=== PATIENT | female | born 1950 | race Caucasian/White ===

== ENCOUNTER → 2016-10-20 | Outpatient (CLI) | payer MEDICARE ==
[~2016-10-20] MED LIST: ALBU8.5H2 INH; BUDE6HFA IH; DIPH1TAB45 PO; HCT25T PO; HCTZ12.5T; HYDR25TA4 PO; KCL20TCR PO; LVT.1T PO; MULT1TAB63 PO; ONDAN4ODT PO; POTA10CA43 PO; PROP20TA23; PROP60CA17 PO; PROP60TA16 PO; SULF1TAB23 PO
[2016-10-20 11:40] LABS: ALANINE AMINOTRANSFERASE 25 U/L (0-55); ALBUMIN 4.3 G/DL (3.2-4.5); ANION GAP 11 MMOL/L (5-14); ASPARTATE AMINO TRANSFERASE 21 U/L (5-34); BILIRUBIN,TOTAL 0.9 MG/DL (0.1-1.0); BLOOD UREA NITROGEN 14 MG/DL (7-18); BUN/CREATININE RATIO 19; CALCIUM 10.6 MG/DL (8.5-10.1); CARBON DIOXIDE 24 MMOL/L (21-32); CHLORIDE 106 MMOL/L (98-107); CREATININE SERUM 0.73 MG/DL (0.60-1.30); GFR ESTIMATED > 60; GLUCOSE 110 MG/DL (70-105); MAGNESIUM 2.2 MG/DL (1.8-2.4); SODIUM 141 MMOL/L (135-145); TOTAL PROTEIN 7.7 G/DL (6.4-8.2)
[2016-10-20 11:59] LABS: THYROID STIMULATING HORMONE 1.17 UIU/ML (0.35-4.94)
[2016-10-20 12:12] LABS: PHOSPHORUS 2.9 MG/DL (2.3-4.7)
[2016-10-23 07:22] LABS: CALCIUM PARA THYROID HORMONE 10.4 mg/dL (8.5-10.5)
== END | disposition home or self-care (01) ==
LOC: LAB 10:44
PROVIDERS: ATTEND Internal Medicine Endocrinology, Diabetes & Metabolism
DX: E83.52 Hypercalcemia (principal)
CPT/HCPCS: 36415; 80053; 82306; 83735; 83970; 84100; 84443

== ENCOUNTER → 2017-06-19 | Outpatient (CLI) | payer MEDICARE ==
--- NOTE | 2017-06-19 11:14 | Diagnostic Imaging Report ---
PROCEDURE: MRI right joint lower extremity without contrast. TECHNIQUE: Multiplanar, multisequence non contrast-enhanced MRI of the right lower extremity was accomplished. INDICATION: Knee pain. FINDINGS: The previous MRI right knee exam of 11/20/2007 did suggest a small tear along the free edge of the midportion of the medial meniscus. The major ligaments and tendons appear to be intact. There is no sign of an acute bony abnormality. The subsequent CT right knee exam of 04/20/2016 failed to show any sign of acute bony abnormality. There was degenerative disease involving the knee joint and there did appear to be a small joint effusion containing a few calcific densities. On the proton dense sagittal series of this exam, the midportion of the medial meniscus has been torn and has partially degenerated. There is also blunting of the anterior and posterior horns of the medial meniscus and there does appear to be a tear involving the posterior horn of the medial meniscus as well. The posterior horn of the lateral meniscus also has some irregular appearance and I suspect it is torn as well. The anterior and posterior cruciate ligaments, the quadriceps and infrapatellar tendons, the collateral ligaments, the biceps femoris tendon and iliotibial band are intact. There is no sign of a tear of either medial or lateral retinaculum. There is no abnormal signal arising from the osseous structures to suggest bone edema or fracture. The degenerative changes involving the knee joint seen on the previous CT exam do not appear to have progressed. There is fairly severe degenerative disease of the articular surfaces of the medial femoral condyle and to a lesser extent the lateral femoral condyle. There is also narrowing of the patellofemoral space. The small joint effusion loose body seen on the previous study is again evident and no different. IMPRESSION: 1. The midportion of the medial meniscus has been torn and has degenerated. There is also tear of the posterior horn of the medial meniscus. The posterior horn of lateral meniscus is torn as well. 2. The major ligaments and tendons are intact. 3. There is no acute bony abnormality noted. 4. The degenerative disease involving the knee joint seen on the prior exam does not appear to have progressed. Dictated by: Dictated on workstation # [id number]
== END ==
LOC: RAD 09:07
PROVIDERS: ATTEND Orthopaedic Surgery
DX: S83.241A Other tear of medial meniscus, current injury, right knee, initial encounter (principal); S83.281A Other tear of lateral meniscus, current injury, right knee, initial encounter; M17.11 Unilateral primary osteoarthritis, right knee
CPT/HCPCS: 73721

== ENCOUNTER 2018-11-07 10:15 | Outpatient (RCR) | payer MEDICARE | END 2018-11-07 13:00 | disposition home or self-care (01) | PROVIDERS: ATTEND Neurological Surgery | DX: M47.897 Other spondylosis, lumbosacral region (principal); M46.1 Sacroiliitis, not elsewhere classified ==

== ENCOUNTER → 2018-11-26 | Outpatient (CLI) | payer MEDICARE ==
--- NOTE | 2018-11-26 15:01 | Diagnostic Imaging Report ---
INDICATION: Heel pain. FINDINGS: Lateral and Arreola views of the calcaneus reveal mild posterior and plantar calcaneal spurring. There is no evidence of an acute fracture. There is no abnormal lytic or sclerotic focus. There is no evidence of bone destruction. IMPRESSION: Marginal spurring about the posterior and plantar aspects of the calcaneus without acute abnormality detected. Dictated by: Dictated on workstation # [id number]
== END ==
LOC: RAD 14:23
PROVIDERS: ATTEND Nurse Practitioner Family
DX: M77.31 Calcaneal spur, right foot (principal)
CPT/HCPCS: 73650

== ENCOUNTER 2019-01-22 15:52 | Outpatient (RCR) | payer MEDICARE | END 2019-03-13 | disposition home or self-care (01) | PROVIDERS: ATTEND Podiatrist | DX: M77.31 Calcaneal spur, right foot (principal) ==

== ENCOUNTER → 2019-04-17 | Outpatient (CLI) | payer MEDICARE ==
--- NOTE | 2019-04-21 08:47 | Diagnostic Imaging Report ---
INDICATION: Screening The current study was also evaluated with a Computer Aided Detection (CAD) system. 3-D Tomographic imaging was also performed. Comparison made with prior examination of 11/29/2015. FINDINGS: The fibroglandular tissues are heterogeneously dense bilaterally. There are a few benign type calcifications. There is no dominant mass, spiculated lesion or suspicious calcification identified. Skin and nipples and axilla are unremarkable. IMPRESSION: Category 2 benign. ACR BI-RADS Category 2: Benign findings. Result letter will be mailed to the patient. Note: At least 10% of breast cancer is not imaged by mammography. Dictated by: Dictated on workstation # [id number]
== END ==
LOC: RAD 15:03
PROVIDERS: ATTEND Nurse Practitioner Family
DX: Z12.31 Encounter for screening mammogram for malignant neoplasm of breast (principal)
CPT/HCPCS: 77067

== ENCOUNTER 2020-02-05 05:36 | Outpatient (RCR) | payer MEDICARE ==
[~2020-02-05] VITALS: Ht 172.7 cm; Wt 104.5 kg
[~2020-02-05 05:36] MED LIST changes: +BACL10TA PO; +CHOL10002 PO; +GABA300C PO; +LEVO100T7 PO; +MULT-567 PO; +POTA10TA36 PO; +PROP60TA17 PO
== END 2020-02-05 09:42 | disposition home or self-care (01) ==
LOC: PREOP 05:36
PROVIDERS: ATTEND Podiatrist Foot & Ankle Surgery
DX: Z01.812 Encounter for preprocedural laboratory examination (principal); Z20.828 Contact with and (suspected) exposure to other viral communicable diseases
CPT/HCPCS: 87635

== ENCOUNTER 2020-02-09 06:00 | Day surgery (SDC) | payer MEDICARE ==
[2020-02-09] VITALS (11 sets, daily range): BP systolic 129–146; BP diastolic 75–101
[~2020-02-09] VITALS: Ht 172.7 cm; Wt 104.5 kg
[2020-02-09] MEDS ORDERED: ceFAZolin INJECTION 1,000 MG in WATER (STERILE) FOR INJECTION 10 ML IV ONE (06:15)
[2020-02-09] MEDS: LACTATED RINGERS 1,000 ML IV PRN ×2 (06:44→08:56)
[2020-02-09] MEDS ORDERED: LIDOCAINE 1% INJ 20 ML 20 ML VIAL ONE (07:15)
[2020-02-09] MEDS ORDERED: BUPIVACAINE 0.5% 30 ML (SENSORCAINE) VIAL ONE (07:15)
[2020-02-09] MEDS ORDERED: MIDAZOLAM 2 MG/2 ML (VERSED) VIAL ONE (07:30)
[2020-02-09] MEDS ORDERED: fentaNYL INJECTION 100 MCG/2 ML AMP ONE (07:30)
--- NOTE | 2020-02-09 07:43 | Progress Note-Pre Operative ---
Pre-Operative Progress Note H&P Reviewed The H&P was reviewed, patient examined and no changes noted. Date Seen by Provider: Feb 09, 2020 Time Seen by Provider: 07:42 Date H&P Reviewed: Feb 09, 2020 Time H&P Reviewed: 07:42 Pre-Operative Diagnosis: Achilles tendinosis, Exostosis calcaneus, right NOAH CARTER DPM Feb 09, 2020 07:43
[2020-02-09] MEDS ORDERED: LACTATED RINGERS 1,000 ML IV SCH (09:46)
--- NOTE | 2020-02-09 09:46 | Progress Note-Post Operative ---
Post-Operative Progess Note Surgeon (s)/[facility] Office Supervisor (s) Surgeon NOAH CARTER DPM [facility] Office Supervisor: None Pre-Operative Diagnosis Achilles tendinosis, Exostosis calcaneus, right Post-Operative Diagnosis Same Procedure & Operative Findings Date of Procedure 02/09/20 Procedure Performed/Findings Achilles Tendon Repair, Exostectomy, right foot Anesthesia Type General Estimated Blood Loss Estimated blood loss (mL): Minimal Specimens/Packing Specimens Removed Exostosis, Achilles Tendon NOAH CARTER DPM Feb 09, 2020 09:46
[2020-02-09] MEDS ORDERED: CEPH500C PO (09:50)
[2020-02-09] MEDS ORDERED: ACHD5005 PO (09:50)
[2020-02-09] MEDS ORDERED: morphine INJ 10 MG/ML 1ML (SYR OR VIAL) IVP ONE (10:00)
[2020-02-09] MEDS ORDERED: HYDROcodone/APAP 5 MG/325 MG (LORTAB) TAB PO PRN (10:00)
[2020-02-09] MEDS ORDERED: ONDANSETRON 4 MG/2 ML (SDV) Z0FRAN IVP PRN (10:00)
[2020-02-09] MEDS ORDERED: HYDROmorphone 2 MG/ML VIAL (DILAUDID) IV ONE (10:00)
[2020-02-09] MEDS ORDERED: morphine INJ 10 MG/ML 1ML (SYR OR VIAL) ONE (10:00)
[2020-02-09] MEDS ORDERED: proPOfol 200 MG/20 ML (DIPRIVAN) VIAL IV ONE (10:24)
[2020-02-09] MEDS ORDERED: LIDOCAINE PF 2% 5 ML (XYLOCAINE) VIAL ONE (10:24)
[2020-02-09] MEDS ORDERED: ROCURONIUM 10 MG/ML 5 ML SYRINGE IV ONE (10:24)
[2020-02-09] MEDS ORDERED: ONDANSETRON 4 MG/2 ML (SDV) Z0FRAN ONE (10:24)
[2020-02-09] MEDS ORDERED: SEVOFLURANE (ULTANE) 15 ML INHAL SOLN ONE ×2 (10:24→10:25)
--- NOTE | 2020-02-09 10:37 | Anesthesia-General Post-Op ---
General Patient Condition Mental Status/LOC: Same as Preop Cardiovascular: Satisfactory Nausea/Vomiting: Absent Respiratory: Satisfactory Pain: Controlled Complications: Absent Post Op Complications Complications None Follow Up Care/Instructions Patient Instructions None needed. Anesthesia/Patient Condition Patient Condition Patient is doing well, no complaints, stable vital signs, no apparent adverse anesthesia problems. No complications reported per nursing. WILMAR MADSEN CRNA Feb 09, 2020 10:37
[2020-02-09] MEDS ORDERED: ONDANSETRON 4 MG/2 ML (SDV) Z0FRAN IVP ONE (11:00)
--- NOTE | 2020-02-09 11:05 | Diagnostic Imaging Report ---
EXAMINATION: Right foot at 9:54 AM. INDICATION: Postop. TECHNIQUE: Two views of the right foot were obtained. FINDINGS: The right heel exam performed on 11/26/2018 noted marginal spurring about the posterior and plantar aspects of the calcaneus but failed to show any sign of an acute bony abnormality. In the interval since the prior exam, the calcified enthesophyte along the posterior aspect of the calcaneus has been removed. There are now two surgical clips evident in this area. The calcaneal spur seen previously is again evident and no different. There is no fracture or acute bony abnormality identified. The soft tissues are unremarkable. There is an external support device in place along the plantar aspect of the foot and the posterior aspect of the ankle joint. IMPRESSION: There are post operative changes involving the posterior aspect of the calcaneus. There is no acute abnormality identified. Dictated by: Dictated on workstation # [id number]
--- NOTE | 2020-02-09 11:42 | Physical Therapy Progress Note ---
Therapy Progress Note PT visited with patient and spouse on POC returning to home. Both voice they will utilize w/c to enter home with assist of spouse and son. In home, patient will utilize knee scooter and voices she will not use a FWW due to inability to safely "hop". Patient report she has been practicing on the knee scooter and feels comfortable and safe. No PT indicated. (son is also a PT and patient states he will assist as needed). 1 visit ([id number]) SALLY MCDOWELL PT Feb 09, 2020 11:42
--- NOTE | 2020-02-09 14:39 | OPERATIVE REPORT ---
DATE OF SERVICE: 02/09/2020 SURGEON: mEily Carter DPM. PREOPERATIVE DIAGNOSES: 1. Achilles tendinosis. 2. Exostosis, right calcaneus. POSTOPERATIVE DIAGNOSES: 1. Achilles tendinosis. 2. Exostosis, right calcaneus. PROCEDURES: 1. Achilles tendon repair, right. 2. Exostectomy, right calcaneus. WOUND CLASS: Clean. ANESTHESIA: General. HEMOSTASIS: Pneumatic thigh tourniquet at 300 mmHg. INDICATIONS: This 69-year-old female presents complaining of chronic pain to the back of her right heel and to the distal Achilles tendon. Conservative treatment has met with unsatisfactory results and the patient is agreeable to surgical intervention after risks and complications were discussed at length. No guarantees were extended to the patient and she is willing to proceed. DESCRIPTION OF PROCEDURE: The patient was brought back to the operating table, placed in secure supine position. A general anesthetic was induced on the transfer table after which she was securely placed in a prone position on the operating table. Appropriate timeout was performed. Local anesthetic was then introduced into the perioperative site of the right posterior calcaneus and Achilles tendon utilizing 1:1 mixture of 1% Xylocaine, 0.5% Marcaine of 12 mL total, utilizing aseptic technique. The right lower extremity had a thigh tourniquet placed. The right foot and ankle were then prepped and draped in normal sterile manner. The right foot was then elevated, allowed to exsanguinate after which the tourniquet was inflated to 300 mmHg. Attention was then directed to the posterior aspect of the right distal Achilles tendon and posterior calcaneus where a 5 cm curvilinear incision was made medial to midline and extended inferiorly and then more centrally. The incision was deepened in the same plane with great care to identify and retract all vital neurovascular structures. The incision was deepened down to the paratenon, where a longitudinal incision was made. The peritenon was reflected medially and laterally, exposing a large posterior eminence to the Achilles tendon just superior to its insertion. A longitudinal incision was made to the Achilles tendon where there is some good quality white fibrous band that was noted, but deeper it was some more yellow, dystrophic changes to the Achilles tendon. The sharp dissection was carried out to debulk the Achilles tendon and reduce the more fibrotic dystrophic fibers. These fibers were sent for gross and microscopic evaluation. The longitudinal central incision to the Achilles tendon was carried down to bone where the posterior exostosis to the calcaneus was palpated with the blade. The exostosis or bone spur was then sharply dissected away from the attachments at the Achilles tendon. Utilizing an osteotome and mallet, the exostosis was removed from the posterior calcaneus and further contoured and smoothed with a power rasp. The wound was flushed with copious amounts of normal saline. No other abnormalities to the central portion of the calcaneus posterior aspect was identified. Prior to closure; however, the tissue was reapproximated in its anatomical position and palpating along the posterior aspect of the calcaneus and Achilles tendon. There is a bony prominence to the dorsal posterior lateral aspect of the superior calcaneus consistent with a Ramandeep's deformity. Through the midline incision of the Achilles tendon, this bony prominence was visualized. Utilizing the osteotome and mallet, a portion of this bony prominence was reduced. Percutaneous palpation noted good reduction of the bony prominence. The wound was flushed with copious amounts of normal saline and closure. Next, two Mitek anchors were utilized, one was a G2. The other one was the Super Mitek anchor. These were placed to the posterior central aspect of the calcaneus, both medial and lateral to the midline. The Super was placed lateral to midline of the calcaneus. Excellent placement fixation and pullout strength was noted prior to utilizing the supplied suture to reapproximate the Achilles tendon back to the central posterior aspect of the calcaneus. The foot was then placed through dorsiflexion and plantarflexion and good anatomical position and strength was appreciated at this time. A 3-0 Vicryl was utilized to repair the midline incision to the Achilles tendon in a continuous type of stitch. Paratenon was then reapproximated with 3-0 Vicryl. Subcutaneous tissue was reapproximated with 4-0 Vicryl and skin closure with 4-0 Prolene in a horizontal mattress type stitch. Postoperative injection consisted of 10 mL of 1:1 mixture of 1% Xylocaine, 0.5% Marcaine injected in a local infusion to the surgical site. Postoperative dressing consisted of Betadine soaked Adaptic, sterile 4 x 4, sterile Kerlix, all secured with soft roll, ABDs, posterior splint and an Federico wrap. The patient tolerated the anesthesia and procedure well and was transported to the recovery area with vital signs stable and vascular status intact to all digits of the right foot. She is to remain nonweightbearing postoperatively and follow up in my office in 10 days' period of time. She was given a prescription for Keflex and hydrocodone. Job ID: [id number] DocumentID: [id number] Dictated Date: 02/09/2020 10:01:10 Machinist Mate Date: 02/09/2020 14:37:38 Dictated By: EMILY CARTER DPM
== END 2020-02-09 11:50 | disposition home or self-care (01) ==
LOC: SDC 06:00
PROVIDERS: ATTEND Podiatrist Foot & Ankle Surgery
DX: M76.61 Achilles tendinitis, right leg (principal); M89.8X7 Other specified disorders of bone, ankle and foot; G89.29 Other chronic pain; I10 Essential (primary) hypertension; E03.9 Hypothyroidism, unspecified; E66.9 Obesity, unspecified; Z68.35 Body mass index [BMI] 35.0-35.9, adult; Z79.899 Other long term (current) drug therapy
CPT/HCPCS: 27650; 28118; 73620; 87081; 88304; 88305; 88311; C1713

== ENCOUNTER → 2020-05-25 | Outpatient (CLI) | payer MEDICARE ==
[~2020-05-25] MED LIST changes: +ACHD5005 PO; +CEPH500C PO
--- NOTE | 2020-05-25 13:08 | Diagnostic Imaging Report ---
EXAMINATION: Digital mammogram bilateral screening with CAD. INDICATION: Screening. COMPARISON: This study was compared to the prior exams of 04/17/2019 and 11/29/2015. PERSONAL HISTORY: At this time, there are no current complaints. FINDINGS: The fibroglandular tissue in both breasts is heterogeneously dense. This does limit the sensitivity of this exam. Overall, there does not appear to have been any significant change when compared to the prior study. No primary or secondary sign of malignancy is noted. IMPRESSION: There is no radiographic evidence for malignancy. ACR BI-RADS Category 1: Negative. Result letter will be mailed to the patient. Note: At least 10% of breast cancer is not imaged by mammography. Dictated by: Dictated on workstation # [id number]
== END ==
LOC: RAD 09:27
PROVIDERS: ATTEND Family Medicine
DX: Z12.31 Encounter for screening mammogram for malignant neoplasm of breast (principal)
CPT/HCPCS: 77063; 77067

== ENCOUNTER → 2020-12-30 | Outpatient (RCR) | payer MEDICARE ==
[~2020-12-30] MED LIST changes: +CHOL-34 PO; -CHOL10002 PO
== END | disposition home or self-care (01) ==
PROVIDERS: ATTEND Podiatrist Foot & Ankle Surgery
DX: M76.61 Achilles tendinitis, right leg (principal); Z98.1 Arthrodesis status
CPT/HCPCS: 97162; G0283

== ENCOUNTER → 2021-02-15 | Outpatient (CLI) | payer MEDICARE ==
--- NOTE | 2021-02-15 13:48 | Diagnostic Imaging Report ---
INDICATION: Postmenopausal state, N95.9 COMPARISON: 12/02/2015 FINDINGS: AP Spine L1-L4: [BMD (g/cm2): na] [T-Score: na] [Z-Score: na] [BMD Previous: na] [BMD % Change: na] LT Hip Neck: [BMD (g/cm2): 0.873] [T-Score: -1.2] [Z-Score: -0.2] LT Hip Total: [BMD (g/cm2):0.916] [T-Score:-0.7] [Z-Score: -0.1] [BMD Previous: 0.958] [BMD % Change: -4.4] RT Hip Neck: [BMD (g/cm2):0.804] [T-Score:-1.7] [Z-Score:-0.7] RT Hip Total: [BMD (g/cm2):0.880] [T-score:-1.0] [Z-Score:-0.4] [BMD Previous:0.917] [BMD % Change:-4.0] *Indicates significant change from prior examination based on 95% confidence level. World Health Organization criteria for BMD interpretation classify patients as Normal (T-score at or above -1.0), Osteopenic (T-score between -1.0 and -2.5) or Osteoporotic (T-score at or below -2.5). LIMITATIONS AND MODIFICATION: The lumbar spine was not evaluated secondary to postsurgical changes. FRACTURE RISK (FRAX SCORE): The ten year probability of (%): Major Osteoporotic Fracture: [9.6] Hip Fracture: [1.5] IMPRESSION: 1. Osteopenia (Low bone mass). 2. No significant change in bone mineral density since prior examination. 3. See below National Osteoporosis Foundation guidelines on when to potentially initiate pharmacologic therapy. Based on the National Osteoporosis Foundation Guidelines, pharmacologic treatment should be initiated in any of the following, unless clinical conditions suggest otherwise: * Any patient with prior fragility fracture of the hip or vertebrae. A spine fracture indicates 5X risk for subsequent spine fracture and 2X risk for subsequent hip fracture. * Osteoporosis (T-score <-2.5). * Postmenopausal women and men age 50 and older with low bone mass/osteopenia (T-score between -1.0 and -2.5) by DXA and 10-year major osteoporotic fracture greater than 20% or a 10-year probability of hip fracture greater than 3%. These fracture risks are supplied above in the FRAX score, if applicable. * Clinician judgement and/or patient preferences may indicate treatment for people with 10-year fracture probabilities above or below these levels. Dictated by: Dictated on workstation # [id number]
== END ==
LOC: RAD 13:00
PROVIDERS: ATTEND Nurse Practitioner Family
DX: M85.80 Other specified disorders of bone density and structure, unspecified site (principal); N95.9 Unspecified menopausal and perimenopausal disorder
CPT/HCPCS: 77080

== ENCOUNTER → 2021-04-06 | Outpatient (CLI) | payer MEDICARE ==
[~2021-04-06] MED LIST changes: -POTA10TA36 PO; +POTA10TA37 PO
--- NOTE | 2021-04-06 13:37 | Diagnostic Imaging Report ---
PROCEDURE: MRI lumbar spine. TECHNIQUE: Multiplanar, multisequence MRI of the lumbar spine was performed without contrast. DATE: April 06, 2021. COMPARISON: MRI lumbar spine May 26, 2011. INDICATION: 70-year-old female, low back pain. History of prior spinal fusion. FINDINGS: There is posterior spinal fusion hardware spanning L1 through L5. There is associated hardware related artifact. There is partial ankylosis across the L2-L3, L3-L4, and L4-L5 disc spaces. The L5-S1 disc space is well preserved. There is moderate disc height loss at L1-L2. There is severe disc height loss at T10-T11, T11-T12, and T12-L1. There is no evidence of a diffuse marrow infiltrating process. There is no identified compression deformity or other fracture. There is chronic appearing bone remodeling on the right at the level of L4-L5. At this location, there is a lateral defect in the right thecal sac and pseudomeningocele measuring approximately 2.2 x 2.1 cm in size. This is notably increased in size since May 26, 2011. There is no adjacent marrow edema. There are degenerative related Modic changes of the lower thoracic spine. There are multilevel laminectomy changes of the lumbar spine. T10-T11: There is diffuse disc bulge. The foramen are not completely imaged. There is mild spinal stenosis. T11-T12: There is mild diffuse disc bulge with mild right foraminal narrowing. There is no high-grade spinal stenosis. T12-L1: There is diffuse disc bulge. There are mild bilateral facet degenerative changes with mild ligamentum flavum hypertrophy. There is no foraminal stenosis. There is moderate spinal stenosis. L1-L2: There is no disc bulge. There are bilateral laminectomy changes. There is no foraminal narrowing. There is no spinal canal stenosis. L2-L3: There is no disc bulge. There are bilateral laminectomy changes. There is no foraminal narrowing. There is no spinal canal stenosis. L3-L4: There is no disc bulge. There are bilateral laminectomy changes. There is no foraminal narrowing. There is no spinal canal stenosis. L4-L5: There is no disc bulge. There are bilateral laminectomy changes. As mentioned above, there is right lateral pseudomeningocele. There does appear to be a nerve root extending lateral to the expected margin of the thecal sac within the pseudomeningocele, perhaps best demonstrated on axial T2 sequence image 23. There is no foraminal narrowing. There is no spinal canal stenosis. L5-S1: There is mild diffuse disc bulge. There are advanced facet degenerative changes bilaterally. There is no foraminal narrowing. There is mild spinal canal stenosis. IMPRESSION: 1. Posterior spinal fusion hardware spanning L1 through L5 with multilevel laminectomy changes of the lumbar spine. 2. 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 There is a nerve root extending into the pseudomeningocele. This is a change since the prior MRI. 3. Advanced disc degenerative changes of the lower thoracic spine including moderate spinal stenosis at T12-L1. Dictated by: Dictated on workstation # [id number]
== END ==
LOC: RAD 12:01
PROVIDERS: ATTEND Family Medicine
DX: M48.05 Spinal stenosis, thoracolumbar region (principal); M51.35 Other intervertebral disc degeneration, thoracolumbar region; G96.198 Other disorders of meninges, not elsewhere classified; Z98.1 Arthrodesis status
CPT/HCPCS: 72148

== ENCOUNTER 2021-09-26 16:11 | Inpatient (IN) | payer MEDICARE ==
[~2021-09-26] VITALS: Ht 172.7 cm; Wt 111.1 kg
[2021-09-26 16:20] VITALS: BP 123/80
[2021-09-26] MEDS ORDERED: BACI28.4 TP (16:27)
[2021-09-26] MEDS ORDERED: HYDR-3817 PO ×2 (16:27→17:33)
[2021-09-26] MEDS ORDERED: ALPRAZolam 0.25 MG (XANAX) TAB PO PRN (16:45)
[2021-09-26] MEDS ORDERED: LACTULOSE SYRUP 10GM/15ML (ENULOSE) 30ML UDC PO PRN (16:45)
[2021-09-26] MEDS ORDERED: diphenhydrAMINE 25 MG TAB (BENADRYL) PO PRN (16:45)
[2021-09-26] MEDS ORDERED: DOCUSATE SODIUM 100 MG (COLACE) CAP PO PRN (16:45)
[2021-09-26] MEDS ORDERED: BISACODYL 10 MG SUPP (DULCOLAX) PR PRN (16:45)
[2021-09-26] MEDS ORDERED: LOPERAMIDE 2 MG (IMODIUM) TABLET PO PRN (16:45)
[2021-09-26] MEDS ORDERED: guaiFENesin/CODEINE (ROBITUSSIN AC) 10ML UDC PO PRN (16:45)
[2021-09-26] MEDS ORDERED: ACETAMINOPHEN 325 MG TABLET PO PRN (16:45)
[2021-09-26] MEDS ORDERED: MELATONIN 3 MG TABLET PO PRN (16:45)
[2021-09-26] MEDS ORDERED: FLEET ENEMA ADULT 1 EA BTL PR PRN (16:45)
[2021-09-26] MEDS ORDERED: CALCIUM CARBONATE 500 MG (TUMS) TAB.CHEW PO PRN (16:45)
[2021-09-26] MEDS ORDERED: HYDROcodone/APAP 7.5 MG/325 MG (LORTAB, LORCET PLUS) TABLET PO SCH (17:30)
[2021-09-26] MEDS ORDERED: BACITRACIN OINTMENT 28 GM TUBE TP SCH (17:30)
--- NOTE | 2021-09-26 17:56 | PM&R Post Admission Assessment ---
PM&R Date of Visit: September 26, 2021 Time of Visit: 18:30 History of Present Illness Chief complaint: Debility following lumbar spine surgery by Dr. Gaytan at [facility] History of present illness: This is a 70-year-old white female clinic patient of Dr. Bonilla and Dr. López endocrinology who presented to the inpatient rehab unit following discharge from [facility] 1 hour before after lumbar spine surgery by Dr. Gaytan. She reports that she did not feel like she was ready to go home but was discharged and on the way over to [place] she knew she could not function at home due to severe pain and lack of mobility. They stopped into the ER at [facility] and upon evaluation patient was found to be in need of inpatient rehab admission emergently so patient was assessed and admitted for severe debility. Patient reports that her bowels are moving a little bit but needs more laxatives. Hydrocodone helps with the pain. Patient does not use oxygen or CPAP machine. I have restarted all of her home medication and pain medication. She still works part-time at her 's car [employer]. Past Kbxgpie-Xoqfng-Fvkpjw Hx Past Med/Social Hx: Reviewed Nursing Past Med/Soc Hx, Reviewed and Corrections made Patient Social History Marrital Status: Employed/Student: employed Alcohol Use: Occasionally Uses Smoking Status: Never a Smoker Recent Hopitalizations: No Immunizations Up To Date Date of Influenza Vaccine: Apr 20, 2011 Seasonal Allergies Seasonal Allergies: Yes Past Medical History Surgeries: Orthopedic, Thyroidectomy Cardiac: Hypertension Reproductive: No Gastrointestinal: Gall Bladder Disease Musculoskeletal: Arthritis Endocrine: Hypothyroidsim History of Blood Disorders: No Family History Cancer of colon 19 FATHER, Onset:59 Congestive heart failure G8 SISTER Family history: Diabetes mellitus G8 SISTER Family history: Hypertension 19 FATHER 19 MOTHER Family history: Thyroid disorder 19 MOTHER Kidney disease G8 SISTER PM&R Allergy/Meds/Data Review Allergies Coded Allergies: NKANo Known Allergies (Unverified Allergy, Unknown, 08/08/06) Home Medications Scheduled Bacitracin (Bacitracin), 1 GM TP Q48H Cholecalciferol (Vitamin D3) (Vitamin D3), 1,000 UNITS PO DAILY, (Reported) Gabapentin (Neurontin), 300 MG PO HS, (Reported) Hydrochlorothiazide (Hydrochlorothiazide), 25 MG PO DAILY, (Reported) Levothyroxine Sodium (Levothyroxine Sodium), 100 MCG PO DAILY, (Reported) Potassium Chloride (Potassium Chloride), 10 MEQ PO DAILY, (Reported) Propranolol HCl (Propranolol HCl), 60 MG PO DAILY, (Reported) Scheduled PRN Baclofen (Baclofen), 10 MG PO q 8 hours PRN for MUSCLE SPASMS, (Reported) Hydrocodone/Acetaminophen (Hydrocodone-Acetamin 7.5-325), 1-2 TAB PO Q4H PRN for PAIN Discontinued Medications Cephalexin (Cephalexin), 1 CAP PO TID Discontinued Reason: No Longer Taking Hydrocodone/Acetaminophen (Hydrocodone-Acetamin 5-325 mg), 1 EACH PO Q4H PRN for PAIN-MODERATE (5-7) Discontinued Reason: No Longer Taking Multivitamin (Multivitamins), 1 EACH PO DAILY, (Reported) Discontinued Reason: No Longer Taking Current Medications Current Medications Reviewed Review of Systems Constitutional: see HPI, malaise, weakness EENTM: no symptoms reported Respiratory: no symptoms reported Cardiovascular: no symptoms reported Gastrointestinal: constipation Genitourinary: no symptoms reported Musculoskeletal: back pain Skin: no symptoms reported Psychiatric/Neurological: No Symptoms Reported All Other Systems Reviewed Negative Unless Noted: Yes Physical Exam Physical Exam Vital Signs Vital Signs - First Documented 09/26/21 16:20 Temp 37.0 Pulse 68 Resp 18 B/P (MAP) 123/80 (94) Pulse Ox 95 O2 Delivery Room Air Capillary Refill : Height, Weight, BMI Height: 5'8.00" Weight: 220lbs. 6.4oz. [id number]; 36.61 BMI Method:Stated General Appearance: No Apparent Distress, WD/WN, Obese Eyes: Bilateral Eye Normal Inspection, Bilateral Eye PERRL HEENT: PERRL/EOMI, Normal ENT Inspection, Pharynx Normal Neck: Full Range of Motion, Normal Inspection, Non Tender, Supple, Carotid Bruit Respiratory: Chest Non Tender, Lungs Clear, Normal Breath Sounds, No Accessory Muscle Use, No Respiratory Distress Cardiovascular: Regular Rate, Rhythm, No Edema, No Gallop, No JVD, No Murmur, Normal Peripheral Pulses Gastrointestinal: Normal Bowel Sounds, No Organomegaly, No Pulsatile Mass, Non Tender, Soft Back: CVA Tenderness (L), CVA Tenderness (R), Decreased Range of Motion, Muscle Spasm, Vertebral Tenderness Extremity: Normal Capillary Refill, Normal Inspection, Normal Range of Motion, Non Tender, No Calf Tenderness, No Pedal Edema Neurologic/Psychiatric: Alert, Oriented x3, Normal Mood/Affect, pipeman II-XII Norm as Tested, Abnormal Gait, Motor Weakness (Lower extremities 4/5) Skin: Normal Color, Warm/Dry Lymphatic: No Adenopathy PM&R Medical Assessment & Plan REHAB/MEDICAL ASSESSMENT AND PLAN: REHAB IMPAIRMENT GROUP: Lumbar spine stenosis ETIOLOGIC DIAGNOSIS: Lumbar spine stenosis The comorbidities that impact the patients function and/or functional outcome by: Obesity, hypothyroidism, severe lack of mobility REHAB PLAN: The patient is being admitted to our comprehensive inpatient rehabilitation facility and can tolerate the intensity of service consisting of at least: 180 minutes of therapy a day, 5 out of 7 days a week Rehab treatment will consist of: PT and OT will focus on regaining function with assistive devices while treating pain in order to return back to independent living The patient/family has a good understanding of our discharge process and will benefit from an interdisciplinary inpatient rehabilitation program. The patient has potential to make improvement and is in need of at least two of the following multidisciplinary therapies including but not limited to physical, occupational, speech, and prosthetics and orthotics. Additionally the patient will need services from respiratory, nutritional services, wound care, psychology, etc. (Customize this to each patient). Given the patients complex condition and risk of further medical complications, rehabilitation services cannot be safely or effectively provided at a lower level of care such as a chcf facility. BARRIERS TO DISCHARGE: Severe back pain ESTIMATED LOS: 7 days all DISPOSITION: Home RELEVANT CHANGES SINCE PREADMISSION SCREENING: I have compared the patients medical and functional status at the time of the preadmission screening and there are: no changes PROGNOSIS: Good REHABILITATION GOALS: 1. PT and OT will focus on regaining function with assistive devices while treating pain in order to return back to independent living All the above goals were reviewed with the patient and he/she is in agreement. By signing this document, I acknowledge that I have personally performed a full physical examination on this patient within 24 hours of admission to this inpatient rehabilitation facility and have determined the patient to be able to tolerate the above course of treatment at an intensive level for a reasonable period of time. I will be completing a detailed individualized Plan of Care for this patient by day #4 of the patients stay based upon the Preadmission Screen, the Post-Admission Evaluation, and the therapy evaluations. Admission Dx/Comorbidities: (1) Lumbar spinal stenosis ICD Codes: M48.061 - Spinal stenosis, lumbar region without neurogenic stephen ication (2) Immobility ICD Codes: Z74.09 - Other reduced mobility (3) Constipation ICD Codes: K59.00 - Constipation, unspecified (4) Hypothyroidism ICD Codes: E03.9 - Hypothyroidism, unspecified (5) Hypertension ICD Codes: I10 - Essential (primary) hypertension Assessment/Plan Assessment and Plan Assess & Plan/Chief Complaint Assessment: Status post lumbar spine surgery Severe immobility due to pain Hypothyroidism Hypertension Increased BMI Postop constipation Plan: Aggressive rehab Pain meds Laxatives MYRIAM GARCIA DO September 26, 2021 17:56
[2021-09-26] MEDS: polyethylene glycoL POWDER 17 GM (MIRALAX) PACK PO SCH (20:06)
[2021-09-26 20:29] VITALS: BP 123/76
[2021-09-26] MEDS: GABAPENTIN 300 MG (NEURONTIN) CAP PO SCH (21:15)
[2021-09-26] MEDS: SENNA W/DOCUSATE (SENOKOT S) TABLET PO SCH (21:15)
[2021-09-26] MEDS: DOCUSATE SODIUM 100 MG (COLACE) CAP PO SCH (21:15)
[2021-09-26] MEDS: HYDROcodone/APAP 7.5 MG/325 MG (LORTAB, LORCET PLUS) TABLET PO PRN (23:10)
[2021-09-27 05:41] LABS: BASOPHILS # (AUTO) 0.1 10^3/uL (0.0-0.1); BASOPHILS % (AUTO) 1 % (0-10); EOSINOPHILS # (AUTO) 0.3 10^3/uL (0.0-0.3); EOSINOPHILS % (AUTO) 3 % (0-10); HEMATOCRIT 35 % (35-52); HEMOGLOBIN 11.4 g/dL (11.5-16.0); LYMPHOCYTES # (AUTO) 3.4 10^3/uL (1.0-4.0); LYMPHOCYTES % (AUTO) 36 % (12-44); MEAN CORPUSCULAR HEMOGLOBIN 31 pg (25-34); MEAN CORPUSCULAR HGB CONC 33 g/dL (32-36); MEAN CORPUSCULAR VOLUME 95 fL (80-99); MONOCYTES # (AUTO) 0.8 10^3/uL (0.0-1.0); MONOCYTES % (AUTO) 9 % (0-12); NEUTROPHILS # (AUTO) 4.7 10^3/uL (1.8-7.8); NEUTROPHILS % (AUTO) 51 % (42-75); PLATELET COUNT 373 10^3/uL (130-400); WHITE BLOOD COUNT 9.3 10^3/uL (4.3-11.0)
--- NOTE | 2021-09-27 06:01 | PM&R Progress Note ---
Subjective HPI/CC On Admission Date Seen by Provider: September 27, 2021 Time Seen by Provider: 10:00 Subjective/Events-last exam 09/27/2021: Pt had a pretty rough night Pain is an issue Two people provided therapy today at the same time Dressing changes everything looks good on the surgical incision Bowels haven't moved and she is having some bloating, so will check KUB to confirm ileus and change to clear liquid diet Review of Systems General: Fatigue Musculoskeletal: back pain Objective Exam Vital Signs Vital Signs Date Time Temp Pulse Resp B/P (MAP) Pulse Ox O2 Delivery O2 Flow Rate FiO2 09/27/21 20:00 95 Room Air 09/27/21 19:21 36.7 61 16 124/81 (95) Capillary Refill : General Appearance: No Apparent Distress, WD/WN, Obese HEENT: PERRL/EOMI, Normal ENT Inspection, Pharynx Normal Neck: Full Range of Motion, Normal Inspection, Non Tender, Supple, Carotid Bru it Respiratory: Chest Non Tender, Lungs Clear, Normal Breath Sounds, No Accessory Muscle Use, No Respiratory Distress Cardiovascular: Regular Rate, Rhythm, No Edema, No Gallop, No JVD, No Murmur, Normal Peripheral Pulses Gastrointestinal: Normal Bowel Sounds, No Organomegaly, No Pulsatile Mass, Non Tender, Soft Back: CVA Tenderness (L), CVA Tenderness (R), Decreased Range of Motion, Muscle Spasm, Vertebral Tenderness Extremity: Normal Capillary Refill, Normal Inspection, Normal Range of Motion, Non Tender, No Calf Tenderness, No Pedal Edema Neurologic/Psychiatric: Alert, Oriented x3, Normal Mood/Affect, carpenter assistant II-XII Norm as Tested, Abnormal Gait, Motor Weakness (Lower extremities 4/5) Skin: Normal Color, Warm/Dry Lymphatic: No Adenopathy Results/Procedures Lab Patient resulted labs reviewed. FIM Transfers Therapy Code Descriptions/Definitions Functional [place] Measure: 0=Not Assessed/NA 4=Minimal Assistance 1=Total Assistance 5=Supervision or Setup 2=Maximal Assistance 6=Modified [place] 3=Moderate Assistance 7=Complete IndependenceSCALE: Activities may be completed with or without assistive devices. 4-Cadtbxowmv-jtmfxge completes the activity by him/herself with no assistance from a helper. 5-Set-up or Clean-up Assistance-helper sets up or cleans up; patient completes activity. [place] assists only prior to or following the activity. 4-Supervision or Touching Assistance-helper provides verbal cues and/or touching/steadying and/or contact guard assistance as patient completes activity. Assistance may be provided throughout the activity or intermittently. 3-Partial/Moderate Assistance-helper does LESS THAN HALF the effort. [place] lifts, holds or supports trunk or limbs, but provides less than half the effort. 2-Substantial/Maximal Assistance-helper does MORE THAN HALF the effort. [place] lifts or holds trunk or limbs and provides more than half the effort. 3-Kumamwmky-yqixgu does ALL the effort. Patient does none of the effort to complete the activity. Or, the assistance of 2 or more helpers is required for the patient to complete the activity. If activity was not attempted, code reason: 7-Patient Refused. 9-Not Applicable-not attempted and the patient did not perform the activity before the current illness, exacerbation or injury. 10-Not Attempted due to Environmental Limitations-(lack of equipment, weather restraints, etc.). 88-Not Attempted due to Medical Conditions or Safety Concerns. Assessment/Plan Assessment and Plan Assess & Plan/Chief Complaint Assessment: Status post lumbar spine surgery Severe immobility due to pain Hypothyroidism Hypertension Increased BMI Postop constipation Postop ileus diagnosed 09/27/2021 placed on clear liquid diet Plan: Aggressive rehab Pain meds Laxatives 09/27/2021: Supportive care Aggressive rehab KUB Clear liquids (1) Lumbar spinal stenosis (2) Immobility (3) Constipation (4) Hypothyroidism (5) Hypertension MYRIAM GARCIA DO September 27, 2021 06:01
[2021-09-27 06:12] LABS: ALBUMIN 3.2 GM/DL (3.2-4.5); BILIRUBIN,TOTAL 0.8 MG/DL (0.1-1.0); CREATININE SERUM 0.69 MG/DL (0.60-1.30); TOTAL PROTEIN 6.3 GM/DL (6.4-8.2)
[2021-09-27] MEDS: HYDROcodone/APAP 7.5 MG/325 MG (LORTAB, LORCET PLUS) TABLET PO PRN ×3 (06:44→19:19)
[2021-09-27 07:49] VITALS: BP 132/79
[2021-09-27] MEDS: KCL 10 MEQ TAB (MICRO K) PO SCH (08:51)
[2021-09-27] MEDS: VITAMIN D3 25 MCG (1,000 UNITS) TABLET PO SCH (08:51)
[2021-09-27] MEDS: LEVOTHYROXINE 100 MCG (LEVOTHROID) TAB PO SCH (08:51)
[2021-09-27] MEDS: PROPRANOLOL 20 MG (INDERAL) TABLET PO SCH (08:51)
[2021-09-27] MEDS: SENNA W/DOCUSATE (SENOKOT S) TABLET PO SCH ×2 (09:03→21:17)
[2021-09-27] MEDS: polyethylene glycoL POWDER 17 GM (MIRALAX) PACK PO SCH ×2 (09:03→21:17)
[2021-09-27] MEDS: BACITRACIN OINTMENT 28 GM TUBE TP SCH (09:03)
[2021-09-27] MEDS: DOCUSATE SODIUM 100 MG (COLACE) CAP PO SCH ×2 (09:03→21:17)
--- NOTE | 2021-09-27 09:07 | Occupational Therapy Eval ---
OT Evaluation-General/PLF Medical Diagnosis Admission Date September 26, 2021 at 16:19 Medical Diagnosis: debility s/p back sx Onset Date: September 19, 2021 Therapy Diagnosis Therapy Diagnosis: decreased ADL status, weakness Height/Weight Height (Feet): 5 Height (Inches): 8.00 Weight (Pounds): 220 Weight (Ounces): 6.4 Precautions Precautions/Isolations: Fall Prevention, Standard Precautions Comments Back precautions, no back brace. No lifting over 15 pounds for 6 weeks. No excessive bending, lifting or twisting. Pt may shower after surgery, until she is seen in office and nellie have been removed, cover dressings/wounds with plastic and tape. Referral Physician: Christina Referral Reason: Evaluation/Treatment Medical History Additional Medical History Surgeries: Orthopedic, Thyroidectomy Cardiac: Hypertension Reproductive: No Gastrointestinal: Gall Bladder Disease Musculoskeletal: Arthritis Endocrine: Hypothyroidsim Current History Pt had lumbar spinal surgery 09/19/21, discharged from [facility] 09/26/21 for 1 hour. She knew she was unable to function at home due to severe pain and lack of mobility, so pt went to [facility] ED, found to be in need of inpatient rehab, so admitted emergently to ARU for severe debility. Social History Home: Single Level Current Living Status: Spouse Entry Into Home: Stairs With Railing Steps Into Home: 5 Pt has 5 steps into her house, 2 sets of 2 and 1 set of 1. Hand rails only on 2 steps. ADL-Prior Level of Function SCALE: Activities may be completed with or without assistive devices. 2-Kjpyccmgnc-mkhqkap completes the activity by him/herself with no assistance from a helper. 5-Set-up or Clean-up Assistance-helper sets up or cleans up; patient completes activity. [place] assists only prior to or following the activity. 4-Supervision or Touching Assistance-helper provides verbal cues and/or touching/steadying and/or contact guard assistance as patient completes activity. Assistance may be provided throughout the activity or intermittently. 3-Partial/Moderate Assistance-helper does LESS THAN HALF the effort. [place] lifts, holds or supports trunk or limbs, but provides less than half the effort. 2-Substantial/Maximal Assistance-helper does MORE THAN HALF the effort. [place] lifts or holds trunk or limbs and provides more than half the effort. 6-Khytwamsa-hculqj does ALL the effort. Patient does none of the effort to complete the activity. Or, the assistance of 2 or more helpers is required for the patient to complete the activity. If activity was not attempted, code reason: 7-Patient Refused. 9-Not Applicable-not attempted and the patient did not perform the activity before the current illness, exacerbation or injury. 10-Not Attempted due to Environmental Limitations-(lack of equipment, weather restraints, etc.). 88-Not Attempted due to Medical Conditions or Safety Concerns. ADL PLOF Comments Pt reports IND with ADLs and functional mobility at PLOF, using cane PRN for pain. She has a walk in shower with SC. Self Care: Independent Functional Cognition: Independent DME/Equipment Comments cane OT Current Status Subjective Pt agreeable to OT tx, then OT/PT cotreat Mental Status/Objective Patient Orientation: Person, Place, Time, Situation Current Glasses/Contacts: No Hearing Aids: No Dentures/Partials: No Hand Dominance: Right Upper Extremity ROM WFL Upper Extremity Coordination WFL Upper Extremity Sensation WFL Upper Extremity Strength grossly 3+/5 ADL-Treatment Eating (QC): 6 Oral Hygiene (QC): 5 Shower/Bathe Self (QC): 2 (Per clinical judgment, pt would require assistance with LB due to back precautions and difficulty with figure 4 crossover method.) Upper Body Dressing (QC): 4 (Supervision) Lower Body Dressing (QC): 2 (Max A overall would be required due to back precautions and difficulty using figure 4 crossover method.) On/Off Footwear (QC): 2 (Max A doffing/donning gripper socks.) Toileting Hygiene (QC): 3 (Pt would require assistance with hygiene and some assistance in standing during pant hike.) Other Treatments OT evaluation complete, OT/PT cotreat due to skill of 2 clinicians required which a workplace rehabilitation officer could not perform in order to coordinate UE/LEs, decrease fall risk, and due to pt's limitations in pain, mobility, activity tolerance, and strength. OT focused on UE placement, cues for sequencing and safety, and ADLs, PT focused on LE placement, gross overall movement, transfers and mobility. Pt seated in recliner, donned loin puller dress, then used FWW to perform functional mobility/transfers including uneven surface, 1 step, and car transfer. Pt required increased time with all movements, and some encouragement to complete tasks due to her pain level. Pt attempted footwear, had difficulty completing figure 4 method due to back precautions. Max A overall required with task. OT educated pt on AE for LE dressing, requiring mod A with AE. Pt used FWW to return to her room, transferring to bed, then supine. Pt able to recall 2/3 back precautions, education also provided on log roll technique. Post tx, pt in bed, call light in reach and all needs met. Mod A supine to/from sit and rolling, min A sit to/from stand, CGA transfers, 120' with FWW CGA .Pt requires increased time due to pain and cues for hand placement and safety. Education OT Patient Education: Correct positioning, Energy conservation, Modified ADL techniques, Progress toward Goal/Update tx plan, Purpose of tx/functional activities, Rehab process Teaching Recipient: Patient Teaching Methods: Discussion Response to Teaching: Verbalize Understanding OT Short Term Goals Short Term Goals Time Frame: October 11, 2021 Toileting hygiene: 4 Shower/bathe self: 4 Lower body dressin Putting on/taking off footwear: 4 OT Layer Off Goals Usp Goals Time Frame: Oct 21, 2021 Eating (QC): 6 Oral Hygiene (QC): 6 Toileting Hygiene (QC): 6 Shower/Bathe Self (QC): 5 Upper Body Dressing (QC): 6 Lower Body Dressing (QC): 6 On/Off Footwear (QC): 6 Additional Goals: 1-Demonstrate ADL Tasks, 2-Verbalize Understanding, 3- ImproveStrength/Fede 1=Demonstrate adherence to instructed precautions during ADL tasks. 2=Patient will verbalize/demonstrate understanding of assistive devices/modifications for ADL. 3=Patient will improve strength/tolerance for activity to enable patient to perform ADL's. OT Education/Plan Problem List/Assessment Assessment: Decreased Activ Tolerance, Decreased UE Strength, Impaired Funct Ba dara, Impaired I ADL's, Impaired Self-Care Skills Discharge Recommendations Plan/Recommendations: Continue POC Equpiment Recommendations-D/C: Hip Kit Treatment Plan/Plan of Care Patient would benefit from OT for education, treatment and training to promote independence in ADL's, mobility, safety and/or upper extremity function for ADL's. Plan of Care: ADL Retraining, Functional Mobility, Group Exercise/Act as Ind, UE Funct Exercise/Act Treatment Duration: Oct 21, 2021 Frequency: At least 5 of 7 days/Wk (IRF) Estimated Hrs Per Day: 1.5 hours per day Agreement: Yes Rehab Potential: Fair Time/GCodes Start Time: 07:50 Stop Time: 09:15 Total Time Billed (hr/min): 75 Billed Treatment Time 0064-2637 OT eval, [id number] PT eval (not billed), [id number] OT/PT cotreat 1, EVM (10'), ADL (20'), FA 3 (45') ALLA PERAZA OT September 27, 2021 09:07
--- NOTE | 2021-09-27 09:12 | Physical Therapy Evaluation ---
PT Evaluation-General Medical Diagnosis Admission Date September 26, 2021 at 16:19 Medical Diagnosis: debility s/p lumbar spine surg Onset Date: September 19, 2021 Therapy Diagnosis Therapy Diagnosis: impaired mobility Height/Weight Height (Feet): 5 Height (Inches): 8.00 Weight (Pounds): 220 Weight (Ounces): 6.4 Precautions Precautions/Isolations: Fall Prevention, Standard Precautions Referral Physician: Ana Vasquez DO Reason for Referral: Evaluation/Treatment Medical History Additional Medical History Past Medical History Surgeries: Orthopedic, Thyroidectomy Cardiac: Hypertension Reproductive: No Gastrointestinal: Gall Bladder Disease Musculoskeletal: Arthritis Endocrine: Hypothyroidsim History of Blood Disorders: No Reviewed History: Yes Social History Home: Single Level Current Living Status: Spouse Entry Into Home: Stairs With Railing PT Steps Into Home: 5 Prior Prior Level of Function SCALE: Activities may be completed with or without assistive devices. 7-Egxtzxcjuq-ampiswc completes the activity by him/herself with no assistance from a helper. 5-Set-up or Clean-up Assistance-helper sets up or cleans up; patient completes activity. [place] assists only prior to or following the activity. 4-Supervision or Touching Assistance-helper provides verbal cues and/or touching/steadying and/or contact guard assistance as patient completes activity. Assistance may be provided throughout the activity or intermittently. 3-Partial/Moderate Assistance-helper does LESS THAN HALF the effort. [place] lifts, holds or supports trunk or limbs, but provides less than half the effort. 2-Substantial/Maximal Assistance-helper does MORE THAN HALF the effort. [place] lifts or holds trunk or limbs and provides more than half the effort. 0-Cmavvcjxz-bwmdev does ALL the effort. Patient does none of the effort to complete the activity. Or, the assistance of 2 or more helpers is required for the patient to complete the activity. If activity was not attempted, code reason: 7-Patient Refused. 9-Not Applicable-not attempted and the patient did not perform the activity before the current illness, exacerbation or injury. 10-Not Attempted due to Environmental Limitations-(lack of equipment, weather restraints, etc.). 88-Not Attempted due to Medical Conditions or Safety Concerns. Bed Mobility: 6 Transfers (B,C,W/C): 6 Gait: 6 Stairs: 6 Indoor Mobility (Ambulation): Independent Stairs: Independent PT Evaluation-Current Subjective Patient in recliner pre tx, agrees to PT, has 8/10 pain in low back. Will be co-treating with OT for part of tx due to poor patient mobility, strength, endurance, severe pain with activity, coordinate UE and LE with activity, safety and reduce risk of falls. Pt/Family Goals to be independent at home. Objective Patient Orientation: Person, Place, Situation no back brace ROM/Strength ROM Lower Extremities WNL Strength Lower Extremities LLE (hip flexion 3+/5, knee flexion 4/5, knee extension 4+/5, dorsiflexion 4+/5), RLE (hip flexion 3+/5, knee flexion 4/5, knee extension 4+/5, dorsiflexion 4+/5) Sensory Hearing: Functional Sensation Right Lower Extremit: Intact Sensation Left Lower Extremity: Intact Transfers Roll Left & Right (QC): 3 Sit to Lying (QC): 3 Lying to Sitting/Side of Bed(Q: 3 Sit to Stand (QC): 3 Chair/Kwf-xg-Pfccs Xfer(QC): 4 Toilet Transfer (QC): 4 Car Transfer (QC): 3 Patient performs rolling and supine <-> sit with mod assist, sit <-> stand min a ssist, transfers CGA, car transfer mod assist. Patient needs extra time due to pain and cues for hand placement and safety. Gait Does the Patient Walk?: Yes Mode of Locomotion: Walk Anticipated Mode of Locomotion: Walk Walk 10 feet (QC): 4 Walk 50 ft with 2 Turns(QC): 4 Walk 150 ft (QC): 88 Walking 10ft/uneven surface-QC: 4 Distance: 120', 60'x2 Gait Assistive Device: FWW Comments/Gait Description Patient can ambulate 120' with a rolling walker with CGA (including 50' with at least 2 turns of 90 degrees and 10' over an uneven surface), ambulation is very slow, antalgic Wheelchair Training Does the Pt Use a Wheelchair?: No Wheel 50 ft with 2 turns (QC): 9 Wheel 150 ft (QC): 9 Stairs #of Steps: 1 1 Step (curb) (QC): 4 4 Steps (QC): 88 12 Steps (QC): 88 Walking Assistive Device: Walker Patient can go up and down 1 step using a rolling walker with CGA, close guarding and cues for foot placement Balance Sitting Static: Normal Sitting Dynamic: Normal Standing Static: Good Standing Dynamic: Good Picking up an Object (QC): 4 (with extra long production operations engineer) Treatment PT performed bed mobility and transfers, ambulation, stair training, standing and positioning during dressing, OT performed dressing, UE positioning and safety during activity Assessment/Needs Patient in bed post tx with nurse call, phone, tray, all needs met. Patient has impaired mobility and severe pain with activity. 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 Skilled Nursing Goals PT Skilled Nursing Goals Time Frame: Oct 18, 2021 Roll Left & Right (QC): 4 (SBA) Sit to Lying (QC): 4 (SBA) Lying-Sitting on Side/Bed(QC): 4 (SBA) Sit to Stand (QC): 6 Chair/Qql-tl-Lzzcs Xfer(QC): 6 Toilet Transfer (QC): 6 Car Transfer (QC): 4 (SBA) Does the Patient Walk: Yes Walk 10 feet (QC): 6 Walk 50ft with 2 Turns (QC): 6 Walk 150 ft (QC): 6 Walking 10ft on Uneven Surface: 4 (SBA) 1 Step (curb) (QC): 4 (SBA) 4 Steps (QC): 4 (SBA) 12 Steps (QC): 88 Picking up an Object (QC): 6 Wheel 50 feet with 2 turns (QC: 9 Wheel 150 feet: 9 PT Plan Problem List Problem List: Activity Tolerance, Functional Strength, Safety, Balance, Gait, Transfer, Bed Mobility, ROM Treatment/Plan Treatment Plan: Continue Plan of Care Treatment Plan: Bed Mobility, Education, Functional Activity Fede, Functional Strength, Group Therapy, Gait, Safety, Therapeutic Exercise, Transfers Treatment Duration: Oct 18, 2021 Frequency: At least 5 of 7 days/Wk (IRF) Estimated Hrs Per Day: 1.5 hours per day Patient and/or Family Agrees t: Yes Safety Risks/Education Patient Education: Gait Training, Transfer Techniques, Steps, Correct Positioning, Safety Issues Teaching Recipient: Patient Teaching Methods: Demonstration, Discussion Response to Teaching: Reinforcement Needed Discharge Recommendations Plan Patient will perform bed mobility and transfer training, balance and endurance training, functional strengthening, stair training, gait training, and education, to improve functional mobility and independence at home. Therapy Discharge Recommendati: Home & Family, Post Acute PT Time/GCodes Time In: 799 Time Out: 914 Total Billed Treatment Time: 75 Total Billed Treatment 1 visit EVM 10' FA 65' PT eval from [id number], co-treat from [id number] LYNNETTE NEFF PT September 27, 2021 09:12
--- NOTE | 2021-09-27 10:50 | ST Cognitive Linguistic Eval ---
Speech Evaluation-General Medical Diagnosis Debility s/p Lumbar Spine Surgery Onset Date: September 19, 2021 Therapy Diagnosis Therapy Diagnosis: Intact Neurocognitive Skills Precautions Precautions: Fall Precautions/Isolations: Fall Prevention, Standard Precautions Referral Referring Physician: Dr. Ana Vasquez Reason for Referral: Evaluation/Treatment Medical History Current History The patient is a 70 year-old female with a past medical history of HTN and arthritis, who presented to the ARU unit following lumbar spine surgery by Dr. Gaytan. Reviewed History: Yes Social History Current Living Status: Spouse Speech PLF-Current Status Prior Level of Function The patient denied prior or current challenges with her speech, language, or cognition. Subjective The patient was lying in bed, awake and alert upon entrance to her room by the clinician. The patient greeted the clinician appropriately and was agreeable to participation in the cognitive linguistic evaluation. Language Eval: Auditory Comprehends Simple Yes/No Ques: Functional Indent/Objects Multiple [place]: Functional Ident/Pics in Multiple [place]: Functional Follows 1-Step Commands: Functional Follows Complex Directions: Functional Follows General Conversations: Functional Language Eval: Verbal Language Completes Spontaneous Greeting: Functional Produces Auto, Serial Info: Functional Imitates Simple Words/Phrases: Functional Word Finding: Functional Requests Basic Needs: Functional States Basic Personal Info: Functional Expresses Complex Ideas: Functional Language Evaluation: Reading Follows Simple Written Direct: Functional Language Evaluation: Writing Writes to Simple Dictation: Functional Cognitive Patient Orientation The patient was independently oriented to self, location, month, day of week, date, and year. Objective Cognitive Domain Attention: WNL Memory: WNL Problem Solving: Functional Executive Functions: WNL Visuospatial Skills: WNL Composite Severity Rating: WNL Clock Drawing Severity Rating: WNL Objective Formal/Standardized Tests [facility] Mental Status Exam (UMS) Results The patient demonstrated a result of +28/30 on the SLUMS correlating to neurocognitive skills within normal limits. Oral Motor/Speech Production The patient does not display dysarthria or apraxia of speech. The patient remains 100% intelligible in known and unknown contexts. Impression The patient demonstrated intact neurocognitive skills. The patient received one point deducted from her overall score as she named 10 animals within a one minute time frame (WNL=15) and repeat four digits in reverse erroneously. Speech Patient Assess Expression of Ideas/Wants: Expression (4) Understanding Verbal Content: Understands (4) Brief Interview-Mental Status: Yes Repetition of Three Words: Three (3) Temporal Orientation: Year: Correct (3) Temporal Orientation: Month: Accurate within 5 days(2) Temporal Orientation: Day: Correct (1) Recall : Wear to say "Sock": Yes, no cue required (2) Recall : Color: Yes, no cue required (2) Recall : Bed: Yes, no cue required (2) Memory/Recall Ability: Current season, Location of own room, Staff names and faces, That he or she is in a hsp/hsp unit Speech-Plan Treatment Plan Speech Therapy Treatment Plan: Discontinue ST Treatment Duration: September 27, 2021 Frequency: 1 time per week Estimated Hrs Per Day: .5 hour per day Rehab Potential: Good Safety Risks/Education Teaching Recipient: Patient, Family Teaching Methods: Discussion Response to Teaching: Verbalize Understanding Education Topics Provided: Results of MARIELLA, Speech Pathology POC Time Speech Therapy Time In: 10:00 Speech Therapy Time Out: 10:30 Total Billed Time: 30 Billed Treatment Time 1, PAULINO MCLAUGHLIN [facility] [address] September 27, 2021 10:50
--- NOTE | 2021-09-27 11:14 | Progress Note ---
EMILIA WHITMAN 09/27/21 1114: Progress Note Subjective: HPI: The patient is a 70 YO female with a PMH of hypertension, hypothyroidism, who is admitted to inpatient rehab for debility secondary to a L5-S1 ALIF surgery on 09/19/21, done by Dr. Gaytan at [facility]. The patient was discharged yesterday from [facility], and was returning to [place] yesterday, on her way back she felt as if her weakness and pain was too much and she presented to the ER where she was subsequently admitted to inpatient rehab This is the patient's 6th back surgery, with her last one before in 2003. She has not had a debility like this with any of her previous back surgeries. The patient was laying in her bed this morning and reports that her pain was a 7/10, but it can get worse with movement from rehab exercises. Her pain is located in her lower back and at her abdominal incision site from the surgery. The patient reports constipation complaints, with her last bowel movement on Sunday. ROS: Constitutional: no fevers, no chills. 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, ETOH occasionally, never a smoker Objective: Vitals: T: 36.7, HR: 77, RR: 16, BP: 132/79, 94% room air PE: General Appearance: No Apparent Distress, WD/WN Eyes: Bilateral Eye Normal Inspection, Bilateral Eye PERRL HEENT: PERRL/EOMI, mocuous membranes moist Neck: normal inspection, normal ROM Respiratory: Chest Non Tender, Lungs Clear, Normal Breath Sounds, No Accessory Muscle Use, No Respiratory Distress Cardiovascular: Regular Rate, Rhythm, No Edema, No Gallop, No JVD, Murmur auscultated, Normal Peripheral Pulses Gastrointestinal: Normal Bowel Sounds, No Organomegaly, No Pulsatile Mass, Non Tender, Soft Extremity: Normal Capillary Refill, Normal Inspection, Non Tender, No Calf Tenderness, No Pedal Edema Neurologic/Psychiatric: Alert, Oriented x3, Normal Mood/Affect Skin: Normal Color, Warm/Dry, anterior incision clean and dressed. Assessment: Debility and pain secondary to recent spinal surgery Constipation possible post-op illeus Hypothyroidism Hypertension Heart murmur Anemia Plan: Debility and pain secondary to recent spinal surgery Constipation possible post-op illeus The patient will continue with inpatient rehabilitation with the goal of improving her strength and stamina, and reducing her pain. Continue with pain management with Lortab 7.5 mg 1-2 tab Q 4HR PRN. She will change to a clear liquid diet due to a possible post-op illeus, and a KUB will be obtained. Continue bowel regiment. Hypothyroidism Hypertension Continue home meds. Monitor vitals. Heart murmur An echocardiogram will be obtained to further evaluate her heart murmur. Anemia Hemoglobin was 11.4 this morning. Continue to monitor. ANA GARCIA DO 09/28/21 0541: Supervisory-Addendum Brief Verification & Attestation Participated in pt care: history, MDM, physical Personally performed: exam, history, MDM, supervision of care Care discussed with: Medical Student Procedures: n/a Results interpretation: Verified all documentation Verification and Attestation of Medical Student E/M Service A medical student performed and documented this service in my presence. I review ed and verified all information documented by the medical student and made modifications to such information, when appropriate. I personally performed the physical exam and medical decision making. Ana Garcia September 28, 2021,05:41 EMILIA WHITMAN September 27, 2021 11:14 ANA GARCIA DO September 28, 2021 05:41
--- NOTE | 2021-09-27 15:12 | Diagnostic Imaging Report ---
INDICATION: Ileus. Time of Exam: 2:38 PM Correlation is made with prior radiographs from 08/31/2015. There is moderate stool throughout the colon. Bowel gas pattern does not appear to be obstructed. There are surgical clips in the right upper quadrant. Hardware throughout the lumbar spine and upper sacrum is noted. There has been revision of the hardware since the prior study from 2015. IMPRESSION: Moderate stool. No acute feature is detected. Dictated by: Dictated on workstation # [id number]
[2021-09-27] MEDS: BACLOFEN 10 MG (LIORESAL) TAB PO PRN (19:18)
[2021-09-27 19:21] VITALS: BP 124/81
[2021-09-27] MEDS: GABAPENTIN 300 MG (NEURONTIN) CAP PO SCH (21:17)
[2021-09-28] MEDS: BACLOFEN 10 MG (LIORESAL) TAB PO PRN ×3 (03:14→22:22)
[2021-09-28] MEDS: HYDROcodone/APAP 7.5 MG/325 MG (LORTAB, LORCET PLUS) TABLET PO PRN ×5 (03:14→22:23)
--- NOTE | 2021-09-28 06:41 | Individualized Plan of Care ---
Individualized Plan of Care Rehab Nursing IPOC Order Admission Date September 26, 2021 at 16:19 Current Orders Orders Admission Arrival Bed Request (09/26/21 16:05) Admission Order(Inpt,Obs,Sdc) (09/26/21 16:37) Vital Signs: Per Unit Policy ( 08,16,00 (09/26/21 16:37) Jose Parrish ,21 (09/26/21 16:37) Sequential Compression Device (09/26/21 16:37) [place] Department Operator-Inpt Rehab Con (09/26/21 16:37) Rehab Nursing Orders-Ipoc (09/26/21 16:37) Physical Therapy Rehab Orders (09/26/21 16:37) Occupational Therapy Rehab Ord (09/26/21 16:37) Speech Therapy Rehab Orders (09/26/21 16:37) Cbc With Automated Diff (09/27/21 06:00) Comprehensive Metabolic Panel (09/27/21 06:00) Precautions (Aru) (09/26/21 16:37) Weekly Weight WEEK (09/26/21 16:37) Rehab-Intensity Of Therapy (09/26/21 16:37) Initiate Admission Nursing Pro .admission (09/26/21 16:37) Alprazolam Tablet (Xanax Tablet) (09/26/21 16:45) Calcium Carbonate Chew Tablet (Antacid C (09/26/21 16:45) Diphenhydramine Tablet (Benadryl Tablet) (09/26/21 16:45) Docusate Sodium Capsule (Colace Capsule) (09/26/21 21:00) Docusate Sodium Capsule (Colace Capsule) (09/26/21 16:45) Bisacodyl Suppository (Dulcolax Supposit (09/26/21 16:45) Lactulose Oral Solution (Enulose Oral So (09/26/21 16:45) Na Phos/Na Biphos Enema (Fleet Enema Kraig (09/26/21 16:45) Guaifenesin/Codeine Syrup (Robitussin Ac (09/26/21 16:45) Loperamide Tablet (Imodium Tablet) (09/26/21 16:45) Melatonin Tablet (Melatonin Tablet) (09/26/21 16:45) Polyethylene Glycol Powder Pkt (Miralax (09/26/21 21:00) Ondansetron Oral Dissolve Tab (Zofran (09/26/21 16:45) Senna S Tablet (Senokot S Tablet) (09/26/21 21:00) Acetaminophen Tablet/Caplet (Tylenol T (09/26/21 16:45) Code/Resuscitation (09/26/21 16:37) General/Regular (09/26/21 Dinner) Bacitracin Ointment (Bacitracin Ointment (09/26/21 17:30) Baclofen Tablet (Lioresal Tablet) (09/26/21 17:30) Cholecalciferol Capsule/Tablet (Vitamin (09/27/21 09:00) Gabapentin Capsule/Tablet (Neurontin Cap (09/26/21 21:00) Hydrochlorothiazide Cap/Tablet (Hctz Cap (09/27/21 09:00) Hydrocodone/Apap 7.5/325 Tab (Lortab 7. (09/26/21 17:30) Levothyroxine Tablet (Synthroid Tablet) (09/27/21 09:00) Potassium Chloride (Tablet) (Klor Con Ta (09/27/21 09:00) Propranolol Tablet (Inderal Tablet) (09/27/21 09:00) Hydrocodone/Apap 7.5/325 Tab (Lortab 7. (09/26/21 17:45) Bacitracin Ointment (Bacitracin Ointment (09/27/21 10:00) Nursing Communication (Order) (09/26/21 17:58) Dressing Order (Intervention) Q48H (09/27/21 10:00) Follow-Up Appointment D/C (09/26/21 17:58) Request Ot Additional Orders (09/26/21 17:58) Request Pt Additional Orders (09/26/21 17:58) Echo W Doppler/Color Flow (09/27/21 10:20) Clear Liquid (09/27/21 Lunch) Abdomen/Kub 1view (09/27/21 10:26) Patient Visit (09/27/21 ) Speech Sound Lang Comp (09/27/21 ) Treat. Speech/Lang/Voice (09/27/21 ) Patient Visit (09/27/21 ) Pt Eval Moderate Complexity (09/27/21 ) Functional Activities, Ea 15 (09/27/21 ) Patient Visit (09/28/21 ) Exercise Therap, Ea 15 Min (09/28/21 ) Functional Activities, Ea 15 (09/28/21 ) Gait Training, Ea 15 Min (09/28/21 ) Patient Visit (09/28/21 ) Rehab Nursing Orders: Ongoing Assess. of Cognitive Status, Ongoing Assess. of Function Status, Bladder Management, Bladder Scan, Bladder Training, Bowel Management, Bowel Training, Disease Management & Educaiton, DVT Prophylaxis, Fall Prevention, Fluid/Electrolyte/Nutrition Mgmt, Infection Prevention, Medication Management & Education, Management of Risks & Complications, Management of Skin Intergrity, Nutrition Management, Pain Management, Patient/Family Support, Safety Management, Wound Management Intensity of Therapy to be met Patient to be seen: Min.3h per day/5 of 7d PT IPOC Problem List: Activity Tolerance, Functional Strength, Safety, Balance, Gait, Transfer, Bed Mobility, ROM Treatment Plan: Continue Plan of Care Bed Mobility, Education, Functional Activity Fede, Functional Strength, Group Therapy, Gait, Safety, Therapeutic Exercise, Transfers Treatment Duration: Oct 18, 2021 Frequency: At least 5 of 7 days/Wk (IRF) Estimated Hrs Per Day: 1.5 hours per day OT IPOC Problems: Decreased Activ Tolerance, Decreased UE Strength, Impaired Funct Balance, Impaired I ADL's, Impaired Self-Care Skills OT Treatment, Training and Edu: Yes Plan of Care: ADL Retraining, Functional Mobility, Group Exercise/Act as Ind, UE Funct Exercise/Act Treatment Duration: Oct 21, 2021 Frequency: At least 5 of 7 days/Wk (IRF) Estimated Hrs Per Day: 1.[address] IPOC Speech Therapy Treatment Plan: Discontinue ST Treatment Duration: September 27, 2021 Frequency: 1 time per week Estimated Hrs Per Day: .5 hour per day [place] Department Operator/Case Mgmt [place] Department Operator/Case Managemen: Discharge Planning Dietitian/Test Designer Dietitian/Test Designer to monitor nutritional status and make changes and/or recommendations as needed and work with speech pathology on dietary upgrades as the occur. Physician IPOC Medical Issues being managed closely and that require the 24 hour availability of a physician: Recent complicated lumbar spine surgery now with postop ileus will require close monitoring for any decompensation with neurological deficits or bowel obstruction Medical Issues: Bowel/Bladder Function, DVT Prophylaxis, Falls Precautions, Fluid/Electrolyte/Nutrition Balance, Infection Protection, Pain Management, Wound Care Brief Synthesis of Preadmission Screen, Post-Admission Evaluation, and Therapy Evaluations: PT and OT will focus on regaining function with use of assistive devices and increase stamina and strength in the meantime in order to return back to independent living Medical Prognosis: Good Anticipated Length of Stay: 7 days MYRIAM GARCIA DO September 28, 2021 06:41
--- NOTE | 2021-09-28 06:41 | PM&R Progress Note ---
Subjective HPI/CC On Admission Date Seen by Provider: September 28, 2021 Time Seen by Provider: 11:30 Subjective/Events-last exam 09/28/2021: Pt is doing well Still no bowel movement so will initiate a suppository and soap suds enema if needed Clear liquids only maintained Not as distended on abdomen 09/27/2021: Pt had a pretty rough night Pain is an issue Two people provided therapy today at the same time Dressing changes everything looks good on the surgical incision Bowels haven't moved and she is having some bloating, so will check KUB to confirm ileus and change to clear liquid diet Review of Systems General: Fatigue, Malaise Gastrointestinal: Abdominal Pain, Constipation Musculoskeletal: back pain Objective Exam Vital Signs Vital Signs Date Time Temp Pulse Resp B/P (MAP) Pulse Ox O2 Delivery O2 Flow Rate FiO2 09/28/21 20:15 96 Room Air 09/28/21 20:09 36.8 59 18 123/62 (82) Capillary Refill : General Appearance: No Apparent Distress, WD/WN, Obese HEENT: PERRL/EOMI, Normal ENT Inspection, Pharynx Normal Neck: Full Range of Motion, Normal Inspection, Non Tender, Supple, Carotid Bruit Respiratory: Chest Non Tender, Lungs Clear, Normal Breath Sounds, No Accessory Muscle Use, No Respiratory Distress Cardiovascular: Regular Rate, Rhythm, No Edema, No Gallop, No JVD, No Murmur, Normal Peripheral Pulses Gastrointestinal: Normal Bowel Sounds, No Organomegaly, No Pulsatile Mass, Non Tender, Soft Back: CVA Tenderness (L), CVA Tenderness (R), Decreased Range of Motion, Muscle Spasm, Vertebral Tenderness Extremity: Normal Capillary Refill, Normal Inspection, Normal Range of Motion, Non Tender, No Calf Tenderness, No Pedal Edema Neurologic/Psychiatric: Alert, Oriented x3, Normal Mood/Affect, lead section supervisor II-XII Norm as Tested, Abnormal Gait, Motor Weakness (Lower extremities 4/5) Skin: Normal Color, Warm/Dry Lymphatic: No Adenopathy Results/Procedures Lab Patient resulted labs reviewed. FIM Transfers Therapy Code Descriptions/Definitions Functional [place] Measure: 0=Not Assessed/NA 4=Minimal Assistance 1=Total Assistance 5=Supervision or Setup 2=Maximal Assistance 6=Modified [place] 3=Moderate Assistance 7=Complete IndependenceSCALE: Activities may be completed with or without assistive devices. 4-Gwzamuysvp-xamzwai completes the activity by him/herself with no assistance f rom a helper. 5-Set-up or Clean-up Assistance-helper sets up or cleans up; patient completes activity. [place] assists only prior to or following the activity. 4-Supervision or Touching Assistance-helper provides verbal cues and/or touching/steadying and/or contact guard assistance as patient completes activity. Assistance may be provided throughout the activity or intermittently. 3-Partial/Moderate Assistance-helper does LESS THAN HALF the effort. [place] lifts, holds or supports trunk or limbs, but provides less than half the effort. 2-Substantial/Maximal Assistance-helper does MORE THAN HALF the effort. [place] lifts or holds trunk or limbs and provides more than half the effort. 5-Aareyixli-khrlgy does ALL the effort. Patient does none of the effort to complete the activity. Or, the assistance of 2 or more helpers is required for the patient to complete the activity. If activity was not attempted, code reason: 7-Patient Refused. 9-Not Applicable-not attempted and the patient did not perform the activity before the current illness, exacerbation or injury. 10-Not Attempted due to Environmental Limitations-(lack of equipment, weather restraints, etc.). 88-Not Attempted due to Medical Conditions or Safety Concerns. Roll Left to Right (QC): 3 Sit to Lying (QC): 3 Sit to Stand (QC): 3 Chair/Tao-lj-Vleka Xfer(QC): 4 Car Transfer (QC): 3 Gait Training Does the Patient Walk?: Yes Walk 10 feet (QC): 4 Walk 50 ft with 2 Turns(QC): 4 Walk 150 ft (QC): 88 Walking 10ft/uneven surface-QC: 4 Gait Assistive Device: FWW Wheelchair Training Does the Pt Use a Wheelchair?: No Wheel 50 ft with 2 turns (QC): 9 Wheel 150 ft (QC): 9 Type of Wheelchair: N/A Stair Training #of Steps: 1 1 Step (curb) (QC): 4 4 Steps (QC): 88 12 Steps (QC): 88 Balance Picking up an Object (QC): 4 (with extra long peoplesoft business analyst) ADL-Treatment Eating (QC): 6 Oral Hygiene (QC): 5 Shower/Bathe Self (QC): 2 (Per clinical judgment, pt would require assistance with LB due to back precautions and difficulty with figure 4 crossover method.) Upper Body Dressing (QC): 4 (Supervision) Lower Body Dressing (QC): 2 (Max A overall would be required due to back precautions and difficulty using figure 4 crossover method.) On/Off Footwear (QC): 2 (Max A doffing/donning gripper socks.) Toileting Hygiene (QC): 3 (Pt would require assistance with hygiene and some assistance in standing during pant hike.) Assessment/Plan Assessment and Plan Assess & Plan/Chief Complaint Assessment: Status post lumbar spine surgery Severe immobility due to pain Hypothyroidism Hypertension Increased BMI Postop constipation Postop ileus diagnosed 09/27/2021 placed on clear liquid diet Plan: Aggressive rehab Pain meds Laxatives 09/27/2021: Supportive care Aggressive rehab KUB Clear liquids 09/28/2021: Supportive care Bowel regimen (1) Lumbar spinal stenosis (2) Immobility (3) Constipation (4) Hypothyroidism (5) Hypertension MYRIAM GARCAI DO September 28, 2021 06:41
[2021-09-28 07:46] VITALS: BP 131/73
[2021-09-28] MEDS: VITAMIN D3 25 MCG (1,000 UNITS) TABLET PO SCH (08:11)
[2021-09-28] MEDS: KCL 10 MEQ TAB (MICRO K) PO SCH (08:11)
[2021-09-28] MEDS: SENNA W/DOCUSATE (SENOKOT S) TABLET PO SCH ×2 (08:11→20:57)
[2021-09-28] MEDS: PROPRANOLOL 20 MG (INDERAL) TABLET PO SCH (08:11)
[2021-09-28] MEDS: DOCUSATE SODIUM 100 MG (COLACE) CAP PO SCH ×2 (08:11→20:58)
[2021-09-28] MEDS: polyethylene glycoL POWDER 17 GM (MIRALAX) PACK PO SCH ×2 (08:12→20:58)
[2021-09-28] MEDS: LEVOTHYROXINE 100 MCG (LEVOTHROID) TAB PO SCH (08:12)
--- NOTE | 2021-09-28 09:04 | Occupational Ther Daily Note ---
OT Current Status-Daily Note Subjective Pt up in recliner, agreeable to OT Tx. ADL-Treatment Therapy Code Descriptions/Definitions Functional [place] Measure: 0=Not Assessed/NA 4=Minimal Assistance 1=Total Assistance 5=Supervision or Setup 2=Maximal Assistance 6=Modified [place] 3=Moderate Assistance 7=Complete IndependenceSCALE: Activities may be completed with or without assistive devices. 4-Byiwmrxcnt-jaxmmvn completes the activity by him/herself with no assistance from a helper. 5-Set-up or Clean-up Assistance-helper sets up or cleans up; patient completes activity. [place] assists only prior to or following the activity. 4-Supervision or Touching Assistance-helper provides verbal cues and/or touching/steadying and/or contact guard assistance as patient completes activity. Assistance may be provided throughout the activity or intermittently. 3-Partial/Moderate Assistance-helper does LESS THAN HALF the effort. [place] lifts, holds or supports trunk or limbs, but provides less than half the effort. 2-Substantial/Maximal Assistance-helper does MORE THAN HALF the effort. [place] lifts or holds trunk or limbs and provides more than half the effort. 2-Umufzyiop-cggfxo does ALL the effort. Patient does none of the effort to co mplete the activity. Or, the assistance of 2 or more helpers is required for the patient to complete the activity. If activity was not attempted, code reason: 7-Patient Refused. 9-Not Applicable-not attempted and the patient did not perform the activity before the current illness, exacerbation or injury. 10-Not Attempted due to Environmental Limitations-(lack of equipment, weather restraints, etc.). 88-Not Attempted due to Medical Conditions or Safety Concerns. Eating (QC): 6 Shower/Bathe Self (QC): 4 (SBA, in sitting. Pt able to use LH sponge for LEs.) Upper Body Dressing (QC): 5 (set up ) Lower Body Dressing (QC): 2 (Assist to thread LEs, and some assist in pant h johnnie.) On/Off Footwear: 2 (pt doffed gripper socks using biological scientist, assist to don.) Other Treatment Pt up in recliner, agreeable to OT Tx. Sit to stand from recliner, CGA. Pt used FWW to transfer to HI in bathroom, CGA. Pt doffed clothes, completed shower, then donned clothes at HI. Pt attempted to stand multiple times with various hand placements, unsuccessfully. Pt required 2 person assist to stand from HI. Pt transferred to [facility] once standing. Post tx, pt in recliner, call light in reach and all needs met. Education OT Patient Education: Correct positioning, Energy conservation, Exercise program, Modified ADL techniques, Progress toward Goal/Update tx plan, Purpose of tx/functional activities, Rehab process Teaching Recipient: Patient Teaching Methods: Discussion Response to Teaching: Verbalize Understanding OT Short Term Goals Short Term Goals Time Frame: October 11, 2021 Toileting hygiene: 4 Shower/bathe self: 4 Lower body dressin Putting on/taking off footwear: 4 OT Glass Block Bender Goals Glass Block Bender Goals Time Frame: Oct 21, 2021 Eating (QC): 6 Oral Hygiene (QC): 6 Toileting Hygiene (QC): 6 Shower/Bathe Self (QC): 5 Upper Body Dressing (QC): 6 Lower Body Dressing (QC): 6 On/Off Footwear (QC): 6 Additional Goals: 1-Demonstrate ADL Tasks, 2-Verbalize Understanding, 3-Im proveStrength/Fede 1=Demonstrate adherence to instructed precautions during ADL tasks. 2=Patient will verbalize/demonstrate understanding of assistive devices/modifications for ADL. 3=Patient will improve strength/tolerance for activity to enable patient to perform ADL's. OT Education/Plan Problem List/Assessment Assessment: Decreased Activ Tolerance, Decreased UE Strength, Impaired Funct Balance, Impaired I ADL's, Impaired Self-Care Skills Discharge Recommendations Plan/Recommendations: Continue POC Treatment Plan/Plan of Care Patient would benefit from OT for education, treatment and training to promote independence in ADL's, mobility, safety and/or upper extremity function for ADL's. Plan of Care: ADL Retraining, Functional Mobility, Group Exercise/Act as Ind, UE Funct Exercise/Act Treatment Duration: Oct 21, 2021 Frequency: At least 5 of 7 days/Wk (IRF) Estimated Hrs Per Day: 1.5 hours per day Agreement: Yes Rehab Potential: Good Time/GCodes Start Time: 08:00 Stop Time: 09:00 Total Time Billed (hr/min): 60 Billed Treatment Time 1, ADL 4 ALLA PERAZA OT September 28, 2021 09:04
--- NOTE | 2021-09-28 11:53 | Physical Therapy Daily Note ---
PT Daily Note-Current Subjective Pt sitting in recliner upon arrival. Pt agrees to PT but advises increased pain and needs pain med. Pain Location: Lower Location Body Site: Back Pain Description: Tightness, Sharp, Numbness Comment: Reports but doesn't rate, numbness in R pinky toe Mental Status Patient Orientation: Person, Place, Time, Situation Transfers SCALE: Activities may be completed with or without assistive devices. 6-Hwlscdrpwm-spknhlf completes the activity by him/herself with no assistance from a helper. 5-Set-up or Clean-up Assistance-helper sets up or cleans up; patient completes activity. [place] assists only prior to or following the activity. 4-Supervision or Touching Assistance-helper provides verbal cues and/or touching/steadying and/or contact guard assistance as patient completes activity. Assistance may be provided throughout the activity or intermittently. 3-Partial/Moderate Assistance-helper does LESS THAN HALF the effort. [place] lifts, holds or supports trunk or limbs, but provides less than half the effort. 2-Substantial/Maximal Assistance-helper does MORE THAN HALF the effort. [place] lifts or holds trunk or limbs and provides more than half the effort. 0-Aejqcaals-jzphzg does ALL the effort. Patient does none of the effort to complete the activity. Or, the assistance of 2 or more helpers is required for the patient to complete the activity. If activity was not attempted, code reason: 7-Patient Refused. 9-Not Applicable-not attempted and the patient did not perform the activity before the current illness, exacerbation or injury. 10-Not Attempted due to Environmental Limitations-(lack of equipment, weather restraints, etc.). 88-Not Attempted due to Medical Conditions or Safety Concerns. Lying to Sitting/Side of Bed(Q: 2 Sit to Stand (QC): 2 Chair/Dxz-pp-Yldnk Xfer(QC): 2 Weight Bearing Full Weight Bearing Full Weight Bearing Gait Training Does the Patient Walk?: Yes Distance: 150' Walk 10 feet (QC): 4 Walk 50 ft with 2 Turns(QC): 4 Walk 150 ft (QC): 4 Gait Persons Needed: 1 Gait Assistive Device: FWW Treatments Pt completes Seated EX as well as reviews Supine Ex. Pt attempts multiple sit to stands but sits back stating "its too much pain". Pt given pain med and pt stands with Max A. Pt is able to tolerate walk before returning to room to rest in bed. PRECISION FARMING SPECIALIST assists lifting B LE into bed. All needs met, call light in hand. Assessment Current Status: Fair Progress Pain and fatigues limits tx. PT Short Term Goals Short Term Goals Time Frame: October 04, 2021 Roll Left & Right: 3 (Case) Sit to lyin (Case) Lying to sitting on side of be: 3 (Case) Sit to stand: 4 (CGA) Chair/ogm-jr-iwryh transfer: 4 (SBA) Walk 10 feet: 4 (SBA) Walk 50 feet with two turns: 4 (SBA) Walk 150 feet: 4 (SBA) PT Desktop Engineer Goals Intermediate Goals PT Intermediate Goals Time Frame: Oct 18, 2021 Roll Left & Right (QC): 4 (SBA) Sit to Lying (QC): 4 (SBA) Lying-Sitting on Side/Bed(QC): 4 (SBA) Sit to Stand (QC): 6 Chair/Shq-ye-Keegw Xfer(QC): 6 Toilet Transfer (QC): 6 Car Transfer (QC): 4 (SBA) Does the Patient Walk: Yes Walk 10 feet (QC): 6 Walk 50ft with 2 Turns (QC): 6 Walk 150 ft (QC): 6 Walking 10ft on Uneven Surface: 4 (SBA) 1 Step (curb) (QC): 4 (SBA) 4 Steps (QC): 4 (SBA) 12 Steps (QC): 88 Picking up an Object (QC): 6 Wheel 50 feet with 2 turns (QC: 9 Wheel 150 feet: 9 PT Plan Problem List Problem List: Activity Tolerance, Transfer Treatment/Plan Treatment Plan: Continue Plan of Care Treatment Plan: Bed Mobility, Education, Functional Activity Fede, Functional Strength, Group Therapy, Gait, Safety, Therapeutic Exercise, Transfers Treatment Duration: Oct 18, 2021 Frequency: At least 5 of 7 days/Wk (IRF) Estimated Hrs Per Day: 1.5 hours per day Patient and/or Family Agrees t: Yes Safety Risks/Education Patient Education: Transfer Techniques, Correct Positioning Teaching Recipient: Patient Teaching Methods: Discussion Response to Teaching: Verbalize Understanding Time/GCodes Time In: 900 Time Out: 1000 Total Billed Treatment Time: 60 Total Billed Treatment 1, EX x2 (30m), FA (15m) & GT (15m) GURMEET FELIX PRECISION FARMING SPECIALIST September 28, 2021 11:53
[2021-09-28 20:09] VITALS: BP 123/62
[2021-09-28] MEDS: GABAPENTIN 300 MG (NEURONTIN) CAP PO SCH (20:57)
[2021-09-29] MEDS: HYDROcodone/APAP 7.5 MG/325 MG (LORTAB, LORCET PLUS) TABLET PO PRN ×4 (02:32→16:41)
--- NOTE | 2021-09-29 06:51 | PM&R Progress Note ---
Subjective HPI/CC On Admission Date Seen by Provider: September 29, 2021 Time Seen by Provider: 10:00 Subjective/Events-last exam 09/29/21: Pt is doing really well Multiple bowel movements Will advance diet Pain is an issue for muscle spasms so will initiate a dose of Solumedrol 125 mg and initiate Valium Spoke to Dr Gaytan in-depth and reviewed management 09/28/2021: Pt is doing well Still no bowel movement so will initiate a suppository and soap suds enema if needed Clear liquids only maintained Not as distended on abdomen 09/27/2021: Pt had a pretty rough night Pain is an issue Two people provided therapy today at the same time Dressing changes everything looks good on the surgical incision Bowels haven't moved and she is having some bloating, so will check KUB to confirm ileus and change to clear liquid diet Review of Systems Musculoskeletal: back pain Objective Exam Vital Signs Vital Signs Date Time Temp Pulse Resp B/P (MAP) Pulse Ox O2 Delivery O2 Flow Rate FiO2 09/29/21 20:30 Room Air 09/29/21 20:00 36.4 71 16 130/65 (86) 93 Capillary Refill : General Appearance: No Apparent Distress, WD/WN, Obese HEENT: PERRL/EOMI, Normal ENT Inspection, Pharynx Normal Neck: Full Range of Motion, Normal Inspection, Non Tender, Supple, Carotid Bruit Respiratory: Chest Non Tender, Lungs Clear, Normal Breath Sounds, No Accessory Muscle Use, No Respiratory Distress Cardiovascular: Regular Rate, Rhythm, No Edema, No Gallop, No JVD, No Murmur, Normal Peripheral Pulses Gastrointestinal: Normal Bowel Sounds, No Organomegaly, No Pulsatile Mass, Non Tender, Soft Back: CVA Tenderness (L), CVA Tenderness (R), Decreased Range of Motion, Muscle Spasm, Vertebral Tenderness Extremity: Normal Capillary Refill, Normal Inspection, Normal Range of Motion, Non Tender, No Calf Tenderness, No Pedal Edema Neurologic/Psychiatric: Alert, Oriented x3, Normal Mood/Affect, guest room attendant II-XII Norm as Tested, Abnormal Gait, Motor Weakness (Lower extremities 4/5) Skin: Normal Color, Warm/Dry Lymphatic: No Adenopathy Results/Procedures Lab Patient resulted labs reviewed. FIM Transfers Therapy Code Descriptions/Definitions Functional [place] Measure: 0=Not Assessed/NA 4=Minimal Assistance 1=Total Assistance 5=Supervision or Setup 2=Maximal Assistance 6=Modified [place] 3=Moderate Assistance 7=Complete IndependenceSCALE: Activities may be completed with or without assistive devices. 4-Dtlsyvkbez-qznaouw completes the activity by him/herself with no assistance from a helper. 5-Set-up or Clean-up Assistance-helper sets up or cleans up; patient completes activity. [place] assists only prior to or following the activity. 4-Supervision or Touching Assistance-helper provides verbal cues and/or touching/steadying and/or contact guard assistance as patient completes activity. Assistance may be provided throughout the activity or intermittently. 3-Partial/Moderate Assistance-helper does LESS THAN HALF the effort. [place] lifts, holds or supports trunk or limbs, but provides less than half the effort. 2-Substantial/Maximal Assistance-helper does MORE THAN HALF the effort. [place] lifts or holds trunk or limbs and provides more than half the effort. 3-Zqlhnkjsg-apiepn does ALL the effort. Patient does none of the effort to complete the activity. Or, the assistance of 2 or more helpers is required for the patient to complete the activity. If activity was not attempted, code reason: 7-Patient Refused. 9-Not Applicable-not attempted and the patient did not perform the activity before the current illness, exacerbation or injury. 10-Not Attempted due to Environmental Limitations-(lack of equipment, weather restraints, etc.). 88-Not Attempted due to Medical Conditions or Safety Concerns. Roll Left to Right (QC): 3 Sit to Lying (QC): 3 Sit to Stand (QC): 2 Chair/Vyb-sw-Sgnnk Xfer(QC): 2 Car Transfer (QC): 3 Gait Training Does the Patient Walk?: Yes Distance: 150' Walk 10 feet (QC): 4 Walk 50 ft with 2 Turns(QC): 4 Walk 150 ft (QC): 4 Walking 10ft/uneven surface-QC: 4 Gait Persons Needed: 1 Gait Assistive Device: FWW Wheelchair Training Does the Pt Use a Wheelchair?: No Wheel 50 ft with 2 turns (QC): 9 Wheel 150 ft (QC): 9 Type of Wheelchair: N/A Stair Training #of Steps: 1 1 Step (curb) (QC): 4 4 Steps (QC): 88 12 Steps (QC): 88 Balance Picking up an Object (QC): 4 (with extra long power mule operator) ADL-Treatment Eating (QC): 6 Oral Hygiene (QC): 5 Shower/Bathe Self (QC): 4 (SBA, in sitting. Pt able to use LH sponge for LEs.) Upper Body Dressing (QC): 5 (set up ) Lower Body Dressing (QC): 2 (Assist to thread LEs, and some assist in pant hike.) On/Off Footwear (QC): 2 (pt doffed gripper socks using power mule operator, assist to don.) Toileting Hygiene (QC): 3 (Pt would require assistance with hygiene and some assistance in standing during pant hike.) Assessment/Plan Assessment and Plan Assess & Plan/Chief Complaint Assessment: Status post lumbar spine surgery Severe immobility due to pain Hypothyroidism Hypertension Increased BMI Postop constipation resolving Postop ileus diagnosed 09/27/2021 placed on clear liquid diet and advanced on 09/29/2021 Plan: Aggressive rehab Pain meds Laxatives 09/27/2021: Supportive care Aggressive rehab KUB Clear liquids 09/28/2021: Supportive care Bowel regimen 09/29/2021: Bowel regimen to continue Back pain management Spoke to Dr. Gaytan and he recommended continue pain control (1) Lumbar spinal stenosis (2) Immobility (3) Constipation (4) Hypothyroidism (5) Hypertension MYRIAM GARCIA DO September 29, 2021 06:51
[2021-09-29 07:28] VITALS: BP 142/61
[2021-09-29] MEDS: DOCUSATE SODIUM 100 MG (COLACE) CAP PO SCH ×2 (07:51→20:32)
[2021-09-29] MEDS: VITAMIN D3 25 MCG (1,000 UNITS) TABLET PO SCH (07:51)
[2021-09-29] MEDS: SENNA W/DOCUSATE (SENOKOT S) TABLET PO SCH ×2 (07:51→20:31)
[2021-09-29] MEDS: KCL 10 MEQ TAB (MICRO K) PO SCH (07:52)
[2021-09-29] MEDS: BACLOFEN 10 MG (LIORESAL) TAB PO PRN ×3 (07:52→21:51)
[2021-09-29] MEDS: LEVOTHYROXINE 100 MCG (LEVOTHROID) TAB PO SCH (07:52)
[2021-09-29] MEDS: PROPRANOLOL 20 MG (INDERAL) TABLET PO SCH (07:52)
--- NOTE | 2021-09-29 08:21 | Occupational Ther Daily Note ---
OT Current Status-Daily Note Subjective Pt in bed, agreeable to OT Tx. Pt's nurse present providing medication. Mental Status/Objective Patient Orientation: Normal For Age ADL-Treatment Therapy Code Descriptions/Definitions Functional [place] Measure: 0=Not Assessed/NA 4=Minimal Assistance 1=Total Assistance 5=Supervision or Setup 2=Maximal Assistance 6=Modified [place] 3=Moderate Assistance 7=Complete IndependenceSCALE: Activities may be completed with or without assistive devices. 0-Eeeliyjelx-wwfwbxk completes the activity by him/herself with no assistance from a helper. 5-Set-up or Clean-up Assistance-helper sets up or cleans up; patient completes activity. [place] assists only prior to or following the activity. 4-Supervision or Touching Assistance-helper provides verbal cues and/or touching/steadying and/or contact guard assistance as patient completes activity. Assistance may be provided throughout the activity or intermittently. 3-Partial/Moderate Assistance-helper does LESS THAN HALF the effort. [place] lifts, holds or supports trunk or limbs, but provides less than half the effort. 2-Substantial/Maximal Assistance-helper does MORE THAN HALF the effort. [place] lifts or holds trunk or limbs and provides more than half the effort. 4-Skgfxwivu-oizhxm does ALL the effort. Patient does none of the effort to com plete the activity. Or, the assistance of 2 or more helpers is required for the patient to complete the activity. If activity was not attempted, code reason: 7-Patient Refused. 9-Not Applicable-not attempted and the patient did not perform the activity before the current illness, exacerbation or injury. 10-Not Attempted due to Environmental Limitations-(lack of equipment, weather restraints, etc.). 88-Not Attempted due to Medical Conditions or Safety Concerns. Eating (QC): 6 (IND with clear liquids.) Oral Hygiene (QC): 6 (IND standing at sink.) Other Treatment Pt in bed, agreeable to OT Tx. Min A supine to sit EOB transfer. Pt took medications provided by nurse. Sit to stand from EOB, CGA. Pt used FWW into bathroom to stand at sink, SBA. Pt completed oral care independently, then used FWW to perform functional mobility to therapy gym, SBA. Pt reports difficulty wiping after BM, OT provided pt with toilet tongs and educated pt on how to use device, she verbalized understanding and indicates she will attempt to use tool next time she toilets. OT tx focused on increasing activity tolerance, BUE strength, and reaching. Pt placed/removed 100 pegs from foam pegboard, alternating hands. She then placed/removed graded clothespins (1-5lbs) x2 sets each hand. Pt completed functional kitchen task, locating 11 barrett bags in sofy ious upper/lower cabinets and drawers, utilizing treatment technician as needed, then tossing barrett bags into basket. Pt able to maintain back precautions throughout task, no rest breaks, but slow pace, SBA throughout task. Pt used FWW to return to room, SBA, then transferred to recliner. OT assisted pt with positioning to comfort. OT provided education on kitchen management and activity modification within the kitchen, including keeping frequently used items on counter, she verbalized understanding. Post tx, pt in recliner, call light in reach and all needs met. Education OT Patient Education: Correct positioning, Energy conservation, Modified ADL techniques, Progress toward Goal/Update tx plan, Purpose of tx/functional activities Teaching Recipient: Patient Teaching Methods: Discussion Response to Teaching: Verbalize Understanding OT Short Term Goals Short Term Goals Time Frame: October 11, 2021 Toileting hygiene: 4 Shower/bathe self: 4 Lower body dressin Putting on/taking off footwear: 4 OT C.O.D. Biller Goals C.O.D. Biller Goals Time Frame: Oct 21, 2021 Eating (QC): 6 Oral Hygiene (QC): 6 Toileting Hygiene (QC): 6 Shower/Bathe Self (QC): 5 Upper Body Dressing (QC): 6 Lower Body Dressing (QC): 6 On/Off Footwear (QC): 6 Additional Goals: 1-Demonstrate ADL Tasks, 2-Verbalize Understanding, 3- ImproveStrength/Fede 1=Demonstrate adherence to instructed precautions during ADL tasks. 2=Patient will verbalize/demonstrate understanding of assistive devices/modifications for ADL. 3=Patient will improve strength/tolerance for activity to enable patient to perform ADL's. OT Education/Plan Problem List/Assessment Assessment: Decreased Activ Tolerance, Decreased UE Strength, Impaired Funct Balance, Impaired I ADL's, Impaired Self-Care Skills Discharge Recommendations Plan/Recommendations: Continue POC Treatment Plan/Plan of Care Patient would benefit from OT for education, treatment and training to promote independence in ADL's, mobility, safety and/or upper extremity function for ADL's. Plan of Care: ADL Retraining, Functional Mobility, Group Exercise/Act as Ind, UE Funct Exercise/Act Treatment Duration: Oct 21, 2021 Frequency: At least 5 of 7 days/Wk (IRF) Estimated Hrs Per Day: 1.5 hours per day Agreement: Yes Rehab Potential: Good Time/GCodes Start Time: 07:45 Stop Time: 09:15 Total Time Billed (hr/min): 90 Billed Treatment Time 1, ADL (15'), FA 5 (75') ALLA PERAZA OT September 29, 2021 08:21
[2021-09-29] MEDS: polyethylene glycoL POWDER 17 GM (MIRALAX) PACK PO SCH ×2 (09:00→21:40)
--- NOTE | 2021-09-29 10:56 | Physical Therapy Daily Note ---
PT Daily Note-Current Subjective Patient in recliner pre tx, agrees to PT, has unrated low back pain. Appearance Patient on toilet post tx, will use nurse call when done. Mental Status Patient Orientation: Person, Place, Situation Transfers SCALE: Activities may be completed with or without assistive devices. 3-Tnpionwbyf-qvtakmi completes the activity by him/herself with no assistance from a helper. 5-Set-up or Clean-up Assistance-helper sets up or cleans up; patient completes activity. [place] assists only prior to or following the activity. 4-Supervision or Touching Assistance-helper provides verbal cues and/or touching/steadying and/or contact guard assistance as patient completes activity. Assistance may be provided throughout the activity or intermittently. 3-Partial/Moderate Assistance-helper does LESS THAN HALF the effort. [place] lifts, holds or supports trunk or limbs, but provides less than half the effort. 2-Substantial/Maximal Assistance-helper does MORE THAN HALF the effort. [place] lifts or holds trunk or limbs and provides more than half the effort. 7-Flvmpovkg-bujman does ALL the effort. Patient does none of the effort to complete the activity. Or, the assistance of 2 or more helpers is required for the patient to complete the activity. If activity was not attempted, code reason: 7-Patient Refused. 9-Not Applicable-not attempted and the patient did not perform the activity before the current illness, exacerbation or injury. 10-Not Attempted due to Environmental Limitations-(lack of equipment, weather restraints, etc.). 88-Not Attempted due to Medical Conditions or Safety Concerns. Sit to Stand (QC): 3 Chair/Ugc-bu-Ikemg Xfer(QC): 4 Toilet Transfer (QC): 4 Mod assist for sit to stand due to pain. Patient instructed to initiate abdominals when sit <-> stand to support back and reduce pain. Weight Bearing Full Weight Bearing Full Weight Bearing Gait Training Distance: 120'x2 Walk 10 feet (QC): 4 Walk 50 ft with 2 Turns(QC): 4 Gait Persons Needed: 1 Gait Assistive Device: FWW SBA, slow but steady ambulation, antalgic Exercises Seated Therapy Exercises: Ankle pumps, Long arc quads Seated Reps: 20 (nerve flossing) Standing: Heel/toe raises, Marching, Mini squats Standing Reps: 15 NuStep Minutes: 15 NuStep Workload: 5 Treatments transfers, ambulation, strengthening Assessment Current Status: Fair Progress slightly improve sit <-> stand PT Short Term Goals Short Term Goals Time Frame: October 04, 2021 Roll Left & Right: 3 (Case) Sit to lyin (Case) Lying to sitting on side of be: 3 (Case) Sit to stand: 4 (CGA) Chair/bnl-hz-hdqtd transfer: 4 (SBA) Walk 10 feet: 4 (SBA) Walk 50 feet with two turns: 4 (SBA) Walk 150 feet: 4 (SBA) PT Long-Term Goals Securities Underwriter Goals PT Securities Underwriter Goals Time Frame: Oct 18, 2021 Roll Left & Right (QC): 4 (SBA) Sit to Lying (QC): 4 (SBA) Lying-Sitting on Side/Bed(QC): 4 (SBA) Sit to Stand (QC): 6 Chair/Jsm-yu-Uwwta Xfer(QC): 6 Toilet Transfer (QC): 6 Car Transfer (QC): 4 (SBA) Does the Patient Walk: Yes Walk 10 feet (QC): 6 Walk 50ft with 2 Turns (QC): 6 Walk 150 ft (QC): 6 Walking 10ft on Uneven Surface: 4 (SBA) 1 Step (curb) (QC): 4 (SBA) 4 Steps (QC): 4 (SBA) 12 Steps (QC): 88 Picking up an Object (QC): 6 Wheel 50 feet with 2 turns (QC: 9 Wheel 150 feet: 9 PT Plan Problem List Problem List: Activity Tolerance, Functional Strength, Safety, Balance, Gait, Transfer, Bed Mobility, ROM Treatment/Plan Treatment Plan: Continue Plan of Care Treatment Plan: Bed Mobility, Education, Functional Activity Fede, Functional Strength, Group Therapy, Gait, Safety, Therapeutic Exercise, Transfers Treatment Duration: Oct 18, 2021 Frequency: At least 5 of 7 days/Wk (IRF) Estimated Hrs Per Day: 1.5 hours per day Patient and/or Family Agrees t: Yes Safety Risks/Education Patient Education: Gait Training, Transfer Techniques, Correct Positioning, Safety Issues Teaching Recipient: Patient Teaching Methods: Demonstration, Discussion Response to Teaching: Reinforcement Needed Time/GCodes Time In: 1000 Time Out: 1100 Total Billed Treatment Time: 60 Total Billed Treatment 1 visit FA 15' EX 45' LYNNETTE NEFF PT September 29, 2021 10:56
[2021-09-29] MEDS: ONDANSETRON 4 MG (ZOFRAN) ORAL DISSOLVE TAB PO PRN ×2 (10:57→20:31)
[2021-09-29] MEDS: BACITRACIN OINTMENT 28 GM TUBE TP SCH (11:00)
--- NOTE | 2021-09-29 11:00 | Therapy Group Daily Note ---
Therapy Daily Group Note Patient Education Topic Home Safety, Other List Below (walker use, ARU expectations) Exercises LE Seated Exercise, UE Exercise Session Ratio (pt:therapist): 4:1 Goal of Session: Education on ARU Expectations, Home Safety Strategies, UE/LE Strengthing Goal Met for this Session: Yes Pt Benefit of Group: Increased Functional Safety, Socialization Other/Notes Pt. participated in group session this date. Pt. ambulated to from group with FW W, wearing mask with CGA to SBA. Pts introduced themselves sharing if they so desired their home town and favorite summertime activity. Pts were educated in ARU expectations and practices. Education also included Assistive device education mostly regarding front wheeled walkers, use and safety. Home safety was a topic and most pts shared their input and challenges . Seated U&L ext exercises were done , Pt. to room with needs met and babin at hand Start Time: 13:00 Stop Time: 14:10 Total Billed Treatment Time: 70 Total Billed Treatment 1,GRP 70m this is a late chg for 09-28-2021 XIN Malcolm LEE A PTA September 29, 2021 11:00
[2021-09-29] MEDS ORDERED: DIAZEPAM 2 MG (VALIUM) TAB PO ONE (11:30)
[2021-09-29] MEDS ORDERED: methylPREDNISolone 125 MG (Solu-MEDROL) VIAL IVP ONE (11:30)
[2021-09-29] MEDS ORDERED: DIAZEPAM 2 MG (VALIUM) TAB PO PRN ×2 (11:30→18:45)
[2021-09-29] MEDS: ENOXAPARIN 40 MG/0.4 ML (LOVENOX) SYR SC SCH (11:56)
--- NOTE | 2021-09-29 13:50 | Progress Note ---
EMILIA WHITMAN 09/29/21 1350: Progress Note The patient is a 70 YO F who is admitted to inpatient rehab for debility following a lumbar spine surgery by Dr. Gaytan at [facility] on 09/19/21. She was admitted to inpatient rehab on 09/27/21. She has been fully participating in her physical therapy, and occupational therapy. The patient is focusing on bed mobility functional, activity tolerance, functional, strength, gait, safety, transfers, and ADLs. The patient has been making adequate progress throughout her rehab stay, and continues to work on improving her strength, stamina, and reducing her pain level. She was given a dose of IV Solu-medrol 125mg on 09/29/21 due to her back pain. Lovenox for DVT prophylaxis was started on 09/29/21. Her medical status was closely followed throughout her stay. Her hematology and blood chemistry remained stable. The patient will be discharged home on 10/04/21. She felt comfortable with this plan and is content with her progress she has made throughout her stay. ANA GARCIA DO 09/30/21 0534: Supervisory-Addendum Brief Verification & Attestation Participated in pt care: history, MDM, physical Personally performed: exam, history, MDM, supervision of care Care discussed with: Medical Student Procedures: n/a Results interpretation: Verified all documentation Verification and Attestation of Medical Student E/M Service A medical student performed and documented this service in my presence. I reviewed and verified all information documented by the medical student and made modifications to such information, when appropriate. I personally performed the physical exam and medical decision making. Ana Garcia September 30, 2021,05:34 EMILIA WHITMAN September 29, 2021 13:50 ANA GARCIA DO September 30, 2021 05:34
--- NOTE | 2021-09-29 13:53 | Physical Therapy Progress Note ---
Therapy Progress Note Patient in bed, refuses tx due to intense pain and muscle spasms. Nurse concurs this and states she has been trying to get it under control but unsuccessful yet. Will try back in the morning. LYNNETTE NEFF PT September 29, 2021 13:53
[2021-09-29] MEDS: HYDROmorphone 2 MG/ML VIAL (DILAUDID) IV PRN ×2 (18:13→21:53)
[2021-09-29 20:00] VITALS: BP 130/65
[2021-09-29] MEDS: GABAPENTIN 300 MG (NEURONTIN) CAP PO SCH (20:32)
[2021-09-30] MEDS: BACLOFEN 10 MG (LIORESAL) TAB PO PRN (06:03)
[2021-09-30] MEDS: HYDROcodone/APAP 7.5 MG/325 MG (LORTAB, LORCET PLUS) TABLET PO PRN ×2 (06:03→10:50)
--- NOTE | 2021-09-30 06:09 | PM&R Progress Note ---
Subjective HPI/CC On Admission Date Seen by Provider: September 30, 2021 Time Seen by Provider: 11:30 Subjective/Events-last exam 09/30/21: 09/29/21: Pt is doing really well Multiple bowel movements Will advance diet Pain is an issue for muscle spasms so will initiate a dose of Solumedrol 125 mg and initiate Valium Spoke to Dr Gaytan in-depth and reviewed management 09/28/2021: Pt is doing well Still no bowel movement so will initiate a suppository and soap suds enema if needed Clear liquids only maintained Not as distended on abdomen 09/27/2021: Pt had a pretty rough night Pain is an issue Two people provided therapy today at the same time Dressing changes everything looks good on the surgical incision Bowels haven't moved and she is having some bloating, so will check KUB to confirm ileus and change to clear liquid diet Objective Exam Vital Signs Vital Signs Date Time Temp Pulse Resp B/P (MAP) Pulse Ox O2 Delivery O2 Flow Rate FiO2 09/30/21 09:30 Room Air 09/30/21 07:24 36.6 70 18 115/56 (75) 90 Capillary Refill : General Appearance: No Apparent Distress, WD/WN, Obese HEENT: PERRL/EOMI, Normal ENT Inspection, Pharynx Normal Neck: Full Range of Motion, Normal Inspection, Non Tender, Supple, Carotid Bruit Respiratory: Chest Non Tender, Lungs Clear, Normal Breath Sounds, No Accessory Muscle Use, No Respiratory Distress Cardiovascular: Regular Rate, Rhythm, No Edema, No Gallop, No JVD, No Murmur, Normal Peripheral Pulses Gastrointestinal: Normal Bowel Sounds, No Organomegaly, No Pulsatile Mass, Non Tender, Soft Back: CVA Tenderness (L), CVA Tenderness (R), Decreased Range of Motion, Muscle Spasm, Vertebral Tenderness Extremity: Normal Capillary Refill, Normal Inspection, Normal Range of Motion, Non Tender, No Calf Tenderness, No Pedal Edema Neurologic/Psychiatric: Alert, Oriented x3, Normal Mood/Affect, second miller II-XII Norm as Tested, Abnormal Gait, Motor Weakness (Lower extremities 4/5) Skin: Normal Color, Warm/Dry Lymphatic: No Adenopathy Results/Procedures Lab Patient resulted labs reviewed. FIM Transfers Therapy Code Descriptions/Definitions Functional [place] Measure: 0=Not Assessed/NA 4=Minimal Assistance 1=Total Assistance 5=Supervision or Setup 2=Maximal Assistance 6=Modified [place] 3=Moderate Assistance 7=Complete IndependenceSCALE: Activities may be completed with or without assistive devices. 2-Kfigogsppi-yjphzyh completes the activity by him/herself with no assistance from a helper. 5-Set-up or Clean-up Assistance-helper sets up or cleans up; patient completes activity. [place] assists only prior to or following the activity. 4-Supervision or Touching Assistance-helper provides verbal cues and/or touching/steadying and/or contact guard assistance as patient completes activity. Assistance may be provided throughout the activity or intermittently. 3-Partial/Moderate Assistance-helper does LESS THAN HALF the effort. [place] lifts, holds or supports trunk or limbs, but provides less than half the effort. 2-Substantial/Maximal Assistance-helper does MORE THAN HALF the effort. [place] lifts or holds trunk or limbs and provides more than half the effort. 5-Ukfbbevif-dngloi does ALL the effort. Patient does none of the effort to complete the activity. Or, the assistance of 2 or more helpers is required for the patient to complete the activity. If activity was not attempted, code reason: 7-Patient Refused. 9-Not Applicable-not attempted and the patient did not perform the activity before the current illness, exacerbation or injury. 10-Not Attempted due to Environmental Limitations-(lack of equipment, weather restraints, etc.). 88-Not Attempted due to Medical Conditions or Safety Concerns. Roll Left to Right (QC): 3 Sit to Lying (QC): 3 Sit to Stand (QC): 3 Chair/Oxx-ew-Zmtyh Xfer(QC): 4 Car Transfer (QC): 3 Gait Training Does the Patient Walk?: Yes Distance: 120'x2 Walk 10 feet (QC): 4 Walk 50 ft with 2 Turns(QC): 4 Walk 150 ft (QC): 4 Walking 10ft/uneven surface-QC: 4 Gait Persons Needed: 1 Gait Assistive Device: FWW Wheelchair Training Does the Pt Use a Wheelchair?: No Wheel 50 ft with 2 turns (QC): 9 Wheel 150 ft (QC): 9 Type of Wheelchair: N/A Stair Training #of Steps: 1 1 Step (curb) (QC): 4 4 Steps (QC): 88 12 Steps (QC): 88 Balance Picking up an Object (QC): 4 (with extra long writer editor) ADL-Treatment Eating (QC): 6 Oral Hygiene (QC): 6 Shower/Bathe Self (QC): 4 (SBA, in sitting. Pt able to use LH sponge for LEs.) Upper Body Dressing (QC): 5 (set up ) Lower Body Dressing (QC): 2 (Assist to thread LEs, and some assist in pant hike.) On/Off Footwear (QC): 2 (pt doffed gripper socks using writer editor, assist to don.) Toileting Hygiene (QC): 3 (Pt would require assistance with hygiene and some assistance in standing during pant hike.) Assessment/Plan Assessment and Plan Assess & Plan/Chief Complaint Assessment: Status post lumbar spine surgery Severe immobility due to pain Hypothyroidism Hypertension Increased BMI Postop constipation resolving Postop ileus diagnosed 09/27/2021 placed on clear liquid diet and advanced on 09/29/2021 Plan: Aggressive rehab Pain meds Laxatives 09/27/2021: Supportive care Aggressive rehab KUB Clear liquids 09/28/2021: Supportive care Bowel regimen 09/29/2021: Bowel regimen to continue Back pain management Spoke to Dr. Gaytan and he recommended continue pain control (1) Lumbar spinal stenosis (2) Immobility (3) Constipation (4) Hypothyroidism (5) Hypertension MYRIAM GARCIA DO September 30, 2021 06:09
[2021-09-30 07:24] VITALS: BP 115/56
[2021-09-30] MEDS: PROPRANOLOL 20 MG (INDERAL) TABLET PO SCH (08:02)
[2021-09-30] MEDS: SENNA W/DOCUSATE (SENOKOT S) TABLET PO SCH (08:02)
[2021-09-30] MEDS: LEVOTHYROXINE 100 MCG (LEVOTHROID) TAB PO SCH (08:03)
[2021-09-30] MEDS: KCL 10 MEQ TAB (MICRO K) PO SCH (08:03)
[2021-09-30] MEDS: DOCUSATE SODIUM 100 MG (COLACE) CAP PO SCH (08:03)
[2021-09-30] MEDS: VITAMIN D3 25 MCG (1,000 UNITS) TABLET PO SCH (08:03)
[2021-09-30] MEDS: HYDROmorphone 2 MG/ML VIAL (DILAUDID) IV PRN (08:09)
[2021-09-30] MEDS: polyethylene glycoL POWDER 17 GM (MIRALAX) PACK PO SCH (08:19)
--- NOTE | 2021-09-30 08:32 | Physical Therapy Daily Note ---
PT Daily Note-Current Subjective Pt. in bed with head slightly raised nurse present. Pt. states she is in 9/10 back pain and cannot move at this time, not to roll or sit up further or eat. Pt. currently has Kpad on her back for heat for spasms . This CLIENT SERVICES ADMINISTRATOR suggested cold pack and explained the reasoning. Pt. is agreeable to it but states she cannot roll to get it under her at this time secondary to pain level. Pt. was educated regarding the advantages of movement after surgery and the risks of blood clot and prevention of etc. Pain Numeric Pain Scale: 9 Location: Medial Location Body Site: Back Pain Description: Stabbing Appearance grimacing and eyes closed tightly with c/o pain Mental Status Patient Orientation: Normal For Age Attachments: Other-See Comments (pure wick) Transfers SCALE: Activities may be completed with or without assistive devices. 8-Vaumhcielr-ucrutrl completes the activity by him/herself with no assistance from a helper. 5-Set-up or Clean-up Assistance-helper sets up or cleans up; patient completes activity. [place] assists only prior to or following the activity. 4-Supervision or Touching Assistance-helper provides verbal cues and/or touching/steadying and/or contact guard assistance as patient completes activity. Assistance may be provided throughout the activity or intermittently. 3-Partial/Moderate Assistance-helper does LESS THAN HALF the effort. [place] lifts, holds or supports trunk or limbs, but provides less than half the effort. 2-Substantial/Maximal Assistance-helper does MORE THAN HALF the effort. [place] lifts or holds trunk or limbs and provides more than half the effort. 3-Oqmkzydwv-fxsoml does ALL the effort. Patient does none of the effort to complete the activity. Or, the assistance of 2 or more helpers is required for the patient to complete the activity. If activity was not attempted, code reason: 7-Patient Refused. 9-Not Applicable-not attempted and the patient did not perform the activity before the current illness, exacerbation or injury. 10-Not Attempted due to Environmental Limitations-(lack of equipment, weather restraints, etc.). 88-Not Attempted due to Medical Conditions or Safety Concerns. pt. declines attempts to roll or sit up etc secondary to extreme pain Weight Bearing Full Weight Bearing Full Weight Bearing Exercises Supine Ex: Ankle pumps, Quad Set, Glut sets Treatments pt. with back pain c/o at 9/10 and increases with any attempt to move. Nurse present and has given all meds for pain and is consulting Dr for possible further meds to assist. Pt. was educated in importance of activity and movement for prevention of blood clots and pneumonia. Cold gel pack was obtained and will be used when pt. can tolerate rolling for application or perhaps sitting in recliner etc. Pt. did participate in isometric exercises as described above. Assessment Current Status: Poor Progress pain c/o greatly limit functional mobility this Rx. PT Short Term Goals Short Term Goals Time Frame: October 04, 2021 Roll Left & Right: 3 (Case) Sit to lyin (Case) Lying to sitting on side of be: 3 (Case) Sit to stand: 4 (CGA) Chair/bnn-cn-iubyt transfer: 4 (SBA) Walk 10 feet: 4 (SBA) Walk 50 feet with two turns: 4 (SBA) Walk 150 feet: 4 (SBA) PT Divorce Lawyer Goals Jail Goals PT Jail Goals Time Frame: Oct 18, 2021 Roll Left & Right (QC): 4 (SBA) Sit to Lying (QC): 4 (SBA) Lying-Sitting on Side/Bed(QC): 4 (SBA) Sit to Stand (QC): 6 Chair/Phe-wk-Pghjp Xfer(QC): 6 Toilet Transfer (QC): 6 Car Transfer (QC): 4 (SBA) Does the Patient Walk: Yes Walk 10 feet (QC): 6 Walk 50ft with 2 Turns (QC): 6 Walk 150 ft (QC): 6 Walking 10ft on Uneven Surface: 4 (SBA) 1 Step (curb) (QC): 4 (SBA) 4 Steps (QC): 4 (SBA) 12 Steps (QC): 88 Picking up an Object (QC): 6 Wheel 50 feet with 2 turns (QC: 9 Wheel 150 feet: 9 PT Plan Treatment/Plan Treatment Plan: Continue Plan of Care Treatment Plan: Bed Mobility, Education, Functional Activity Fede, Functional Strength, Group Therapy, Gait, Safety, Therapeutic Exercise, Transfers Treatment Duration: Oct 18, 2021 Frequency: At least 5 of 7 days/Wk (IRF) Estimated Hrs Per Day: 1.5 hours per day Patient and/or Family Agrees t: Yes Safety Risks/Education Patient Education: Correct Positioning, Disease Process, Safety Issues Teaching Recipient: Patient, Family Response to Teaching: Verbalize Understanding, Return Demonstration, Reinforcement Needed Time/GCodes Time In: 800 Time Out: 830 Total Billed Treatment Time: 30 Total Billed Treatment 1,EX15m,FA15m ADELINE RODRIGUEZ CLIENT SERVICES ADMINISTRATOR September 30, 2021 08:32
--- NOTE | 2021-09-30 10:18 | Occ Therapy Progress Note ---
Therapy Progress Note OT tx attempted at 0930, pt reports unable to move or get out of bed due to back spasms. Pt reports unable to participate and tolerate with skilled OT at this time, refuses to attempt OOB activities even with education provided on benefits/purpose. OT will attempt again later today. 1, refusal ALLA PERAZA OT September 30, 2021 10:18
--- NOTE | 2021-09-30 10:33 | Discharge Summary ---
Diagnosis/Chief Complaint Date of Admission September 26, 2021 at 16:19 Date of Discharge Discharge Diagnosis Assessment: Status post lumbar spine surgery Severe immobility due to pain Hypothyroidism Hypertension Increased BMI Postop constipation resolving Postop ileus diagnosed 09/27/2021 placed on clear liquid diet and advanced on 09/29/2021 Plan: Aggressive rehab Pain meds Laxatives 09/27/2021: Supportive care Aggressive rehab KUB Clear liquids 09/28/2021: Supportive care Bowel regimen 09/29/2021: Bowel regimen to continue Back pain management Spoke to Dr. Gaytan and he recommended continue pain control (1) Lumbar spinal stenosis (2) Immobility (3) Constipation (4) Hypothyroidism (5) Hypertension Discharge Summary Discharge Physical Examination Allergies: Coded Allergies: NKANo Known Allergies (Unverified Allergy, Unknown, 08/08/06) Vitals & I&Os Vital Signs Date Time Temp Pulse Resp B/P (MAP) Pulse Ox O2 Delivery O2 Flow Rate FiO2 09/30/21 09:30 Room Air 09/30/21 07:24 36.6 70 18 115/56 (75) 90 General Appearance: Alert, Oriented X3, Cooperative Respiratory: Clear to Auscultation Cardiovascular: Regular Rate Psych/Mental Status: Mental Status NL Hospital Course Was the Problem List Reviewed?: Yes Hospital Course: The patient is a 70 YO F who was admitted to inpatient rehab for debility following a lumbar spine surgery by Dr. Gaytan at [facility] on 09/19/21. She was admitted to inpatient rehab on 09/27/21. She has not been able to fully participate in her physical therapy and occupational therapy exercises and treatments due to her back pain. Dr. Gaytan was contacted and he reported that her lumbar spine is structurally stable. Her pain was managed with PRN opiate agonists throughout her inpatient rehab course. She was also given a dose of IV Solu-medrol 125mg on 09/29/21, which she reported did not help very much. Lovenox for DVT prophylaxis was started on 09/29/21. Her hematology and blood chemistry has remained stable. The patient had constipation complaints when first admitted and was able to have a bowel movement on 09/28/21, which was her most recent bowel movement. The patient will be moved today (09/30/21) to the fourth floor. She was comfortable with this plan. EMILIA WHITMAN Labs (last 24 hrs) Laboratory Tests 09/27/21 05:30: White Blood Count 9.3, Red Blood Count 3.68L, Hemoglobin 11.4L, Hematocrit 35, Mean Corpuscular Volume 95, Mean Corpuscular Hemoglobin 31, Mean Corpuscular Hemoglobin Concent 33, Red Cell Distribution Width 15.2H, Platelet Count 373, Mean Platelet Volume 10.0, Immature Granulocyte % (Auto) 1, Neutrophils (%) (Auto) 51, Lymphocytes (%) (Auto) 36, Monocytes (%) (Auto) 9, Eosinophils (%) (Auto) 3, Basophils (%) (Auto) 1, Neutrophils # (Auto) 4.7, Lymphocytes # (Auto) 3.4, Monocytes # (Auto) 0.8, Eosinophils # (Auto) 0.3, Basophils # (Auto) 0.1, Immature Granulocyte # (Auto) 0.1, Sodium Level 140, Potassium Level 4.0, Chloride Level 105, Carbon Dioxide Level 26, Anion Gap 9, Blood Urea Nitrogen 14, Creatinine 0.69, Estimat Glomerular Filtration Rate 93, BUN/Creatinine Ratio 20, Glucose Level 98, Calcium Level 10.0, Corrected Calcium 10.6H, Total Bilirubin 0.8, Aspartate Amino Transf (AST/SGOT) 16, Alanine Aminotransferase (ALT/SGPT) 11, Alkaline Phosphatase 74, Total Protein 6.3L, Albumin 3.2 Pending Labs Laboratory Tests 09/27/21 05:30: White Blood Count 9.3, Red Blood Count 3.68, Hemoglobin 11.4, Hematocrit 35, Mean Corpuscular Volume 95, Mean Corpuscular Hemoglobin 31, Mean Corpuscular Hemoglobin Concent 33, Red Cell Distribution Width 15.2, Platelet Count 373, Mean Platelet Volume 10.0, Immature Granulocyte % (Auto) 1, Neutrophils (%) (Auto) 51, Lymphocytes (%) (Auto) 36, Monocytes (%) (Auto) 9, Eosinophils (%) (Auto) 3, Basophils (%) (Auto) 1, Neutrophils # (Auto) 4.7, Lymphocytes # (Auto) 3.4, Monocytes # (Auto) 0.8, Eosinophils # (Auto) 0.3, Basophils # (Auto) 0.1, Immature Granulocyte # (Auto) 0.1, Sodium Level 140, Potassium Level 4.0, Chloride Level 105, Carbon Dioxide Level 26, Anion Gap 9, Blood Urea Nitrogen 14, Creatinine 0.69, Estimat Glomerular Filtration Rate 93, BUN/Creatinine Ratio 20, Glucose Level 98, Calcium Level 10.0, Corrected Calcium 10.6, Total Bilirubin 0.8, Aspartate Amino Transf (AST/SGOT) 16, Alanine Aminotransferase (ALT/SGPT) 11, Alkaline Phosphatase 74, Total Protein 6.3, Albumin 3.2 Discharge Home Medications: Active Scripts Active Hydrocodone-Acetamin 7.5-325 (Hydrocodone/Acetaminophen) 7.5 Mg-325 Mg Tablet 1- 2 Tab PO Q4H PRN Bacitracin 500 Unit/Gram Oint...g. 1 Gm TP Q48H APPLY TO ENTIRE LENGTH OF INCISION WITH DRESSING CHNGES EVERY OTHER DAY UNTIL TOY ARE REMOVED Reported Baclofen 10 Mg Tablet 10 Mg PO Q 8 HOURS PRN Neurontin (Gabapentin) 300 Mg Capsule 300 Mg PO HS Vitamin D3 (Cholecalciferol (Vitamin D3)) 25 Mcg Tablet 1,000 Units PO DAILY Propranolol HCl 60 Mg Tablet 60 Mg PO DAILY Hydrochlorothiazide 25 Mg Tablet 25 Mg PO DAILY Potassium Chloride 10 Meq Tab.er.prt 10 Meq PO DAILY Levothyroxine Sodium 100 Mcg Tablet 100 Mcg PO DAILY Instructions to patient/family Please see electronic discharge instructions given to patient. Diagnosis/Problems Diagnosis/Problems (1) Lumbar spinal stenosis (2) Immobility (3) Constipation (4) Hypothyroidism (5) Hypertension MYRIAM GARCIA DO September 30, 2021 10:33
[2021-09-30] MEDS: ENOXAPARIN 40 MG/0.4 ML (LOVENOX) SYR SC SCH (11:02)
--- NOTE | 2021-09-30 11:13 | Progress Note ---
EMILIA WHITMAN 09/30/21 1113: Progress Note Hospital Course: The patient is a 70 YO F who was admitted to inpatient rehab for debility following a lumbar spine surgery by Dr. Gaytan at [facility] on 09/19/21. She was admitted to inpatient rehab on 09/27/21. She has not been able to fully participate in her physical therapy and occupational therapy exercises and treatments due to her back pain. Dr. Gaytan was contacted and he reported that her lumbar spine is structurally stable. Her pain was managed with PRN opiate agonists throughout her inpatient rehab course. She was also given a dose of IV Solu-medrol 125mg on 09/29/21, which she reported did not help very much. Lovenox for DVT prophylaxis was started on 09/29/21. Her hematology and blood chemistry has remained stable. The patient had constipation complaints when first admitted and was able to have a bowel movement on 09/28/21, which was her most recent bowel movement. The patient will be moved today (09/30/21) to the fourth floor. She was comfortable with this plan. ANA GARCIA DO 09/30/215: Supervisory-Addendum Brief Verification & Attestation Participated in pt care: history, MDM, physical Personally performed: exam, history, MDM, supervision of care Care discussed with: Medical Student Procedures: n/a Results interpretation: Verified all documentation Verification and Attestation of Medical Student E/M Service A medical student performed and documented this service in my presence. I reviewed and verified all information documented by the medical student and made modifications to such information, when appropriate. I personally performed the physical exam and medical decision making. Ana Garcia September 30, 2021,21:05 EMILIA WHITMAN September 30, 2021 11:13 ANA GARCIA DO September 30, 2021 21:05
--- NOTE | 2021-09-30 13:00 | Therapy Team Discharge Summary ---
Therapy Discharge Summary Discharge Recommendations Date of Discharge September 30, 2021 at 11:10 Physical Therapy Roll Left to Right (QC): 3 Sit to Lying (QC): 3 Lying to Sitting/Side of Bed(Q: 2 Sit to Stand (QC): 3 Chair/Aef-if-Znggq Xfer(QC): 4 Toilet Transfer (QC): 1 Car Transfer (QC): 3 Does the Patient Walk: Yes Mode of Locomotion: Walk Anticipated Mode of Locomotion: Walk Walk 10 feet (QC): 4 Walk 50 ft with 2 Turns(QC): 4 Walk 150 ft (QC): 4 Walking 10ft on uneven surface: 4 Distance: 120', 60'x2 Gait Assistive Device: FWW Does the Pt Use a Wheelchair: No Wheel 50 ft with 2 turns (QC): 9 Wheel 150 ft (QC): 9 Type of Wheelchair: N/A #of Steps: 1 1 Step (curb) (QC): 4 4 Steps (QC): 88 12 Steps (QC): 88 Walking Assistive Device: Walker Balance Sitting Static: Normal Balance Sitting Dynamic: Normal Balance-Standing Static: Good Picking up an Object (QC): 4 (with extra long car groomer) Occupational Therapy Pt admitted to ARU with debility s/p back surgery. At [facility], pt was independent with ADLs and functional mobility. Pt's progress during ARU stay limited by back pain and short stay on ARU. Pt met LTGs for eating and oral care, but did not attain other goals. Pt discharged to 4th floor med/surg unit due to uncontrolled back pain. D/C from OT. Decreased Activ Tolerance, Decreased UE Strength, Impaired Funct Balance, Impaired I ADL's, Impaired Self-Care Skills Eating (QC): 6 Oral Hygiene (QC): 6 Shower/Bathe Self (QC): 4 (SBA, in sitting. Pt able to use LH sponge for LEs.) Upper Body Dressing (QC): 5 (set up ) Lower Body Dressing (QC): 2 (Assist to thread LEs, and some assist in pant hi ke.) On/Off Footwear (QC): 2 (pt doffed gripper socks using car groomer, assist to don.) Toileting Hygiene (QC): 3 (Pt would require assistance with hygiene and some assistance in standing during pant hike.) PT Chcf Goals Chcf Goals PT Chcf Goals Time Frame: Oct 18, 2021 Roll Left to Right (QC): 4 (SBA) Sit to Lying (QC): 4 (SBA) Lying-Sitting on Side/Bed(QC): 4 (SBA) Sit to Stand (QC): 6 Chair/Oia-hk-Bibjv Xfer(QC): 6 Car Transfer (QC): 4 (SBA) Does the Patient Walk: Yes Walk 10 feet (QC): 6 Walk 10ft-Uneven Surface(QC): 4 (SBA) Walk 50ft with 2 Turns (QC): 6 Walk 150 ft (QC): 6 Wheel 50 feet with 2 turns (QC: 9 1 Step (curb) (QC): 4 (SBA) 4 Steps (QC): 4 (SBA) 12 Steps (QC): 88 Picking up an Object (QC): 6 OT Chcf Goals Chcf Goals Time Frame: Oct 21, 2021 Eating (QC): 6 Oral Hygiene (QC): 6 Shower/Bathe Self (QC): 5 Upper Body Dressing (QC): 6 Lower Body Dressing (QC): 6 On/Off Footwear (QC): 6 Toileting Hygiene (QC): 6 Toilet/Commode Transfer (QC): 6 Additional Goals: 1-Demonstrate ADL Tasks, 2-Verbalize Understanding, 3- ImproveStrength/Fede 1=Demonstrate adherence to instructed precautions during ADL tasks. 2=Patient will verbalize/demonstrate understanding of assistive devices/modifications for ADL. 3=Patient will improve strength/tolerance for activity to enable patient to perform ADL's. ALLA PERAZA OT September 30, 2021 13:00
== END 2021-09-30 11:10 | disposition short-term general hospital (02) | DRG 560 ==
PROVIDERS: ADMIT Internal Medicine; ATTEND Internal Medicine
DX: Z47.89 Encounter for other orthopedic aftercare (principal); K56.7 Ileus, unspecified; Z98.1 Arthrodesis status; G89.18 Other acute postprocedural pain; K59.00 Constipation, unspecified; E03.9 Hypothyroidism, unspecified; I10 Essential (primary) hypertension; F41.9 Anxiety disorder, unspecified; D64.9 Anemia, unspecified; R01.1 Cardiac murmur, unspecified
CPT/HCPCS: 36415; 74018; 80053; 85025; 93306

== ENCOUNTER 2021-09-30 10:39 | Inpatient (IN) | payer MEDICARE ==
[~2021-09-30] VITALS: Ht 172.7 cm; Wt 110.0 kg
[~2021-09-30 10:39] MED LIST changes: +BACI28.4 TP; +HYDR-3817 PO
[2021-09-30] MEDS ORDERED: MILK OF MAGNESIA 400 MG/5 ML 30 ML UDC PO PRN (11:00)
[2021-09-30] MEDS ORDERED: BISACODYL 10 MG SUPP (DULCOLAX) PR PRN ×2 (11:00→12:45)
[2021-09-30] MEDS ORDERED: ONDANSETRON 4 MG (ZOFRAN) ORAL DISSOLVE TAB PO PRN ×2 (11:00→12:45)
[2021-09-30] MEDS ORDERED: LACTULOSE SYRUP 10GM/15ML (ENULOSE) 30ML UDC PO PRN ×2 (11:00→12:45)
[2021-09-30] MEDS ORDERED: MELATONIN 3 MG TABLET PO PRN ×2 (11:00→12:45)
[2021-09-30] MEDS ORDERED: diphenhydrAMINE 25 MG TAB (BENADRYL) PO PRN ×2 (11:00→12:45)
[2021-09-30] MEDS ORDERED: ANTACID SUSP 30 ML UDC (MYLANTA) PO PRN (11:00)
[2021-09-30] MEDS ORDERED: polyethylene glycoL POWDER 17 GM (MIRALAX) PACK PO PRN (11:00)
[2021-09-30] MEDS ORDERED: CALCIUM CARBONATE 500 MG (TUMS) TAB.CHEW PO PRN ×2 (11:00→12:45)
[2021-09-30] MEDS ORDERED: ONDANSETRON 4 MG/2 ML (SDV) Z0FRAN IV PRN (11:00)
[2021-09-30] MEDS ORDERED: diphenhydrAMINE 50 MG/ML INJ (BENADRYL) IVP PRN (11:00)
[2021-09-30] MEDS ORDERED: ACETAMINOPHEN 325 MG TABLET PO PRN ×2 (11:00→12:45)
--- NOTE | 2021-09-30 11:48 | Occ Therapy Progress Note ---
Therapy Progress Note OT orders received. Pt transferred to 4th floor Med/Surg from ARU today due to uncontrolled back pain. Pt unable to tolerate OT evaluation on this date because of back pain/spasms. OT will attempt evaluation next available date. ALLA PERAZA OT September 30, 2021 11:48
[2021-09-30 12:00] VITALS: BP 108/65
--- NOTE | 2021-09-30 12:41 | History & Physical ---
History of Present Illness History of Present Illness Reason for visit/HPI PT IS A 70 Y/O FEMALE WHO HAD BACK SURGERY AT [facility] ON SHE WAS SENT HOME, BUT SHE WAS EXPECTING AN ADMISSION TO THE INPATIENT REHAB UNI T FROM [place], SHE PRESENTED TO THE HOSPITAL AND SHE WAS SUBSEQUENTLY ADMITTED TO THE HOSPITAL BY DR. GARCIA TO THE INPATIENT REHAB UNIT. THE PATIENT HAD A POST-OPERATIVE ILEUS, WHICH HAS RESOLVED, BUT SHE WAS NOT PROGRESSING AND DR. GARCIA CONTACTED THIS PROVIDER TO INFORM OF THE TRANSFER TO THE FLOOR DUE TO UNCONTROLLED PAIN AND POOR PROGRESSION WITH REHAB. Date of Admission September 30, 2021 at 11:20 Date Seen by a Provider: September 30, 2021 Time Seen by a Provider: 12:40 Attending Physician MARIA ELENA LEMUS MD Admitting Physician MARIA ELENA LEMUS MD Consult Allergies and Home Medications Allergies Coded Allergies: KENNYANo Known Allergies (Unverified Allergy, Unknown, 08/08/06) Patient Home Medication List Home Medication List Reviewed: Yes Bacitracin (Bacitracin) 500 Unit/Gram Oint...g., 1 GM TP Q48H Prescribed by: PHIL ENCINAS on 09/26/21 1627 Last Action: Reviewed Baclofen (Baclofen) 10 Mg Tablet, 10 MG PO q 8 hours PRN for MUSCLE SPASMS, (Reported) Entered as Reported by: SANNA CORTEZ on 02/02/201325 Last Action: Reviewed Cholecalciferol (Vitamin D3) (Vitamin D3) 25 Mcg Tablet, 1,000 UNITS PO DAILY, (Reported) Entered as Reported by: SANNA CORTEZ on 02/02/201325 Last Action: Reviewed Gabapentin (Neurontin) 300 Mg Capsule, 300 MG PO HS, (Reported) Entered as Reported by: SANNA CORTEZ on 02/02/20 132 Last Action: Reviewed Hydrochlorothiazide (Hydrochlorothiazide) 25 Mg Tablet, 25 MG PO DAILY, (Reported) Entered as Reported by: SANNA CORTEZ on 02/02/201325 Last Action: Reviewed Hydrocodone/Acetaminophen (Hydrocodone-Acetamin 7.5-325) 7.5 Mg-325 Mg Tablet, 1-2 TAB PO Q4H PRN for PAIN Prescribed by: PHIL ENCINAS on 09/26/21 5203 Last Action: Reviewed Levothyroxine Sodium (Levothyroxine Sodium) 100 Mcg Tablet, 100 MCG PO DAILY, (Reported) Entered as Reported by: SANNA CORTEZ on 02/02/201325 Last Action: Reviewed Potassium Chloride (Potassium Chloride) 10 Meq Tab.er.prt, 10 MEQ PO DAILY, (Reported) Entered as Reported by: SANNA CORTEZ on 02/02/201325 Last Action: Reviewed Propranolol HCl (Propranolol HCl) 60 Mg Tablet, 60 MG PO DAILY, (Reported) Entered as Reported by: SANNA CORTEZ on 02/02/20 132 Last Action: Reviewed Discontinued Medications Cephalexin (Cephalexin) 500 Mg Capsule, 1 CAP PO TID Discontinued Reason: No Longer Taking Prescribed by: NOAH CARTER on 02/09/20 0950 Hydrocodone/Acetaminophen (Hydrocodone-Acetamin 5-325 mg) 1 Each Tablet, 1 EACH PO Q4H PRN for PAIN-MODERATE (5-7) Discontinued Reason: No Longer Taking Prescribed by: NOAH CARTER on 02/09/20 0950 Multivitamin (Multivitamins) 1 Each Tablet, 1 EACH PO DAILY, (Reported) Discontinued Reason: No Longer Taking Entered as Reported by: SANNA CORTEZ on 02/02/201325 Past Rcrwbbr-Oymmos-Ylxjor Hx Patient Social History Marrital Status: Number of Children: 2 Number of living children: 2 Living Status: LIVES AT HOME WITH HER SPOUSE Employed/Student: retired Tobacco Use?: No Immunizations Up To Date Date of Influenza Vaccine: Apr 20, 2011 Tetanus Booster (TDap): Unknown Seasonal Allergies Seasonal Allergies: Yes Current Status Primary Language: Wallisian Past Medical History Surgeries: Abdominal (diverting ileostomy with reversal), Neurological (BACK SURGERY), Orthopedic (ANKLE SURGERY), Thyroidectomy Hypertension Gall Bladder Disease Arthritis Hypothyroidsim Loss of Vision: Denies Blood Disorders: No Family Medical History Reviewed and Corrections made Cancer of colon 19 FATHER, Onset:59 Congestive heart failure G8 SISTER Family history: Diabetes mellitus G8 SISTER Family history: Hypertension 19 FATHER 19 MOTHER Family history: Thyroid disorder 19 MOTHER Kidney disease G8 SISTER Review of Systems Constitutional: No chills, No diaphoresis, No dizziness, No fever; weakness EENTM: no symptoms reported; No double vision, No throat pain, No throat swelling Respiratory: No cough, No dyspnea on exertion, No short of breath Cardiovascular: No chest pain, No edema Gastrointestinal: abdominal pain (at surgical site); No constipation, No diarrhea, No heartburn, No nausea, No vomiting Genitourinary: frequency, incontinence Musculoskeletal: back pain, muscle weakness Skin: other (surgical sites covered with dressings) Psychiatric/Neurological: Anxiety, Numbness (of feet - chronic), Weakness All Other Systems Reviewed Negative Unless Noted: Yes Physical Exam Vital Signs Vital Signs - First Documented 09/30/21 09/30/21 12:00 16:09 Temp 37.0 Pulse 60 Resp 16 B/P (MAP) 108/65 (79) Pulse Ox 94 O2 Delivery Room Air Capillary Refill : Height, Weight, BMI Height: 5'8.00" Weight: 220lbs. 6.4oz. [id number]; 36.61 BMI Method:Stated General Appearance: WD/WN, Mild Distress (due to pain/spasms of back, pt lying in bed flat) HEENT: PERRL/EOMI, Pharynx Normal Neck: Non Tender Respiratory: Chest Non Tender, Lungs Clear, Normal Breath Sounds, No Accessory Muscle Use, No Respiratory Distress Cardiovascular: Regular Rate, Rhythm Gastrointestinal: Normal Bowel Sounds, Non Tender (except over surgical site, slightly ttp), Soft, Other (abdominal surgical site low midline dressing c/d/i, without erythema) Rectal: Deferred Extremity: Normal Capillary Refill, Normal Inspection, Non Tender, No Calf Tenderness, Pedal Edema (trace) Neurologic/Psychiatric: Alert, Oriented x3, Normal Mood/Affect Skin: Warm/Dry Lymphatic: No Adenopathy Assessment/Plan Assessment and Plan Posterior spinal fusion L1 - 3 and L4 - S1 Uncontrolled back pain Muscle spasms Chronic neuropathy Hypothyroidism Leukocytosis Hypercalcemia Posterior spinal fusion L1 - 3 and L4 - S1 with Uncontrolled back pain Muscle spasms - pt was receiving only PRN muscle relaxers and pain medication on rehab, will schedule the following medication in an attempt to have improved symptoms: - schedule oxycodone 5mg tid - schedule tizanidine 4mg bid - schedule baclofen 10mg qid - she will continue to have prn pain medication and muscle relaxers available. - check ct of thoracic and lumbar spine to rule out osteomyelitis, or hard saxena failure. Chronic neuropathy - pt on gabapentin at , continue, consider increase of gabapentin if needed for control of symptoms of back pain. Hypothyroidism - home regimen restarted. Leukocytosis - uncertain etiology - - check ct of thoracic and lumbar spine - culture of urine, blood - started on zosyn Hypercalcemia - repeat labs in AM, further work-up as needed pending repeat labs. pt on dvt prophylaxis with lovenox and scd's gi prophylaxis with ppi Admission Diagnosis Posterior spinal fusion L1 - 3 and L4 - S1 Uncontrolled back pain Muscle spasms Chronic neuropathy Hypothyroidism Leukocytosis Hypercalcemia Admission Status: Inpatient Order (span 2 midnights) Reason for Inpatient Admission: inpt admission for failure of inpt rehab, uncontrolled pain, elevated white count, will require at least 3-4 days for pain control and investigation into cause of uncontrolled pain and leukocytosis MARIA ELENA LEMUS MD September 30, 2021 12:40
[2021-09-30] MEDS ORDERED: guaiFENesin/CODEINE (ROBITUSSIN AC) 10ML UDC PO PRN (12:45)
[2021-09-30] MEDS ORDERED: FLEET ENEMA ADULT 1 EA BTL PR PRN (12:45)
[2021-09-30] MEDS ORDERED: LOPERAMIDE 2 MG (IMODIUM) TABLET PO PRN (12:45)
[2021-09-30] MEDS ORDERED: BACLOFEN 10 MG (LIORESAL) TAB PO PRN (12:45)
[2021-09-30] MEDS ORDERED: ALPRAZolam 0.25 MG (XANAX) TAB PO PRN (12:45)
[2021-09-30] MEDS ORDERED: DOCUSATE SODIUM 100 MG (COLACE) CAP PO PRN (12:45)
[2021-09-30] MEDS ORDERED: DIAZEPAM 5 MG (VALIUM) TABLET PO PRN (13:00)
[2021-09-30] MEDS ORDERED: METHYLNALTREXONE 12 MG/0.6 ML (RELISTOR) VIAL SQ ONE (13:00)
[2021-09-30 13:04] LABS: HEMATOCRIT 37 % (35-52); HEMOGLOBIN 12.1 g/dL (11.5-16.0); MEAN CORPUSCULAR HEMOGLOBIN 32 pg (25-34); MEAN CORPUSCULAR HGB CONC 33 g/dL (32-36); MEAN CORPUSCULAR VOLUME 97 fL (80-99); MEAN PLATELET VOLUME 10.1 fL (9.0-12.2); PLATELET COUNT 527 10^3/uL (130-400); WHITE BLOOD COUNT 14.5 10^3/uL (4.3-11.0)
[2021-09-30 13:26] LABS: ALBUMIN 3.7 GM/DL (3.2-4.5); BILIRUBIN,TOTAL 0.8 MG/DL (0.1-1.0); CALCIUM 10.7 MG/DL (8.5-10.1); CREATININE SERUM 0.78 MG/DL (0.60-1.30); POTASSIUM 3.8 MMOL/L (3.6-5.0); TOTAL PROTEIN 7.2 GM/DL (6.4-8.2)
[2021-09-30] MEDS ORDERED: PIPERACILLIN SODIUM/TAZOBACTAM 4.5 GM in NS (IVPB) 100 ML IV ONE (15:30)
[2021-09-30] MEDS: HYDROmorphone 2 MG/ML VIAL (DILAUDID) IV PRN (15:32)
[2021-09-30] MEDS ORDERED: RT-ALBUTEROL SULF 2.5 MG/3 ML PRE-MIX VIAL INH PRN (15:45)
[2021-09-30 16:09] VITALS: BP 123/58
[2021-09-30 16:26] LABS: BILIRUBIN,URINE NEGATIVE (NEGATIVE); CLARITY,URINE CLEAR; COLOR,URINE YELLOW; GLUCOSE, URINE (UA) NEGATIVE (NEGATIVE); KETONES,URINE NEGATIVE (NEGATIVE); LEUKOCYTE ESTERASE ,URINE 2+ (NEGATIVE); NITRITE,URINE POSITIVE (NEGATIVE); PROTEIN,URINE TRACE (NEGATIVE)
[2021-09-30 16:36] LABS: BACTERIA,URINE MODERATE /HPF; SQUAMOUS EPITHELIAL CELL,UR RARE /HPF
[2021-09-30] MEDS: BACLOFEN 10 MG (LIORESAL) TAB PO SCH (17:59)
--- NOTE | 2021-09-30 18:01 | Diagnostic Imaging Report ---
PROCEDURE: CT thoracic and lumbar spine without contrast. TECHNIQUE: Multiple contiguous axial images were obtained through the thoracic and lumbar spine without the use of intravenous contrast. Sagittal and coronal reformations were then performed. All CT scans use one or more of the following dose optimizing techniques: automated exposure control, MA and/or KvP adjustment based on a patient size and exam type, or iterative reconstruction. INDICATION: Back spasms. Back pain. Recent lumbar spine surgery. COMPARISON: MRI dated 04/06/2021 FINDINGS: CT thoracic spine: AP static alignment is maintained. There is no significant anteroretrolisthesis. There is no evidence of jumped facets. Vertebral body heights are maintained. There is no acute fracture. No bony fragments are seen within the spinal canal. Moderate multilevel degenerative changes are noted and consistent of intervertebral disc height loss with prominent anterior bridging disc osteophyte formations. Multilevel mild posterior disc osteophyte complex formations are also noted. As a result, there is multilevel mild narrowing of the spinal canal and neural foramen. Pre and paravertebral soft tissue structures are unremarkable. Included portions of lungs show mild dependent atelectasis. CT lumbar spine: Patient is status post previous laminectomy and posterior fusion of L1-L3 and L4-S1. Bilateral interpedicular screws appear well-seated. There is no evidence of loosening. Bilateral posterior fusion rods are intact. Patient is also status post previous anterior fusion at L5-S1. [place] screws appear well-seated. Intervertebral disc spacers also present at L5-S1 appears appropriately positioned. Static alignment of the lumbar spine is maintained. There is no significant anteroretrolisthesis. There is no evidence of jumped facets. Bone mineral density is diminished suggestive of underlying osteopenia/osteoporosis. Vertebral body heights are maintained. There is no acute fracture. No bony fragments are seen within the spinal canal. Pre and paravertebral soft tissue structures are unremarkable. Note is made, however, of 0.8 x 1.5 cm calculus at the left UPJ. There does appear to be associated moderate proximal hydronephrosis. Nonobstructive right renal calculus is also present. IMPRESSION: 1. No acute fracture or dislocation of the thoracic or lumbar spine. 2. Postsurgical changes of previous lumbosacral fusion as described above. There is no evidence of hardware fracture or failure. 3. Large calculus at the left UPJ with proximal moderate hydronephrosis. This does raise suspicion as a potential source of patient's back pain. 4. Additional nonobstructive right renal calculus. 5. Generalized diminished bone mineral density suggestive of underlying osteopenia/osteoporosis. Correlation with DEXA scan is recommended. Dr. Baron (supervisor calibration for Dr. Joann Bonilla) was given the impression at 5:50 p.m., by ez. Report was also faxed to the office of Dr. Bonilla by ez (for NK). Dictated by: Dictated on workstation # [id number]
[2021-09-30 19:59] VITALS: BP 115/66
[2021-09-30] MEDS: GABAPENTIN 300 MG (NEURONTIN) CAP PO SCH (20:09)
[2021-09-30] MEDS: DOCUSATE SODIUM 100 MG (COLACE) CAP PO SCH (20:09)
[2021-09-30] MEDS: SENNA W/DOCUSATE (SENOKOT S) TABLET PO SCH (20:09)
[2021-09-30] MEDS: SENNOSIDES 8.6 MG (SENOKOT) TAB PO SCH (20:10)
[2021-09-30] MEDS: polyethylene glycoL POWDER 17 GM (MIRALAX) PACK PO SCH (20:12)
[2021-09-30] MEDS: PIPERACILLIN SODIUM/TAZOBACTAM 4.5 GM in NS (IVPB) 100 ML IV SCH (21:39)
[2021-09-30] MEDS: HYDROcodone/APAP 7.5 MG/325 MG (LORTAB, LORCET PLUS) TABLET PO PRN ×2 (21:44→21:46)
[2021-10-01] VITALS: BP 133/85
[2021-10-01] MEDS: BACLOFEN 10 MG (LIORESAL) TAB PO SCH ×5 (00:33→23:36)
[2021-10-01] MEDS: HYDROmorphone 2 MG/ML VIAL (DILAUDID) IV PRN ×3 (00:37→06:38)
[2021-10-01] MEDS: HYDROcodone/APAP 7.5 MG/325 MG (LORTAB, LORCET PLUS) TABLET PO PRN (03:28)
[2021-10-01 04:24] VITALS: BP 140/79
[2021-10-01] MEDS: PIPERACILLIN SODIUM/TAZOBACTAM 4.5 GM in NS (IVPB) 100 ML IV SCH ×3 (05:11→21:37)
[2021-10-01] MEDS: KCL 10 MEQ TAB (MICRO K) PO SCH (05:18)
[2021-10-01] MEDS: LEVOTHYROXINE 100 MCG (LEVOTHROID) TAB PO SCH (05:18)
[2021-10-01 05:47] LABS: BASOPHILS # (AUTO) 0.1 10^3/uL (0.0-0.1); BASOPHILS % (AUTO) 1 % (0-10); EOSINOPHILS # (AUTO) 0.2 10^3/uL (0.0-0.3); EOSINOPHILS % (AUTO) 2 % (0-10); HEMATOCRIT 38 % (35-52); HEMOGLOBIN 12.4 g/dL (11.5-16.0); LYMPHOCYTES # (AUTO) 3.7 10^3/uL (1.0-4.0); LYMPHOCYTES % (AUTO) 31 % (12-44); MEAN CORPUSCULAR HEMOGLOBIN 31 pg (25-34); MEAN CORPUSCULAR HGB CONC 33 g/dL (32-36); MEAN CORPUSCULAR VOLUME 96 fL (80-99); MEAN PLATELET VOLUME 10.1 fL (9.0-12.2); MONOCYTES # (AUTO) 0.8 10^3/uL (0.0-1.0); MONOCYTES % (AUTO) 7 % (0-12); NEUTROPHILS % (AUTO) 60 % (42-75); PLATELET COUNT 513 10^3/uL (130-400); WHITE BLOOD COUNT 11.8 10^3/uL (4.3-11.0)
[2021-10-01 06:10] LABS: ALBUMIN 3.5 GM/DL (3.2-4.5); POTASSIUM 4.4 MMOL/L (3.6-5.0)
[2021-10-01 06:11] LABS: CALCIUM 10.7 MG/DL (8.5-10.1)
[2021-10-01 06:12] LABS: TOTAL PROTEIN 7.1 GM/DL (6.4-8.2)
[2021-10-01 06:14] LABS: BILIRUBIN,TOTAL 0.7 MG/DL (0.1-1.0)
[2021-10-01 06:16] LABS: CREATININE SERUM 0.84 MG/DL (0.60-1.30)
[2021-10-01 08:13] VITALS: BP 115/72
[2021-10-01] MEDS: DOCUSATE SODIUM 100 MG (COLACE) CAP PO SCH ×2 (09:37→21:05)
[2021-10-01] MEDS: SENNA W/DOCUSATE (SENOKOT S) TABLET PO SCH ×3 (09:37→21:05)
[2021-10-01] MEDS: SENNOSIDES 8.6 MG (SENOKOT) TAB PO SCH ×2 (09:38→21:06)
[2021-10-01] MEDS: polyethylene glycoL POWDER 17 GM (MIRALAX) PACK PO SCH ×2 (09:38→21:09)
[2021-10-01] MEDS: BACITRACIN OINTMENT 28 GM TUBE TP SCH (09:38)
[2021-10-01] MEDS: VITAMIN D3 25 MCG (1,000 UNITS) TABLET PO SCH (09:38)
[2021-10-01] MEDS: PROPRANOLOL 20 MG (INDERAL) TABLET PO SCH (09:38)
--- NOTE | 2021-10-01 11:09 | Progress Note ---
Subjective Date Seen by a Provider: October 01, 2021 Time Seen by a Provider: 11:04 Subjective/Events-last exam Fwup lumbar spine fusion with muscle spasms/uncontrolled pain, UTI. Lying in bed with at bedside. Groggy. Still c/o spasms/twinges of pain. Objective Exam Vital Signs Date Time Temp Pulse Resp B/P (MAP) Pulse Ox O2 Delivery O2 Flow Rate FiO2 10/01/21 08:13 36.1 51 16 115/72 (86) 94 Room Air 10/01/21 08:00 Room Air 10/01/21 07:44 Room Air 10/01/21 04:24 36.1 67 18 140/79 (99) 93 Room Air 10/01/21 00:00 36.1 63 18 133/85 (101) 95 Room Air 09/30/21 20:24 Room Air 09/30/21 19:59 35.9 55 18 115/66 (82) 97 Room Air 09/30/21 16:09 35.9 57 18 123/58 (79) 94 Room Air 09/30/21 12:00 37.0 60 16 108/65 (79) Room Air I & O 10/01/21 07:00 Intake Total 770 ml Output Total 2300 ml Balance -1530 ml Capillary Refill : General Appearance: No Apparent Distress, Other (groggy) Neck: Supple Respiratory: Lungs Clear Cardiovascular: Regular Rate, Rhythm Gastrointestinal: normal bowel sounds, non tender, soft Extremity: Non Tender, No Calf Tenderness, No Pedal Edema Neurologic/Psychiatric: Alert Skin: Warm/Dry Results Lab Laboratory Tests 09/30/21 12:58: White Blood Count 14.5H, Red Blood Count 3.78L, Hemoglobin 12.1, Hematocrit 37, Mean Corpuscular Volume 97, Mean Corpuscular Hemoglobin 32, Mean Corpuscular Hemoglobin Concent 33, Red Cell Distribution Width 15.1H, Platelet Count 527H, Mean Platelet Volume 10.1, Sodium Level 139, Potassium Level 3.8, Chloride Level 101, Carbon Dioxide Level 27, Anion Gap 11, Blood Urea Nitrogen 16, Creatinine 0.78, Estimat Glomerular Filtration Rate 82, BUN/Creatinine Ratio 21, Glucose Level 111H, Calcium Level 10.7H, Corrected Calcium 10.9H, Total Bilirubin 0.8, Aspartate Amino Transf (AST/SGOT) 17, Alanine Aminotransferase (ALT/SGPT) 13, Alkaline Phosphatase 108, Total Protein 7.2, Albumin 3.7 09/30/21 16:15: Urine Color YELLOW, Urine Clarity CLEAR, Urine pH 6.0, Urine Specific [place] 1.015L, Urine Protein TRACEH, Urine Glucose (UA) NEGATIVE, Urine Ketones NEGATIVE, Urine Nitrite POSITIVEH, Urine Bilirubin NEGATIVE, Urine Urobilinogen 0.2, Urine Leukocyte Esterase 2+H, Urine RBC (Auto) TRACE-IH, Urine RBC NONE, Urine WBC 10-25H, Urine Squamous Epithelial Cells RARE, Urine Crystals NONE, Urine Bacteria MODERATEH, Urine Casts NONE, Urine Mucus NEGATIVE, Urine Culture Indicated YES 10/01/21 05:22: White Blood Count 11.8H, Red Blood Count 3.96, Hemoglobin 12.4, Hematocrit 38, Mean Corpuscular Volume 96, Mean Corpuscular Hemoglobin 31, Mean Corpuscular Hemoglobin Concent 33, Red Cell Distribution Width 14.8H, Platelet Count 513H, Mean Platelet Volume 10.1, Sodium Level 140, Potassium Level 4.4, Chloride Level 102, Carbon Dioxide Level 26, Anion Gap 12, Blood Urea Nitrogen 17, Creatinine 0.84, Estimat Glomerular Filtration Rate 75, BUN/Creatinine Ratio 20, Glucose Level 102, Calcium Level 10.7H, Corrected Calcium 11.1H, Total Bilirubin 0.7, Aspartate Amino Transf (AST/SGOT) 20, Alanine Aminotransferase (ALT/SGPT) 13, Alkaline Phosphatase 113, Total Protein 7.1, Albumin 3.5, Immature Granulocyte % (Auto) 0, Neutrophils (%) (Auto) 60, Lymphocytes (%) (Auto) 31, Monocytes (%) (Auto) 7, Eosinophils (%) (Auto) 2, Basophils (%) (Auto) 1, Neutrophils # (Auto) 7.0, Lymphocytes # (Auto) 3.7, Monocytes # (Auto) 0.8, Eosinophils # (Auto) 0.2, Basophils # (Auto) 0.1, Immature Granulocyte # (Auto) 0.1 Microbiology 09/30/21 Urine Culture - Preliminary, Resulted Escherichia coli Assessment/Plan Assessment/Plan Assess & Plan/Chief Complaint 1. Lumbar Fusion with muscle spasms/uncontrolled pain--doing better with routine pain med dosages and muscle relaxers but still has not been out of bed 2. UTI--on zosyn 3. Left Nephrolithiasis--will add levsin as well as flomax--consult urology Sunday 4. Constipation--add routine senokot-S to KURT Troy DO October 01, 2021 11:09
[2021-10-01] MEDS ORDERED: SENNA W/DOCUSATE (SENOKOT S) TABLET PO ONE (11:15)
[2021-10-01 11:52] VITALS: BP_SYST 114; BP_SYST 152; BP_DIAS 71; BP_DIAS 72
--- NOTE | 2021-10-01 11:57 | Physical Therapy Evaluation ---
PT Evaluation-General Medical Diagnosis Admission Date September 30, 2021 at 11:20 Medical Diagnosis: post operative lumbar fusion Onset Date: September 12, 2021 Therapy Diagnosis Therapy Diagnosis: impaired mobility Height/Weight Height (Feet): 5 Height (Inches): 8.00 Weight (Pounds): 220 Weight (Ounces): 6.4 Precautions Precautions/Isolations: Fall Prevention, Standard Precautions Referral Physician: Dr. Bonilla Reason for Referral: Evaluation/Treatment Medical History Pertinent Medical History: Back Injury, Hypothroidism Additional Medical History Lumbar fusion with anterior stabilization followed by posterior fusion L1-S1. Multilevel laminectomy of upper and lower. Reviewed History: Yes Social History Home: Single Level Current Living Status: Significant Other Entry Into Home: Stairs With Railing PT Steps Into Home: 5 PT Steps Inside Home: 0 Prior Prior Level of Function SCALE: Activities may be completed with or without assistive devices. 3-Miuxosmtkh-vedcfhf completes the activity by him/herself with no assistance from a helper. 5-Set-up or Clean-up Assistance-helper sets up or cleans up; patient completes activity. [place] assists only prior to or following the activity. 4-Supervision or Touching Assistance-helper provides verbal cues and/or touching/steadying and/or contact guard assistance as patient completes activity. Assistance may be provided throughout the activity or intermittently. 3-Partial/Moderate Assistance-helper does LESS THAN HALF the effort. [place] lifts, holds or supports trunk or limbs, but provides less than half the effort. 2-Substantial/Maximal Assistance-helper does MORE THAN HALF the effort. [place] lifts or holds trunk or limbs and provides more than half the effort. 6-Nlqwfyptp-whzwnl does ALL the effort. Patient does none of the effort to complete the activity. Or, the assistance of 2 or more helpers is required for the patient to complete the activity. If activity was not attempted, code reason: 7-Patient Refused. 9-Not Applicable-not attempted and the patient did not perform the activity before the current illness, exacerbation or injury. 10-Not Attempted due to Environmental Limitations-(lack of equipment, weather restraints, etc.). 88-Not Attempted due to Medical Conditions or Safety Concerns. Bed Mobility: 6 Transfers (B,C,W/C): 6 Gait: 6 Stairs: 6 Indoor Mobility (Ambulation): Independent Stairs: Independent Prior Devices Use: None Prior Device Use: none PT Evaluation-Current Subjective Intermittent severe lumbar pain with any trunk movement or (L) LE movement. Pain Numeric Pain Scale: 10-Worst Possible Pain Location: Lower Location Body Site: Back Pain Description: Stabbing, Sharp Pt/Family Goals Return home. Objective Patient Orientation: Person, Place, Time, Situation Attachments: Marie Catheter, IV ROM/Strength ROM Upper Extremities WFL, no pain with UE ROM. ROM Lower Extremities (R) LE ROM is well tolerated. (L) LE ROM is not tolerated due to lumbar pain Strength Upper Extremities WFL Strength Lower Extremities 3-/5 (R) LE gross MMT. (L) LE MMT not tested due to pain. Integumentary/Posture Bladder Incontinence: Marie Cath Neuromuscular (Tone, Coordination, Reflexes) Numbness in (R) great toe. All other lower extremity sensation, reflexes, and tone are intact. Sensory Vision: Functional Hearing: Functional Hand Dominance: Right Sensation Right Upper Extremit: Intact Sensation Left Upper Extremity: Intact Sensation Right Lower Extremit: Intact Sensation Left Lower Extremity: Intact Sensation Lower Extremities (R) great toe numbness. Transfers Roll Left to Right (QC): 1 Severe intractable pain when attempting to roll to either side. Gait Does the Patient Walk?: No and Walking Goal IS indicated Mode of Locomotion: Walk Anticipated Mode of Locomotion: Walk Gait Assistive Device: FWW Comments/Gait Description Pt has ambulated 2-3 days ago with therapy. She was able to ambulate ~150ft. Wheelchair Training Does the Pt Use a Wheelchair?: No Assessment/Needs Pt is severely limited with LE movement, bed mobility, and transfers due to lumbar stabbing pain. As pain subsides, we can resume ROM, bed mobility, transfers, and gait. Rehab Potential: Fair PT [place] Filler Goals [place] Filler Goals PT [place] Filler Goals Time Frame: Oct 15, 2021 Roll Left & Right (QC): 4 Sit to Lying (QC): 4 Lying-Sitting on Side/Bed(QC): 4 Sit to Stand (QC): 4 Chair/Cbx-kh-Zlqqw Xfer(QC): 4 Toilet Transfer (QC): 4 Car Transfer (QC): 4 Does the Patient Walk: Yes Walk 10 feet (QC): 4 Walk 50ft with 2 Turns (QC): 4 Walk 150 ft (QC): 4 1 Step (curb) (QC): 4 4 Steps (QC): 4 PT Plan Problem List Problem List: Activity Tolerance, Functional Strength, Gait, Transfer, Bed Mobility, ROM Treatment/Plan Treatment Plan: Continue Plan of Care Treatment Plan: Bed Mobility, Concurrent Therapy, Education, Functional Act ivity Fede, Functional Strength, Gait, Safety, Therapeutic Exercise, Transfers Treatment Duration: Oct 15, 2021 Frequency: 6 times per week Estimated Hrs Per Day: .5 hour per day Patient and/or Family Agrees t: Yes Time/GCodes Time In: 924 Time Out: 949 Total Billed Treatment Time: 25 Total Billed Treatment , [facility] 25 NICK TILLMAN PT October 01, 2021 11:57
[2021-10-01] MEDS: LACTOBACILLUS ACIDOPHILUS (PROBIOTIC) CAPSULE PO SCH ×2 (11:59→17:16)
[2021-10-01] MEDS: HYOSCYAMINE 0.125 MG (LEVSIN) TAB PO SCH ×3 (11:59→21:05)
[2021-10-01] MEDS: ENOXAPARIN 40 MG/0.4 ML (LOVENOX) SYR SC SCH (11:59)
[2021-10-01 15:36] VITALS: BP 146/93
[2021-10-01] MEDS: TAMSULOSIN 0.4 MG (FLOMAX) CAP PO SCH (17:16)
[2021-10-01 19:03] VITALS: BP 153/77
[2021-10-01] MEDS: GABAPENTIN 300 MG (NEURONTIN) CAP PO SCH (21:06)
[2021-10-02] VITALS (7 sets, daily range): BP systolic 97–148; BP diastolic 54–81
[2021-10-02] MEDS: LEVOTHYROXINE 100 MCG (LEVOTHROID) TAB PO SCH (05:34)
[2021-10-02] MEDS: BACLOFEN 10 MG (LIORESAL) TAB PO SCH ×4 (05:34→23:01)
[2021-10-02] MEDS: KCL 10 MEQ TAB (MICRO K) PO SCH (05:34)
[2021-10-02] MEDS: PIPERACILLIN SODIUM/TAZOBACTAM 4.5 GM in NS (IVPB) 100 ML IV SCH ×3 (05:34→21:01)
[2021-10-02 05:45] LABS: BASOPHILS # (AUTO) 0.1 10^3/uL (0.0-0.1); BASOPHILS % (AUTO) 0 % (0-10); EOSINOPHILS # (AUTO) 0.2 10^3/uL (0.0-0.3); EOSINOPHILS % (AUTO) 2 % (0-10); HEMATOCRIT 38 % (35-52); HEMOGLOBIN 12.5 g/dL (11.5-16.0); LYMPHOCYTES % (AUTO) 26 % (12-44); MEAN CORPUSCULAR HEMOGLOBIN 32 pg (25-34); MEAN CORPUSCULAR HGB CONC 33 g/dL (32-36); MEAN CORPUSCULAR VOLUME 96 fL (80-99); MEAN PLATELET VOLUME 10.1 fL (9.0-12.2); MONOCYTES # (AUTO) 0.7 10^3/uL (0.0-1.0); MONOCYTES % (AUTO) 6 % (0-12); NEUTROPHILS # (AUTO) 7.6 10^3/uL (1.8-7.8); NEUTROPHILS % (AUTO) 66 % (42-75); PLATELET COUNT 503 10^3/uL (130-400); WHITE BLOOD COUNT 11.6 10^3/uL (4.3-11.0)
[2021-10-02 06:00] LABS: ALBUMIN 3.5 GM/DL (3.2-4.5); POTASSIUM 4.2 MMOL/L (3.6-5.0)
[2021-10-02 06:01] LABS: CALCIUM 10.7 MG/DL (8.5-10.1)
[2021-10-02 06:03] LABS: TOTAL PROTEIN 7.1 GM/DL (6.4-8.2)
[2021-10-02 06:04] LABS: BILIRUBIN,TOTAL 0.8 MG/DL (0.1-1.0)
[2021-10-02 06:06] LABS: CREATININE SERUM 1.2 MG/DL (0.60-1.30)
[2021-10-02] MEDS: LACTOBACILLUS ACIDOPHILUS (PROBIOTIC) CAPSULE PO SCH ×3 (08:13→17:31)
[2021-10-02] MEDS: PROPRANOLOL 20 MG (INDERAL) TABLET PO SCH (08:13)
[2021-10-02] MEDS: LACTATED RINGERS 1,000 ML IV SCH ×3 (08:13→21:19)
[2021-10-02] MEDS: DOCUSATE SODIUM 100 MG (COLACE) CAP PO SCH ×2 (08:13→21:18)
[2021-10-02] MEDS: SENNOSIDES 8.6 MG (SENOKOT) TAB PO SCH ×2 (08:14→21:18)
[2021-10-02] MEDS: VITAMIN D3 25 MCG (1,000 UNITS) TABLET PO SCH (08:14)
[2021-10-02] MEDS: PANTOPRAZOLE 40 MG (PROTONIX) TAB PO SCH (08:14)
[2021-10-02] MEDS: SENNA W/DOCUSATE (SENOKOT S) TABLET PO SCH ×4 (08:14→21:20)
[2021-10-02] MEDS: HYOSCYAMINE 0.125 MG (LEVSIN) TAB PO SCH ×4 (08:14→21:18)
[2021-10-02] MEDS: METHYLNALTREXONE 12 MG/0.6 ML (RELISTOR) VIAL SQ SCH (08:15)
[2021-10-02] MEDS: polyethylene glycoL POWDER 17 GM (MIRALAX) PACK PO SCH ×2 (08:15→21:16)
--- NOTE | 2021-10-02 08:43 | Progress Note ---
Subjective Date Seen by a Provider: October 02, 2021 Time Seen by a Provider: 08:37 Subjective/Events-last exam Fwup lumbar spine fusion with muscle spasms/uncontrolled pain, UTI. at bedside--he reports best night of sleep patient has had and when she did wake up in the night she didn't startle in pain like she has been doing. Patient rates pain at a 5 if she is still but is afraid to move--will not even allow nursing to elevate head of bed to take or drink or take meds--discussed that we need to elevate her HOB for anything oral due to risk of choking and aspiration. Last night was saying she was not going to make it so apparently her daughter contacted Dr. Bonilla. She denies feeling that way today. We discussed this is likely medication related and the fact that it was getting dark. Still no BM but not getting up so may need to use suppository. Objective Exam Vital Signs Date Time Temp Pulse Resp B/P (MAP) Pulse Ox O2 Delivery O2 Flow Rate FiO2 10/02/21 07:40 36.3 52 18 123/78 (93) 97 Room Air 10/02/21 07:36 Room Air 10/02/21 04:00 36.3 73 17 116/74 (88) 98 Room Air 10/02/21 00:00 36.1 61 17 97/54 (68) 94 Room Air 10/01/21 20:59 Room Air 10/01/21 19:03 36.3 51 18 153/77 (102) 95 Room Air 10/01/21 15:36 36.5 65 20 146/93 (110) 97 Room Air 10/01/21 11:52 36.3 65 18 114/72 (86) 97 Room Air I & O 10/02/21 07:00 Intake Total 1220 ml Output Total 2250 ml Balance -1030 ml Capillary Refill : General Appearance: No Apparent Distress Neck: Supple Respiratory: Lungs Clear, Decreased Breath Sounds (bases) Cardiovascular: Regular Rate, Rhythm Gastrointestinal: normal bowel sounds, non tender, soft, other (dressing in place and dry) Extremity: Non Tender, No Calf Tenderness, No Pedal Edema Neurologic/Psychiatric: Alert Results Lab Laboratory Tests 10/02/21 05:32: White Blood Count 11.6H, Red Blood Count 3.96, Hemoglobin 12.5, Hematocrit 38, Mean Corpuscular Volume 96, Mean Corpuscular Hemoglobin 32, Mean Corpuscular Hemoglobin Concent 33, Red Cell Distribution Width 15.0H, Platelet Count 503H, Mean Platelet Volume 10.1, Immature Granulocyte % (Auto) 0, Neutrophils (%) ( Auto) 66, Lymphocytes (%) (Auto) 26, Monocytes (%) (Auto) 6, Eosinophils (%) (Auto) 2, Basophils (%) (Auto) 0, Neutrophils # (Auto) 7.6, Lymphocytes # (Auto) 3.0, Monocytes # (Auto) 0.7, Eosinophils # (Auto) 0.2, Basophils # (Auto) 0.1, Immature Granulocyte # (Auto) 0.1, Sodium Level 141, Potassium Level 4.2, Chloride Level 102, Carbon Dioxide Level 25, Anion Gap 14, Blood Urea Nitrogen 20H, Creatinine 1.20, Estimat Glomerular Filtration Rate 49, BUN/Creatinine Ratio 17, Glucose Level 111H, Calcium Level 10.7H, Corrected Calcium 11.1H, Total Bilirubin 0.8, Aspartate Amino Transf (AST/SGOT) 16, Alanine Aminotransferase (ALT/SGPT) 11, Alkaline Phosphatase 122, Total Protein 7.1, Albumin 3.5 Microbiology 09/30/21 Blood Culture - Preliminary, Resulted No growth 09/30/21 Urine Culture - Preliminary, Resulted Escherichia coli Assessment/Plan Assessment/Plan Assess & Plan/Chief Complaint 1. Lumbar Fusion with muscle spasms/uncontrolled pain--will continue routine baclofen and oxycodone with prns for breakthrough, DC tizanidine as it appears some of the spasm is from the renal stone and that the flomax and levsin are helping 2. UTI--on zosyn 3. Left Nephrolithiasis--continue levsin as well as flomax--add LR at 150--consult urology Sunday 4. Constipation--on senokot, miralax, may need suppository since is not getting up even to sit KURT GARDNER DO October 02, 2021 08:43
[2021-10-02] MEDS ORDERED: SALIVA STIMULANT MOUTH SPRAY (BIOTENE) 1.5 OZ MM PRN (08:45)
--- NOTE | 2021-10-02 11:29 | Diagnostic Imaging Report ---
PROCEDURE: CT urinary tract, rule out kidney stone. TECHNIQUE: Multiple contiguous axial images were obtained through the abdomen and pelvis without the use of intravenous contrast. Auto Exposure Controls were utilized during the CT exam to meet ALARA standards for radiation dose reduction. INDICATION: Left nephrolithiasis COMPARISON: 05/01/2011 FINDINGS: There is dependent atelectasis in the lung bases. The heart is normal in size. The liver demonstrates no focal lesions. Cholecystectomy clips are noted. The spleen appears normal. The pancreas is normal. The adrenal glands appear normal. There is a nonobstructing 4 mm calculus in the superior right kidney. A small cyst is seen in the right kidney. There is no right hydronephrosis. The left kidney demonstrates mild hydronephrosis with an obstructing calculus in the ureteropelvic junction which measures 1.3 cm in diameter. No calculi are seen in the bladder. A Marie catheter is present. There are multiple phleboliths present. The appendix appears to have been removed. No distended loops of bowel are seen to suggest obstruction. No free fluid or free air is seen. There are postsurgical changes from prior posterior fusion of L1-S1 with anterior fusion at L5-S1. There is diffuse osteopenia throughout the lumbar spine with laminectomy changes. Advanced degenerative changes are noted in the thoracic spine. IMPRESSION: 1. Large 1.3 cm calculus at the left ureter pelvic junction causing mild hydronephrosis. 2. Nonobstructing calculus in the right kidney. 3. Degenerative changes, osteopenia, and postsurgical changes in the spine. Dictated by: Dictated on workstation # [id number]
[2021-10-02] MEDS: ENOXAPARIN 40 MG/0.4 ML (LOVENOX) SYR SC SCH (11:56)
--- NOTE | 2021-10-02 12:12 | Diagnostic Imaging Report ---
HISTORY: Nephrolithiasis on the left. COMPARISON: CT from 10/02/2021. TECHNIQUE: Frontal view of the abdomen. FINDINGS: The calculus at the left UPJ is visible, measuring 1.7 cm on this radiograph. Cholecystectomy clips and spine fusion hardware are noted. Skin nellie are seen in the midline. There are numerous phleboliths in the pelvis. No distended loops of bowel are seen. There is no large collection of free air. IMPRESSION: 1. The left UPJ calculus is again seen. There are numerous phleboliths in the pelvis. Dictated by: Dictated on workstation # [id number]
[2021-10-02] MEDS: TAMSULOSIN 0.4 MG (FLOMAX) CAP PO SCH (17:31)
[2021-10-02] MEDS: GABAPENTIN 300 MG (NEURONTIN) CAP PO SCH (21:18)
[2021-10-03] VITALS (10 sets, daily range): BP systolic 99–153; BP diastolic 55–88
[2021-10-03] MEDS: KCL 10 MEQ TAB (MICRO K) PO SCH (05:24)
[2021-10-03] MEDS: LACTATED RINGERS 1,000 ML IV SCH ×3 (05:30→17:21)
[2021-10-03] MEDS: PIPERACILLIN SODIUM/TAZOBACTAM 4.5 GM in NS (IVPB) 100 ML IV SCH (05:32)
[2021-10-03] MEDS: LEVOTHYROXINE 100 MCG (LEVOTHROID) TAB PO SCH (05:33)
[2021-10-03] MEDS: BACLOFEN 10 MG (LIORESAL) TAB PO SCH ×3 (05:33→17:20)
[2021-10-03 05:46] LABS: BASOPHILS # (AUTO) 0.1 10^3/uL (0.0-0.1); BASOPHILS % (AUTO) 1 % (0-10); EOSINOPHILS # (AUTO) 0.2 10^3/uL (0.0-0.3); EOSINOPHILS % (AUTO) 2 % (0-10); HEMATOCRIT 36 % (35-52); HEMOGLOBIN 12.2 g/dL (11.5-16.0); LYMPHOCYTES # (AUTO) 3.7 10^3/uL (1.0-4.0); LYMPHOCYTES % (AUTO) 31 % (12-44); MEAN CORPUSCULAR HEMOGLOBIN 32 pg (25-34); MEAN CORPUSCULAR HGB CONC 34 g/dL (32-36); MEAN CORPUSCULAR VOLUME 96 fL (80-99); MEAN PLATELET VOLUME 10.2 fL (9.0-12.2); MONOCYTES # (AUTO) 0.7 10^3/uL (0.0-1.0); MONOCYTES % (AUTO) 6 % (0-12); NEUTROPHILS # (AUTO) 7.1 10^3/uL (1.8-7.8); NEUTROPHILS % (AUTO) 60 % (42-75); PLATELET COUNT 484 10^3/uL (130-400); WHITE BLOOD COUNT 11.9 10^3/uL (4.3-11.0)
[2021-10-03 06:06] LABS: ALBUMIN 3.4 GM/DL (3.2-4.5); BILIRUBIN,TOTAL 0.8 MG/DL (0.1-1.0); CALCIUM 10.4 MG/DL (8.5-10.1); CREATININE SERUM 0.93 MG/DL (0.60-1.30); POTASSIUM 3.9 MMOL/L (3.6-5.0); TOTAL PROTEIN 6.8 GM/DL (6.4-8.2)
--- NOTE | 2021-10-03 08:33 | Occ Therapy Progress Note ---
Therapy Progress Note Pt in bed, present. Pt refused attempting to get OOB, or roll at bed level due to pain with movement. Pt reports plans to consult with Urologist regarding kidney stones, and would like to hold off on OT until after consult. OT will attempt evaluation again next available time. 1, refusal [id number] ALLA PERAZA OT October 03, 2021 08:33
--- NOTE | 2021-10-03 08:52 | Progress Note ---
Subjective Subjective Date Seen by Provider: October 03, 2021 Time Seen by Provider: 08:30 PT REPORTS THAT SHE IS STILL HAVING A TREMENDOUS AMOUNT OF PAIN IN HER BACK. SHE REPORTS THAT ANY MOVEMENT OF HER UPPER OR LOWER BODY - EVEN SOMETHING AT BENIGN TAKING HER BLOOD PRESSURE OR CHECKING HER IV SITE WILL CAUSE HER BODY TO GO INTO FULL BODY SPASMS. SHE REPORTS THAT SHE HAS HAD A SMALL AMOUNT OF RELIEF FROM THE MUSCLE RELAXERS AND PAIN MEDICATION BUT NOT ENOUGH TO BE ABLE TO SIT UP OR TURN OVER WITHOUT EXTREME SPASMS GRABBING HER BODY. Review of Systems General: No Chills, No Fatigue, No Malaise HEENT: No Dysphasia Pulmonary: No Dyspnea, No Cough Cardiovascular: No: Chest Pain, Palpitations Gastrointestinal: Other (BOWEL MOVEMENT YESTERDAY); No: Nausea, Abdominal Pain Musculoskeletal: back pain Neurological: Weakness; No: Confusion All Other Systems Reviewed All Other Systems Reviewed: Yes Objective Exam Vital Signs Vital Signs Date Time Temp Pulse Resp B/P (MAP) Pulse Ox O2 Delivery O2 Flow Rate FiO2 10/03/21 07:49 36.2 55 18 120/56 (77) 95 Room Air 10/03/21 03:13 36.7 63 18 128/67 (87) 93 Room Air 10/02/21 23:00 36.5 64 18 112/73 (86) 94 Room Air 10/02/21 20:59 Room Air 10/02/21 19:06 36.6 72 20 103/70 (81) 93 Room Air 10/02/21 15:38 36.9 62 18 148/73 (98) 95 Room Air 10/02/21 11:55 36.0 52 18 137/81 (99) 97 Room Air I & O 10/03/21 07:00 Intake Total 2140 ml Output Total 1675 ml Balance 465 ml General Appearance: WD/WN, Mild Distress HEENT: PERRL/EOMI, Pharynx Normal Neck: Supple Respiratory: Chest Non Tender, Lungs Clear, Normal Breath Sounds, No Accessory Muscle Use Cardiovascular: Regular Rate, Rhythm Gastrointestinal: Normal Bowel Sounds, Non Tender, Soft, Other (abdominal surgical site low midline dressing c/d/i, without erythema) Rectal: Deferred Extremity: Non Tender, No Calf Tenderness, No Pedal Edema Neurologic/Psychiatric: Alert, Oriented x3, Normal Mood/Affect Skin: Normal Color, Warm/Dry Lymphatic: No Adenopathy Results Lab Laboratory Tests 10/03/21 05:29: White Blood Count 11.9H, Red Blood Count 3.80, Hemoglobin 12.2, Hematocrit 36, Mean Corpuscular Volume 96, Mean Corpuscular Hemoglobin 32, Mean Corpuscular Hemoglobin Concent 34, Red Cell Distribution Width 14.9H, Platelet Count 484H, Mean Platelet Volume 10.2, Immature Granulocyte % (Auto) 0, Neutrophils (%) (Auto) 60, Lymphocytes (%) (Auto) 31, Monocytes (%) (Auto) 6, Eosinophils (%) (Auto) 2, Basophils (%) (Auto) 1, Neutrophils # (Auto) 7.1, Lymphocytes # (Auto) 3.7, Monocytes # (Auto) 0.7, Eosinophils # (Auto) 0.2, Basophils # (Auto) 0.1, Immature Granulocyte # (Auto) 0.0, Sodium Level 142, Potassium Level 3.9, Chloride Level 103, Carbon Dioxide Level 25, Anion Gap 14, Blood Urea Nitrogen 20H, Creatinine 0.93, Estimat Glomerular Filtration Rate 66, BUN/Creatinine Ratio 22, Glucose Level 100, Calcium Level 10.4H, Corrected Calcium 10.9H, Total Bilirubin 0.8, Aspartate Amino Transf (AST/SGOT) 19, Alanine Aminotransferase (ALT/SGPT) 10, Alkaline Phosphatase 121, Total Protein 6.8, Albumin 3.4 Microbiology 09/30/21 Blood Culture - Preliminary, Resulted No growth 09/30/21 Urine Culture - Final, Complete Escherichia coli Assessment/Plan Assessment/Plan Admission Dx Posterior spinal fusion L1 - 3 and L4 - S1 Uncontrolled back pain Muscle spasms Chronic neuropathy Hypothyroidism Leukocytosis Hypercalcemia Assessment and Plan Posterior spinal fusion L1 - 3 and L4 - S1 Uncontrolled back pain Muscle spasms Chronic neuropathy E[place] UTI Left sided kidney stone Left sided Hydronephrosis Hypothyroidism Leukocytosis Hypercalcemia Posterior spinal fusion L1 - 3 and L4 - S1 with Uncontrolled back pain Muscle spasms - pt was receiving only PRN muscle relaxers and pain medication on rehab, will schedule the following medication in an attempt to have improved symptoms: - schedule oxycodone 5mg tid - schedule baclofen 10mg qid - will add lidoderm patches to her back on either side of surgical site - she will continue to have prn pain medication and muscle relaxers available. CT SCAN 10/02/21 FOLLOWS: FINDINGS: There is dependent atelectasis in the lung bases. The heart is normal in size. The liver demonstrates no focal lesions. Cholecystectomy clips are noted. The spleen appears normal. The pancreas is normal. The adrenal glands appear normal. There is a nonobstructing 4 mm calculus in the superior right kidney. A small cyst is seen in the right kidney. There is no right hydronephrosis. The left kidney demonstrates mild hydronephrosis with an obstructing calculus in the ureteropelvic junction which measures 1.3 cm in diameter. No calculi are seen in the bladder. A Marie catheter is present. There are multiple phleboliths present. The appendix appears to have been removed. No distended loops of bowel are seen to suggest obstruction. No free fluid or free air is seen. There are postsurgical changes from prior posterior fusion of L1-S1 with anterior fusion at L5-S1. There is diffuse osteopenia throughout the lumbar spine with laminectomy changes. Advanced degenerative changes are noted in the thoracic spine. IMPRESSION: 1. Large 1.3 cm calculus at the left ureter pelvic junction causing mild hydronephrosis. 2. Nonobstructing calculus in the right kidney. 3. Degenerative changes, osteopenia, and postsurgical changes in the spine. Left sided kidney stone with hydronephrosis. - consult to Dr. Guadarrama - he is taking pt down for stent placement of her left kidney, will plan on lithotripsy at later date. Ecoli Urinary tract infection - pt was placed on IV zosyn, with the culture report back, will change to rocephin. Chronic neuropathy - pt on gabapentin at hs, continue, will increase gabapentin to 100mg 0600, 100mg 1100, 100mg 1600 and 300mg at HS - if these doses are tolerated and show improved symptoms, will either increase or keep dosing the same. Hypothyroidism - home regimen restarted. Hypercalcemia - repeat labs in AM, further work-up as needed pending repeat labs. pt on dvt prophylaxis with lovenox and scd's gi prophylaxis with ppi Admission Dx Posterior spinal fusion L1 - 3 and L4 - S1 Uncontrolled back pain Muscle spasms Chronic neuropathy Hypothyroidism Leukocytosis Hypercalcemia Clinical Quality Measures Admission Status Admission Dx Posterior spinal fusion L1 - 3 and L4 - S1 Uncontrolled back pain Muscle spasms Chronic neuropathy Hypothyroidism Leukocytosis Hypercalcemia MARIA ELENA LEMUS MD October 03, 2021 08:52
[2021-10-03] MEDS: HYDROmorphone 2 MG/ML VIAL (DILAUDID) IV PRN (09:49)
[2021-10-03] MEDS: cefTRIAXone 1 GM PRE-MIX 50 ML IV SCH (09:50)
--- NOTE | 2021-10-03 10:11 | Physical Therapy Progress Note ---
Therapy Progress Note Patient declined PT until urology procedure. Physician is aware. PT attempted to encourage patient to participate with "work through the pain", however, patient continued to decline. Will attempt after procedure. 1 ref SALLY MCDOWELL PT October 03, 2021 10:11
[2021-10-03] MEDS: SENNA W/DOCUSATE (SENOKOT S) TABLET PO SCH ×4 (10:18→20:13)
[2021-10-03] MEDS: polyethylene glycoL POWDER 17 GM (MIRALAX) PACK PO SCH ×2 (10:18→20:14)
[2021-10-03] MEDS: PROPRANOLOL 20 MG (INDERAL) TABLET PO SCH (10:18)
[2021-10-03] MEDS: PANTOPRAZOLE 40 MG (PROTONIX) TAB PO SCH (10:18)
[2021-10-03] MEDS: LACTOBACILLUS ACIDOPHILUS (PROBIOTIC) CAPSULE PO SCH ×3 (10:18→17:20)
[2021-10-03] MEDS: HYOSCYAMINE 0.125 MG (LEVSIN) TAB PO SCH ×4 (10:18→20:13)
[2021-10-03] MEDS: DOCUSATE SODIUM 100 MG (COLACE) CAP PO SCH ×2 (10:18→20:13)
[2021-10-03] MEDS: BACITRACIN OINTMENT 28 GM TUBE TP SCH (10:19)
[2021-10-03] MEDS: VITAMIN D3 25 MCG (1,000 UNITS) TABLET PO SCH (10:19)
[2021-10-03] MEDS: SENNOSIDES 8.6 MG (SENOKOT) TAB PO SCH ×2 (10:19→20:13)
[2021-10-03] MEDS ORDERED: LACTATED RINGERS 1,000 ML IV PRN (10:45)
[2021-10-03] MEDS ORDERED: ONDANSETRON 4 MG/2 ML (SDV) Z0FRAN ONE (10:50)
[2021-10-03] MEDS ORDERED: proPOfol 200 MG/20 ML (DIPRIVAN) VIAL IV ONE (10:50)
[2021-10-03] MEDS ORDERED: LIDOCAINE PF 2% 5 ML (XYLOCAINE) VIAL ONE (10:50)
[2021-10-03] MEDS ORDERED: fentaNYL INJ 100 MCG/2 ML AMP ONE ×2 (10:50→12:56)
--- NOTE | 2021-10-03 11:43 | Progress Note-Pre Operative ---
Pre-Operative Progress Note H&P Reviewed The H&P was reviewed, patient examined and no changes noted. Date Seen by Provider: October 03, 2021 Time Seen by Provider: 11:43 Date H&P Reviewed: October 03, 2021 Time H&P Reviewed: 11:43 Pre-Operative Diagnosis: LT UPJ STONE MICHAEL GUILLEN MD October 03, 2021 11:43
--- NOTE | 2021-10-03 11:44 | Progress Note-Post Operative ---
Post-Operative Progess Note Surgeon (s)/Electric Motor Controls Assembler (s) Surgeon MICHAEL GUILLEN MD Electric Motor Controls Assembler: NONE Pre-Operative Diagnosis LT UPJ STONE Post-Operative Diagnosis SAME Procedure & Operative Findings Date of Procedure 10/03/21 Procedure Performed/Findings CYSTOSCOPY WITH LT STONE MANIPULATION AND INSERTION OF STENT Anesthesia Type GENERAL Estimated Blood Loss Estimated blood loss (mL): NONE Specimens/Packing Specimens Removed NONE Packing: NONE MICHAEL GUILLEN MD October 03, 2021 11:44
[2021-10-03] MEDS ORDERED: SEVOFLURANE (ULTANE) 15 ML INHAL SOLN ONE (12:18)
--- NOTE | 2021-10-03 12:18 | CONSULTATION REPORT ---
DATE OF SERVICE: 10/03/2021 ATTENDING PRIMARY CARE PHYSICIAN: Dr. Bonilla/Dr. Baron. SUMMARY: A 70-year-old white lady who had a lumbar spine fusion in [facility], was admitted to inpatient rehab and she started having uncontrolled severe pain in the form of spasms in the lower back that she has suddenly when she does any movement. No pain when she is lying down without moving. We will order a CT and KUB on her yesterday that revealed a stone in the left UPJ causing mild obstruction. She was not aware of any stones before. She also has a 4 mm stone, nonobstructing in the right kidney. I reviewed her x-rays and her H and P. She has no known drug allergies. Medication list was reviewed in the hospital. She says she is on Lovenox, which we held her dose today. The patient is with two children. SOCIAL HISTORY: No smoking, no alcohol, no drugs. PAST MEDICAL HISTORY: Hypertension, osteoarthritis, gallbladder disease, hypothyroidism. PAST SURGICAL HISTORY: He had a diverting ileostomy with reversal, the above-mentioned back surgery, ankle surgery and thyroidectomy. FAMILY HISTORY: Heart disease, congestive heart failure, hypertension, diabetes and thyroid disorders. REVIEW OF SYSTEMS: No flank pain, just low back and spasms. No other symptoms. No nausea or vomiting. PHYSICAL EXAMINATION: VITAL SIGNS: Per chart. GENERAL: Well-nourished, well-developed in no acute distress at the time of my examination. ENT: Unremarkable. NECK: Supple, no bruits. CHEST: Clear, nontender. HEART: Regular rate and rhythm. ABDOMEN: Soft, no CVA tenderness. EXTREMITIES: Lower extremity, no edema or cyanosis. NEUROLOGIC: Grossly intact. Oriented x3. SKIN: Warm and dry. IMPRESSION: 1. Bilateral renal stone. 2. Medical illness per history. PLAN: I had a lengthy discussion with the patient and her of options. One option will be to observe since the pain does not sound to be related to the stone. The quality of it and type of it; however, it could be contributing to some pain. I told her that she probably had that stone for years. Her options would be to either do an ESWL on her next Sunday when the machine is here or first put a stent in her either today or tomorrow to see if that helps the pain; however, I warned her about possible adverse effect of stents in the bladder or the kidney and possibility that it does not change the pain or its intensity if it is not related in any way to the stone. They fully understand and wants to proceed with a stent today given a choice between today and tomorrow, we will hold her Lovenox and get the consent and proceed with the surgery around or before hopefully noon. Job ID: [id number] DocumentID: [id number] Dictated Date: 10/03/2021 09:16:49 Band Lining Bander Date: 10/03/2021 12:17:27 Dictated By: MICHAEL GUILLEN MD
--- NOTE | 2021-10-03 12:26 | Anesthesia-General Post-Op ---
General Patient Condition Mental Status/LOC: Same as Preop Cardiovascular: Satisfactory Nausea/Vomiting: Absent Respiratory: Satisfactory Pain: Controlled Complications: Absent Post Op Complications Complications None Follow Up Care/Instructions Patient Instructions None needed. Anesthesia/Patient Condition Patient Condition Patient is doing well, no complaints, stable vital signs, no apparent adverse anesthesia problems. No complications reported per nursing. WILMAR MADSEN CRNA October 03, 2021 12:26
[2021-10-03] MEDS ORDERED: fentaNYL INJ 100 MCG/2 ML AMP IVP ONE (12:30)
[2021-10-03] MEDS ORDERED: ONDANSETRON 4 MG/2 ML (SDV) Z0FRAN IVP PRN (12:30)
[2021-10-03] MEDS ORDERED: morphine INJ 10 MG/ML 1ML (SYR OR VIAL) IVP ONE (12:30)
[2021-10-03] MEDS ORDERED: LIDOCAINE 4% (SALONPAS) PATCH ONE (14:18)
[2021-10-03] MEDS: LIDOCAINE 4% (SALONPAS) PATCH TOP SCH (14:32)
[2021-10-03] MEDS ORDERED: GABAPENTIN 100 MG (NEURONTIN) CAP PO ONE (15:15)
[2021-10-03] MEDS ORDERED: DIAZEPAM 5 MG (VALIUM) TABLET PO ONE (15:15)
[2021-10-03] MEDS: TAMSULOSIN 0.4 MG (FLOMAX) CAP PO SCH (17:20)
[2021-10-03] MEDS: GABAPENTIN 300 MG (NEURONTIN) CAP PO SCH (20:13)
[2021-10-03] MEDS: DIAZEPAM 5 MG (VALIUM) TABLET PO SCH (20:13)
[2021-10-03] MEDS: PATCH REMOVAL TP SCH (22:34)
[2021-10-04] VITALS (8 sets, daily range): BP systolic 112–134; BP diastolic 57–80
[2021-10-04] MEDS: LACTATED RINGERS 1,000 ML IV SCH ×3 (00:01→09:01)
[2021-10-04] MEDS: BACLOFEN 10 MG (LIORESAL) TAB PO SCH ×5 (00:01→23:56)
--- NOTE | 2021-10-04 00:41 | OPERATIVE REPORT ---
DATE OF SERVICE: 10/03/2021 PREOPERATIVE DIAGNOSIS: Left ureteropelvic junction stone. POSTOPERATIVE DIAGNOSIS: Left ureteropelvic junction stone. OPERATION PERFORMED: Cystoscopy, left stone manipulation and insertion of left stent. SURGEON: Raimundo Guillen MD ANESTHESIA: General. COMPLICATIONS: None. DESCRIPTION OF PROCEDURE: Under satisfactory general anesthesia, the patient in lithotomy position, genitalia were prepped and draped in the usual sterile fashion. Cystoscope was introduced under vision and noted a vaginal prolapse. Cystoscopy was examined and the bladder looked healthy and clean except for a sluggish efflux on the left side. Using the foroblique lens, I passed a 6-Angolan 26 cm double-J stent all the way up to the renal pelvis, push the stone into the pelvis and then removed the guidewire and the stent was seen draining nicely proximally fluoroscopically and distally endoscopically. It was noted that the distal end of the stent, there was pretty cloudy urine coming out from the holes. The patient is covered with Rocephin. The bladder was evacuated and cystoscope was removed. The patient tolerated the procedure and anesthesia well and was sent to the recovery room in stable condition. PLAN: Left ESWL on Sunday with possible cystoscopy and removal of stent while she is asleep. Job ID: [id number] DocumentID: [id number] Dictated Date: 10/03/2021 12:21:54 Client Development Consultant Date: 10/03/2021 23:39:48 Dictated By: RAIMUNDO GUILLEN MD
[2021-10-04 05:08] LABS: BASOPHILS # (AUTO) 0.1 10^3/uL (0.0-0.1); BASOPHILS % (AUTO) 1 % (0-10); EOSINOPHILS # (AUTO) 0.2 10^3/uL (0.0-0.3); EOSINOPHILS % (AUTO) 2 % (0-10); HEMATOCRIT 36 % (35-52); HEMOGLOBIN 11.9 g/dL (11.5-16.0); LYMPHOCYTES # (AUTO) 2.6 10^3/uL (1.0-4.0); LYMPHOCYTES % (AUTO) 23 % (12-44); MEAN CORPUSCULAR HEMOGLOBIN 32 pg (25-34); MEAN CORPUSCULAR HGB CONC 33 g/dL (32-36); MEAN CORPUSCULAR VOLUME 96 fL (80-99); MEAN PLATELET VOLUME 10.1 fL (9.0-12.2); MONOCYTES # (AUTO) 0.7 10^3/uL (0.0-1.0); MONOCYTES % (AUTO) 7 % (0-12); NEUTROPHILS # (AUTO) 7.4 10^3/uL (1.8-7.8); NEUTROPHILS % (AUTO) 67 % (42-75); PLATELET COUNT 477 10^3/uL (130-400)
[2021-10-04 05:21] LABS: ALBUMIN 3.4 GM/DL (3.2-4.5)
[2021-10-04 05:22] LABS: POTASSIUM 3.9 MMOL/L (3.6-5.0)
[2021-10-04 05:23] LABS: CALCIUM 10.1 MG/DL (8.5-10.1)
[2021-10-04 05:24] LABS: TOTAL PROTEIN 6.5 GM/DL (6.4-8.2)
[2021-10-04 05:26] LABS: BILIRUBIN,TOTAL 0.8 MG/DL (0.1-1.0)
[2021-10-04 05:28] LABS: CREATININE SERUM 0.77 MG/DL (0.60-1.30)
[2021-10-04] MEDS: KCL 10 MEQ TAB (MICRO K) PO SCH (06:24)
[2021-10-04] MEDS: LEVOTHYROXINE 100 MCG (LEVOTHROID) TAB PO SCH (06:24)
--- NOTE | 2021-10-04 07:56 | Progress Note ---
Subjective Subjective Date Seen by Provider: October 04, 2021 Time Seen by Provider: 07:30 Pt reports that her pain is a 6/10 with no movement and 10/10 with movement of her back, it has remained this was since she was admitted. She has no N/V, no BM since Sunday, passing gas, reports that she has less of an appetite and is not ambulating due to the pain. Review of Systems General: No Chills, No Fatigue, No Malaise HEENT: No Dysphasia Pulmonary: No Dyspnea, No Cough Cardiovascular: No: Chest Pain, Palpitations Gastrointestinal: Constipation; No: Nausea, Vomiting, Abdominal Pain Musculoskeletal: back pain Neurological: Weakness; No: Confusion All Other Systems Reviewed All Other Systems Reviewed: Yes Objective Exam Vital Signs Vital Signs Date Time Temp Pulse Resp B/P (MAP) Pulse Ox O2 Delivery O2 Flow Rate FiO2 10/04/21 04:03 36.8 72 18 126/80 (95) 92 Room Air 10/04/21 00:12 36.8 83 18 133/76 (95) 94 Room Air 10/03/21 20:00 Room Air 10/03/21 19:47 35.8 87 18 123/60 (81) 93 Room Air 10/03/21 15:53 35.9 66 18 129/59 (82) 95 Room Air 10/03/21 13:11 36.6 11 143/88 (106) 95 Room Air 10/03/21 13:09 Room Air 10/03/21 13:02 OxyMask 0.5 10/03/21 13:00 12 143/79 (100) 97 OxyMask 1.5 10/03/21 12:50 12 153/78 (103) 97 OxyMask 1.5 10/03/21 12:49 OxyMask 1.5 10/03/21 12:40 10 127/67 (87) 97 OxyMask 3 10/03/21 12:35 OxyMask 3 10/03/21 12:30 10 117/63 (81) 98 OxyMask 7 10/03/21 12:20 OxyMask 7 10/03/21 12:20 36.7 12 99/55 (70) 97 OxyMask 7 10/03/21 08:00 Room Air 10/03/21 07:49 36.2 55 18 120/56 (77) 95 Room Air I & O 10/04/21 07:00 Intake Total 850 ml Output Total 2025 ml Balance -1175 ml General Appearance: WD/WN, Mild Distress HEENT: PERRL/EOMI, Pharynx Normal Neck: Non Tender, Supple Respiratory: Chest Non Tender, Lungs Clear, Normal Breath Sounds, No Accessory Muscle Use Cardiovascular: Regular Rate, Rhythm, No JVD Gastrointestinal: Normal Bowel Sounds, Non Tender, Soft Rectal: Deferred Extremity: Non Tender, No Calf Tenderness, No Pedal Edema Neurologic/Psychiatric: Alert, Oriented x3, Normal Mood/Affect Skin: Normal Color, Warm/Dry Lymphatic: No Adenopathy Results Lab Laboratory Tests 10/04/21 05:05: White Blood Count 11.0, Red Blood Count 3.77L, Hemoglobin 11.9, Hematocrit 36, Mean Corpuscular Volume 96, Mean Corpuscular Hemoglobin 32, Mean Corpuscular Hemoglobin Concent 33, Red Cell Distribution Width 15.0H, Platelet Count 477H, Mean Platelet Volume 10.1, Immature Granulocyte % (Auto) 0, Neutrophils (%) (Auto) 67, Lymphocytes (%) (Auto) 23, Monocytes (%) (Auto) 7, Eosinophils (%) (Auto) 2, Basophils (%) (Auto) 1, Neutrophils # (Auto) 7.4, Lymphocytes # (Auto) 2.6, Monocytes # (Auto) 0.7, Eosinophils # (Auto) 0.2, Basophils # (Auto) 0.1, Immature Granulocyte # (Auto) 0.0, Sodium Level 141, Potassium Level 3.9, Chloride Level 104, Carbon Dioxide Level 24, Anion Gap 13, Blood Urea Nitrogen 16, Creatinine 0.77, Estimat Glomerular Filtration Rate 83, BUN/Creatinine Ratio 21, Glucose Level 107H, Calcium Level 10.1, Corrected Calcium 10.6H, Total Bilirubin 0.8, Aspartate Amino Transf (AST/SGOT) 18, Alanine Aminotransferase (ALT/SGPT) 12, Alkaline Phosphatase 115, Total Protein 6.5, Albumin 3.4 Microbiology 09/30/21 Blood Culture - Preliminary, Resulted No growth 09/30/21 Urine Culture - Final, Complete Escherichia coli Assessment/Plan Assessment/Plan Admission Dx Posterior spinal fusion L1 - 3 and L4 - S1 Uncontrolled back pain Muscle spasms Chronic neuropathy Hypothyroidism Leukocytosis Hypercalcemia Assessment and Plan Posterior spinal fusion L1 - 3 and L4 - S1 Uncontrolled back pain Muscle spasms Chronic neuropathy Hypothyroidism Leukocytosis Hypercalcemia Constipation Kidney stone Posterior spinal fusion L1 - 3 and L4 - S1 with Uncontrolled back pain Muscle spasms - pt was receiving only PRN muscle relaxers and pain medication on rehab, will schedule the following medication in an attempt to have improved symptoms: - schedule oxycodone 5mg tid - schedule tizanidine 4mg bid - schedule baclofen 10mg qid - she will continue to have prn pain medication and muscle relaxers available. - check ct of thoracic and lumbar spine to rule out osteomyelitis, or hardware failure. Chronic neuropathy - pt on gabapentin at hs, continue, consider increase of gabapentin if needed for control of symptoms of back pain. Hypothyroidism - home regimen restarted. Leukocytosis - UTI : Given IV antibiotics, awaiting complete urine culture reports Hypercalcemia - Resolved 10.1 today, trending downward Constipation -Ambulate, increase fiber, anti diarrheal meds Kidney stone -Resolved after stent placement on 10/03 pt on dvt prophylaxis with lovenox and scd's gi prophylaxis with ppi Supervisory-Addendum Brief Verification & Attestation Participated in pt care: history, MDM, physical Personally performed: exam, history, MDM, supervision of care Care discussed with: Medical Student Procedures: n/a Results interpretation: Verified all documentation Posterior spinal fusion L1 - 3 and L4 - S1 Uncontrolled back pain Muscle spasms Chronic neuropathy EColi UTI Left sided kidney stone Left sided Hydronephrosis Hypothyroidism Leukocytosis Hypercalcemia Posterior spinal fusion L1 - 3 and L4 - S1 with Uncontrolled back pain Muscle spasms - pt was receiving only PRN muscle relaxers and pain medication on rehab, will schedule the following medication in an attempt to have improved symptoms: - schedule oxycodone 5mg tid - started on valium 2.5mg tid on 10/03/21, changed to 5mg tid valium today (10/04/21) - schedule baclofen 10mg qid - added lidoderm patches to her back on either side of surgical site - she will continue to have prn pain medication and muscle relaxers available. CT SCAN 10/02/21 FOLLOWS: FINDINGS: There is dependent atelectasis in the lung bases. The heart is normal in size. The liver demonstrates no focal lesions. Cholecystectomy clips are noted. The spleen appears normal. The pancreas is normal. The adrenal glands appear normal. There is a nonobstructing 4 mm calculus in the superior right kidney. A small cyst is seen in the right kidney. There is no right hydronephrosis. The left kidney demonstrates mild hydronephrosis with an obstructing calculus in the ureteropelvic junction which measures 1.3 cm in diameter. No calculi are seen in the bladder. A Marie catheter is present. There are multiple phleboliths pre sent. The appendix appears to have been removed. No distended loops of bowel are seen to suggest obstruction. No free fluid or free air is seen. There are postsurgical changes from prior posterior fusion of L1-S1 with anterior fusion at L5-S1. There is diffuse osteopenia throughout the lumbar spine with laminectomy changes. Advanced degenerative changes are noted in the thoracic sp ine. IMPRESSION: 1. Large 1.3 cm calculus at the left ureter pelvic junction causing mild hydronephrosis. 2. Nonobstructing calculus in the right kidney. 3. Degenerative changes, osteopenia, and postsurgical changes in the spine. Left sided kidney stone with hydronephrosis. - consult to Dr. Guadarrama - he placed stent for left sided renal stone with plan for lithotripsy 10/11/21 Ecoli Urinary tract infection - pt was placed on IV zosyn, with the culture report back, will changed to rocephin. Chronic neuropathy - pt on gabapentin at hs, continue, will increase gabapentin to 100mg 0600, 100mg 1100, 100mg 1600 and 300mg at HS - if these doses are tolerated and show improved symptoms, will either increase or keep dosing the same. Hypothyroidism - home regimen restarted. Hypercalcemia - resolved pt on dvt prophylaxis with lovenox and scd's gi prophylaxis with ppi MARIYA RESTREPO October 04, 2021 07:56 MARIA ELENA LEMUS MD October 04, 2021 09:24
[2021-10-04] MEDS: LIDOCAINE 4% (SALONPAS) PATCH TOP SCH (08:37)
[2021-10-04] MEDS: METHYLNALTREXONE 12 MG/0.6 ML (RELISTOR) VIAL SQ SCH (08:38)
[2021-10-04] MEDS: cefTRIAXone 1 GM PRE-MIX 50 ML IV SCH (08:38)
[2021-10-04] MEDS: HYOSCYAMINE 0.125 MG (LEVSIN) TAB PO SCH ×4 (08:44→20:41)
[2021-10-04] MEDS: DIAZEPAM 5 MG (VALIUM) TABLET PO SCH ×3 (08:44→20:42)
[2021-10-04] MEDS: GABAPENTIN 100 MG (NEURONTIN) CAP PO SCH ×2 (08:45→20:41)
[2021-10-04] MEDS: PANTOPRAZOLE 40 MG (PROTONIX) TAB PO SCH (08:45)
[2021-10-04] MEDS: PROPRANOLOL 20 MG (INDERAL) TABLET PO SCH (08:45)
[2021-10-04] MEDS: LACTOBACILLUS ACIDOPHILUS (PROBIOTIC) CAPSULE PO SCH ×3 (08:46→17:45)
[2021-10-04] MEDS: VITAMIN D3 25 MCG (1,000 UNITS) TABLET PO SCH (08:46)
[2021-10-04] MEDS: DOCUSATE SODIUM 100 MG (COLACE) CAP PO SCH ×2 (08:47→21:04)
[2021-10-04] MEDS: SENNOSIDES 8.6 MG (SENOKOT) TAB PO SCH ×2 (08:47→21:05)
[2021-10-04] MEDS: SENNA W/DOCUSATE (SENOKOT S) TABLET PO SCH ×4 (08:47→21:04)
[2021-10-04] MEDS: polyethylene glycoL POWDER 17 GM (MIRALAX) PACK PO SCH ×2 (08:47→21:04)
--- NOTE | 2021-10-04 09:37 | Physical Therapy Daily Note ---
PT Daily Note-Current Subjective Patient agrees to PT. Incontinent BM in bed requiring dependent assist to cleanse. Pain Numeric Pain Scale: 10-Worst Possible Pain Location: Medial, Lower Location Body Site: Back Pain Description: Pressure, Sharp Mental Status Patient Orientation: Normal For Age Attachments: Marie Catheter, IV Transfers SCALE: Activities may be completed with or without assistive devices. 2-Ahudkxjkfi-sffqcna completes the activity by him/herself with no assistance from a helper. 5-Set-up or Clean-up Assistance-helper sets up or cleans up; patient completes activity. Casanova assists only prior to or following the activity. 4-Supervision or Touching Assistance-helper provides verbal cues and/or touching/steadying and/or contact guard assistance as patient completes activity. Assistance may be provided throughout the activity or intermittently. 3-Partial/Moderate Assistance-helper does LESS THAN HALF the effort. Casanova lifts, holds or supports trunk or limbs, but provides less than half the effort. 2-Substantial/Maximal Assistance-helper does MORE THAN HALF the effort. Casanova lifts or holds trunk or limbs and provides more than half the effort. 2-Wvyewprmx-dtrhkl does ALL the effort. Patient does none of the effort to complete the activity. Or, the assistance of 2 or more helpers is required for the patient to complete the activity. If activity was not attempted, code reason: 7-Patient Refused. 9-Not Applicable-not attempted and the patient did not perform the activity before the current illness, exacerbation or injury. 10-Not Attempted due to Environmental Limitations-(lack of equipment, weather restraints, etc.). 88-Not Attempted due to Medical Conditions or Safety Concerns. Lying to Sitting/Side of Bed(Q: 3 Sit to Stand (QC): 4 Chair/Zsd-rz-Kxxil Xfer(QC): 4 Toilet Transfer (QC): 4 Gait Training Distance: 30' Walk 10 feet (QC): 4 Gait Assistive Device: FWW very slow, steady gait sequence Exercises Seated Therapy Exercises: Long arc quads Seated Reps: 15 Assessment Patient requires time to complete all functional tasks and also require much encouragement to increase activity due to back pain. Patient denies radiating LE pain on this date and all pain is localized to her back. Physician in room during session. PT Mcfp Goals Mcfp Goals PT Call Center Dispatcher Goals Time Frame: Oct 15, 2021 Roll Left & Right (QC): 4 Sit to Lying (QC): 4 Lying-Sitting on Side/Bed(QC): 4 Sit to Stand (QC): 4 Chair/Wqb-cu-Zztqd Xfer(QC): 4 Toilet Transfer (QC): 4 Car Transfer (QC): 4 Does the Patient Walk: Yes Walk 10 feet (QC): 4 Walk 50ft with 2 Turns (QC): 4 Walk 150 ft (QC): 4 1 Step (curb) (QC): 4 4 Steps (QC): 4 PT Plan Treatment/Plan Treatment Plan: Continue Plan of Care Treatment Plan: Bed Mobility, Concurrent Therapy, Education, Functional Activity Fede, Functional Strength, Gait, Safety, Therapeutic Exercise, Transfers Treatment Duration: Oct 15, 2021 Frequency: 6 times per week Estimated Hrs Per Day: .5 hour per day Patient and/or Family Agrees t: Yes Time/GCodes Time In: 901 Time Out: 924 Total Billed Treatment Time: 23 Total Billed Treatment 1 visit FA x 2 23 min SALLY MCDOWELL PT October 04, 2021 09:37
--- NOTE | 2021-10-04 09:47 | Progress Note - Urology ---
Progress Note-Urology Progress Notes/Assess & Plan Progress/Assessment & Plan RECOVERED WELL. AFEBRILE. STILL SPASMS AND LOW BACK PAIN, UNRELATED TO STONE. PLAN ESWL NEXT SUNDAY FULLY EXPLAINED TO PATIENT AND WITH PREOPS AND INSTRUCTIONS Final Diagnosis LT RENAL STONE MICHAEL GUILLEN MD October 04, 2021 09:47
[2021-10-04] MEDS: HYDROcodone/APAP 7.5 MG/325 MG (LORTAB, LORCET PLUS) TABLET PO PRN (11:00)
--- NOTE | 2021-10-04 11:07 | Occupational Therapy Eval ---
OT Evaluation-General/PLF Medical Diagnosis Admission Date September 30, 2021 at 11:20 Medical Diagnosis: post operative lumbar fusion Onset Date: September 12, 2021 Therapy Diagnosis Therapy Diagnosis: decreased ADL status Height/Weight Height (Feet): 5 Height (Inches): 8.00 Weight (Pounds): 220 Weight (Ounces): 6.4 Precautions Precautions/Isolations: Fall Prevention, Standard Precautions Comments back precautions. No lifting over 15lbs for 6 weeks. No excessive bending, lifting or twisting. You may shower after surgery. Until you are seen in office and had nellie removed, cover the wound with plastic and tape. Referral Physician: Dr. Bonilla Referral Reason: Evaluation/Treatment Medical History Pertinent Medical History: Back Injury, Hypothroidism Current History Pt had lumbar spinal surgery 09/19/21, discharged from [facility] 09/26/21 for 1 hour. She knew she was unable to function at home due to severe pain and lack of mobility, so pt went to [facility] ED, found to be in need of inpatient rehab, so admitted emergently to ARU for severe debility. 09/30 pt transferred to med/surg floor due to muscle spasms and uncontrolled back pain. Social History Home: Single Level Current Living Status: Significant Other Entry Into Home: Stairs With Railing Steps Into Home: 5 Steps Inside Home: 0 ADL-Prior Level of Function SCALE: Activities may be completed with or without assistive devices. 4-Ojfeatchpa-tsfocnu completes the activity by him/herself with no assistance from a helper. 5-Set-up or Clean-up Assistance-helper sets up or cleans up; patient completes activity. [place] assists only prior to or following the activity. 4-Supervision or Touching Assistance-helper provides verbal cues and/or touching/steadying and/or contact guard assistance as patient completes activity. Assistance may be provided throughout the activity or intermittently. 3-Partial/Moderate Assistance-helper does LESS THAN HALF the effort. Lynco lifts, holds or supports trunk or limbs, but provides less than half the effort. 2-Substantial/Maximal Assistance-helper does MORE THAN HALF the effort. Lynco lifts or holds trunk or limbs and provides more than half the effort. 9-Wnwbkwxhs-yphzki does ALL the effort. Patient does none of the effort to complete the activity. Or, the assistance of 2 or more helpers is required for the patient to complete the activity. If activity was not attempted, code reason: 7-Patient Refused. 9-Not Applicable-not attempted and the patient did not perform the activity before the current illness, exacerbation or injury. 10-Not Attempted due to Environmental Limitations-(lack of equipment, weather restraints, etc.). 88-Not Attempted due to Medical Conditions or Safety Concerns. ADL PLOF Comments Pt IND with ADLs and mobility at OF, no AD. She has a walk in shower with SC. Self Care: Independent Functional Cognition: Independent OT Current Status Subjective Pt up in recliner, agreeable to OT evaluation, present. Mental Status/Objective Patient Orientation: Person, Unable to Assess, Situation Current Hand Dominance: Right Upper Extremity ROM WFL, BUE shoulder flexion to approx 150 degrees. C/O increased pain in back with LUE movements. Upper Extremity Strength not formally tested due to back pain and recent back surgery. Grossly 3+/5 BUEs. ADL-Treatment Eating (QC): 6 (per pt report) Upper Body Dressing (QC): 5 (Per clincial judgment) Lower Body Dressing (QC): 2 (Per clincial judgment, assist required to thread BLEs due to back precautions.) Toileting Hygiene (QC): 1 (Per nursing report, pt inconinent of BM at bed level requiring total assist to clean.) Other Treatments Pt up in recliner, agreeable to OT Tx. Pt declined ADL session at this time. OT tx focused on increasing BUE Strength and activity tolerance in order to increase independence with ADLs and functional mobility. Pt completed x10 reps each of the following BUE exercises: shoulder flexion, elbow flexion/extension, front punch, with rest breaks between exercises. OT instructed pt to complete exercises throughout the day, increasing reps as tolerated, she verbalized understanding. Post tx, pt in recliner, call light in reach and all needs met. Education OT Patient Education: Correct positioning, Energy conservation, Modified ADL techniques, Progress toward Goal/Update tx plan, Purpose of tx/functional activities, Rehab process Teaching Recipient: Patient Teaching Methods: Discussion Response to Teaching: Verbalize Understanding OT Detention Goals Detention Goals Time Frame: Oct 21, 2021 Eating (QC): 6 Oral Hygiene (QC): 6 Toileting Hygiene (QC): 4 Shower/Bathe Self (QC): 4 Upper Body Dressing (QC): 5 Lower Body Dressing (QC): 4 On/Off Footwear (QC): 4 Additional Goals: 1-Demonstrate ADL Tasks, 2-Verbalize Understanding, 3- ImproveStrength/Fede 1=Demonstrate adherence to instructed precautions during ADL tasks. 2=Patient will verbalize/demonstrate understanding of assistive devices/modifications for ADL. 3=Patient will improve strength/tolerance for activity to enable patient to perform ADL's. OT Education/Plan Problem List/Assessment Assessment: Decreased Activ Tolerance, Decreased UE Strength, Impaired Funct Balance, Impaired I ADL's, Impaired Self-Care Skills Discharge Recommendations Plan/Recommendations: Continue POC Treatment Plan/Plan of Care Patient would benefit from OT for education, treatment and training to promote independence in ADL's, mobility, safety and/or upper extremity function for ADL's. Plan of Care: ADL Retraining, Functional Mobility, UE Funct Exercise/Act Treatment Duration: Oct 21, 2021 Frequency: 3 times per week (3-5 times per week) Estimated Hrs Per Day: .25 hour per day Rehab Potential: Fair Time/GCodes Start Time: 10:10 Stop Time: 10:23 Total Time Billed (hr/min): 13 Billed Treatment Time 1, ALLA GUILLEN OT October 04, 2021 11:07
[2021-10-04] MEDS: HYDROmorphone 2 MG/ML VIAL (DILAUDID) IV PRN (15:46)
[2021-10-04] MEDS: TAMSULOSIN 0.4 MG (FLOMAX) CAP PO SCH (17:45)
[2021-10-04] MEDS: GABAPENTIN 300 MG (NEURONTIN) CAP PO SCH (20:41)
[2021-10-04] MEDS: PATCH REMOVAL TP SCH (21:05)
[2021-10-05 00:30] VITALS: BP 126/80
[2021-10-05 03:49] VITALS: BP 133/70
[2021-10-05] MEDS: LACTATED RINGERS 1,000 ML IV SCH ×4 (03:57→20:50)
[2021-10-05 04:05] LABS: BASOPHILS # (AUTO) 0.1 10^3/uL (0.0-0.1); BASOPHILS % (AUTO) 0 % (0-10); EOSINOPHILS # (AUTO) 0.3 10^3/uL (0.0-0.3); EOSINOPHILS % (AUTO) 3 % (0-10); HEMATOCRIT 36 % (35-52); HEMOGLOBIN 11.8 g/dL (11.5-16.0); LYMPHOCYTES # (AUTO) 3.2 10^3/uL (1.0-4.0); LYMPHOCYTES % (AUTO) 29 % (12-44); MEAN CORPUSCULAR HEMOGLOBIN 32 pg (25-34); MEAN CORPUSCULAR HGB CONC 33 g/dL (32-36); MEAN CORPUSCULAR VOLUME 95 fL (80-99); MEAN PLATELET VOLUME 10.2 fL (9.0-12.2); MONOCYTES # (AUTO) 0.8 10^3/uL (0.0-1.0); MONOCYTES % (AUTO) 7 % (0-12); NEUTROPHILS # (AUTO) 6.8 10^3/uL (1.8-7.8); NEUTROPHILS % (AUTO) 61 % (42-75); PLATELET COUNT 468 10^3/uL (130-400); WHITE BLOOD COUNT 11.2 10^3/uL (4.3-11.0)
[2021-10-05 04:13] LABS: ALBUMIN 3.4 GM/DL (3.2-4.5); POTASSIUM 3.7 MMOL/L (3.6-5.0)
[2021-10-05 04:15] LABS: CALCIUM 10.2 MG/DL (8.5-10.1)
[2021-10-05 04:16] LABS: TOTAL PROTEIN 6.6 GM/DL (6.4-8.2)
[2021-10-05 04:18] LABS: BILIRUBIN,TOTAL 0.7 MG/DL (0.1-1.0)
[2021-10-05 04:19] LABS: CREATININE SERUM 0.71 MG/DL (0.60-1.30)
[2021-10-05] MEDS: KCL 10 MEQ TAB (MICRO K) PO SCH (06:26)
[2021-10-05] MEDS: BACLOFEN 10 MG (LIORESAL) TAB PO SCH ×3 (06:27→17:39)
[2021-10-05] MEDS: LEVOTHYROXINE 100 MCG (LEVOTHROID) TAB PO SCH (06:27)
[2021-10-05 07:34] VITALS: BP 122/77
--- NOTE | 2021-10-05 07:41 | Progress Note ---
Subjective Subjective Date Seen by Provider: October 05, 2021 Time Seen by Provider: 07:00 Pt reports that her pain is a 6/10, she had some Nausea last night but since then resolved, No vomiting, 2 BM yesterday and is passing gas. Review of Systems General: No Chills, No Fatigue, No Malaise HEENT: No Dysphasia Pulmonary: No Dyspnea, No Cough Cardiovascular: No: Chest Pain, Palpitations Gastrointestinal: No: Nausea, Vomiting, Abdominal Pain Musculoskeletal: back pain Neurological: Weakness; No: Confusion All Other Systems Reviewed All Other Systems Reviewed: Yes Objective Exam Vital Signs Vital Signs Date Time Temp Pulse Resp B/P (MAP) Pulse Ox O2 Delivery O2 Flow Rate FiO2 10/05/21 03:49 36.9 75 18 133/70 (91) 99 Room Air 10/05/21 00:30 36.2 72 92 21 10/04/21 23:57 36.7 76 16 133/64 (87) 94 Room Air 10/04/21 20:35 Room Air 10/04/21 20:00 37.0 65 18 125/58 (80) 95 Room Air 10/04/21 15:27 35.9 66 18 117/71 (86) 98 Room Air 10/04/21 11:37 36.7 67 18 130/69 (89) 96 Room Air 10/04/21 08:00 Room Air 10/04/21 08:00 36.5 69 18 134/76 (95) 95 Room Air I & O 10/05/21 07:00 Intake Total 2290 ml Output Total 3325 ml Balance -1035 ml General Appearance: WD/WN, Mild Distress HEENT: PERRL/EOMI, Pharynx Normal Neck: Non Tender, Supple Respiratory: Chest Non Tender, Lungs Clear, Normal Breath Sounds, No Accessory Muscle Use Cardiovascular: Regular Rate, Rhythm, No JVD Gastrointestinal: Normal Bowel Sounds, Non Tender, Soft Rectal: Deferred Extremity: Non Tender, No Calf Tenderness, No Pedal Edema Neurologic/Psychiatric: Alert, Oriented x3, Normal Mood/Affect Skin: Normal Color, Warm/Dry Lymphatic: No Adenopathy Results Lab Laboratory Tests 10/05/21 03:55: White Blood Count 11.2H, Red Blood Count 3.73L, Hemoglobin 11.8, Hematocrit 36, Mean Corpuscular Volume 95, Mean Corpuscular Hemoglobin 32, Mean Corpuscular Hemoglobin Concent 33, Red Cell Distribution Width 14.9H, Platelet Count 468H, Mean Platelet Volume 10.2, Immature Granulocyte % (Auto) 0, Neutrophils (%) (Auto) 61, Lymphocytes (%) (Auto) 29, Monocytes (%) (Auto) 7, Eosinophils (%) (Auto) 3, Basophils (%) (Auto) 0, Neutrophils # (Auto) 6.8, Lymphocytes # (Auto) 3.2, Monocytes # (Auto) 0.8, Eosinophils # (Auto) 0.3, Basophils # (Auto) 0.1, Immature Granulocyte # (Auto) 0.0, Sodium Level 140, Potassium Level 3.7, Chloride Level 103, Carbon Dioxide Level 24, Anion Gap 13, Blood Urea Nitrogen 12, Creatinine 0.71, Estimat Glomerular Filtration Rate 91, BUN/Creatinine Ratio 17, Glucose Level 102, Calcium Level 10.2H, Corrected Calcium 10.7H, Total Bilirubin 0.7, Aspartate Amino Transf (AST/SGOT) 19, Alanine Aminotransferase (ALT/SGPT) 11, Alkaline Phosphatase 113, Total Protein 6.6, Albumin 3.4 Microbiology 09/30/21 Blood Culture - Preliminary, Resulted No growth 09/30/21 Urine Culture - Final, Complete Escherichia coli Assessment/Plan Assessment/Plan Admission Dx Posterior spinal fusion L1 - 3 and L4 - S1 Uncontrolled back pain Muscle spasms Chronic neuropathy Hypothyroidism Leukocytosis Hypercalcemia Assessment and Plan Posterior spinal fusion L1 - 3 and L4 - S1 Uncontrolled back pain Muscle spasms Chronic neuropathy Hypothyroidism Leukocytosis Hypercalcemia Constipation Kidney stone Posterior spinal fusion L1 - 3 and L4 - S1 with Uncontrolled back pain Muscle spasms - pt was receiving only PRN muscle relaxers and pain medication on rehab, will schedule the following medication in an attempt to have improved symptoms: - schedule oxycodone 5mg tid - schedule tizanidine 4mg bid - schedule baclofen 10mg qid - she will continue to have prn pain medication and muscle relaxers available. - check ct of thoracic and lumbar spine to rule out osteomyelitis, or hardware failure. -Removed nellie and ordered MRI Chronic neuropathy - pt on gabapentin at hs, continue, consider increase of gabapentin if needed for control of symptoms of back pain. Hypothyroidism - home regimen restarted. Leukocytosis - UTI : Given IV antibiotics, awaiting complete urine culture reports Hypercalcemia - 10.7 today Constipation -Ambulate, increase fiber, anti diarrheal meds. 2 BM yesterday Kidney stone -stent placement on 10/03, and urology will do ESWL next sunday. pt on dvt prophylaxis with lovenox and scd's gi prophylaxis with ppi Admission Dx Posterior spinal fusion L1 - 3 and L4 - S1 Uncontrolled back pain Muscle spasms Chronic neuropathy Hypothyroidism Leukocytosis Hypercalcemia Clinical Quality Measures Admission Status Admission Dx Posterior spinal fusion L1 - 3 and L4 - S1 Uncontrolled back pain Muscle spasms Chronic neuropathy Hypothyroidism Leukocytosis Hypercalcemia MARIYA RESTREPO October 05, 2021 07:41
[2021-10-05] MEDS: PROPRANOLOL 20 MG (INDERAL) TABLET PO SCH (09:25)
[2021-10-05] MEDS: DIAZEPAM 5 MG (VALIUM) TABLET PO SCH ×3 (09:25→20:49)
[2021-10-05] MEDS: LACTOBACILLUS ACIDOPHILUS (PROBIOTIC) CAPSULE PO SCH ×3 (09:25→17:39)
[2021-10-05] MEDS: VITAMIN D3 25 MCG (1,000 UNITS) TABLET PO SCH (09:25)
[2021-10-05] MEDS: HYOSCYAMINE 0.125 MG (LEVSIN) TAB PO SCH ×4 (09:25→20:48)
[2021-10-05] MEDS: GABAPENTIN 100 MG (NEURONTIN) CAP PO SCH ×2 (09:30→20:49)
[2021-10-05] MEDS: SENNA W/DOCUSATE (SENOKOT S) TABLET PO SCH ×4 (09:30→21:02)
[2021-10-05] MEDS: PANTOPRAZOLE 40 MG (PROTONIX) TAB PO SCH (09:30)
[2021-10-05] MEDS: cefTRIAXone 1 GM PRE-MIX 50 ML IV SCH (09:31)
[2021-10-05] MEDS: polyethylene glycoL POWDER 17 GM (MIRALAX) PACK PO SCH ×2 (09:31→21:01)
[2021-10-05] MEDS: DOCUSATE SODIUM 100 MG (COLACE) CAP PO SCH ×2 (09:31→21:01)
[2021-10-05] MEDS: SENNOSIDES 8.6 MG (SENOKOT) TAB PO SCH ×2 (09:31→21:02)
[2021-10-05] MEDS: LIDOCAINE 4% (SALONPAS) PATCH TOP SCH (09:31)
--- NOTE | 2021-10-05 10:39 | Physical Therapy Daily Note ---
PT Daily Note-Current Subjective Pt. sleeping hard upon arrival and needed verbal and tactile stimulation to awaken. Pt. throughout rx states she feels better today in that the pain which she still rates at 8/10 is not spasms but more manageable pain. Pt. agrees to Rx, wants on BSC during Rx. Pain Numeric Pain Scale: 8 Location: Medial Location Body Site: Back Pain Description: Pressure Mental Status Patient Orientation: Normal For Age Attachments: Marie Catheter Transfers SCALE: Activities may be completed with or without assistive devices. 2-Ahyrfnpocd-gplswyd completes the activity by him/herself with no assistance from a helper. 5-Set-up or Clean-up Assistance-helper sets up or cleans up; patient completes activity. [place] assists only prior to or following the activity. 4-Supervision or Touching Assistance-helper provides verbal cues and/or touching/steadying and/or contact guard assistance as patient completes activity. Assistance may be provided throughout the activity or intermittently. 3-Partial/Moderate Assistance-helper does LESS THAN HALF the effort. [place] lifts, holds or supports trunk or limbs, but provides less than half the effort. 2-Substantial/Maximal Assistance-helper does MORE THAN HALF the effort. [place] lifts or holds trunk or limbs and provides more than half the effort. 2-Kuqwhmikb-vdolgh does ALL the effort. Patient does none of the effort to complete the activity. Or, the assistance of 2 or more helpers is required for the patient to complete the activity. If activity was not attempted, code reason: 7-Patient Refused. 9-Not Applicable-not attempted and the patient did not perform the activity before the current illness, exacerbation or injury. 10-Not Attempted due to Environmental Limitations-(lack of equipment, weather restraints, etc.). 88-Not Attempted due to Medical Conditions or Safety Concerns. Roll Left & Right (QC): 4 Lying to Sitting/Side of Bed(Q: 3 Sit to Stand (QC): 4 Chair/Yjw-oi-Tvbhr Xfer(QC): 4 Toilet Transfer (QC): 4 pt. moves slowly for TRFs , was instructed in log roll and wt shift but moved well with mostly CGA Gait Training Does the Patient Walk?: Yes Gait Assistive Device: FWW pt. moved approx 5 ft bed t BSC and 8 ft BSC to chair. Pt. requested upright chair with arms stating she was not comfortable at all yesterday in the recliner. Exercises Seated Therapy Exercises: Ankle pumps, Long arc quads Seated Reps: 10 Treatments after pt. reached sitting at EOB she sat without c/o for approx [address] Bonilla removed all nellie in back incision and abdominal incision without c/o pain. she then stood CGA , TRFd to BSC, then stood again and amb short dist to chair, then up for brkfst with call babin at hand Assessment Current Status: Good Progress much less c/o pain this date. pt. 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 Retirement Goals PT Retirement Goals Time Frame: Oct 15, 2021 Roll Left & Right (QC): 4 Sit to Lying (QC): 4 Lying-Sitting on Side/Bed(QC): 4 Sit to Stand (QC): 4 Chair/Tbl-ui-Vbzqb Xfer(QC): 4 Toilet Transfer (QC): 4 Car Transfer (QC): 4 Does the Patient Walk: Yes Walk 10 feet (QC): 4 Walk 50ft with 2 Turns (QC): 4 Walk 150 ft (QC): 4 1 Step (curb) (QC): 4 4 Steps (QC): 4 PT Plan Treatment/Plan Treatment Plan: Continue Plan of Care Treatment Plan: Bed Mobility, Concurrent Therapy, Education, Functional Activity Fede, Functional Strength, Gait, Safety, Therapeutic Exercise, Transfers Treatment Duration: Oct 15, 2021 Frequency: 6 times per week Estimated Hrs Per Day: .5 hour per day Patient and/or Family Agrees t: Yes Safety Risks/Education Patient Education: Gait Training, Transfer Techniques, Correct Positioning, Safety Issues Teaching Recipient: Patient Teaching Methods: Discussion Response to Teaching: Return Demonstration, Reinforcement Needed Time/GCodes Time In: 830 Time Out: 915 Total Billed Treatment Time: 45 Total Billed Treatment 1,FA45m ADELINE RODRIGUEZ BAR WAITER/WAITRESS October 05, 2021 10:39
[2021-10-05] MEDS: HYDROmorphone 2 MG/ML VIAL (DILAUDID) IV PRN (10:44)
--- NOTE | 2021-10-05 11:24 | Occ Therapy Progress Note ---
Therapy Progress Note OT tx attempted, pt out of room at MRI. OT will attempt tx again next available time. ALLA PERAZA OT October 05, 2021 11:24
[2021-10-05] MEDS ORDERED: GADOTERATE 0.5 MMOL/ML (CLARISCAN) 20 ML VIAL IV ONE (12:00)
[2021-10-05 12:33] VITALS: BP 101/58
--- NOTE | 2021-10-05 13:13 | Diagnostic Imaging Report ---
CLINICAL INDICATIONS: Patient is having increased low back pain. Patient had recent lumbar spine surgery. EXAMS: 1: MRI of the thoracic spine performed without and with 20 mL of Clariscan IV contrast. Sequences include sagittal T1, sagittal T2, sagittal T2 fat-sat, axial T1, axial T2, axial T1 post contrast, and sagittal T1 fat-sat post IV contrast. 2: MRI of the lumbar spine performed without and with IV contrast the injection with MRI of the thoracic spine. Sequences include sagittal T1, sagittal T2, sagittal STIR, axial T1, axial T2, sagittal T1 fat-sat post IV contrast, and axial T1 post IV contrast. COMPARISON: MRI of the lumbar spine with and without contrast dated 07/26/2010. CT scan of the thoracic spine without contrast dated 09/30/2021. FINDINGS: Again seen postop changes of the lumbar spine with L1-S1 posterior spinal fusion hardware with bilateral spinal rods pedicle screws. CT scan shows it is discontinuity with spanning rods at the L3-L4 disk space level. There is L5-S1 anterior lumbar to body fusion hardware. There is L3 laminectomies and partial laminectomies involving the L2 and L4 levels. There is a moderate-sized fluid collection just superficial to the laminectomy site at the L2-L4 level with small amount extending posterior to the L5 posterior element region. This fluid collection measures 3.6 cm x 7.9 cm x 8.8 cm (AP x Trans x CC). This fluid collection is slightly high on T1 and high on T2 and there is enhancement in the adjacent soft tissue. This fluid collection is difficult to evaluate and compared to the prior CT scan, but was not seen on prior MRI of the lumbar spine. Given the signal intensity, hematoma may be considered. THORACIC SPINE: Thoracic spinal cord is unremarkable. There is no acute thoracic spine fracture or dislocation. There is Modic type II degenerative signal changes involving the lower thoracic spine. There are small areas anteriorly involving the upper to mid thoracic spine. There are hypertrophic spurs throughout the thoracic spine and facet arthropathy. There is no significant paraspinal soft tissue abnormality. There is no abnormal IV contrast enhancement. T2-T3: There is diffuse disk bulge and bilateral facet arthropathy. There is moderate central canal stenosis and severe bilateral neural foramen narrowing. T10-T11: There is T10-T11 diffuse disk bulge with mild to moderate loss of disk space height and endplate irregularity. Moderate bilateral facet arthropathy. There is moderate central canal stenosis. There is mild to moderate left neural foramen narrowing. T11-T12: There is diffuse disk bulge with severe loss of disk space height endplate irregularity. There is moderate bilateral facet arthropathy. There is mild central canal stenosis. There is severe right neural foramen narrowing. No significant left neural foramen narrowing. T12-L1: There is diffuse disk bulge with severe loss of disk space height and endplate irregularity. There is severe bilateral facet arthropathy and ligamentum flavum buckling. There is moderate central canal stenosis. There is mild bilateral neural foramen narrowing. The remainder of the thoracic spine shows no significant central canal or neural foramen narrowing. LUMBAR SPINE: Visualized portion of distal thoracic spinal cord, conus medullaris, cauda equina nerve roots are unremarkable. Conus medullaris tip is seen at the lower L1 vertebral body level. There is no acute lumbar spine fracture. There is Modic type II degenerative signal changes involving the mid and upper aspect of the L4 vertebra. L1-L2: There is diffuse disk bulges with severe loss of disk space height. There is no significant central canal or neural foramen narrowing. L2-L3: There is decompression of thecal sac with no significant central canal stenosis. There is no significant neural foramen narrowing. L3-L4: There is decompression of thecal sac. There is no significant central canal or neural foramen narrowing. L4-L5: There is a lobulated cystic structure in the right neural foramen region with scalloping of the right posterior aspect of the L4 vertebra and right facet region. This may represent a pseudomeningocele versus perineural cysts. There is associated severe stenosis and encroachment upon the exiting right L4 nerve root. This finding is new compared to the prior MRI. The bony scalloping has a chronic appearance and is also seen on a prior CT scan. There is no significant central canal stenosis. There is no significant neural foramen narrowing. L5-S1: There is no significant central canal stenosis. There is no significant left neural foramen narrowing. There is mild to moderate right neural foramen narrowing. THORACIC AND LUMBAR SPINE IMPRESSION: 1: There are postop changes to the lower lumbar spine with L3 laminectomies superimposed upon other extensive postoperative changes. There is a moderate-sized fluid collection just superficial to the laminectomy region which extends from the L2-L5 level. This fluid collection causes no significant encroachment upon the central canal. This fluid collection demonstrates high T1 and high T2 signal and may represent hematoma/blood. 2: Again seen L1-S1 posterior spinal fusion hardware and L5-S1 anterior lumbar interbody fusion. 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 Dictated by: Dictated on workstation # [id number]
--- NOTE | 2021-10-05 13:46 | Progress Note - Urology ---
Progress Note-Urology Progress Notes/Assess & Plan Progress/Assessment & Plan FEELING AND LOOKING BETTER. LESS PAIN. ESWL SUNDAY Final Diagnosis LT RENAL STONE MICHAEL GUILLEN MD October 05, 2021 13:46
--- NOTE | 2021-10-05 14:19 | Occ Therapy Progress Note ---
Therapy Progress Note Pt in bed after MRI, states she is worn out from procedure. Pt declines OT services at this time, requesting to rest even with education on benefits of OT. OT will attempt tx again tomorrow. 1, refusal 1330 ALLA PERAZA OT October 05, 2021 14:19
[2021-10-05 15:30] VITALS: BP 102/58
[2021-10-05] MEDS: HYDROcodone/APAP 7.5 MG/325 MG (LORTAB, LORCET PLUS) TABLET PO PRN (16:06)
[2021-10-05] MEDS: TAMSULOSIN 0.4 MG (FLOMAX) CAP PO SCH (17:39)
[2021-10-05 19:25] VITALS: BP 108/60
[2021-10-05] MEDS: GABAPENTIN 300 MG (NEURONTIN) CAP PO SCH (20:49)
[2021-10-05] MEDS: PATCH REMOVAL TP SCH (21:01)
[2021-10-06 00:30] VITALS: BP 130/62
[2021-10-06] MEDS: BACLOFEN 10 MG (LIORESAL) TAB PO SCH ×2 (00:34→06:05)
[2021-10-06] MEDS: LEVOTHYROXINE 100 MCG (LEVOTHROID) TAB PO SCH (06:04)
[2021-10-06] MEDS: KCL 10 MEQ TAB (MICRO K) PO SCH (06:04)
[2021-10-06] MEDS: LACTATED RINGERS 1,000 ML IV SCH (06:23)
[2021-10-06 07:09] LABS: BASOPHILS # (AUTO) 0.1 10^3/uL (0.0-0.1); BASOPHILS % (AUTO) 1 % (0-10); EOSINOPHILS # (AUTO) 0.3 10^3/uL (0.0-0.3); EOSINOPHILS % (AUTO) 3 % (0-10); HEMATOCRIT 37 % (35-52); HEMOGLOBIN 12.1 g/dL (11.5-16.0); LYMPHOCYTES # (AUTO) 2.6 10^3/uL (1.0-4.0); LYMPHOCYTES % (AUTO) 28 % (12-44); MEAN CORPUSCULAR HEMOGLOBIN 32 pg (25-34); MEAN CORPUSCULAR HGB CONC 33 g/dL (32-36); MEAN CORPUSCULAR VOLUME 97 fL (80-99); MEAN PLATELET VOLUME 10.7 fL (9.0-12.2); MONOCYTES # (AUTO) 0.7 10^3/uL (0.0-1.0); MONOCYTES % (AUTO) 7 % (0-12); NEUTROPHILS # (AUTO) 5.5 10^3/uL (1.8-7.8); NEUTROPHILS % (AUTO) 60 % (42-75); PLATELET COUNT 425 10^3/uL (130-400); WHITE BLOOD COUNT 9.1 10^3/uL (4.3-11.0)
[2021-10-06 07:12] LABS: ALBUMIN 3.5 GM/DL (3.2-4.5); POTASSIUM 3.7 MMOL/L (3.6-5.0)
[2021-10-06 07:14] LABS: CALCIUM 10.2 MG/DL (8.5-10.1)
[2021-10-06 07:15] LABS: TOTAL PROTEIN 6.8 GM/DL (6.4-8.2)
[2021-10-06 07:17] LABS: BILIRUBIN,TOTAL 0.7 MG/DL (0.1-1.0)
[2021-10-06 07:18] LABS: CREATININE SERUM 0.72 MG/DL (0.60-1.30)
--- NOTE | 2021-10-06 07:36 | Progress Note ---
Subjective Subjective Date Seen by Provider: October 06, 2021 Time Seen by Provider: 07:15 Pt reports that her pain is still a 6/10 and comfortable at rest. She reports some pain at the anterior incision sites since they were removed. She had some Nausea while doing PT yesterday, but has not experienced it again, denies Vomiting. Review of Systems General: No Chills, No Fatigue, No Malaise HEENT: No Dysphasia Pulmonary: No Dyspnea, No Cough Cardiovascular: No: Chest Pain, Palpitations Gastrointestinal: No: Nausea, Vomiting, Abdominal Pain Musculoskeletal: back pain Neurological: Weakness; No: Confusion All Other Systems Reviewed All Other Systems Reviewed: Yes Objective Exam Vital Signs Vital Signs Date Time Temp Pulse Resp B/P (MAP) Pulse Ox O2 Delivery O2 Flow Rate FiO2 10/06/21 07:22 95 Room Air 0.00 10/06/21 00:30 36.4 71 16 130/62 (84) 97 Room Air 10/06/21 00:04 95 21 10/05/21 20:50 Room Air 10/05/21 19:25 36.4 59 18 108/60 (76) 96 Room Air 10/05/21 15:30 36.4 73 18 102/58 (73) 96 Room Air 10/05/21 12:33 37.1 75 20 101/58 (72) 96 Room Air 10/05/21 08:00 Room Air I & O 10/06/21 07:00 Intake Total 2820 ml Output Total 3075 ml Balance -255 ml General Appearance: WD/WN, Mild Distress HEENT: PERRL/EOMI, Pharynx Normal Neck: Non Tender, Supple Respiratory: Chest Non Tender, Lungs Clear, Normal Breath Sounds, No Accessory Muscle Use Cardiovascular: Regular Rate, Rhythm, No JVD Gastrointestinal: Normal Bowel Sounds, Non Tender, Soft Rectal: Deferred Extremity: Non Tender, No Calf Tenderness, No Pedal Edema Neurologic/Psychiatric: Alert, Oriented x3, Normal Mood/Affect Skin: Normal Color, Warm/Dry Lymphatic: No Adenopathy Results Lab Laboratory Tests 10/06/21 06:50: White Blood Count 9.1, Red Blood Count 3.80, Hemoglobin 12.1, Hematocrit 37, Mean Corpuscular Volume 97, Mean Corpuscular Hemoglobin 32, Mean Corpuscular Hemoglobin Concent 33, Red Cell Distribution Width 15.0H, Platelet Count 425H, Mean Platelet Volume 10.7, Immature Granulocyte % (Auto) 0, Neutrophils (%) (Auto) 60, Lymphocytes (%) (Auto) 28, Monocytes (%) (Auto) 7, Eosinophils (%) (Auto) 3, Basophils (%) (Auto) 1, Neutrophils # (Auto) 5.5, Lymphocytes # (Auto) 2.6, Monocytes # (Auto) 0.7, Eosinophils # (Auto) 0.3, Basophils # (Auto) 0.1, Immature Granulocyte # (Auto) 0.0, Sodium Level 141, Potassium Level 3.7, Chloride Level 103, Carbon Dioxide Level 25, Anion Gap 13, Blood Urea Nitrogen 12, Creatinine 0.72, Estimat Glomerular Filtration Rate 90, BUN/Creatinine Ratio 17, Glucose Level 103, Calcium Level 10.2H, Corrected Calcium 10.6H, Total Bili high 0.7, Aspartate Amino Transf (AST/SGOT) 21, Alanine Aminotransferase (ALT/SGPT) 13, Alkaline Phosphatase 117, Total Protein 6.8, Albumin 3.5 Microbiology 09/30/21 Blood Culture - Preliminary, Resulted No growth 09/30/21 Urine Culture - Final, Complete Escherichia coli Assessment/Plan Assessment/Plan Admission Dx Posterior spinal fusion L1 - 3 and L4 - S1 Uncontrolled back pain Muscle spasms Chronic neuropathy Hypothyroidism Leukocytosis Hypercalcemia Assessment and Plan Posterior spinal fusion L1 - 3 and L4 - S1 Uncontrolled back pain Muscle spasms Chronic neuropathy Hypothyroidism Leukocytosis Hypercalcemia Constipation Kidney stone Posterior spinal fusion L1 - 3 and L4 - S1 with Uncontrolled back pain Muscle spasms - pt was receiving only PRN muscle relaxers and pain medication on rehab, will schedule the following medication in an attempt to have improved symptoms: - schedule oxycodone 5mg tid - schedule tizanidine 4mg bid - schedule baclofen 10mg qid - she will continue to have prn pain medication and muscle relaxers available. - check ct of thoracic and lumbar spine to rule out osteomyelitis, or hardware failure. -Removed nellie and ordered MRI Chronic neuropathy - pt on gabapentin at hs, continue, consider increase of gabapentin if needed for control of symptoms of back pain. Hypothyroidism - home regimen restarted. Leukocytosis - UTI : Given IV antibiotics, awaiting complete urine culture reports Hypercalcemia - 10.7 today Constipation -Ambulate, increase fiber, anti diarrheal meds. 1 BM yesterday, 2 the day before. Resolved. Kidney stone -stent placement on 10/03, and urology will do ESWL next sunday. pt on dvt prophylaxis with lovenox and scd's gi prophylaxis with ppi Admission Dx Posterior spinal fusion L1 - 3 and L4 - S1 Uncontrolled back pain Muscle spasms Chronic neuropathy Hypothyroidism Leukocytosis Hypercalcemia Clinical Quality Measures Admission Status Admission Dx Posterior spinal fusion L1 - 3 and L4 - S1 Uncontrolled back pain Muscle spasms Chronic neuropathy Hypothyroidism Leukocytosis Hypercalcemia MARIYA RESTREPO October 06, 2021 07:36
[2021-10-06 07:48] VITALS: BP 129/81
--- NOTE | 2021-10-06 09:00 | Discharge Summary ---
Diagnosis/Chief Complaint Date of Admission September 30, 2021 at 11:20 Date of Discharge Discharge Date: October 06, 2021 Discharge Time: 0915 Reason Hospital Visit PT IS A 70 Y/O FEMALE WHO HAD BACK SURGERY AT [facility] ON SHE WAS SENT HOME, BUT SHE WAS EXPECTING AN ADMISSION TO THE INPATIENT REHAB UNIT FROM [facility], SHE PRESENTED TO THE HOSPITAL AND SHE WAS SUBSEQUENTLY ADMITTED TO THE HOSPITAL BY DR. GARCIA TO THE INPATIENT REHAB UNIT. THE PATIENT HAD A POST-OPERATIVE ILEUS, WHICH HAS RESOLVED, BUT SHE WAS NOT PROGRESSING AND DR. GARCIA CONTACTED THIS PROVIDER TO INFORM OF THE TRANSFER TO THE FLOOR DUE TO UNCONTROLLED PAIN AND POOR PROGRESSION WITH REHAB. Discharge Summary Discharge Physical Examination Allergies: Coded Allergies: NKANo Known Allergies (Unverified Allergy, Unknown, 08/08/06) Vitals & I&Os Vital Signs Date Time Temp Pulse Resp B/P (MAP) Pulse Ox O2 Delivery O2 Flow Rate FiO2 10/06/21 07:48 36.6 67 18 129/81 (97) 97 Room Air 10/06/21 07:22 0.00 10/06/21 00:04 21 Hospital Course Pending Labs Laboratory Tests 10/06/21 06:50: White Blood Count 9.1, Red Blood Count 3.80, Hemoglobin 12.1, Hematocrit 37, Mean Corpuscular Volume 97, Mean Corpuscular Hemoglobin 32, Mean Corpuscular Hemoglobin Concent 33, Red Cell Distribution Width 15.0, Platelet Count 425, Mean Platelet Volume 10.7, Immature Granulocyte % (Auto) 0, Neutrophils (%) (Auto) 60, Lymphocytes (%) (Auto) 28, Monocytes (%) (Auto) 7, Eosinophils (%) (Auto) 3, Basophils (%) (Auto) 1, Neutrophils # (Auto) 5.5, Lymphocytes # (Auto) 2.6, Monocytes # (Auto) 0.7, Eosinophils # (Auto) 0.3, Basophils # (Auto) 0.1, Immature Granulocyte # (Auto) 0.0, Sodium Level 141, Potassium Level 3.7, Chloride Level 103, Carbon Dioxide Level 25, Anion Gap 13, Blood Urea Nitrogen 12, Creatinine 0.72, Estimat Glomerular Filtration Rate 90, BUN/Creatinine Ratio 17, Glucose Level 103, Calcium Level 10.2, Corrected Calcium 10.6, Total Bi lirubin 0.7, Aspartate Amino Transf (AST/SGOT) 21, Alanine Aminotransferase (ALT/SGPT) 13, Alkaline Phosphatase 117, Total Protein 6.8, Albumin 3.5 Discharge Instructions to patient/family Please see electronic discharge instructions given to patient. Discharge Medications Reviewed and agree with Discharge Medication list on patient's Discharge Instruction sheet MARIA ELENA LEMUS MD October 06, 2021 09:00
[2021-10-06] MEDS: METHYLNALTREXONE 12 MG/0.6 ML (RELISTOR) VIAL SQ SCH (09:03)
[2021-10-06] MEDS: HYOSCYAMINE 0.125 MG (LEVSIN) TAB PO SCH (09:03)
[2021-10-06] MEDS: VITAMIN D3 25 MCG (1,000 UNITS) TABLET PO SCH (09:04)
[2021-10-06] MEDS: PROPRANOLOL 20 MG (INDERAL) TABLET PO SCH (09:04)
[2021-10-06] MEDS: SENNOSIDES 8.6 MG (SENOKOT) TAB PO SCH (09:04)
[2021-10-06] MEDS: LACTOBACILLUS ACIDOPHILUS (PROBIOTIC) CAPSULE PO SCH (09:04)
[2021-10-06] MEDS: GABAPENTIN 100 MG (NEURONTIN) CAP PO SCH (09:04)
[2021-10-06] MEDS: PANTOPRAZOLE 40 MG (PROTONIX) TAB PO SCH (09:04)
[2021-10-06] MEDS: DOCUSATE SODIUM 100 MG (COLACE) CAP PO SCH (09:04)
[2021-10-06] MEDS: DIAZEPAM 5 MG (VALIUM) TABLET PO SCH (09:04)
[2021-10-06] MEDS: cefTRIAXone 1 GM PRE-MIX 50 ML IV SCH (09:05)
[2021-10-06] MEDS: LIDOCAINE 4% (SALONPAS) PATCH TOP SCH (09:05)
[2021-10-06] MEDS: SENNA W/DOCUSATE (SENOKOT S) TABLET PO SCH ×2 (09:05)
[2021-10-06] MEDS: polyethylene glycoL POWDER 17 GM (MIRALAX) PACK PO SCH (09:05)
== END 2021-10-06 09:12 | disposition swing bed (61) | DRG 660 ==
LOC: 4TH 11:20
PROVIDERS: ADMIT Family Medicine; ATTEND Family Medicine
PROC: 0T778DZ Dilation of Left Ureter with Intraluminal Device, Via Natural or Artificial Opening Endoscopic (ICD-10-PCS; principal; 2021-10-03 11:44)
DX: N13.6 Pyonephrosis (principal); N20.1 Calculus of ureter; M54.9 Dorsalgia, unspecified; G62.9 Polyneuropathy, unspecified; E03.9 Hypothyroidism, unspecified; D72.829 Elevated white blood cell count, unspecified; E83.52 Hypercalcemia; Z98.1 Arthrodesis status; M19.90 Unspecified osteoarthritis, unspecified site; Z79.899 Other long term (current) drug therapy; K59.00 Constipation, unspecified; M62.838 Other muscle spasm; B96.20 Unspecified Escherichia coli [E. coli] as the cause of diseases classified elsewhere
CPT/HCPCS: 36410; 36415; 72128; 72131; 72157; 72158; 74018; 74176; 76000; 76937; 80053; 81000; 85025; 85027; 87040; 87077; 87088; 87186; 94760

== ENCOUNTER → 2021-10-05 | Outpatient (CLI) | payer MEDICARE ==
[~2021-10-05] MED LIST changes: +GADOTERATE 0.5 MMOL/ML (CLARISCAN) 20 ML VIAL IV ONE
== END | disposition home or self-care (01) ==
LOC: PREOP 06:16
PROVIDERS: ATTEND Urology
DX: Z01.818 Encounter for other preprocedural examination (principal)

== ENCOUNTER 2021-10-06 09:15 | Inpatient (IN) | payer MEDICARE ==
[~2021-10-06] VITALS: Ht 172.7 cm; Wt 110.0 kg
[~2021-10-06 09:15] MED LIST changes: +ACETAMINOPHEN 325 MG TABLET PO PRN; +BISACODYL 10 MG SUPP (DULCOLAX) PR PRN; +CALCIUM CARBONATE 500 MG (TUMS) TAB.CHEW PO PRN; +FLEET ENEMA ADULT 1 EA BTL PR PRN; -GADOTERATE 0.5 MMOL/ML (CLARISCAN) 20 ML VIAL IV ONE; +HYDROmorphone 2 MG/ML VIAL (DILAUDID) IV PRN; +LACTATED RINGERS 1,000 ML IV PRN; +LOPERAMIDE 2 MG (IMODIUM) TABLET PO PRN; +MELATONIN 3 MG TABLET PO PRN; +MILK OF MAGNESIA 400 MG/5 ML 30 ML UDC PO PRN; +ONDANSETRON 4 MG (ZOFRAN) ORAL DISSOLVE TAB PO PRN; +ONDANSETRON 4 MG/2 ML (SDV) Z0FRAN IVP PRN; +RT-ALBUTEROL SULF 2.5 MG/3 ML PRE-MIX VIAL INH PRN; +SALIVA STIMULANT MOUTH SPRAY (BIOTENE) 1.5 OZ MM PRN; +diphenhydrAMINE 50 MG/ML INJ (BENADRYL) IVP PRN; +guaiFENesin/CODEINE (ROBITUSSIN AC) 10ML UDC PO PRN
--- NOTE | 2021-10-06 10:12 | Physical Therapy Evaluation ---
PT Evaluation-General Medical Diagnosis Admission Date October 06, 2021 at 09:15 Medical Diagnosis: post op lumbar fusion Onset Date: September 12, 2021 Therapy Diagnosis Therapy Diagnosis: impaired mobility/weakness Height/Weight Height (Feet): 5 Height (Inches): 8.00 Weight (Pounds): 220 Weight (Ounces): 6.4 Precautions Precautions/Isolations: Standard Precautions Referral Physician: Chad Reason for Referral: Evaluation/Treatment Medical History Pertinent Medical History: Back Injury, Hypothroidism Current History Lumbar fusion with anterior stabilization followed by posterior fusion L1-S1. Multilevel laminectomy of upper and lower. Reviewed History: Yes Social History Home: Single Level Current Living Status: Spouse Prior Prior Level of Function SCALE: Activities may be completed with or without assistive devices. 6-Ofeqcnlsfn-qqzvuwh completes the activity by him/herself with no assistance from a helper. 5-Set-up or Clean-up Assistance-helper sets up or cleans up; patient completes activity. [place] assists only prior to or following the activity. 4-Supervision or Touching Assistance-helper provides verbal cues and/or touching/steadying and/or contact guard assistance as patient completes activity. Assistance may be provided throughout the activity or intermittently. 3-Partial/Moderate Assistance-helper does LESS THAN HALF the effort. [place] lifts, holds or supports trunk or limbs, but provides less than half the effort. 2-Substantial/Maximal Assistance-helper does MORE THAN HALF the effort. [place] lifts or holds trunk or limbs and provides more than half the effort. 1-Dwvewoasi-lbkjms does ALL the effort. Patient does none of the effort to complete the activity. Or, the assistance of 2 or more helpers is required for the patient to complete the activity. If activity was not attempted, code reason: 7-Patient Refused. 9-Not Applicable-not attempted and the patient did not perform the activity before the current illness, exacerbation or injury. 10-Not Attempted due to Environmental Limitations-(lack of equipment, weather restraints, etc.). 88-Not Attempted due to Medical Conditions or Safety Concerns. Bed Mobility: 6 Transfers (B,C,W/C): 6 Gait: 6 Stairs: 6 Indoor Mobility (Ambulation): Independent Stairs: Independent Prior Devices Use: None PT Evaluation-Current Subjective Patient c/o 8/10 back pain with medication issued. Objective Patient Orientation: Normal For Age Attachments: Marie Catheter, IV ROM/Strength ROM Lower Extremities bilateral LE WFL Strength Lower Extremities 3+/5 grossly bilateral LE Integumentary/Posture Integumentary refer to nursing notes Bowel Incontinence: Yes Bladder Incontinence: Marie Cath Posture slight trunk flexed posture in stand Neuromuscular (Tone, Coordination, Reflexes) grossly intact with all Sensory Vision: Functional Hearing: Functional Sensation Right Lower Extremit: Impaired Sensation Left Lower Extremity: Intact Transfers Roll Left & Right (QC): 3 Sit to Lying (QC): 3 Lying to Sitting/Side of Bed(Q: 3 Sit to Stand (QC): 4 Chair/Moy-dx-Qdxit Xfer(QC): 4 Toilet Transfer (QC): 4 Car Transfer (QC): 10 Gait Does the Patient Walk?: Yes Mode of Locomotion: Walk Anticipated Mode of Locomotion: Walk Walk 10 feet (QC): 4 Walk 50 ft with 2 Turns(QC): 88 Walk 150 ft (QC): 88 Walking 10ft/uneven surface-QC: 88 Distance: 30' Gait Assistive Device: FWW Comments/Gait Description very slow, functional gait sequence Wheelchair Training Does the Pt Use a Wheelchair?: No Wheel 50 ft with 2 turns (QC): 9 Wheel 150 ft (QC): 9 Type of Wheelchair: N/A Stairs 1 Step (curb) (QC): 88 4 Steps (QC): 88 12 Steps (QC): 9 Balance Sitting Static: Normal Sitting Dynamic: Normal Standing Static: Fair Standing Dynamic: Fair Picking up an Object (QC): 88 Treatment bed mobility activity requiring time to complete/ambulation with FWW very slow, steady gait sequence. Patient requires time to complete all functional tasks. Assessment/Needs 70 y.o. female, will benefit from skilled PT to address functional strength and mobility to improve current LOF to safely return to home at maximum LOF. Rehab Potential: Fair PT Pilot Control Operator Helper Goals Shelter Goals PT Pilot Control Operator Helper Goals Time Frame: Nov 05, 2021 Roll Left & Right (QC): 6 Sit to Lying (QC): 6 Lying-Sitting on Side/Bed(QC): 6 Sit to Stand (QC): 6 Chair/Tvk-tj-Csuzw Xfer(QC): 6 Toilet Transfer (QC): 6 Car Transfer (QC): 6 Does the Patient Walk: Yes Walk 10 feet (QC): 6 Walk 50ft with 2 Turns (QC): 6 Walk 150 ft (QC): 6 Walking 10ft on Uneven Surface: 6 1 Step (curb) (QC): 4 4 Steps (QC): 4 12 Steps (QC): 4 Picking up an Object (QC): 6 Wheel 50 feet with 2 turns (QC: 9 Wheel 150 feet: 9 PT Plan Problem List Problem List: Activity Tolerance, Functional Strength, Safety, Balance, Gait, Transfer, Bed Mobility Treatment/Plan Treatment Plan: Continue Plan of Care Treatment Plan: Bed Mobility, Education, Functional Activity Fede, Functional Strength, Gait, Safety, Therapeutic Exercise, Transfers Treatment Duration: Nov 05, 2021 Frequency: 11 times per week Estimated Hrs Per Day: .5 hour per day Patient and/or Family Agrees t: Yes Time/GCodes Time In: 930 Time Out: 953 Total Billed Treatment Time: 23 Total Billed Treatment 1 visit EVModC 8 min FA 15 min SALLY MCDOWELL PT October 06, 2021 10:12
--- NOTE | 2021-10-06 11:36 | Occupational Therapy Eval ---
OT Evaluation-General/PLF Medical Diagnosis Admission Date October 06, 2021 at 09:15 Medical Diagnosis: post op lumbar fusion Onset Date: September 12, 2021 Therapy Diagnosis Therapy Diagnosis: reduced adl status Height/Weight Height (Feet): 5 Height (Inches): 8.00 Weight (Pounds): 220 Weight (Ounces): 6.4 Precautions Precautions/Isolations: Fall Prevention, Standard Precautions Comments spinal precautions No lifting over 15lbs for 6 weeks. No excessive bending, lifting or twisting. You may shower after surgery. Until you are seen in office and had nellie removed, cover the wound with plastic and tape. Referral Physician: Chad Referral Reason: Evaluation/Treatment Medical History Pertinent Medical History: Back Injury, Hypothroidism Current History Pt had lumbar spinal surgery 09/19/21, discharged from [facility] 09/26/21 for 1 hour. She knew she was unable to function at home due to severe pain and lack of mobility, so pt went to [facility] ED, found to be in need of inpatient rehab, so admitted emergently to ARU for severe debility. 09/30 pt transferred to med/surg floor due to muscle spasms and uncontrolled back pain. Pt IND with ADLs and mobility at [facility], no AD. She has a walk in shower with [place]. Social History Home: Single Level Current Living Status: Spouse Entry Into Home: Stairs With Railing Steps Into Home: 3 ADL-Prior Level of Function SCALE: Activities may be completed with or without assistive devices. 1-Afykhkkktp-fhxlgyv completes the activity by him/herself with no assistance from a helper. 5-Set-up or Clean-up Assistance-helper sets up or cleans up; patient completes activity. [place] assists only prior to or following the activity. 4-Supervision or Touching Assistance-helper provides verbal cues and/or touching/steadying and/or contact guard assistance as patient completes activity. Assistance may be provided throughout the activity or intermittently. 3-Partial/Moderate Assistance-helper does LESS THAN HALF the effort. [place] lifts, holds or supports trunk or limbs, but provides less than half the effort. 2-Substantial/Maximal Assistance-helper does MORE THAN HALF the effort. [place] lifts or holds trunk or limbs and provides more than half the effort. 3-Jqiumrbow-mggvyq does ALL the effort. Patient does none of the effort to complete the activity. Or, the assistance of 2 or more helpers is required for the patient to complete the activity. If activity was not attempted, code reason: 7-Patient Refused. 9-Not Applicable-not attempted and the patient did not perform the activity befo re the current illness, exacerbation or injury. 10-Not Attempted due to Environmental Limitations-(lack of equipment, weather re straints, etc.). 88-Not Attempted due to Medical Conditions or Safety Concerns. Self Care: Independent Functional Cognition: Independent DME/Equipment: Bath Bench, Shower OT Current Status Subjective "I just got out of the shower and did everything by myself." Appearance Pt left supine in bed, all needs within reach, spouse in the room. Mental Status/Objective Patient Orientation: Person, Place, Situation Attachments: Peterson Catheter, IV Current Upper Extremity ROM BUE shoulder: ~150 degrees. Elbow-distally WNL Upper Extremity Strength Not formally tested secondary to recent surgery. Pt at least 3/5 throughout ADL-Treatment Eating (QC): 5 Oral Hygiene (QC): 4 Shower/Bathe Self (QC): 4 (Per patient and report, 100% in sitting) Upper Body Dressing (QC): 7 Lower Body Dressing (QC): 7 On/Off Footwear (QC): 7 Toileting Hygiene (QC): 1 (peterson catheter) Pt supine at OT arrival. She refuses all OOB/EOB activities. She reports that she just got back into bed after taking a shower and is in too much pain. Spouse verbalizes that pt did not need any assistance with the shower except for washing her back which he helps with at baseline. Education provided on back precautions and compensatory techniques/AE during ADLs. OT stressed the importance of getting out of bed and practicing proper bed mobility. Pt still refusing stating that the Physical therapist needed 2 people to get her out of bed and that was when her pain was better than it currently was. Grooming tasks performed at bed level with SBA/set up. After several minutes of encouragement, pt agreeable to rolling R/L in bed. She requires step by step cues to maintain proper body mechanics and significant amount of time to complete each step. She refuses to sit upright. Pt has little motivation to participate in therapy. Education OT Patient Education: Correct positioning, Modified ADL techniques, Purpose of tx/functional activities, Reviewed precautions, Rehab process, Safety issues, Transfer techniques Teaching Recipient: Patient, Family Teaching Methods: Discussion Response to Teaching: Verbalize Understanding, Reinforcement Needed OT Short Term Goals Short Term Goals Time Frame: Oct 14, 2021 Eatin Oral hygiene: 5 Toileting hygiene: 3 Shower/bathe self: 5 Upper body dressin Lower body dressin Putting on/taking off footwear: 3 OT Long-Term Goals Long-Term Goals Time Frame: Oct 20, 2021 Eating (QC): 6 Oral Hygiene (QC): 6 Toileting Hygiene (QC): 6 Shower/Bathe Self (QC): 5 Upper Body Dressing (QC): 5 Lower Body Dressing (QC): 5 On/Off Footwear (QC): 5 1=Demonstrate adherence to instructed precautions during ADL tasks. 2=Patient will verbalize/demonstrate understanding of assistive devices/modifications for ADL. 3=Patient will improve strength/tolerance for activity to enable patient to perform ADL's. OT Education/Plan Problem List/Assessment Assessment: Decreased Activ Tolerance, Decreased UE Strength, Impaired Bed Mobility, Impaired Funct Balance, Impaired I ADL's, Impaired Self-Care Skills, Restricted Funct UE ROM Discharge Recommendations Plan/Recommendations: Continue POC Therapy Discharge Recommendati: Post Acute OT Treatment Plan/Plan of Care Treatment,Training & Education: Yes Patient would benefit from OT for education, treatment and training to promote independence in ADL's, mobility, safety and/or upper extremity function for ADL's. Plan of Care: ADL Retraining, Functional Mobility, Group Exercise/Act as Ind, UE Funct Exercise/Act Treatment Duration: Oct 20, 2021 Frequency: 5 times per week Estimated Hrs Per Day: .25 hour per day Agreement: Yes Rehab Potential: Poor Time/GCodes Start Time: 11:04 Stop Time: 11:29 Total Time Billed (hr/min): 25 Billed Treatment Time 1 visit FRENCHM (15 min ADL (10 min) Jenni Padilla OT October 06, 2021 11:36
[2021-10-06] MEDS: HYDROmorphone (DILAUDID) 2 MG TAB PO SCH ×4 (12:36→20:52)
[2021-10-06] MEDS: ENOXAPARIN 40 MG/0.4 ML (LOVENOX) SYR SC SCH (12:36)
[2021-10-06] MEDS: BACLOFEN 10 MG (LIORESAL) TAB PO SCH ×2 (12:37→18:42)
[2021-10-06] MEDS: GABAPENTIN 100 MG (NEURONTIN) CAP PO SCH (12:37)
[2021-10-06] MEDS: HYOSCYAMINE 0.125 MG (LEVSIN) TAB PO SCH ×3 (12:37→20:53)
[2021-10-06] MEDS: LACTOBACILLUS ACIDOPHILUS (PROBIOTIC) CAPSULE PO SCH ×2 (12:37→18:42)
[2021-10-06] MEDS: DIAZEPAM 5 MG (VALIUM) TABLET PO SCH ×2 (12:37→20:53)
--- NOTE | 2021-10-06 13:42 | Physical Therapy Daily Note ---
PT Daily Note-Current Subjective Patient in bed pre tx, agrees to LE exercises in bed but states that her back spasms are too bad to get out of bed. Appearance Patient in bed post tx with nurse call, phone, tray, all needs met. Mental Status Patient Orientation: Person, Place, Situation Transfers SCALE: Activities may be completed with or without assistive devices. 3-Sltsclhtml-hngfyxp completes the activity by him/herself with no assistance from a helper. 5-Set-up or Clean-up Assistance-helper sets up or cleans up; patient completes activity. [place] assists only prior to or following the activity. 4-Supervision or Touching Assistance-helper provides verbal cues and/or touching/steadying and/or contact guard assistance as patient completes activity. Assistance may be provided throughout the activity or intermittently. 3-Partial/Moderate Assistance-helper does LESS THAN HALF the effort. [place] lifts, holds or supports trunk or limbs, but provides less than half the effort. 2-Substantial/Maximal Assistance-helper does MORE THAN HALF the effort. [place] lifts or holds trunk or limbs and provides more than half the effort. 0-Smvylbqbh-qshhtr does ALL the effort. Patient does none of the effort to complete the activity. Or, the assistance of 2 or more helpers is required for the patient to complete the activity. If activity was not attempted, code reason: 7-Patient Refused. 9-Not Applicable-not attempted and the patient did not perform the activity before the current illness, exacerbation or injury. 10-Not Attempted due to Environmental Limitations-(lack of equipment, weather restraints, etc.). 88-Not Attempted due to Medical Conditions or Safety Concerns. Exercises Supine Ex: Ankle pumps, Quad Set, Glut sets, Heel Slides, Hip abd/add Supine Reps: 20 Treatments LE exercise Assessment Current Status: Poor Progress exercises performed very slowly, needed rest breaks due to pain and spasms PT Supervisor [place] Goals Supervisor [place] Goals PT Supervisor [place] Goals Time Frame: Nov 05, 2021 Roll Left & Right (QC): 6 Sit to Lying (QC): 6 Lying-Sitting on Side/Bed(QC): 6 Sit to Stand (QC): 6 Chair/Vcn-dn-Xkmca Xfer(QC): 6 Toilet Transfer (QC): 6 Car Transfer (QC): 6 Does the Patient Walk: Yes Walk 10 feet (QC): 6 Walk 50ft with 2 Turns (QC): 6 Walk 150 ft (QC): 6 Walking 10ft on Uneven Surface: 6 1 Step (curb) (QC): 4 4 Steps (QC): 4 12 Steps (QC): 4 Picking up an Object (QC): 6 Wheel 50 feet with 2 turns (QC: 9 Wheel 150 feet: 9 PT Plan Problem List Problem List: Activity Tolerance, Functional Strength, Safety, Balance, Gait, Transfer, Bed Mobility, ROM Treatment/Plan Treatment Plan: Continue Plan of Care Treatment Plan: Bed Mobility, Education, Functional Activity Fede, Functional Strength, Gait, Safety, Therapeutic Exercise, Transfers Treatment Duration: Nov 05, 2021 Frequency: 11 times per week Estimated Hrs Per Day: .5 hour per day Patient and/or Family Agrees t: Yes Safety Risks/Education Patient Education: Correct Positioning, Safety Issues Teaching Recipient: Patient Teaching Methods: Demonstration, Discussion Response to Teaching: Reinforcement Needed Time/GCodes Time In: 1317 Time Out: 1332 Total Billed Treatment Time: 15 Total Billed Treatment 1 visit EX 15' LYNNETTE NEFF PT October 06, 2021 13:42
[2021-10-06 18:00] VITALS: BP 135/61
[2021-10-06] MEDS: TAMSULOSIN 0.4 MG (FLOMAX) CAP PO SCH (18:43)
[2021-10-06] MEDS: polyethylene glycoL POWDER 17 GM (MIRALAX) PACK PO SCH (20:53)
[2021-10-06] MEDS: GABAPENTIN 300 MG (NEURONTIN) CAP PO SCH (20:53)
[2021-10-06] MEDS: DOCUSATE SODIUM 100 MG (COLACE) CAP PO SCH (20:53)
--- NOTE | 2021-10-06 20:55 | History & Physical ---
History of Present Illness History of Present Illness Reason for visit/HPI PT WAS ADMITTED TO THE HOSPITAL AFTER A STAY ON INPATIENT REHAB FOR POST-OP LUMBAR SPINE FUSION SURGERY WITH UNCONTROLLED PAIN AND WEAKNESS. PT FAILED INPATIENT REHAB AND WAS SENT TO [address] GARCIA FROM INPATIENT REHAB DUE TO HER UNCONTROLLED PAIN. PT WAS FOUND TO HAVE A LEFT RENAL STONE, LEUKOCYTOSIS, URINARY TRACT INFECTION AND UNCONTROLLED PAIN AND MUSCLE SPASMS OF HER BACK. S HE WAS THEREFORE ADMITTED TO THE INPATIENT UNIT AND THIS ADMISSION WAS A TRANSITION TO SWING BED FOR CONTINUED PAIN CONTROL, IV ANTIBIOTICS AND THERAPY Date of Admission October 06, 2021 at 09:15 Date Seen by a Provider: October 06, 2021 Time Seen by a Provider: 09:00 I consulted on this patient on 10/06/21 20:49 Attending Physician Maria Elena Lemus MD Admitting Physician Admitting Physician: Maria Elena Lemus MD Attending Physician: Maria Elena Lemus MD Consult dr castillo Allergies and Home Medications Allergies Coded Allergies: KENNYANo Known Allergies (Unverified Allergy, Unknown, 08/08/06) Patient Home Medication List Home Medication List Reviewed: Yes Bacitracin (Bacitracin) 500 Unit/Gram Oint...g., 1 GM TP Q48H Prescribed by: PHIL ENCINAS on 09/26/21 1627 Last Action: Reviewed Baclofen (Baclofen) 10 Mg Tablet, 10 MG PO q 8 hours PRN for MUSCLE SPASMS, (Reported) Entered as Reported by: SANNA CORTEZ on 02/02/201325 Last Action: Reviewed Cholecalciferol (Vitamin D3) (Vitamin D3) 25 Mcg Tablet, 1,000 UNITS PO DAILY, (Reported) Entered as Reported by: SANNA CORTEZ on 02/02/201325 Last Action: Reviewed Gabapentin (Neurontin) 300 Mg Capsule, 300 MG PO HS, (Reported) Entered as Reported by: SANNA CORTEZ on 02/02/201325 Last Action: Reviewed Hydrochlorothiazide (Hydrochlorothiazide) 25 Mg Tablet, 25 MG PO DAILY, (Reported) Entered as Reported by: SANNA CORTEZ on 02/02/201325 Last Action: Reviewed Hydrocodone/Acetaminophen (Hydrocodone-Acetamin 7.5-325) 7.5 Mg-325 Mg Tablet, 1-2 TAB PO Q4H PRN for PAIN Prescribed by: PHIL ENCINAS on 09/26/21 1733 Last Action: Reviewed Levothyroxine Sodium (Levothyroxine Sodium) 100 Mcg Tablet, 100 MCG PO DAILY, (Reported) Entered as Reported by: SANNA CORTEZ on 02/02/20 132 Last Action: Reviewed Potassium Chloride (Potassium Chloride) 10 Meq Tab.er.prt, 10 MEQ PO DAILY, (Reported) Entered as Reported by: SANNA CORTEZ on 02/02/20 132 Last Action: Reviewed Propranolol HCl (Propranolol HCl) 60 Mg Tablet, 60 MG PO DAILY, (Reported) Entered as Reported by: SANNA CORTEZ on 02/02/201325 Last Action: Reviewed Past Cigdfbu-Ufzbri-Xmdvxq Hx Patient Social History [place] Status: Living Status: pt Employed/Student: retired Tobacco Use?: No Smoking Status: Never a Smoker Substance use?: No Immunizations Up To Date Date of Influenza Vaccine: Apr 20, 2011 Tetanus Booster (TDap): Unknown Seasonal Allergies Seasonal Allergies: Yes Current Status Communicates: Verbally Primary Language: Iraqi Preferred Spoken Language: Iraqi Is interpretation needed?: No Past Medical History Surgeries: Abdominal, Neurological, Orthopedic, Thyroidectomy Currently Using CPAP: No Currently Using BIPAP: No Hypertension Gall Bladder Disease Arthritis Hypothyroidsim Loss of Vision: Denies Anxiety Blood Disorders: No Family Medical History Reviewed and Corrections made Cancer of colon 19 FATHER, Onset:59 Congestive heart failure G8 SISTER Family history: Diabetes mellitus G8 SISTER Family history: Hypertension 19 FATHER 19 MOTHER Family history: Thyroid disorder 19 MOTHER Kidney disease G8 SISTER Heart Disease, Cancer, Diabetes, Hypertension Review of Systems Constitutional: No chills, No fever, No malaise, No weakness EENTM: No hoarseness, No throat pain Respiratory: No cough, No dyspnea on exertion, No short of breath Cardiovascular: No chest pain, No palpitations Gastrointestinal: No abdominal pain, No constipation; diarrhea; No nausea, No vomiting Genitourinary: no symptoms reported Musculoskeletal: back pain, muscle stiffness, muscle weakness Skin: no symptoms reported Psychiatric/Neurological: Denies Anxiety, Denies Depressed; Weakness All Other Systems Reviewed Negative Unless Noted: Yes Physical Exam Vital Signs Vital Signs - First Documented 10/06/21 10/06/21 14:37 18:00 Temp 37.2 Pulse 73 Resp 20 B/P (MAP) 135/61 (85) Pulse Ox 95 O2 Delivery Room Air FiO2 21 Capillary Refill : Height, Weight, BMI Height: 5'8.00" Weight: 220lbs. 6.4oz. [id number]; 36.88 BMI Method:Stated General Appearance: WD/WN, Mild Distress (with movement) Eyes: Bilateral Eye Normal Inspection HEENT: PERRL/EOMI, Pharynx Normal Neck: Non Tender, Supple Respiratory: Chest Non Tender, Lungs Clear, Normal Breath Sounds, No Accessory Muscle Use, No Respiratory Distress Cardiovascular: Regular Rate, Rhythm Gastrointestinal: Normal Bowel Sounds, Non Tender, Soft Rectal: Deferred Back: Other (surgical site on back well approximated - steri strips in place) Extremity: Normal Capillary Refill, Normal Range of Motion, Non Tender, No Calf Tenderness, Pedal Edema (trace) Neurologic/Psychiatric: Alert, Oriented x3, No Motor/Sensory Deficits, Normal Mood/Affect Skin: Normal Color, Warm/Dry Lymphatic: No Adenopathy Assessment/Plan Assessment and Plan Posterior spinal fusion L1 - 3 and L4 - S1 Uncontrolled back pain Muscle spasms Chronic neuropathy EColi UTI Left sided kidney stone Left sided Hydronephrosis Hypothyroidism Leukocytosis Hypercalcemia Posterior spinal fusion L1 - 3 and L4 - S1 with Uncontrolled back pain Muscle spasms - pt was receiving only PRN muscle relaxers and pain medication on rehab, will schedule the following medication in an attempt to have improved symptoms: - stopped chedule oxycodone 5mg tid, started on dilaudid 2mg tid since pt feels as if the pain is better controlled on the dilaudid. - started on valium 2.5mg tid on 10/03/21, changed to 5mg tid valium (10/04/21) - scheduled baclofen 10mg qid - added lidoderm patches to her back on either side of surgical site - she will continue to have prn pain medication and muscle relaxers available. MRI report as follows: THORACIC AND LUMBAR SPINE IMPRESSION: 1: There are postop changes to the lower lumbar spine with L3 laminectomies superimposed upon other extensive postoperative changes. There is a moderate- sized fluid collection just superficial to the laminectomy region which extends from the L2-L5 level. This fluid collection causes no significant encroachment upon the central canal. This fluid collection demonstrates high T1 and high T2 signal and may represent hematoma/blood. 2: Again seen L1-S1 posterior spinal fusion hardware and L5-S1 anterior lumbar interbody fusion. 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 Left sided kidney stone with hydronephrosis. - consult to Dr. Castillo - he placed stent for left sided renal stone with plan for lithotripsy 10/11/21 Ecoli Urinary tract infection - pt on rocephin - last dose on 10/09/21 Chronic neuropathy - pt on gabapentin at hs, continue, will increase gabapentin to 200mg 0600, 200mg 1100, 200mg 1600 and 300mg at HS - if these doses are tolerated and show improved symptoms, will either increase or keep dosing the same. Hypothyroidism - home regimen restarted. pt on dvt prophylaxis with lovenox and scd's (hold lovenox after dose on 10/08/21 for planned lithotripsy on 10/11/21) gi prophylaxis with ppi Admission Diagnosis Posterior spinal fusion L1 - 3 and L4 - S1 Uncontrolled back pain Muscle spasms Chronic neuropathy EColi UTI Left sided kidney stone Left sided Hydronephrosis Hypothyroidism Leukocytosis Hypercalcemia Admission Status: Other (Swing Bed) MARIA ELENA LEMUS MD October 06, 2021 20:55
[2021-10-06] MEDS ORDERED: GABAPENTIN 100 MG (NEURONTIN) CAP PO SCH (21:00)
[2021-10-06] MEDS: PATCH REMOVAL TP SCH (21:26)
[2021-10-07] MEDS: BACLOFEN 10 MG (LIORESAL) TAB PO SCH ×4 (00:44→17:20)
[2021-10-07] MEDS: LEVOTHYROXINE 100 MCG (LEVOTHROID) TAB PO SCH (05:39)
[2021-10-07] MEDS: KCL 10 MEQ TAB (MICRO K) PO SCH (05:39)
[2021-10-07 05:42] LABS: HEMATOCRIT 38 % (35-52); HEMOGLOBIN 12.3 g/dL (11.5-16.0); MEAN CORPUSCULAR HEMOGLOBIN 31 pg (25-34); MEAN CORPUSCULAR HGB CONC 32 g/dL (32-36); MEAN CORPUSCULAR VOLUME 96 fL (80-99); PLATELET COUNT 439 10^3/uL (130-400); WHITE BLOOD COUNT 9.1 10^3/uL (4.3-11.0)
[2021-10-07 05:54] LABS: ALBUMIN 3.5 GM/DL (3.2-4.5); POTASSIUM 3.5 MMOL/L (3.6-5.0)
[2021-10-07 05:56] LABS: CALCIUM 10.4 MG/DL (8.5-10.1)
[2021-10-07 05:57] LABS: TOTAL PROTEIN 6.8 GM/DL (6.4-8.2)
[2021-10-07 05:59] LABS: BILIRUBIN,TOTAL 0.6 MG/DL (0.1-1.0)
[2021-10-07 06:01] LABS: CREATININE SERUM 0.71 MG/DL (0.60-1.30)
--- NOTE | 2021-10-07 06:36 | Progress Note ---
Subjective Subjective Date Seen by Provider: October 07, 2021 Time Seen by Provider: 06:00 Pt is doing well and rates pain 6/10 which is less than yesterday. She reports that she was able to take a shower with help. No N/V, CP, or abdominal pain. Review of Systems General: No Chills, No Night Sweats HEENT: No Head Aches, No Dysphasia Pulmonary: No Dyspnea, No Cough Cardiovascular: No: Chest Pain, Palpitations Gastrointestinal: No: Nausea, Vomiting, Abdominal Pain, Melena Genitourinary: No Dysuria, No Hematuria Musculoskeletal: back pain Neurological: Weakness; No: Numbness, Confusion All Other Systems Reviewed All Other Systems Reviewed: Yes Objective Exam Vital Signs Vital Signs Date Time Temp Pulse Resp B/P (MAP) Pulse Ox O2 Delivery O2 Flow Rate FiO2 10/06/21 21:02 Room Air 10/06/21 18:00 37.2 71 20 135/61 (85) 97 Room Air 10/06/21 14:37 73 95 21 I & O 10/07/21 07:00 Intake Total 1760 ml Output Total 2900 ml Balance -1140 ml General Appearance: WD/WN, Mild Distress (with movement) Eyes: Bilateral Eye Normal Inspection HEENT: PERRL/EOMI, Pharynx Normal Neck: Non Tender, Supple Respiratory: Chest Non Tender, Lungs Clear, Normal Breath Sounds, No Accessory Muscle Use, No Respiratory Distress Cardiovascular: Regular Rate, Rhythm Gastrointestinal: Normal Bowel Sounds, Non Tender, Soft Rectal: Deferred Back: Other (surgical site on back well approximated - steri strips in place) Extremity: Normal Capillary Refill, Normal Range of Motion, Non Tender, No Calf Tenderness, Pedal Edema (trace) Neurologic/Psychiatric: Alert, Oriented x3, No Motor/Sensory Deficits, Normal Mood/Affect Skin: Normal Color, Warm/Dry Lymphatic: No Adenopathy Results Lab Laboratory Tests 10/07/21 05:33: White Blood Count 9.1, Red Blood Count 3.96, Hemoglobin 12.3, Hematocrit 38, Mean Corpuscular Volume 96, Mean Corpuscular Hemoglobin 31, Mean Corpuscular Hemoglobin Concent 32, Red Cell Distribution Width 14.8H, Platelet Count 439H, Mean Platelet Volume 11.0, Sodium Level 141, Potassium Level 3.5L, Chloride Level 103, Carbon Dioxide Level 24, Anion Gap 14, Blood Urea Nitrogen 12, Creatinine 0.71, Estimat Glomerular Filtration Rate 91, BUN/Creatinine Ratio 17, Glucose Level 101, Calcium Level 10.4H, Corrected Calcium 10.8H, Magnesium Level 2.0, Total Bilirubin 0.6, Aspartate Amino Transf (AST/SGOT) 17, Alanine Aminotransferase (ALT/SGPT) 14, Alkaline Phosphatase 127, Total Protein 6.8, Albumin 3.5 Assessment/Plan Assessment/Plan Admission Dx Posterior spinal fusion L1 - 3 and L4 - S1 Uncontrolled back pain Muscle spasms Chronic neuropathy EColi UTI Left sided kidney stone Left sided Hydronephrosis Hypothyroidism Leukocytosis Hypercalcemia Assessment and Plan Posterior spinal fusion L1 - 3 and L4 - S1 Uncontrolled back pain Muscle spasms Chronic neuropathy [place] UTI Left sided kidney stone Left sided Hydronephrosis Hypothyroidism Leukocytosis Hypercalcemia Posterior spinal fusion L1 - 3 and L4 - S1 with Uncontrolled back pain Muscle spasms - pt was receiving only PRN muscle relaxers and pain medication on rehab, will schedule the following medication in an attempt to have improved symptoms: - stopped chedule oxycodone 5mg tid, started on dilaudid 2mg tid since pt feels as if the pain is better controlled on the dilaudid. - started on valium 2.5mg tid on 10/03/21, changed to 5mg tid valium (10/04/21) - scheduled baclofen 10mg qid - added lidoderm patches to her back on either side of surgical site - she will continue to have prn pain medication and muscle relaxers available. Patient is impoving with PT and OT, and have noticed an improvement in strenght. MRI report as follows: THORACIC AND LUMBAR SPINE IMPRESSION: 1: There are postop changes to the lower lumbar spine with L3 laminectomies superimposed upon other extensive postoperative changes. There is a moderate- sized fluid collection just superficial to the laminectomy region which extends from the L2-L5 level. This fluid collection causes no significant encroachment upon the central canal. This fluid collection demonstrates high T1 and high T2 signal and may represent hematoma/blood. 2: Again seen L1-S1 posterior spinal fusion hardware and L5-S1 anterior lumbar interbody fusion. 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 Left sided kidney stone with hydronephrosis. - consult to Dr. Chiara - he placed stent for left sided renal stone with plan for lithotripsy 10/11/21 Ecoli Urinary tract infection - pt on rocephin - last dose on 10/09/21 Chronic neuropathy - pt on gabapentin at hs, continue, will increase gabapentin to 200mg 0600, 200mg 1100, 200mg 1600 and 300mg at HS - if these doses are tolerated and show improved symptoms, will either increase or keep dosing the same. Hypothyroidism - home regimen restarted. pt on dvt prophylaxis with lovenox and scd's (hold lovenox after dose on 10/08/21 for planned lithotripsy on 10/11/21) gi prophylaxis with ppi Supervisory-Addendum Brief Verification & Attestation Participated in pt care: history, MDM, physical Personally performed: exam, history, MDM, supervision of care Care discussed with: Medical Student Procedures: n/a Results interpretation: Verified all documentation Posterior spinal fusion L1 - 3 and L4 - S1 Uncontrolled back pain Muscle spasms Chronic neuropathy EColi UTI Left sided kidney stone Left sided Hydronephrosis Hypothyroidism Leukocytosis Hypercalcemia Posterior spinal fusion L1 - 3 and L4 - S1 with Uncontrolled back pain Muscle spasms - pt was receiving only PRN muscle relaxers and pain medication on rehab, will schedule the following medication in an attempt to have improved symptoms: - stopped chedule oxycodone 5mg tid, started on dilaudid 2mg qid, her notes that she seems groggy after her dilaudid, therefore we will change to dilaudid 1mg q 4 hours and monitor for improved pain control with decreased grogginess. - started on valium 2.5mg tid on 10/03/21, changed to 5mg tid valium (10/04/21) - scheduled baclofen 10mg qid - added lidoderm patches to her back on either side of surgical site - she will continue to have prn pain medication and muscle relaxers available. MRI report as follows: THORACIC AND LUMBAR SPINE IMPRESSION: 1: There are postop changes to the lower lumbar spine with L3 laminectomies superimposed upon other extensive postoperative changes. There is a moderate- sized fluid collection just superficial to the laminectomy region which extends from the L2-L5 level. This fluid collection causes no significant encroachment upon the central canal. This fluid collection demonstrates high T1 and high T2 signal and may represent hematoma/blood. 2: Again seen L1-S1 posterior spinal fusion hardware and L5-S1 anterior lumbar interbody fusion. 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 Left sided kidney stone with hydronephrosis. - consult to Dr. Guadarrama - he placed stent for left sided renal stone with plan for lithotripsy 10/11/21 Ecoli Urinary tract infection - pt on rocephin - last dose on 10/09/21 Chronic neuropathy - pt on gabapentin at hs, continue, will increase gabapentin to 200mg 0600, 200mg 1100, 200mg 1600 and 300mg at HS - if these doses are tolerated and show improved symptoms, will either increase or keep dosing the same. Hypothyroidism - home regimen restarted. pt on dvt prophylaxis with lovenox and scd's (hold lovenox after dose on 10/08/21 for planned lithotripsy on 10/11/21) gi prophylaxis with ppi MARIYA RESTREPO October 07, 2021 06:36 MARIA ELENA LEMUS MD October 07, 2021 13:48
[2021-10-07] MEDS ORDERED: KCL 20 MEQ TAB (K-DUR) PO ONE (07:30)
[2021-10-07 07:44] VITALS: BP 103/67
--- NOTE | 2021-10-07 08:34 | Occupational Ther Daily Note ---
OT Current Status-Daily Note Subjective Pt in bed, agreeable to OT Tx. Mental Status/Objective Patient Orientation: Normal For Age ADL-Treatment Therapy Code Descriptions/Definitions Functional [place] Measure: 0=Not Assessed/NA 4=Minimal Assistance 1=Total Assistance 5=Supervision or Setup 2=Maximal Assistance 6=Modified [place] 3=Moderate Assistance 7=Complete IndependenceSCALE: Activities may be completed with or without assistive devices. 0-Bdvbylhbku-ukhakhl completes the activity by him/herself with no assistance from a helper. 5-Set-up or Clean-up Assistance-helper sets up or cleans up; patient completes activity. [place] assists only prior to or following the activity. 4-Supervision or Touching Assistance-helper provides verbal cues and/or touching/steadying and/or contact guard assistance as patient completes activity. Assistance may be provided throughout the activity or intermittently. 3-Partial/Moderate Assistance-helper does LESS THAN HALF the effort. [place] lifts, holds or supports trunk or limbs, but provides less than half the effort. 2-Substantial/Maximal Assistance-helper does MORE THAN HALF the effort. [place] lifts or holds trunk or limbs and provides more than half the effort. 3-Cogcbrpzw-nxvakl does ALL the effort. Patient does none of the effort to complete the activity. Or, the assistance of 2 or more helpers is required for the patient to complete the activity. If activity was not attempted, code reason: 7-Patient Refused. 9-Not Applicable-not attempted and the patient did not perform the activity before the current illness, exacerbation or injury. 10-Not Attempted due to Environmental Limitations-(lack of equipment, weather restraints, etc.). 88-Not Attempted due to Medical Conditions or Safety Concerns. Upper Body Dressing (QC): 5 (Set up per clincial judgment.) Lower Body Dressing (QC): 2 (Per clinical judgment pt would require assist due to back precautions.) On/Off Footwear: 1 (total assist donning gripper socks.) Toileting Hygiene (QC): 3 (Assist for hygiene) Toilet Transfer (QC): 4 (CGA on/off BSC over toilet.) Other Treatment Pt in bed, transferred supine to sit EOB, mod A with increased time, approx 15- 20 mins required to achieve sitting position from supine. Pt stood from EOB, CGA with increased time, then used FWW to transfer into bathroom, onto BSC over toilet. Pt completed toileting, then used FWW to transfer to chair with arms. Post tx, pt in chair, call light in reach and all needs met. Education OT Patient Education: Correct positioning, Energy conservation, Modified ADL techniques, Progress toward Goal/Update tx plan, Purpose of tx/functional activities, Rehab process Teaching Recipient: Patient Teaching Methods: Discussion Response to Teaching: Verbalize Understanding OT Short Term Goals Short Term Goals Time Frame: Oct 14, 2021 Eatin Oral hygiene: 5 Toileting hygiene: 3 Shower/bathe self: 5 Upper body dressin Lower body dressin Putting on/taking off footwear: 3 OT Mcfp Goals Tosser Goals Time Frame: Oct 20, 2021 Eating (QC): 6 Oral Hygiene (QC): 6 Toileting Hygiene (QC): 6 Shower/Bathe Self (QC): 5 Upper Body Dressing (QC): 5 Lower Body Dressing (QC): 5 On/Off Footwear (QC): 5 1=Demonstrate adherence to instructed precautions during ADL tasks. 2=Patient will verbalize/demonstrate understanding of assistive devices/modifications for ADL. 3=Patient will improve strength/tolerance for activity to enable patient to perform ADL's. OT Education/Plan Problem List/Assessment Assessment: Decreased Activ Tolerance, Decreased UE Strength, Impaired Funct Balance, Impaired I ADL's, Impaired Self-Care Skills Discharge Recommendations Plan/Recommendations: Continue POC Treatment Plan/Plan of Care Patient would benefit from OT for education, treatment and training to promote independence in ADL's, mobility, safety and/or upper extremity function for ADL's. Plan of Care: ADL Retraining, Functional Mobility, Group Exercise/Act as Ind, UE Funct Exercise/Act Treatment Duration: Oct 20, 2021 Frequency: 5 times per week Estimated Hrs Per Day: .25 hour per day Agreement: Yes Rehab Potential: Poor Time/GCodes Start Time: 07:58 Stop Time: 08:25 Total Time Billed (hr/min): 27 Billed Treatment Time 1, ADL 2 ALLA PERAZA OT October 07, 2021 08:34
[2021-10-07] MEDS: HYDROmorphone (DILAUDID) 2 MG TAB PO SCH ×4 (08:58→20:16)
[2021-10-07] MEDS: HYOSCYAMINE 0.125 MG (LEVSIN) TAB PO SCH ×4 (08:59→20:16)
[2021-10-07] MEDS: DIAZEPAM 5 MG (VALIUM) TABLET PO SCH ×3 (08:59→20:16)
[2021-10-07] MEDS: GABAPENTIN 100 MG (NEURONTIN) CAP PO SCH ×2 (08:59→13:12)
[2021-10-07] MEDS: VITAMIN D3 25 MCG (1,000 UNITS) TABLET PO SCH (08:59)
[2021-10-07] MEDS: cefTRIAXone 1 GM PRE-MIX 50 ML IV SCH (09:00)
[2021-10-07] MEDS: polyethylene glycoL POWDER 17 GM (MIRALAX) PACK PO SCH ×2 (09:00→20:17)
[2021-10-07] MEDS: LACTOBACILLUS ACIDOPHILUS (PROBIOTIC) CAPSULE PO SCH ×3 (09:00→17:19)
[2021-10-07] MEDS: DOCUSATE SODIUM 100 MG (COLACE) CAP PO SCH ×2 (09:00→20:17)
[2021-10-07] MEDS: LIDOCAINE 4% (SALONPAS) PATCH TOP SCH (09:01)
[2021-10-07] MEDS: PROPRANOLOL 20 MG (INDERAL) TABLET PO SCH ×2 (09:01→13:30)
[2021-10-07] MEDS: PANTOPRAZOLE 40 MG (PROTONIX) TAB PO SCH (09:01)
--- NOTE | 2021-10-07 09:41 | Physical Therapy Daily Note ---
PT Daily Note-Current Subjective Patient sitting up in chair. Agrees to PT. Incontinent BM. Mental Status Patient Orientation: Normal For Age Attachments: Marie Catheter Transfers SCALE: Activities may be completed with or without assistive devices. 4-Mxikgakihb-tbeunxw completes the activity by him/herself with no assistance from a helper. 5-Set-up or Clean-up Assistance-helper sets up or cleans up; patient completes activity. [place] assists only prior to or following the activity. 4-Supervision or Touching Assistance-helper provides verbal cues and/or touching/steadying and/or contact guard assistance as patient completes activ ity. Assistance may be provided throughout the activity or intermittently. 3-Partial/Moderate Assistance-helper does LESS THAN HALF the effort. [place] lifts, holds or supports trunk or limbs, but provides less than half the effort. 2-Substantial/Maximal Assistance-helper does MORE THAN HALF the effort. [place] lifts or holds trunk or limbs and provides more than half the effort. 0-Slscygiyo-urpwki does ALL the effort. Patient does none of the effort to complete the activity. Or, the assistance of 2 or more helpers is required for the patient to complete the activity. If activity was not attempted, code reason: 7-Patient Refused. 9-Not Applicable-not attempted and the patient did not perform the activity before the current illness, exacerbation or injury. 10-Not Attempted due to Environmental Limitations-(lack of equipment, weather restraints, etc.). 88-Not Attempted due to Medical Conditions or Safety Concerns. Sit to Lying (QC): 1 Sit to Stand (QC): 4 Chair/Bga-vz-Gormm Xfer(QC): 4 Toilet Transfer (QC): 4 Gait Training Distance: 15' x 2 Walk 10 feet (QC): 4 Gait Assistive Device: FWW slow, steady gait sequence Exercises Seated Therapy Exercises: Ankle pumps, Long arc quads Seated Reps: 15 Assessment During session, patient had a vagal response. RN present with PT having patient return to bed for curriculum and assessment director. Patient did no lose consciousness, however, did become very pale and lethargic. Refer to nursing notes for vitals. PT Photoengraving Photographer Goals Photoengraving Photographer Goals PT Nursing Home Goals Time Frame: Nov 05, 2021 Roll Left & Right (QC): 6 Sit to Lying (QC): 6 Lying-Sitting on Side/Bed(QC): 6 Sit to Stand (QC): 6 Chair/Alb-qj-Qbjoq Xfer(QC): 6 Toilet Transfer (QC): 6 Car Transfer (QC): 6 Does the Patient Walk: Yes Walk 10 feet (QC): 6 Walk 50ft with 2 Turns (QC): 6 Walk 150 ft (QC): 6 Walking 10ft on Uneven Surface: 6 1 Step (curb) (QC): 4 4 Steps (QC): 4 12 Steps (QC): 4 Picking up an Object (QC): 6 Wheel 50 feet with 2 turns (QC: 9 Wheel 150 feet: 9 PT Plan Treatment/Plan Treatment Plan: Continue Plan of Care Treatment Plan: Bed Mobility, Education, Functional Activity Fede, Functional Strength, Gait, Safety, Therapeutic Exercise, Transfers Treatment Duration: Nov 05, 2021 Frequency: 11 times per week Estimated Hrs Per Day: .5 hour per day Patient and/or Family Agrees t: Yes Time/GCodes Time In: 851 Time Out: 914 Total Billed Treatment Time: 23 Total Billed Treatment 1 visit FA x 2 23min SALLY MCDOWELL PT October 07, 2021 09:41
[2021-10-07] MEDS: ENOXAPARIN 40 MG/0.4 ML (LOVENOX) SYR SC SCH (11:40)
--- NOTE | 2021-10-07 13:46 | Physical Therapy Daily Note ---
PT Daily Note-Current Subjective Patient agrees to PT. Pain Numeric Pain Scale: 5-Moderate Pain Location: Medial, Lower Location Body Site: Back Pain Description: Pressure Mental Status Patient Orientation: Normal For Age Attachments: Marie Catheter Transfers SCALE: Activities may be completed with or without assistive devices. 3-Chklberoeq-ieexxnl completes the activity by him/herself with no assistance from a helper. 5-Set-up or Clean-up Assistance-helper sets up or cleans up; patient completes activity. [place] assists only prior to or following the activity. 4-Supervision or Touching Assistance-helper provides verbal cues and/or touc gracie/steadying and/or contact guard assistance as patient completes activity. Assistance may be provided throughout the activity or intermittently. 3-Partial/Moderate Assistance-helper does LESS THAN HALF the effort. [place] lifts, holds or supports trunk or limbs, but provides less than half the effort. 2-Substantial/Maximal Assistance-helper does MORE THAN HALF the effort. [place] lifts or holds trunk or limbs and provides more than half the effort. 5-Hingfhghh-kxpmmn does ALL the effort. Patient does none of the effort to complete the activity. Or, the assistance of 2 or more helpers is required for the patient to complete the activity. If activity was not attempted, code reason: 7-Patient Refused. 9-Not Applicable-not attempted and the patient did not perform the activity before the current illness, exacerbation or injury. 10-Not Attempted due to Environmental Limitations-(lack of equipment, weather restraints, etc.). 88-Not Attempted due to Medical Conditions or Safety Concerns. Sit to Lying (QC): 4 Lying to Sitting/Side of Bed(Q: 3 Sit to Stand (QC): 4 Gait Training Distance: 100' Walk 10 feet (QC): 4 Walk 50 ft with 2 Turns(QC): 4 Gait Assistive Device: FWW very slow, steady gait sequence Assessment Patient is very slow and methodical with all mobility. Requires time to complete all functional tasks. Improving slow with gross motor skills. PT [facility] Goals [facility] Goals PT Blade Boner Goals Time Frame: Nov 05, 2021 Roll Left & Right (QC): 6 Sit to Lying (QC): 6 Lying-Sitting on Side/Bed(QC): 6 Sit to Stand (QC): 6 Chair/Xbw-kf-Mgqvj Xfer(QC): 6 Toilet Transfer (QC): 6 Car Transfer (QC): 6 Does the Patient Walk: Yes Walk 10 feet (QC): 6 Walk 50ft with 2 Turns (QC): 6 Walk 150 ft (QC): 6 Walking 10ft on Uneven Surface: 6 1 Step (curb) (QC): 4 4 Steps (QC): 4 12 Steps (QC): 4 Picking up an Object (QC): 6 Wheel 50 feet with 2 turns (QC: 9 Wheel 150 feet: 9 PT Plan Treatment/Plan Treatment Plan: Continue Plan of Care Treatment Plan: Bed Mobility, Education, Functional Activity Fede, Functional Strength, Gait, Safety, Therapeutic Exercise, Transfers Treatment Duration: Nov 05, 2021 Frequency: 11 times per week Estimated Hrs Per Day: .5 hour per day Patient and/or Family Agrees t: Yes Time/GCodes Time In: 1315 Time Out: 1339 Total Billed Treatment Time: 24 Total Billed Treatment 1 visit FA x 2 24 min SALLY MCDOWELL PT October 07, 2021 13:46
[2021-10-07] MEDS: TAMSULOSIN 0.4 MG (FLOMAX) CAP PO SCH (17:19)
[2021-10-07 19:32] VITALS: BP 127/58
[2021-10-07] MEDS: GABAPENTIN 300 MG (NEURONTIN) CAP PO SCH (20:16)
[2021-10-07] MEDS: PATCH REMOVAL TP SCH (20:18)
[2021-10-08] MEDS: HYDROmorphone (DILAUDID) 2 MG TAB PO SCH ×6 (00:05→19:52)
[2021-10-08] MEDS: BACLOFEN 10 MG (LIORESAL) TAB PO SCH ×4 (00:05→17:33)
[2021-10-08] MEDS: KCL 10 MEQ TAB (MICRO K) PO SCH (05:34)
[2021-10-08] MEDS: LEVOTHYROXINE 100 MCG (LEVOTHROID) TAB PO SCH (05:35)
[2021-10-08 07:48] VITALS: BP 118/73
[2021-10-08] MEDS: LACTOBACILLUS ACIDOPHILUS (PROBIOTIC) CAPSULE PO SCH ×3 (08:52→17:33)
[2021-10-08] MEDS: DIAZEPAM 5 MG (VALIUM) TABLET PO SCH ×3 (08:52→19:52)
[2021-10-08] MEDS: HYOSCYAMINE 0.125 MG (LEVSIN) TAB PO SCH ×4 (08:53→19:51)
[2021-10-08] MEDS: PROPRANOLOL 20 MG (INDERAL) TABLET PO SCH (08:53)
[2021-10-08] MEDS: GABAPENTIN 100 MG (NEURONTIN) CAP PO SCH ×2 (08:53→15:20)
[2021-10-08] MEDS: LIDOCAINE 4% (SALONPAS) PATCH TOP SCH (08:53)
[2021-10-08] MEDS: PANTOPRAZOLE 40 MG (PROTONIX) TAB PO SCH (08:53)
[2021-10-08] MEDS: VITAMIN D3 25 MCG (1,000 UNITS) TABLET PO SCH (08:53)
[2021-10-08] MEDS: polyethylene glycoL POWDER 17 GM (MIRALAX) PACK PO SCH ×2 (08:54→19:52)
[2021-10-08] MEDS: DOCUSATE SODIUM 100 MG (COLACE) CAP PO SCH ×2 (08:54→19:52)
[2021-10-08] MEDS: cefTRIAXone 1 GM PRE-MIX 50 ML IV SCH (08:54)
[2021-10-08] MEDS ORDERED: METHYLNALTREXONE 12 MG/0.6 ML (RELISTOR) VIAL SQ SCH (09:00)
--- NOTE | 2021-10-08 09:37 | Physical Therapy Daily Note ---
PT Daily Note-Current Subjective Pt in bed, agreeable. Requests up to BR. Pain not rated. Mental Status Patient Orientation: Person, Place, Time, Situation Attachments: Marie Catheter, IV Transfers SCALE: Activities may be completed with or without assistive devices. 8-Jbvfttnblx-jtdnlmj completes the activity by him/herself with no assistance from a helper. 5-Set-up or Clean-up Assistance-helper sets up or cleans up; patient completes activity. [place] assists only prior to or following the activity. 4-Supervision or Touching Assistance-helper provides verbal cues and/or touching/steadying and/or contact guard assistance as patient completes activity. Assistance may be provided throughout the activity or intermittently. 3-Partial/Moderate Assistance-helper does LESS THAN HALF the effort. [place] lifts, holds or supports trunk or limbs, but provides less than half the effort. 2-Substantial/Maximal Assistance-helper does MORE THAN HALF the effort. [place] lifts or holds trunk or limbs and provides more than half the effort. 6-Djybnehbm-rcrfih does ALL the effort. Patient does none of the effort to complete the activity. Or, the assistance of 2 or more helpers is required for the patient to complete the activity. If activity was not attempted, code reason: 7-Patient Refused. 9-Not Applicable-not attempted and the patient did not perform the activity before the current illness, exacerbation or injury. 10-Not Attempted due to Environmental Limitations-(lack of equipment, weather restraints, etc.). 88-Not Attempted due to Medical Conditions or Safety Concerns. Roll Left & Right (QC): 4 Lying to Sitting/Side of Bed(Q: 3 Sit to Stand (QC): 4 Toilet Transfer (QC): 4 Weight Bearing Right Lower Extremity: Right Full Weight Bearing Left Lower Extremity: Left Full Weight Bearing Gait Training Does the Patient Walk?: Yes Distance: 15' Walk 10 feet (QC): 4 Gait Assistive Device: FWW Slow, steady gait with FWW to/from BR. Pt requests to remain up in chair to prepare for shower with NA. Treatments Gait and transfer training. Dependent jose juan-care this date. Sit<->stand with VCS for sequencing and min A x 1 from bed height. Up in chair with needs met, NA in room. Assessment Current Status: Fair Progress Pt tolerated well. Very slow but safe functional mobility. PT Broadcast Designer Goals [facility] Goals PT Broadcast Designer Goals Time Frame: Nov 05, 2021 Roll Left & Right (QC): 6 Sit to Lying (QC): 6 Lying-Sitting on Side/Bed(QC): 6 Sit to Stand (QC): 6 Chair/Wrs-io-Revjr Xfer(QC): 6 Toilet Transfer (QC): 6 Car Transfer (QC): 6 Does the Patient Walk: Yes Walk 10 feet (QC): 6 Walk 50ft with 2 Turns (QC): 6 Walk 150 ft (QC): 6 Walking 10ft on Uneven Surface: 6 1 Step (curb) (QC): 4 4 Steps (QC): 4 12 Steps (QC): 4 Picking up an Object (QC): 6 Wheel 50 feet with 2 turns (QC: 9 Wheel 150 feet: 9 PT Plan Problem List Problem List: Activity Tolerance, Functional Strength, Safety, Balance, Gait, Transfer, Bed Mobility Treatment/Plan Treatment Plan: Continue Plan of Care Treatment Plan: Bed Mobility, Education, Functional Activity Fede, Functional Strength, Gait, Safety, Therapeutic Exercise, Transfers Treatment Duration: Nov 05, 2021 Frequency: 11 times per week Estimated Hrs Per Day: .5 hour per day Patient and/or Family Agrees t: Yes Safety Risks/Education Patient Education: Transfer Techniques Teaching Recipient: Patient Teaching Methods: Discussion Response to Teaching: Verbalize Understanding Time/GCodes Time In: 0900 Time Out: 931 Total Billed Treatment Time: 32 Total Billed Treatment 1, FA x 32' NARCISA MOLINA DPT October 08, 2021 09:36
[2021-10-08] MEDS: ENOXAPARIN 40 MG/0.4 ML (LOVENOX) SYR SC SCH (11:14)
[2021-10-08] MEDS: TAMSULOSIN 0.4 MG (FLOMAX) CAP PO SCH (17:33)
[2021-10-08 19:48] VITALS: BP 119/56
[2021-10-08] MEDS: GABAPENTIN 300 MG (NEURONTIN) CAP PO SCH (19:52)
[2021-10-08] MEDS: PATCH REMOVAL TP SCH (20:23)
[2021-10-09] MEDS: BACLOFEN 10 MG (LIORESAL) TAB PO SCH ×4 (00:07→17:24)
[2021-10-09] MEDS: HYDROmorphone (DILAUDID) 2 MG TAB PO SCH ×6 (00:07→21:13)
[2021-10-09 03:00] VITALS: BP 119/56
[2021-10-09] MEDS: KCL 10 MEQ TAB (MICRO K) PO SCH (05:17)
[2021-10-09] MEDS: LEVOTHYROXINE 100 MCG (LEVOTHROID) TAB PO SCH (05:25)
[2021-10-09 05:57] LABS: HEMATOCRIT 37 % (35-52); HEMOGLOBIN 12.1 g/dL (11.5-16.0); MEAN CORPUSCULAR HEMOGLOBIN 32 pg (25-34); MEAN CORPUSCULAR HGB CONC 33 g/dL (32-36); MEAN CORPUSCULAR VOLUME 97 fL (80-99); MEAN PLATELET VOLUME 10.9 fL (9.0-12.2); PLATELET COUNT 382 10^3/uL (130-400); WHITE BLOOD COUNT 9.2 10^3/uL (4.3-11.0)
[2021-10-09 06:14] LABS: ALBUMIN 3.5 GM/DL (3.2-4.5); POTASSIUM 3.8 MMOL/L (3.6-5.0)
[2021-10-09 06:15] LABS: CALCIUM 10.6 MG/DL (8.5-10.1)
[2021-10-09 06:17] LABS: TOTAL PROTEIN 6.9 GM/DL (6.4-8.2)
[2021-10-09 06:18] LABS: BILIRUBIN,TOTAL 0.7 MG/DL (0.1-1.0)
[2021-10-09 06:20] LABS: CREATININE SERUM 0.73 MG/DL (0.60-1.30)
[2021-10-09 07:27] VITALS: BP 104/64
[2021-10-09] MEDS: cefTRIAXone 1 GM PRE-MIX 50 ML IV SCH (08:32)
[2021-10-09] MEDS: LIDOCAINE 4% (SALONPAS) PATCH TOP SCH (08:32)
[2021-10-09] MEDS: GABAPENTIN 100 MG (NEURONTIN) CAP PO SCH ×2 (08:33→14:15)
[2021-10-09] MEDS: VITAMIN D3 25 MCG (1,000 UNITS) TABLET PO SCH (08:33)
[2021-10-09] MEDS: PANTOPRAZOLE 40 MG (PROTONIX) TAB PO SCH (08:33)
[2021-10-09] MEDS: PROPRANOLOL 20 MG (INDERAL) TABLET PO SCH (08:33)
[2021-10-09] MEDS: HYOSCYAMINE 0.125 MG (LEVSIN) TAB PO SCH ×4 (08:33→21:13)
[2021-10-09] MEDS: LACTOBACILLUS ACIDOPHILUS (PROBIOTIC) CAPSULE PO SCH ×3 (08:33→17:24)
[2021-10-09] MEDS: DIAZEPAM 5 MG (VALIUM) TABLET PO SCH ×3 (08:34→21:13)
[2021-10-09] MEDS: polyethylene glycoL POWDER 17 GM (MIRALAX) PACK PO SCH (08:34)
[2021-10-09] MEDS: DOCUSATE SODIUM 100 MG (COLACE) CAP PO SCH (08:34)
[2021-10-09] MEDS ORDERED: DOCUSATE SODIUM 100 MG (COLACE) CAP PO PRN (11:15)
[2021-10-09] MEDS ORDERED: polyethylene glycoL POWDER 17 GM (MIRALAX) PACK PO PRN (11:15)
--- NOTE | 2021-10-09 11:35 | Progress Note - Hospitalist ---
Subjective HPI/CC On Admission Date Seen by Provider: October 09, 2021 Subjective/Events-last exam Pt reports doing ok. Just took a shower and having some pain but feeling better every day. Thinks BP may be low though so requests BP check and nurse in room to do so after applying lidocaine patch. Objective Exam Vital Signs Vital Signs Date Time Temp Pulse Resp B/P (MAP) Pulse Ox O2 Delivery O2 Flow Rate FiO2 10/09/21 08:04 95 Room Air 0.00 10/09/21 07:27 36.4 74 18 104/64 (77) 10/09/21 03:00 21 Capillary Refill : General Appearance: No Apparent Distress, Obese Respiratory: Lungs Clear, No Respiratory Distress Cardiovascular: Regular Rate, Rhythm, No Murmur Neurologic/Psychiatric: Alert, Oriented x3 Results/Procedures Lab Laboratory Tests 10/09/21 05:49 Patient resulted labs reviewed. Assessment/Plan Assessment and Plan Assess & Plan/Chief Complaint Posterior spinal fusion L1 - 3 and L4 - S1 with Uncontrolled back pain Muscle spasms - pt controlled with current regimen, will continue Requiest bowel regimen to be DC-ed or prn only as she is having loose stools and some incontinence due to decreased mobility - PT/OT ordered -Lidocaine patch Left sided kidney stone with hydronephrosis. - consult to Dr. Guadarrama - he placed stent for left sided renal stone with plan for lithotripsy 10/11/21 Ecoli Urinary tract infection - Complete Rocephin today Chronic neuropathy - Again doing well on current gabapentin regimen so will continue Hypothyroidism - home regimen restarted. pt on dvt prophylaxis with lovenox and scd's (hold lovenox after dose on 10/08/21 for planned lithotripsy on 10/11/21) gi prophylaxis with ppi CATHY ALICIA MD October 09, 2021 11:34
[2021-10-09] MEDS: HYDROcodone/APAP 7.5 MG/325 MG (LORTAB, LORCET PLUS) TABLET PO PRN ×2 (12:34→17:52)
[2021-10-09] MEDS: TAMSULOSIN 0.4 MG (FLOMAX) CAP PO SCH (17:24)
[2021-10-09 20:21] VITALS: BP 106/65
[2021-10-09] MEDS: GABAPENTIN 300 MG (NEURONTIN) CAP PO SCH (21:13)
[2021-10-09] MEDS: PATCH REMOVAL TP SCH (21:13)
[2021-10-10] MEDS: HYDROmorphone (DILAUDID) 2 MG TAB PO SCH ×7 (00:23→23:35)
[2021-10-10] MEDS: BACLOFEN 10 MG (LIORESAL) TAB PO SCH ×5 (00:23→23:35)
[2021-10-10] MEDS: LEVOTHYROXINE 100 MCG (LEVOTHROID) TAB PO SCH (05:46)
[2021-10-10] MEDS: KCL 10 MEQ TAB (MICRO K) PO SCH (05:46)
[2021-10-10 07:37] VITALS: BP 120/68
[2021-10-10] MEDS: PROPRANOLOL 20 MG (INDERAL) TABLET PO SCH (09:13)
[2021-10-10] MEDS: VITAMIN D3 25 MCG (1,000 UNITS) TABLET PO SCH (09:13)
[2021-10-10] MEDS: DIAZEPAM 5 MG (VALIUM) TABLET PO SCH ×3 (09:14→20:19)
[2021-10-10] MEDS: LIDOCAINE 4% (SALONPAS) PATCH TOP SCH (09:14)
[2021-10-10] MEDS: PANTOPRAZOLE 40 MG (PROTONIX) TAB PO SCH (09:14)
[2021-10-10] MEDS: HYOSCYAMINE 0.125 MG (LEVSIN) TAB PO SCH ×4 (09:14→20:19)
[2021-10-10] MEDS: GABAPENTIN 100 MG (NEURONTIN) CAP PO SCH ×2 (09:14→14:43)
[2021-10-10] MEDS: LACTOBACILLUS ACIDOPHILUS (PROBIOTIC) CAPSULE PO SCH ×3 (09:14→17:17)
--- NOTE | 2021-10-10 09:24 | Physical Therapy Daily Note ---
PT Daily Note-Current Subjective Patient states that she is feeling better. Transfers SCALE: Activities may be completed with or without assistive devices. 6-Seocirstda-aidommd completes the activity by him/herself with no assistance from a helper. 5-Set-up or Clean-up Assistance-helper sets up or cleans up; patient completes activity. [place] assists only prior to or following the activity. 4-Supervision or Touching Assistance-helper provides verbal cues and/or touching/steadying and/or contact guard assistance as patient completes activity. Assistance may be provided throughout the activity or intermittently. 3-Partial/Moderate Assistance-helper does LESS THAN HALF the effort. [place] lifts, holds or supports trunk or limbs, but provides less than half the effort. 2-Substantial/Maximal Assistance-helper does MORE THAN HALF the effort. [place] lifts or holds trunk or limbs and provides more than half the effort. 6-Vlfuqolpg-vkxkrd does ALL the effort. Patient does none of the effort to complete the activity. Or, the assistance of 2 or more helpers is required for the patient to complete the activity. If activity was not attempted, code reason: 7-Patient Refused. 9-Not Applicable-not attempted and the patient did not perform the activity before the current illness, exacerbation or injury. 10-Not Attempted due to Environmental Limitations-(lack of equipment, weather restraints, etc.). 88-Not Attempted due to Medical Conditions or Safety Concerns. Sit to Lying (QC): 4 Sit to Stand (QC): 5 Weight Bearing Right Lower Extremity: Right Full Weight Bearing Left Lower Extremity: Left Full Weight Bearing Gait Training Does the Patient Walk?: Yes Distance: 50' Walk 10 feet (QC): 5 Walk 50 ft with 2 Turns(QC): 5 Gait Persons Needed: 1 Gait Assistive Device: FWW Assessment Current Status: Good Progress Patient did better with transfers today. PT Fdc Goals Poultry Slaughterer Goals PT Fdc Goals Time Frame: Nov 05, 2021 Roll Left & Right (QC): 6 Sit to Lying (QC): 6 Lying-Sitting on Side/Bed(QC): 6 Sit to Stand (QC): 6 Chair/Nzm-hl-Uriwr Xfer(QC): 6 Toilet Transfer (QC): 6 Car Transfer (QC): 6 Does the Patient Walk: Yes Walk 10 feet (QC): 6 Walk 50ft with 2 Turns (QC): 6 Walk 150 ft (QC): 6 Walking 10ft on Uneven Surface: 6 1 Step (curb) (QC): 4 4 Steps (QC): 4 12 Steps (QC): 4 Picking up an Object (QC): 6 Wheel 50 feet with 2 turns (QC: 9 Wheel 150 feet: 9 PT Plan Treatment/Plan Treatment Plan: Continue Plan of Care Treatment Plan: Bed Mobility, Education, Functional Activity Fede, Functional Strength, Gait, Safety, Therapeutic Exercise, Transfers Treatment Duration: Nov 05, 2021 Frequency: 11 times per week Estimated Hrs Per Day: .5 hour per day Patient and/or Family Agrees t: Yes Time/GCodes Time In: 854 Time Out: 919 Total Billed Treatment Time: 25 Total Billed Treatment 1, FA, GT NICK LOCKHART PT October 10, 2021 09:24
--- NOTE | 2021-10-10 10:52 | Physical Therapy Daily Note ---
PT Daily Note-Current Subjective States that she is tired. Transfers SCALE: Activities may be completed with or without assistive devices. 7-Birkyiduly-emrbouk completes the activity by him/herself with no assistance from a helper. 5-Set-up or Clean-up Assistance-helper sets up or cleans up; patient completes activity. [place] assists only prior to or following the activity. 4-Supervision or Touching Assistance-helper provides verbal cues and/or touching/steadying and/or contact guard assistance as patient completes activity. Assistance may be provided throughout the activity or intermittently. 3-Partial/Moderate Assistance-helper does LESS THAN HALF the effort. [place] lifts, holds or supports trunk or limbs, but provides less than half the effort. 2-Substantial/Maximal Assistance-helper does MORE THAN HALF the effort. [place] lifts or holds trunk or limbs and provides more than half the effort. 2-Ozbbyufey-fxfuhc does ALL the effort. Patient does none of the effort to complete the activity. Or, the assistance of 2 or more helpers is required for the patient to complete the activity. If activity was not attempted, code reason: 7-Patient Refused. 9-Not Applicable-not attempted and the patient did not perform the activity before the current illness, exacerbation or injury. 10-Not Attempted due to Environmental Limitations-(lack of equipment, weather restraints, etc.). 88-Not Attempted due to Medical Conditions or Safety Concerns. Weight Bearing Right Lower Extremity: Right Full Weight Bearing Left Lower Extremity: Left Full Weight Bearing Exercises Supine Ex: Ankle pumps, Quad Set, Glut sets Supine Reps: 30 Assessment Current Status: Good Progress Patient had one spasm when attempting to put a pillow under her legs but otherwise doing well. PT Care Home Goals Gunner'S Mate G Goals PT Care Home Goals Time Frame: Nov 05, 2021 Roll Left & Right (QC): 6 Sit to Lying (QC): 6 Lying-Sitting on Side/Bed(QC): 6 Sit to Stand (QC): 6 Chair/Hck-pu-Udwyw Xfer(QC): 6 Toilet Transfer (QC): 6 Car Transfer (QC): 6 Does the Patient Walk: Yes Walk 10 feet (QC): 6 Walk 50ft with 2 Turns (QC): 6 Walk 150 ft (QC): 6 Walking 10ft on Uneven Surface: 6 1 Step (curb) (QC): 4 4 Steps (QC): 4 12 Steps (QC): 4 Picking up an Object (QC): 6 Wheel 50 feet with 2 turns (QC: 9 Wheel 150 feet: 9 PT Plan Treatment/Plan Treatment Plan: Continue Plan of Care Treatment Plan: Bed Mobility, Education, Functional Activity Fede, Functional Strength, Gait, Safety, Therapeutic Exercise, Transfers Treatment Duration: Nov 05, 2021 Frequency: 11 times per week Estimated Hrs Per Day: .5 hour per day Patient and/or Family Agrees t: Yes Time/GCodes Time In: 1037 Time Out: 1047 Total Billed Treatment Time: 10 Total Billed Treatment 1, EX x 10' NICK LOCKHART PT October 10, 2021 10:52
--- NOTE | 2021-10-10 11:13 | Occupational Ther Daily Note ---
OT Current Status-Daily Note Subjective Pt seen in room, u p in bed, agreeable to OT. No pain noted except she reported some discomfort in L shoulder over past several months. Appearance Alert, cooperative ADL-Treatment Therapy Code Descriptions/Definitions Functional [place] Measure: 0=Not Assessed/NA 4=Minimal Assistance 1=Total Assistance 5=Supervision or Setup 2=Maximal Assistance 6=Modified [place] 3=Moderate Assistance 7=Complete IndependenceSCALE: Activities may be completed with or without assistive devices. 0-Vlvrdnxxfy-xwhzjqb completes the activity by him/herself with no assistance from a helper. 5-Set-up or Clean-up Assistance-helper sets up or cleans up; patient completes activity. [place] assists only prior to or following the activity. 4-Supervision or Touching Assistance-helper provides verbal cues and/or touching/steadying and/or contact guard assistance as patient completes activity. Assistance may be provided throughout the activity or intermittently. 3-Partial/Moderate Assistance-helper does LESS THAN HALF the effort. [place] lifts, holds or supports trunk or limbs, but provides less than half the effort. 2-Substantial/Maximal Assistance-helper does MORE THAN HALF the effort. [place] lifts or holds trunk or limbs and provides more than half the effort. 2-Jycckqgii-vmnucb does ALL the effort. Patient does none of the effort to complete the activity. Or, the assistance of 2 or more helpers is required for the patient to complete the activity. If activity was not attempted, code reason: 7-Patient Refused. 9-Not Applicable-not attempted and the patient did not perform the activity before the current illness, exacerbation or injury. 10-Not Attempted due to Environmental Limitations-(lack of equipment, weather restraints, etc.). 88-Not Attempted due to Medical Conditions or Safety Concerns. Other Treatment Pt education on two bilat UE exercises that she can do in her room in bed. Exercises are done with hands clasped together so that she has some assist to L shoulder which is uncomfortable at times. First exercise is assisted shoulder flexion/extension and second one focused on elbow extension against gravity. Exercises to assist pt with transfers. She did 5 reps shoulder ex and 10 reps elbow ex, done slowly and with a little guarding of L shoulder. Pt also encouraged to pinch shoulder blades together when sitting to compensate for potential rounded shoulder positioning when in bed. Pt verbalized understanding of exercises and return demonstration. Pt left up in bed, 4 rails up per her request, all needs met, in room. Education OT Patient Education: Exercise program, Purpose of tx/functional activities Teaching Recipient: Patient Teaching Methods: Demonstration, Discussion Response to Teaching: Return Demonstration OT Short Term Goals Short Term Goals Time Frame: Oct 14, 2021 Eatin Oral hygiene: 5 Toileting hygiene: 3 Shower/bathe self: 5 Upper body dressin Lower body dressin Putting on/taking off footwear: 3 OT Skilled Nursing Goals Refining Equipment Operator Goals Time Frame: Oct 20, 2021 Eating (QC): 6 Oral Hygiene (QC): 6 Toileting Hygiene (QC): 6 Shower/Bathe Self (QC): 5 Upper Body Dressing (QC): 5 Lower Body Dressing (QC): 5 On/Off Footwear (QC): 5 1=Demonstrate adherence to instructed precautions during ADL tasks. 2=Patient will verbalize/demonstrate understanding of assistive devices/modifications for ADL. 3=Patient will improve strength/tolerance for activity to enable patient to perform ADL's. OT Education/Plan Discharge Recommendations Plan/Recommendations: Continue POC Treatment Plan/Plan of Care Patient would benefit from OT for education, treatment and training to promote independence in ADL's, mobility, safety and/or upper extremity function for ADL's. Plan of Care: ADL Retraining, Functional Mobility, Group Exercise/Act as Ind, UE Funct Exercise/Act Treatment Duration: Oct 20, 2021 Frequency: 5 times per week Estimated Hrs Per Day: .25 hour per day Agreement: Yes Rehab Potential: Poor Time/GCodes Start Time: 10:47 Stop Time: 11:05 Total Time Billed (hr/min): 18 Billed Treatment Time visit, 18 minutes exercise ANJELICA CHAMPION OT October 10, 2021 11:13
[2021-10-10] MEDS: TAMSULOSIN 0.4 MG (FLOMAX) CAP PO SCH (17:17)
[2021-10-10] MEDS ORDERED: ANTACID SUSP 30 ML UDC (MYLANTA) PO ONE (18:00)
[2021-10-10 19:14] VITALS: BP 107/58
[2021-10-10] MEDS: GABAPENTIN 300 MG (NEURONTIN) CAP PO SCH (20:20)
[2021-10-10] MEDS: PATCH REMOVAL TP SCH (21:00)
[2021-10-10] MEDS ORDERED: LORazepam INJ 2 MG/ML (ATIVAN) VIAL ONE (22:16)
[2021-10-11] VITALS (10 sets, daily range): BP systolic 113–149; BP diastolic 58–96
[2021-10-11] MEDS: HYDROmorphone (DILAUDID) 2 MG TAB PO SCH ×5 (03:31→20:53)
[2021-10-11] MEDS: LEVOTHYROXINE 100 MCG (LEVOTHROID) TAB PO SCH (03:31)
[2021-10-11] MEDS: KCL 10 MEQ TAB (MICRO K) PO SCH (03:34)
[2021-10-11 05:21] LABS: HEMATOCRIT 35 % (35-52); HEMOGLOBIN 11.6 g/dL (11.5-16.0); MEAN CORPUSCULAR HEMOGLOBIN 32 pg (25-34); MEAN CORPUSCULAR HGB CONC 33 g/dL (32-36); MEAN CORPUSCULAR VOLUME 96 fL (80-99); MEAN PLATELET VOLUME 11.6 fL (9.0-12.2); PLATELET COUNT 368 10^3/uL (130-400); WHITE BLOOD COUNT 9.7 10^3/uL (4.3-11.0)
[2021-10-11] MEDS: BACLOFEN 10 MG (LIORESAL) TAB PO SCH ×3 (05:41→17:43)
[2021-10-11 05:43] LABS: ALBUMIN 3.4 GM/DL (3.2-4.5); POTASSIUM 4.3 MMOL/L (3.6-5.0)
[2021-10-11 05:44] LABS: CALCIUM 10.4 MG/DL (8.5-10.1)
[2021-10-11 05:45] LABS: TOTAL PROTEIN 6.6 GM/DL (6.4-8.2)
[2021-10-11 05:47] LABS: BILIRUBIN,TOTAL 0.5 MG/DL (0.1-1.0)
[2021-10-11 05:49] LABS: CREATININE SERUM 0.73 MG/DL (0.60-1.30)
[2021-10-11] MEDS ORDERED: ONDANSETRON 4 MG/2 ML (SDV) Z0FRAN ONE (07:03)
[2021-10-11] MEDS ORDERED: KETOROLAC 30 MG/ML VIAL ONE (07:03)
[2021-10-11] MEDS ORDERED: FUROSEMIDE 40 MG/4 ML INJ (LASIX) ONE (07:03)
[2021-10-11] MEDS ORDERED: LIDOCAINE PF 2% 5 ML (XYLOCAINE) VIAL ONE (07:03)
[2021-10-11] MEDS ORDERED: proPOfol 200 MG/20 ML (DIPRIVAN) VIAL IV ONE (07:03)
[2021-10-11] MEDS ORDERED: fentaNYL INJ 100 MCG/2 ML AMP ONE (07:03)
--- NOTE | 2021-10-11 07:07 | Progress Note-Pre Operative ---
Pre-Operative Progress Note H&P Reviewed The H&P was reviewed, patient examined and no changes noted. Date Seen by Provider: October 11, 2021 Time Seen by Provider: 07:07 Date H&P Reviewed: October 11, 2021 Time H&P Reviewed: 07:07 Pre-Operative Diagnosis: LT RENAL STONE MICHAEL GUILLEN MD October 11, 2021 07:07
--- NOTE | 2021-10-11 07:50 | Diagnostic Imaging Report ---
Indication: Left renal calculus COMPARISON: 10/02/2021 There has been placement of left nephroureteral stent. There is a roughly triangular appearing calcification in the region of the left renal collecting system measuring 1.6 x 1.0 cm immediately adjacent to the stent. This has a similar overall appearance. No other definite ureteric stone is seen. There are numerous bilateral calcified phleboliths in the pelvis. Surgical clips are seen in the gallbladder fossa and in the right lower quadrant. IMPRESSION: Stable overall appearance of left nephrolithiasis post ureteric stent placement. Dictated by: Dictated on workstation # [id number]
[2021-10-11] MEDS: LACTOBACILLUS ACIDOPHILUS (PROBIOTIC) CAPSULE PO SCH ×3 (08:01→17:43)
[2021-10-11] MEDS: GABAPENTIN 100 MG (NEURONTIN) CAP PO SCH ×2 (08:02→13:36)
[2021-10-11] MEDS: DIAZEPAM 5 MG (VALIUM) TABLET PO SCH ×3 (08:02→20:16)
[2021-10-11] MEDS: PANTOPRAZOLE 40 MG (PROTONIX) TAB PO SCH (08:02)
[2021-10-11] MEDS: LIDOCAINE 4% (SALONPAS) PATCH TOP SCH (08:02)
[2021-10-11] MEDS: HYOSCYAMINE 0.125 MG (LEVSIN) TAB PO SCH ×4 (08:02→20:16)
[2021-10-11] MEDS: VITAMIN D3 25 MCG (1,000 UNITS) TABLET PO SCH (08:02)
[2021-10-11] MEDS: PROPRANOLOL 20 MG (INDERAL) TABLET PO SCH (08:02)
--- NOTE | 2021-10-11 08:03 | Progress Note-Post Operative ---
Post-Operative Progess Note Surgeon (s)/Winder Hand (s) Surgeon MICHAEL GUILLEN MD Winder Hand: NONE Pre-Operative Diagnosis LT RENAL STONE Post-Operative Diagnosis SAME Procedure & Operative Findings Date of Procedure 10/11/21 Procedure Performed/Findings LT ESWL Anesthesia Type GENERAL Estimated Blood Loss Estimated blood loss (mL): NONE Specimens/Packing Specimens Removed NONE Packing: NONE MICHAEL GUILLEN MD October 11, 2021 08:03
[2021-10-11] MEDS ORDERED: LACTATED RINGERS 1,000 ML IV PRN (08:30)
--- NOTE | 2021-10-11 08:31 | Progress Note ---
Subjective Subjective Date Seen by Provider: October 11, 2021 Time Seen by Provider: 09:00 Pt reports that she is feeling better today compared to yesterday and sunday. She reports a strange pain in her left side sunday into sunday and it has since resolved. She reports ambulating with therapy today after her lithotripsy. Review of Systems General: No Chills, No Night Sweats; Fatigue HEENT: No Head Aches, No Dysphasia Pulmonary: No Dyspnea, No Cough Cardiovascular: No: Chest Pain, Palpitations Gastrointestinal: Diarrhea; No: Nausea, Vomiting, Abdominal Pain, Melena Genitourinary: No Dysuria, No Hematuria Musculoskeletal: back pain Neurological: Weakness; No: Numbness, Confusion All Other Systems Reviewed All Other Systems Reviewed: Yes Objective Exam Vital Signs Vital Signs Date Time Temp Pulse Resp B/P (MAP) Pulse Ox O2 Delivery O2 Flow Rate FiO2 10/11/21 07:47 36.6 83 18 124/76 (92) 95 Room Air 10/10/21 20:38 Room Air 10/10/21 19:14 37.2 76 20 107/58 (74) 96 Room Air 10/10/21 09:00 Room Air I & O 10/11/21 07:00 Intake Total 1760 ml Output Total 2300 ml Balance -540 ml General Appearance: No Apparent Distress, WD/WN, Obese Eyes: Bilateral Eye Normal Inspection HEENT: PERRL/EOMI, Pharynx Normal Neck: Non Tender, Supple Respiratory: Lungs Clear, No Respiratory Distress Cardiovascular: Regular Rate, Rhythm, No Murmur Gastrointestinal: Normal Bowel Sounds, Non Tender, Soft Back: Other (surgical site on back well approximated - steri strips in place) Extremity: No Calf Tenderness, No Pedal Edema Neurologic/Psychiatric: Alert, Oriented x3, Normal Mood/Affect Skin: Normal Color, Warm/Dry Results Lab Laboratory Tests 10/10/21 22:40: SARS-CoV-2 RNA (RT-PCR) Not Detected 10/11/21 05:10: White Blood Count 9.7, Red Blood Count 3.67L, Hemoglobin 11.6, Hematocrit 35, Mean Corpuscular Volume 96, Mean Corpuscular Hemoglobin 32, Mean Corpuscular Hemoglobin Concent 33, Red Cell Distribution Width 14.6H, Platelet Count 368, Mean Platelet Volume 11.6, Sodium Level 141, Potassium Level 4.3, Chloride Level 103, Carbon Dioxide Level 26, Anion Gap 12, Blood Urea Nitrogen 14, Creatinine 0.73, Estimat Glomerular Filtration Rate 88, BUN/Creatinine Ratio 19, Glucose Level 111H, Calcium Level 10.4H, Corrected Calcium 10.9H, Total Bilirubin 0.5, Aspartate Amino Transf (AST/SGOT) 17, Alanine Aminotransferase (ALT/SGPT) 16, Alkaline Phosphatase 130, Total Protein 6.6, Albumin 3.4 Assessment/Plan Assessment/Plan Admission Dx Posterior spinal fusion L1 - 3 and L4 - S1 Uncontrolled back pain Muscle spasms Chronic neuropathy [place] UTI Left sided kidney stone Left sided Hydronephrosis Hypothyroidism Leukocytosis Hypercalcemia Assessment and Plan Posterior spinal fusion L1 - 3 and L4 - S1 Uncontrolled back pain Muscle spasms Chronic neuropathy [place] UTI Left sided kidney stone Left sided Hydronephrosis Hypothyroidism Leukocytosis Hypercalcemia Diarrhea Posterior spinal fusion L1 - 3 and L4 - S1 with Uncontrolled back pain Muscle spasms - pt was receiving only PRN muscle relaxers and pain medication on rehab, will schedule the following medication in an attempt to have improved symptoms: - stopped chedule oxycodone 5mg tid, started on dilaudid 2mg qid, her notes that she seems groggy after her dilaudid, therefore we will change to dilaudid 1mg q 4 hours and monitor for improved pain control with decreased grogginess. - started on valium 2.5mg tid on 10/03/21, changed to 5mg tid valium (10/04/21) - scheduled baclofen 10mg qid - added lidoderm patches to her back on either side of surgical site - she will continue to have prn pain medication and muscle relaxers available. - pt able to ambulate today from her room down the hallway - she feels better, but is concerned about self care and activity once discharged to home. Left sided kidney stone with hydronephrosis. - consult to Dr. Guadarrama - he placed stent for left sided renal stone and pt is now status post lithotripsy 10/11/21 Ecoli Urinary tract infection - pt on rocephin - last dose on 10/09/21 Chronic neuropathy - pt on gabapentin at hs, continue, will increase gabapentin to 200mg 0600, 200mg 1100, 200mg 1600 and 300mg at HS - if these doses are tolerated and show improved symptoms, will either increase or keep dosing the same. Hypothyroidism - home regimen restarted. Diarrhea - relistor stopped yesterday. pt on dvt prophylaxis with lovenox and scd's gi prophylaxis with ppi Admission Dx Posterior spinal fusion L1 - 3 and L4 - S1 Uncontrolled back pain Muscle spasms Chronic neuropathy [place] UTI Left sided kidney stone Left sided Hydronephrosis Hypothyroidism Leukocytosis Hypercalcemia Clinical Quality Measures Admission Status Admission Dx Posterior spinal fusion L1 - 3 and L4 - S1 Uncontrolled back pain Muscle spasms Chronic neuropathy E[place] UTI Left sided kidney stone Left sided Hydronephrosis Hypothyroidism Leukocytosis Hypercalcemia MARIA ELENA LEMUS MD October 11, 2021 08:31
--- NOTE | 2021-10-11 08:45 | OPERATIVE REPORT ---
DATE OF SERVICE: 10/11/2021 PREOPERATIVE DIAGNOSIS: Left renal stone. POSTOPERATIVE DIAGNOSIS: Left renal stone. OPERATION PERFORMED: Left ESWL. SURGEON: Raimundo Guillen MD ANESTHESIA: General. COMPLICATIONS: None. DESCRIPTION OF PROCEDURE: Under satisfactory general anesthesia, the patient in supine position on the ESWL table, the left renal stone was localized. Shocks were delivered at gradually increasing kV to 6. Total of 2500 shocks completely pulverized the stone that was hardly seen at all. The patient received 40 mg of Lasix and 30 mg of Toradol IV at the end of the procedure. She tolerated the procedure and anesthesia well and was sent to recovery room in stable condition. Job ID: [id number] DocumentID: [id number] Dictated Date: 10/11/2021 08:29:11 Chemistry Account Manager Date: 10/11/2021 08:44:07 Dictated By: RAIMUNDO GUILLEN MD
[2021-10-11] MEDS ORDERED: SEVOFLURANE (ULTANE) 15 ML INHAL SOLN ONE (09:11)
--- NOTE | 2021-10-11 11:22 | Occ Therapy Progress Note ---
Therapy Progress Note Attempted to see pt 2x's this am. 1st attempt, pt taken to procedure. 2nd attempt after pt was back from procedure, pt was sleeping soundly. Will attempt in pm. MAGDALENE SWAIN October 11, 2021 11:22
--- NOTE | 2021-10-11 11:52 | Anesthesia-General Post-Op ---
General Patient Condition Mental Status/LOC: Same as Preop Cardiovascular: Satisfactory Nausea/Vomiting: Absent Respiratory: Satisfactory Pain: Controlled Complications: Absent Post Op Complications Complications None Follow Up Care/Instructions Patient Instructions None needed. Anesthesia/Patient Condition Patient Condition Patient is doing well, no complaints, stable vital signs, no apparent adverse anesthesia problems. No complications reported per nursing. ALINE QUINTERO CRNA October 11, 2021 11:52
--- NOTE | 2021-10-11 13:50 | Occupational Ther Daily Note ---
OT Current Status-Daily Note Subjective Pt alert, lying in bed. No c/o pain, c/o grogginess and dizziness from anesthesia. Pt agrees to therapy. Mental Status/Objective Patient Orientation: Person, Place, Time, Situation Attachments: Marie Catheter, IV ADL-Treatment Working with PT due to increased grogginess and dizziness from procedure earlier in day. PT focusing on transfers and ambulation while OT focusing on ADLs and functional transfers. SBA for supine<--> EOB, assist to straightness self in bed. Pt ambulated with PT using FWW. Pt then transferred on/off BSC over toilet to increase height with SBA for safety. Pt requires assist to cleanse self after BM due to back precautions. Will bring pt toilet tongs to assist with toileting independence. After therapy, pt lying in bed with call light/phone in reach. All needs met in room. Therapy Code Descriptions/Definitions Functional [place] Measure: 0=Not Assessed/NA 4=Minimal Assistance 1=Total Assistance 5=Supervision or Setup 2=Maximal Assistance 6=Modified [place] 3=Moderate Assistance 7=Complete IndependenceSCALE: Activities may be completed with or without assistive devices. 0-Byujdefnsp-nvpwkhd completes the activity by him/herself with no assistance from a helper. 5-Set-up or Clean-up Assistance-helper sets up or cleans up; patient completes activity. [place] assists only prior to or following the activity. 4-Supervision or Touching Assistance-helper provides verbal cues and/or touching/steadying and/or contact guard assistance as patient completes activity. Assistance may be provided throughout the activity or intermittently. 3-Partial/Moderate Assistance-helper does LESS THAN HALF the effort. [place] lifts, holds or supports trunk or limbs, but provides less than half the effort. 2-Substantial/Maximal Assistance-helper does MORE THAN HALF the effort. [place] lifts or holds trunk or limbs and provides more than half the effort. 0-Kzpqegwsp-leotzj does ALL the effort. Patient does none of the effort to complete the activity. Or, the assistance of 2 or more helpers is required for the patient to complete the activity. If activity was not attempted, code reason: 7-Patient Refused. 9-Not Applicable-not attempted and the patient did not perform the activity before the current illness, exacerbation or injury. 10-Not Attempted due to Environmental Limitations-(lack of equipment, weather restraints, etc.). 88-Not Attempted due to Medical Conditions or Safety Concerns. On/Off Footwear: 2 (max A for footwear) Toileting Hygiene (QC): 2 Toilet Transfer (QC): 4 OT Short Term Goals Short Term Goals Time Frame: Oct 14, 2021 Eatin Oral hygiene: 5 Toileting hygiene: 3 Shower/bathe self: 5 Upper body dressin Lower body dressin Putting on/taking off footwear: 3 OT Skilled Nursing Goals Skilled Nursing Goals Time Frame: Oct 20, 2021 Eating (QC): 6 Oral Hygiene (QC): 6 Toileting Hygiene (QC): 6 Shower/Bathe Self (QC): 5 Upper Body Dressing (QC): 5 Lower Body Dressing (QC): 5 On/Off Footwear (QC): 5 1=Demonstrate adherence to instructed precautions during ADL tasks. 2=Patient will verbalize/demonstrate understanding of assistive devices/m odifications for ADL. 3=Patient will improve strength/tolerance for activity to enable patient to perform ADL's. OT Education/Plan Problem List/Assessment Assessment: Decreased Activ Tolerance, Decreased UE Strength, Impaired Self- Care Skills Discharge Recommendations Plan/Recommendations: Continue POC Treatment Plan/Plan of Care Patient would benefit from OT for education, treatment and training to promote independence in ADL's, mobility, safety and/or upper extremity function for ADL's. Plan of Care: ADL Retraining, Functional Mobility, Group Exercise/Act as Ind, UE Funct Exercise/Act Treatment Duration: Oct 20, 2021 Frequency: 5 times per week Estimated Hrs Per Day: .25 hour per day Agreement: Yes Rehab Potential: Poor Time/GCodes Start Time: 13:05 Stop Time: 13:30 Total Time Billed (hr/min): 25 Billed Treatment Time 1 visit-ADL 2 (25 min) See note for OT/PT delineation of roles MAGDALENE SWAIN October 11, 2021 13:50
--- NOTE | 2021-10-11 13:57 | Physical Therapy Daily Note ---
PT Daily Note-Current Subjective Patient agrees to PT/OT cotreat due to procedure this a.m. and continues mild sedation/lethargy. Mental Status Patient Orientation: Normal For Age Attachments: Marie Catheter Transfers SCALE: Activities may be completed with or without assistive devices. 9-Awklddvyzj-xybnqlp completes the activity by him/herself with no assistance from a helper. 5-Set-up or Clean-up Assistance-helper sets up or cleans up; patient completes activity. [place] assists only prior to or following the activity. 4-Supervision or Touching Assistance-helper provides verbal cues and/or touching/steadying and/or contact guard assistance as patient completes activity. Assistance may be provided throughout the activity or intermittently. 3-Partial/Moderate Assistance-helper does LESS THAN HALF the effort. [place] lifts, holds or supports trunk or limbs, but provides less than half the effort. 2-Substantial/Maximal Assistance-helper does MORE THAN HALF the effort. [place] lifts or holds trunk or limbs and provides more than half the effort. 3-Znglbfmlz-zeeabi does ALL the effort. Patient does none of the effort to complete the activity. Or, the assistance of 2 or more helpers is required for the patient to complete the activity. If activity was not attempted, code reason: 7-Patient Refused. 9-Not Applicable-not attempted and the patient did not perform the activity before the current illness, exacerbation or injury. 10-Not Attempted due to Environmental Limitations-(lack of equipment, weather restraints, etc.). 88-Not Attempted due to Medical Conditions or Safety Concerns. Roll Left & Right (QC): 4 Sit to Lying (QC): 4 Lying to Sitting/Side of Bed(Q: 4 Sit to Stand (QC): 4 Toilet Transfer (QC): 4 Weight Bearing Right Lower Extremity: Right Full Weight Bearing Left Lower Extremity: Left Full Weight Bearing Gait Training Distance: 275' Walk 10 feet (QC): 4 Walk 50 ft with 2 Turns(QC): 4 Walk 150 ft (QC): 4 Gait Assistive Device: FWW steady, functional gait sequence Assessment Patient tolerated treatment well. OT assist with ADL's as PT address functional mobility. Increase activity as tolerated by patient. Patient returned to bed with needs met. PT Nursing Home Goals Nursing Home Goals PT Nursing Home Goals Time Frame: Nov 05, 2021 Roll Left & Right (QC): 6 Sit to Lying (QC): 6 Lying-Sitting on Side/Bed(QC): 6 Sit to Stand (QC): 6 Chair/Fuo-nl-Nufra Xfer(QC): 6 Toilet Transfer (QC): 6 Car Transfer (QC): 6 Does the Patient Walk: Yes Walk 10 feet (QC): 6 Walk 50ft with 2 Turns (QC): 6 Walk 150 ft (QC): 6 Walking 10ft on Uneven Surface: 6 1 Step (curb) (QC): 4 4 Steps (QC): 4 12 Steps (QC): 4 Picking up an Object (QC): 6 Wheel 50 feet with 2 turns (QC: 9 Wheel 150 feet: 9 PT Plan Treatment/Plan Treatment Plan: Continue Plan of Care Treatment Plan: Bed Mobility, Education, Functional Activity Fede, Functional Strength, Gait, Safety, Therapeutic Exercise, Transfers Treatment Duration: Nov 05, 2021 Frequency: 11 times per week Estimated Hrs Per Day: .5 hour per day Patient and/or Family Agrees t: Yes Time/GCodes Time In: 1305 Time Out: 1330 Total Billed Treatment Time: 25 Total Billed Treatment 1 visit FA x 2 25 min SALLY MCDOWELL PT October 11, 2021 13:57
[2021-10-11] MEDS: TAMSULOSIN 0.4 MG (FLOMAX) CAP PO SCH (17:43)
[2021-10-11] MEDS: GABAPENTIN 300 MG (NEURONTIN) CAP PO SCH (20:16)
[2021-10-11] MEDS: PATCH REMOVAL TP SCH (20:16)
[2021-10-12] MEDS: BACLOFEN 10 MG (LIORESAL) TAB PO SCH ×4 (00:44→17:26)
[2021-10-12] MEDS: HYDROmorphone (DILAUDID) 2 MG TAB PO SCH ×7 (00:44→20:35)
[2021-10-12] MEDS: KCL 10 MEQ TAB (MICRO K) PO SCH (05:09)
[2021-10-12] MEDS: LEVOTHYROXINE 100 MCG (LEVOTHROID) TAB PO SCH (05:09)
[2021-10-12 07:30] VITALS: BP 116/58
--- NOTE | 2021-10-12 08:38 | Diagnostic Imaging Report ---
INDICATION: Renal calculi. FINDINGS: Left double-J stent remains in good position. Calculus overlying the lower pole calyx again noted. No calculi are seen along the path of the stent. Multiple phleboliths are seen in the pelvis. IMPRESSION: No significant change has occurred when compared with previous exam. Dictated by: Dictated on workstation # [id number]
--- NOTE | 2021-10-12 08:39 | Progress Note ---
Subjective Subjective Date Seen by Provider: Oct 12, 2021 Time Seen by Provider: 08:55 Pt reports that she is feeling a little bit better today. She has a peterson catheter in place and staff is wondering if it can be removed - per Dr. Guadarrama, this can be removed if okay with this insurance underwriter sales. She is in the shower and she is standing to shower herself. Review of Systems General: No Chills, No Night Sweats; Fatigue HEENT: No Head Aches, No Dysphasia Pulmonary: No Dyspnea, No Cough Cardiovascular: No: Chest Pain, Palpitations Gastrointestinal: No: Nausea, Vomiting, Abdominal Pain, Diarrhea, Constipation, Melena Genitourinary: No Dysuria, No Hematuria; Other (peterson in place) Musculoskeletal: back pain Neurological: Weakness; No: Numbness, Confusion All Other Systems Reviewed All Other Systems Reviewed: Yes Objective Exam Vital Signs Vital Signs Date Time Temp Pulse Resp B/P (MAP) Pulse Ox O2 Delivery O2 Flow Rate FiO2 10/12/21 07:30 36.4 71 18 116/58 (77) 94 Room Air 10/11/21 23:20 36.2 77 16 113/58 (76) 93 Room Air 10/11/21 20:15 Room Air 10/11/21 20:09 95 Room Air 10/11/21 20:00 36.4 82 18 119/58 (78) 97 Room Air 10/11/21 14:29 Room Air 10/11/21 09:30 36.6 18 143/78 (99) 94 Nasal Cannula 2 10/11/21 09:30 Nasal Cannula 2 10/11/21 09:20 18 126/76 (93) 96 Nasal Cannula 2 10/11/21 09:18 Nasal Cannula 2 10/11/21 09:15 Nasal Cannula 2 10/11/21 09:13 Room Air 10/11/21 09:10 Room Air 10/11/21 09:10 18 141/76 (97) 93 Room Air 10/11/21 09:00 18 131/81 (98) 94 Room Air 10/11/21 09:00 Room Air 10/11/21 09:00 OxyMask 6 10/11/21 08:50 OxyMask 6 10/11/21 08:50 18 137/76 (96) 99 OxyMask 6 10/11/21 08:40 18 149/96 (113) 99 OxyMask 6 I & O 10/12/21 07:00 Intake Total 1790 ml Output Total 1850 ml Balance -60 ml General Appearance: No Apparent Distress, WD/WN, Obese Eyes: Bilateral Eye Normal Inspection HEENT: Pharynx Normal Respiratory: No Accessory Muscle Use, No Respiratory Distress Gastrointestinal: No Distended Back: Other (surgical site on back well approximated - no redness) Extremity: No Calf Tenderness, No Pedal Edema Neurologic/Psychiatric: Alert, Oriented x3, Normal Mood/Affect Skin: Normal Color, Warm/Dry Results Lab Microbiology 10/10/21 MRSA Screen - Final, Complete MRSA not isolated Assessment/Plan Assessment/Plan Admission Dx Posterior spinal fusion L1 - 3 and L4 - S1 Uncontrolled back pain Muscle spasms Chronic neuropathy E[place]i UTI Left sided kidney stone Left sided Hydronephrosis Hypothyroidism Leukocytosis Hypercalcemia Assessment and Plan Posterior spinal fusion L1 - 3 and L4 - S1 Uncontrolled back pain Muscle spasms Chronic neuropathy [place] UTI Left sided kidney stone Left sided Hydronephrosis Hypothyroidism Leukocytosis Hypercalcemia Diarrhea Posterior spinal fusion L1 - 3 and L4 - S1 with Uncontrolled back pain Muscle spasms - pt was receiving only PRN muscle relaxers and pain medication on rehab, will schedule the following medication in an attempt to have improved symptoms: - stopped chedule oxycodone 5mg tid, started on dilaudid 2mg qid, her notes that she seems groggy after her dilaudid, therefore we will change to dilaudid 1mg q 4 hours and monitor for improved pain control with decreased grogginess. - started on valium 2.5mg tid on 10/03/21, changed to 5mg tid valium (10/04/21) - scheduled baclofen 10mg qid - added lidoderm patches to her back on either side of surgical site - she will continue to have prn pain medication and muscle relaxers available. - pt able to ambulate today from her room down the hallway - per therapy. Left sided kidney stone with hydronephrosis. - consult to Dr. Guadarrama - he placed stent for left sided renal stone and pt is now status post lithotripsy 10/11/21 Ecoli Urinary tract infection - pt was on rocephin - last dose on 10/09/21 Chronic neuropathy - pt on gabapentin at , continue, will increase gabapentin to 200mg 0600, 200mg 1100, 200mg 1600 and 300mg at HS - if these doses are tolerated and show improved symptoms, will either increase or keep dosing the same. Hypothyroidism - home regimen restarted. Diarrhea - relistor stopped Will look into patient being discharged sunday of this week peterson removed today pt on dvt prophylaxis with lovenox and scd's gi prophylaxis with ppi Admission Dx Posterior spinal fusion L1 - 3 and L4 - S1 Uncontrolled back pain Muscle spasms Chronic neuropathy E[place]i UTI Left sided kidney stone Left sided Hydronephrosis Hypothyroidism Leukocytosis Hypercalcemia Clinical Quality Measures Admission Status Admission Dx Posterior spinal fusion L1 - 3 and L4 - S1 Uncontrolled back pain Muscle spasms Chronic neuropathy E[place]i UTI Left sided kidney stone Left sided Hydronephrosis Hypothyroidism Leukocytosis Hypercalcemia MARIA ELENA LEMUS MD Oct 12, 2021 08:39
[2021-10-12] MEDS: LIDOCAINE 4% (SALONPAS) PATCH TOP SCH (09:00)
[2021-10-12] MEDS: HYOSCYAMINE 0.125 MG (LEVSIN) TAB PO SCH ×4 (09:00→20:34)
[2021-10-12] MEDS: VITAMIN D3 25 MCG (1,000 UNITS) TABLET PO SCH (09:00)
[2021-10-12] MEDS: PANTOPRAZOLE 40 MG (PROTONIX) TAB PO SCH (09:00)
[2021-10-12] MEDS: PROPRANOLOL 20 MG (INDERAL) TABLET PO SCH (09:00)
[2021-10-12] MEDS: LACTOBACILLUS ACIDOPHILUS (PROBIOTIC) CAPSULE PO SCH ×3 (09:00→17:26)
[2021-10-12] MEDS: DIAZEPAM 5 MG (VALIUM) TABLET PO SCH ×3 (09:00→20:35)
[2021-10-12] MEDS: GABAPENTIN 100 MG (NEURONTIN) CAP PO SCH ×2 (09:00→12:56)
--- NOTE | 2021-10-12 09:07 | Physical Therapy Daily Note ---
PT Daily Note-Current Subjective Patient in bed pre tx, agrees to PT, has no complaints of pain at rest. Appearance Patient in bedside chair post tx with nurse call, phone, tray, all needs met. Mental Status Patient Orientation: Person, Place, Situation Attachments: Marie Catheter Transfers SCALE: Activities may be completed with or without assistive devices. 5-Mgdtndjbny-hflnrdj completes the activity by him/herself with no assistance from a helper. 5-Set-up or Clean-up Assistance-helper sets up or cleans up; patient completes activity. [place] assists only prior to or following the activity. 4-Supervision or Touching Assistance-helper provides verbal cues and/or touching/steadying and/or contact guard assistance as patient completes a ctivity. Assistance may be provided throughout the activity or intermittently. 3-Partial/Moderate Assistance-helper does LESS THAN HALF the effort. [place] lifts, holds or supports trunk or limbs, but provides less than half the effort. 2-Substantial/Maximal Assistance-helper does MORE THAN HALF the effort. [place] lifts or holds trunk or limbs and provides more than half the effort. 9-Vssbivjyh-ppegqh does ALL the effort. Patient does none of the effort to complete the activity. Or, the assistance of 2 or more helpers is required for the patient to complete the activity. If activity was not attempted, code reason: 7-Patient Refused. 9-Not Applicable-not attempted and the patient did not perform the activity before the current illness, exacerbation or injury. 10-Not Attempted due to Environmental Limitations-(lack of equipment, weather restraints, etc.). 88-Not Attempted due to Medical Conditions or Safety Concerns. Roll Left & Right (QC): 4 Lying to Sitting/Side of Bed(Q: 4 Sit to Stand (QC): 4 Chair/Rbd-om-Zqeor Xfer(QC): 4 SBA for supine to sit and transfers, she just needs extra time, slow to move Weight Bearing Right Lower Extremity: Right Full Weight Bearing Left Lower Extremity: Left Full Weight Bearing Gait Training Distance: 275' Walk 10 feet (QC): 4 Walk 50 ft with 2 Turns(QC): 4 Walk 150 ft (QC): 4 Gait Persons Needed: 1 Gait Assistive Device: FWW SBA, slow but steady ambulation Treatments bed mobility and transfers, ambulation Assessment Current Status: Fair Progress Improving functional mobility. Patient will be having a shower with OT right after PT. PT Prison Goals Prison Goals PT Hand Packer Goals Time Frame: Nov 05, 2021 Roll Left & Right (QC): 6 Sit to Lying (QC): 6 Lying-Sitting on Side/Bed(QC): 6 Sit to Stand (QC): 6 Chair/Tpd-bn-Wxaly Xfer(QC): 6 Toilet Transfer (QC): 6 Car Transfer (QC): 6 Does the Patient Walk: Yes Walk 10 feet (QC): 6 Walk 50ft with 2 Turns (QC): 6 Walk 150 ft (QC): 6 Walking 10ft on Uneven Surface: 6 1 Step (curb) (QC): 4 4 Steps (QC): 4 12 Steps (QC): 4 Picking up an Object (QC): 6 Wheel 50 feet with 2 turns (QC: 9 Wheel 150 feet: 9 PT Plan Problem List Problem List: Activity Tolerance, Functional Strength, Safety, Balance, Gait, Transfer, Bed Mobility, ROM Treatment/Plan Treatment Plan: Continue Plan of Care Treatment Plan: Bed Mobility, Education, Functional Activity Fede, Functional Strength, Gait, Safety, Therapeutic Exercise, Transfers Treatment Duration: Nov 05, 2021 Frequency: 11 times per week Estimated Hrs Per Day: .5 hour per day Patient and/or Family Agrees t: Yes Safety Risks/Education Patient Education: Gait Training, Transfer Techniques, Correct Positioning, Safety Issues Teaching Recipient: Patient Teaching Methods: Demonstration, Discussion Response to Teaching: Reinforcement Needed Time/GCodes Time In: 08 Time Out: 823 Total Billed Treatment Time: 18 Total Billed Treatment 1 visit GT 18' LYNNETTE NEFF PT Oct 12, 2021 09:07
--- NOTE | 2021-10-12 09:43 | Occupational Ther Daily Note ---
OT Current Status-Daily Note Subjective Pt alert, sitting in chair. Pt agrees to therapy. No c/o pain at this time. Mental Status/Objective Patient Orientation: Person, Place, Time, Situation Attachments: Marie Catheter (dc'd during session), IV ADL-Treatment Pt agrees to shower. Pt ambulated using FWW to sink to complete oral care, independently. Pt requested to try and use toilet for BM, unsuccessful. SBA for safety to transfer to toilet with BSC over to increase height. Pt given toilet tongs to use to cleanse buttocks to adhere to back precautions. Pt then transferred into shower using FWW and grabbars with SBA. Sitting on shower bench for 80% of shower then in standing to cleanse buttocks/[place] area independently using grabbars, hand held shower and LH sponge. After set up, pt able to don/doff upper body clothing by self. Using AE to adhere to back precautions, pt able to don/doff socks with min A and don/doff lower body clothing with min A. EOB to supine SBA for safety. After session, pt lying in bed with call light/phone in reach. All needs met in room. Therapy Code Descriptions/Definitions Functional [place] Measure: 0=Not Assessed/NA 4=Minimal Assistance 1=Total Assistance 5=Supervision or Setup 2=Maximal Assistance 6=Modified [place] 3=Moderate Assistance 7=Complete IndependenceSCALE: Activities may be completed with or without assistive devices. 0-Rvqspphsce-wxraqts completes the activity by him/herself with no assistance from a helper. 5-Set-up or Clean-up Assistance-helper sets up or cleans up; patient completes activity. [place] assists only prior to or following the activity. 4-Supervision or Touching Assistance-helper provides verbal cues and/or touching/steadying and/or contact guard assistance as patient completes activity. Assistance may be provided throughout the activity or intermittently. 3-Partial/Moderate Assistance-helper does LESS THAN HALF the effort. [place] lifts, holds or supports trunk or limbs, but provides less than half the effort. 2-Substantial/Maximal Assistance-helper does MORE THAN HALF the effort. [place] lifts or holds trunk or limbs and provides more than half the effort. 9-Iyidkszlg-kfonzr does ALL the effort. Patient does none of the effort to complete the activity. Or, the assistance of 2 or more helpers is required for the patient to complete the activity. If activity was not attempted, code reason: 7-Patient Refused. 9-Not Applicable-not attempted and the patient did not perform the activity before the current illness, exacerbation or injury. 10-Not Attempted due to Environmental Limitations-(lack of equipment, weather restraints, etc.). 88-Not Attempted due to Medical Conditions or Safety Concerns. Oral Hygiene (QC): 6 Shower/Bathe Self (QC): 6 Upper Body Dressing (QC): 5 Lower Body Dressing (QC): 3 (min A) On/Off Footwear: 3 (min A) Toilet Transfer (QC): 4 OT Short Term Goals Short Term Goals Time Frame: Oct 14, 2021 Eatin Oral hygiene: 5 Toileting hygiene: 3 Shower/bathe self: 5 Upper body dressin Lower body dressin Putting on/taking off footwear: 3 OT Neurosurgical Nurse Goals Neurosurgical Nurse Goals Time Frame: Oct 20, 2021 Eating (QC): 6 Oral Hygiene (QC): 6 Toileting Hygiene (QC): 6 Shower/Bathe Self (QC): 5 Upper Body Dressing (QC): 5 Lower Body Dressing (QC): 5 On/Off Footwear (QC): 5 1=Demonstrate adherence to instructed precautions during ADL tasks. 2=Patient will verbalize/demonstrate understanding of assistive devices/modifications for ADL. 3=Patient will improve strength/tolerance for activity to enable patient to perform ADL's. OT Education/Plan Problem List/Assessment Assessment: Decreased Activ Tolerance, Impaired Self-Care Skills Discharge Recommendations Plan/Recommendations: Continue POC Treatment Plan/Plan of Care Patient would benefit from OT for education, treatment and training to promote independence in ADL's, mobility, safety and/or upper extremity function for ADL's. Plan of Care: ADL Retraining, Functional Mobility, Group Exercise/Act as Ind, UE Funct Exercise/Act Treatment Duration: Oct 20, 2021 Frequency: 5 times per week Estimated Hrs Per Day: .25 hour per day Agreement: Yes Rehab Potential: Poor Time/GCodes Start Time: 08:35 Stop Time: 09:30 Total Time Billed (hr/min): 55 Billed Treatment Time 1 visit-ADL 4 (55 min) MAGDALENE SWAIN Oct 12, 2021 09:43
--- NOTE | 2021-10-12 11:20 | Physical Therapy Daily Note ---
PT Daily Note-Current Subjective Patient in bed pre tx, agrees to PT, has no complaints of pain at rest. Appearance Patient sitting EOB post tx, nurse in room to place some pain patches, etc. Mental Status Patient Orientation: Person, Place, Situation Transfers SCALE: Activities may be completed with or without assistive devices. 9-Gwktxklqwo-nhbgdef completes the activity by him/herself with no assistance from a helper. 5-Set-up or Clean-up Assistance-helper sets up or cleans up; patient completes activity. [place] assists only prior to or following the activity. 4-Supervision or Touching Assistance-helper provides verbal cues and/or touching/steadying and/or contact guard assistance as patient completes activity. Assistance may be provided throughout the activity or intermittently. 3-Partial/Moderate Assistance-helper does LESS THAN HALF the effort. [place] lifts, holds or supports trunk or limbs, but provides less than half the effort. 2-Substantial/Maximal Assistance-helper does MORE THAN HALF the effort. [place] lifts or holds trunk or limbs and provides more than half the effort. 8-Qsgscmwyd-iwjsvb does ALL the effort. Patient does none of the effort to complete the activity. Or, the assistance of 2 or more helpers is required for the patient to complete the activity. If activity was not attempted, code reason: 7-Patient Refused. 9-Not Applicable-not attempted and the patient did not perform the activity before the current illness, exacerbation or injury. 10-Not Attempted due to Environmental Limitations-(lack of equipment, weather restraints, etc.). 88-Not Attempted due to Medical Conditions or Safety Concerns. Roll Left & Right (QC): 4 Lying to Sitting/Side of Bed(Q: 4 Sit to Stand (QC): 4 Chair/Yie-hq-Ungsc Xfer(QC): 4 Weight Bearing Right Lower Extremity: Right Full Weight Bearing Left Lower Extremity: Left Full Weight Bearing Gait Training Distance: 150'x2 Walk 10 feet (QC): 4 Walk 50 ft with 2 Turns(QC): 4 Walk 150 ft (QC): 4 Gait Persons Needed: 1 Gait Assistive Device: FWW slow but steady ambulation Stair Training Stair Training: Handrails/: 2 handrails #of Steps: 4 1 Step (curb) (QC): 4 4 Steps (QC): 4 Stairs: Pattern: Step to Patient went up 4 steps using 2 handrails with CGA and cues for foot placement, very slow but no LOB. Treatments bed mobility and transfers, ambulation, stair training Assessment Current Status: Fair Progress patient has performed stairs now, needs handrails PT Jail Goals Jail Goals PT Field Operations Supervisor Goals Time Frame: Nov 05, 2021 Roll Left & Right (QC): 6 Sit to Lying (QC): 6 Lying-Sitting on Side/Bed(QC): 6 Sit to Stand (QC): 6 Chair/Mxo-sc-Efern Xfer(QC): 6 Toilet Transfer (QC): 6 Car Transfer (QC): 6 Does the Patient Walk: Yes Walk 10 feet (QC): 6 Walk 50ft with 2 Turns (QC): 6 Walk 150 ft (QC): 6 Walking 10ft on Uneven Surface: 6 1 Step (curb) (QC): 4 4 Steps (QC): 4 12 Steps (QC): 4 Picking up an Object (QC): 6 Wheel 50 feet with 2 turns (QC: 9 Wheel 150 feet: 9 PT Plan Problem List Problem List: Activity Tolerance, Functional Strength, Safety, Balance, Gait, Transfer, Bed Mobility, ROM Treatment/Plan Treatment Plan: Continue Plan of Care Treatment Plan: Bed Mobility, Education, Functional Activity Fede, Functional Strength, Gait, Safety, Therapeutic Exercise, Transfers Treatment Duration: Nov 05, 2021 Frequency: 11 times per week Estimated Hrs Per Day: .5 hour per day Patient and/or Family Agrees t: Yes Safety Risks/Education Patient Education: Gait Training, Transfer Techniques, Steps, Correct Positioning, Safety Issues Teaching Recipient: Patient Teaching Methods: Demonstration, Discussion Response to Teaching: Reinforcement Needed Time/GCodes Time In: 1112 Time Out: 1147 Total Billed Treatment Time: 35 Total Billed Treatment 1 visit FA 35' LYNNETTE NEFF PT Oct 12, 2021 11:20
[2021-10-12 14:53] VITALS: BP 116/58
[2021-10-12] MEDS: TAMSULOSIN 0.4 MG (FLOMAX) CAP PO SCH (17:26)
[2021-10-12 19:45] VITALS: BP 109/59
[2021-10-12] MEDS: GABAPENTIN 300 MG (NEURONTIN) CAP PO SCH (20:35)
[2021-10-12] MEDS: PATCH REMOVAL TP SCH (20:36)
[2021-10-13] MEDS: HYDROmorphone (DILAUDID) 2 MG TAB PO SCH ×6 (00:30→20:43)
[2021-10-13] MEDS: LEVOTHYROXINE 100 MCG (LEVOTHROID) TAB PO SCH (05:29)
[2021-10-13] MEDS: KCL 10 MEQ TAB (MICRO K) PO SCH (05:29)
[2021-10-13] MEDS: BACLOFEN 10 MG (LIORESAL) TAB PO SCH ×4 (05:29→17:46)
[2021-10-13 08:15] VITALS: BP 116/68
[2021-10-13] MEDS: VITAMIN D3 25 MCG (1,000 UNITS) TABLET PO SCH (09:19)
[2021-10-13] MEDS: PROPRANOLOL 20 MG (INDERAL) TABLET PO SCH (09:19)
[2021-10-13] MEDS: LACTOBACILLUS ACIDOPHILUS (PROBIOTIC) CAPSULE PO SCH ×3 (09:19→17:46)
[2021-10-13] MEDS: PANTOPRAZOLE 40 MG (PROTONIX) TAB PO SCH (09:19)
[2021-10-13] MEDS: DIAZEPAM 5 MG (VALIUM) TABLET PO SCH ×3 (09:19→20:44)
[2021-10-13] MEDS: HYOSCYAMINE 0.125 MG (LEVSIN) TAB PO SCH ×4 (09:20→20:42)
[2021-10-13] MEDS: GABAPENTIN 100 MG (NEURONTIN) CAP PO SCH ×2 (09:20→14:49)
[2021-10-13] MEDS: LIDOCAINE 4% (SALONPAS) PATCH TOP SCH (09:21)
--- NOTE | 2021-10-13 09:37 | Physical Therapy Daily Note ---
PT Daily Note-Current Subjective Patient agrees to PT. Pain Numeric Pain Scale: 5-Moderate Pain Location: Medial, Lower Location Body Site: Back Pain Description: Ache Mental Status Patient Orientation: Normal For Age Transfers SCALE: Activities may be completed with or without assistive devices. 8-Xestvqzujr-plrjblo completes the activity by him/herself with no assistance from a helper. 5-Set-up or Clean-up Assistance-helper sets up or cleans up; patient completes activity. [place] assists only prior to or following the activity. 4-Supervision or Touching Assistance-helper provides verbal cues and/or touching/steadying and/or contact guard assistance as patient completes activity. Assistance may be provided throughout the activity or intermittently. 3-Partial/Moderate Assistance-helper does LESS THAN HALF the effort. [place] lifts, holds or supports trunk or limbs, but provides less than half the effort. 2-Substantial/Maximal Assistance-helper does MORE THAN HALF the effort. [place] lifts or holds trunk or limbs and provides more than half the effort. 6-Jpxgbfowl-bnfdaz does ALL the effort. Patient does none of the effort to complete the activity. Or, the assistance of 2 or more helpers is required for the patient to complete the activity. If activity was not attempted, code reason: 7-Patient Refused. 9-Not Applicable-not attempted and the patient did not perform the activity before the current illness, exacerbation or injury. 10-Not Attempted due to Environmental Limitations-(lack of equipment, weather restraints, etc.). 88-Not Attempted due to Medical Conditions or Safety Concerns. Roll Left & Right (QC): 6 Sit to Lying (QC): 6 Lying to Sitting/Side of Bed(Q: 6 Sit to Stand (QC): 4 Chair/Gjm-yl-Cgevy Xfer(QC): 4 Toilet Transfer (QC): 4 Weight Bearing Right Lower Extremity: Right Full Weight Bearing Left Lower Extremity: Left Full Weight Bearing Gait Training Distance: 500' Walk 10 feet (QC): 4 Walk 50 ft with 2 Turns(QC): 4 Walk 150 ft (QC): 4 Gait Assistive Device: FWW very slow, steady gait sequence with extended UE's with FWW use with VC's to correct Assessment Patient requires time to complete all functional tasks. Patient able to toilet independently on this date. PT instructed patient and spouse to ambulate PRN in hallway. PT Cap [employer] Hat Production Supervisor Goals [employer] Hat Production Supervisor Goals PT [facility]sp Goals Time Frame: Nov 05, 2021 Roll Left & Right (QC): 6 Sit to Lying (QC): 6 Lying-Sitting on Side/Bed(QC): 6 Sit to Stand (QC): 6 Chair/Iuw-iq-Tbcib Xfer(QC): 6 Toilet Transfer (QC): 6 Car Transfer (QC): 6 Does the Patient Walk: Yes Walk 10 feet (QC): 6 Walk 50ft with 2 Turns (QC): 6 Walk 150 ft (QC): 6 Walking 10ft on Uneven Surface: 6 1 Step (curb) (QC): 4 4 Steps (QC): 4 12 Steps (QC): 4 Picking up an Object (QC): 6 Wheel 50 feet with 2 turns (QC: 9 Wheel 150 feet: 9 PT Plan Treatment/Plan Treatment Plan: Continue Plan of Care Treatment Plan: Bed Mobility, Education, Functional Activity Fede, Functional Strength, Gait, Safety, Therapeutic Exercise, Transfers Treatment Duration: Nov 05, 2021 Frequency: 11 times per week Estimated Hrs Per Day: .5 hour per day Patient and/or Family Agrees t: Yes Time/GCodes Time In: 837 Time Out: 908 Total Billed Treatment Time: 31 Total Billed Treatment 1 visit FA x 2 31 min SALLY MCDOWELL PT Oct 13, 2021 09:37
[2021-10-13 09:39] LABS: HEMATOCRIT 36 % (35-52); HEMOGLOBIN 11.6 g/dL (11.5-16.0); MEAN CORPUSCULAR HEMOGLOBIN 31 pg (25-34); MEAN CORPUSCULAR HGB CONC 32 g/dL (32-36); MEAN CORPUSCULAR VOLUME 98 fL (80-99); MEAN PLATELET VOLUME 11.1 fL (9.0-12.2); PLATELET COUNT 361 10^3/uL (130-400); WHITE BLOOD COUNT 9.7 10^3/uL (4.3-11.0)
--- NOTE | 2021-10-13 09:50 | Progress Note - Urology ---
Progress Note-Urology Progress Notes/Assess & Plan Progress/Assessment & Plan CONTINUES BETTER. HOME TOMORROW AND OFFICE IN ONE WEEK WITH KUB PRIOR TO IT TO DECIDE ON DC STENT Final Diagnosis LT RENAL STONE MICHAEL GUILLEN MD Oct 13, 2021 09:50
[2021-10-13 09:51] LABS: ALBUMIN 3.4 GM/DL (3.2-4.5); POTASSIUM 4.2 MMOL/L (3.6-5.0)
[2021-10-13 09:53] LABS: CALCIUM 10.5 MG/DL (8.5-10.1)
[2021-10-13 09:54] LABS: TOTAL PROTEIN 6.4 GM/DL (6.4-8.2)
[2021-10-13 09:55] LABS: BILIRUBIN,TOTAL 0.5 MG/DL (0.1-1.0)
[2021-10-13 09:57] LABS: CREATININE SERUM 0.73 MG/DL (0.60-1.30)
--- NOTE | 2021-10-13 11:05 | Occupational Ther Daily Note ---
OT Current Status-Daily Note Subjective Pt alert, lying in bed. Pt has increased pain today and more fatigued than yesterdays treatment. Pt agrees to therapy. Mental Status/Objective Patient Orientation: Person, Place, Time, Situation Attachments: IV ADL-Treatment Pt agrees to shower. Pt ambulated using FWW to sink to complete oral care, independently. SBA for safety to transfer to toilet with BSC over to increase height. . Pt then transferred into shower using FWW and grabbars with SBA. Sitting on shower bench for 80% of shower then in standing to cleanse buttocks/jose juan area independently using grabbars, hand held shower and LH sponge. After set up, pt able to don/doff upper body clothing by self. Using AE to adhere to back precautions, pt able to don/doff lower body clothing with mod A due to fatigue and dizziness. BP 94/64, reported to nrsg. EOB to supine SBA for safety. After session, pt lying in bed with call light/phone in reach. All needs met in room. Therapy Code Descriptions/Definitions Functional [place] Measure: 0=Not Assessed/NA 4=Minimal Assistance 1=Total Assistance 5=Supervision or Setup 2=Maximal Assistance 6=Modified [place] 3=Moderate Assistance 7=Complete IndependenceSCALE: Activities may be completed with or without assistive devices. 6-Brpxdeavli-uzbevmk completes the activity by him/herself with no assistance from a helper. 5-Set-up or Clean-up Assistance-helper sets up or cleans up; patient completes activity. [place] assists only prior to or following the activity. 4-Supervision or Touching Assistance-helper provides verbal cues and/or touching/steadying and/or contact guard assistance as patient completes activity. Assistance may be provided throughout the activity or intermittently. 3-Partial/Moderate Assistance-helper does LESS THAN HALF the effort. [place] lifts, holds or supports trunk or limbs, but provides less than half the effort. 2-Substantial/Maximal Assistance-helper does MORE THAN HALF the effort. [place] lifts or holds trunk or limbs and provides more than half the effort. 5-Fsyrkmuyu-bwtgsy does ALL the effort. Patient does none of the effort to complete the activity. Or, the assistance of 2 or more helpers is required for the patient to complete the activity. If activity was not attempted, code reason: 7-Patient Refused. 9-Not Applicable-not attempted and the patient did not perform the activity before the current illness, exacerbation or injury. 10-Not Attempted due to Environmental Limitations-(lack of equipment, weather restraints, etc.). 88-Not Attempted due to Medical Conditions or Safety Concerns. Eating (QC): 6 (clinical judgment) Oral Hygiene (QC): 6 Shower/Bathe Self (QC): 6 Upper Body Dressing (QC): 5 Lower Body Dressing (QC): 3 (mod A) On/Off Footwear: 2 OT Short Term Goals Short Term Goals Time Frame: Oct 14, 2021 Eatin Oral hygiene: 5 Toileting hygiene: 3 Shower/bathe self: 5 Upper body dressin Lower body dressin Putting on/taking off footwear: 3 OT Cord Cutter Goals Cord Cutter Goals Time Frame: Oct 20, 2021 Eating (QC): 6 Oral Hygiene (QC): 6 Toileting Hygiene (QC): 6 Shower/Bathe Self (QC): 5 Upper Body Dressing (QC): 5 Lower Body Dressing (QC): 5 On/Off Footwear (QC): 5 1=Demonstrate adherence to instructed precautions during ADL tasks. 2=Patient will verbalize/demonstrate understanding of assistive devices/modifications for ADL. 3=Patient will improve strength/tolerance for activity to enable patient to perform ADL's. OT Education/Plan Problem List/Assessment Assessment: Decreased Activ Tolerance, Impaired Self-Care Skills Discharge Recommendations Plan/Recommendations: Continue POC Treatment Plan/Plan of Care Patient would benefit from OT for education, treatment and training to promote independence in ADL's, mobility, safety and/or upper extremity function for ADL's. Plan of Care: ADL Retraining, Functional Mobility, Group Exercise/Act as Ind, UE Funct Exercise/Act Treatment Duration: Oct 20, 2021 Frequency: 5 times per week Estimated Hrs Per Day: .25 hour per day Agreement: Yes Rehab Potential: Poor Time/GCodes Start Time: 09:20 Stop Time: 10:21 Total Time Billed (hr/min): 61 Billed Treatment Time 1 visit-ADL 4 (61 min) MAGDALENE SWAIN Oct 13, 2021 11:05
--- NOTE | 2021-10-13 14:13 | Physical Therapy Daily Note ---
PT Daily Note-Current Subjective Patient reports the pain pill hasn't "hit" yet. Agrees to PT. Mental Status Patient Orientation: Normal For Age Transfers SCALE: Activities may be completed with or without assistive devices. 9-Fdawnnerto-cpeijlg completes the activity by him/herself with no assistance from a helper. 5-Set-up or Clean-up Assistance-helper sets up or cleans up; patient completes activity. [place] assists only prior to or following the activity. 4-Supervision or Touching Assistance-helper provides verbal cues and/or touching/steadying and/or contact guard assistance as patient completes activity. Assistance may be provided throughout the activity or intermittently. 3-Partial/Moderate Assistance-helper does LESS THAN HALF the effort. [place] lifts, holds or supports trunk or limbs, but provides less than half the effort. 2-Substantial/Maximal Assistance-helper does MORE THAN HALF the effort. [place] lifts or holds trunk or limbs and provides more than half the effort. 2-Wkwmvdohr-jgfyoj does ALL the effort. Patient does none of the effort to complete the activity. Or, the assistance of 2 or more helpers is required for the patient to complete the activity. If activity was not attempted, code reason: 7-Patient Refused. 9-Not Applicable-not attempted and the patient did not perform the activity before the current illness, exacerbation or injury. 10-Not Attempted due to Environmental Limitations-(lack of equipment, weather restraints, etc.). 88-Not Attempted due to Medical Conditions or Safety Concerns. Roll Left & Right (QC): 6 Sit to Lying (QC): 6 Lying to Sitting/Side of Bed(Q: 6 Sit to Stand (QC): 4 Toilet Transfer (QC): 4 Weight Bearing Right Lower Extremity: Right Full Weight Bearing Left Lower Extremity: Left Full Weight Bearing Gait Training Distance: 400' Walk 10 feet (QC): 4 Walk 50 ft with 2 Turns(QC): 4 Walk 150 ft (QC): 4 Gait Assistive Device: FWW very slow, steady gait sequence with VC's for body placement in FWW Exercises Seated Therapy Exercises: Ankle pumps, Long arc quads Seated Reps: 12 Assessment Patient tolerated treatment well and requested toilet use with call light cord in hand. Patient much improved with all gross motor skills. Continues to require much time to complete functional tasks. PT Group Home Goals Group Home Goals PT Group Home Goals Time Frame: Nov 05, 2021 Roll Left & Right (QC): 6 Sit to Lying (QC): 6 Lying-Sitting on Side/Bed(QC): 6 Sit to Stand (QC): 6 Chair/Uov-bj-Ziapi Xfer(QC): 6 Toilet Transfer (QC): 6 Car Transfer (QC): 6 Does the Patient Walk: Yes Walk 10 feet (QC): 6 Walk 50ft with 2 Turns (QC): 6 Walk 150 ft (QC): 6 Walking 10ft on Uneven Surface: 6 1 Step (curb) (QC): 4 4 Steps (QC): 4 12 Steps (QC): 4 Picking up an Object (QC): 6 Wheel 50 feet with 2 turns (QC: 9 Wheel 150 feet: 9 PT Plan Treatment/Plan Treatment Plan: Continue Plan of Care Treatment Plan: Bed Mobility, Education, Functional Activity Efde, Functional Strength, Gait, Safety, Therapeutic Exercise, Transfers Treatment Duration: Nov 05, 2021 Frequency: 11 times per week Estimated Hrs Per Day: .5 hour per day Patient and/or Family Agrees t: Yes Time/GCodes Time In: 1306 Time Out: 1330 Total Billed Treatment Time: 24 Total Billed Treatment 1 visit FA x 2 24 min SALLY MCDOWELL PT Oct 13, 2021 14:13
[2021-10-13] MEDS: TAMSULOSIN 0.4 MG (FLOMAX) CAP PO SCH (17:46)
--- NOTE | 2021-10-13 19:04 | Progress Note ---
Subjective Subjective Date Seen by Provider: Oct 13, 2021 Time Seen by Provider: 19:00 PT REPORTS THAT SHE HAD A FAIRLY GOOD DAY TODAY, THEN THIS EVENING SHE STARTED TO HAVE SEVERE BACK SPASMS. SHE REPORTS THAT SHE THINKS SHE MAY HAVE TAKEN THINGS A LITTLE TOO FAR TODAY WHICH CAUSED THE SPASMS. SHE REPORTS THAT SHE WAS LOOKING FORWARD TO GOING HOME TOMORROW, BUT IS NOT SURE IF SHE WILL BE ABLE TO MANAGE GOING HOME IN THE STATE SHE IS IN CURRENTLY. Review of Systems General: No Chills, No Night Sweats; Fatigue HEENT: No Head Aches, No Dysphasia Pulmonary: No Dyspnea, No Cough Cardiovascular: No: Chest Pain, Palpitations Gastrointestinal: No: Nausea, Vomiting, Abdominal Pain, Diarrhea, Constipation, Melena Genitourinary: No Dysuria, No Hematuria; Other (peterson in place) Musculoskeletal: back pain (MUSCLE SPASMS OF BACK) Neurological: Weakness; No: Numbness, Confusion All Other Systems Reviewed All Other Systems Reviewed: Yes Objective Exam Vital Signs Vital Signs Date Time Temp Pulse Resp B/P (MAP) Pulse Ox O2 Delivery O2 Flow Rate FiO2 10/13/21 09:34 96 Room Air 0.00 10/13/21 09:00 96 Room Air 0.00 10/13/21 08:15 36.4 76 18 116/68 (84) 95 Room Air 10/12/21 20:09 Room Air 10/12/21 19:45 36.2 70 18 109/59 (76) 97 Room Air I & O 10/13/21 07:00 Intake Total 1460 ml Output Total 950 ml Balance 510 ml General Appearance: WD/WN, Mild Distress (DUE TO PAIN), Obese Eyes: Bilateral Eye Normal Inspection HEENT: Pharynx Normal Respiratory: Chest Non Tender, Lungs Clear, Normal Breath Sounds, No Accessory Muscle Use, No Respiratory Distress Cardiovascular: Regular Rate, Rhythm Gastrointestinal: No Distended Extremity: No Calf Tenderness, No Pedal Edema Neurologic/Psychiatric: Alert, Oriented x3, Normal Mood/Affect Skin: Normal Color, Warm/Dry, Other (SURGICAL SITE ON BACK WITHOUT ERYTHEMA, WARMTH) Results Lab Laboratory Tests 10/13/21 09:30: White Blood Count 9.7, Red Blood Count 3.69L, Hemoglobin 11.6, Hematocrit 36, Mean Corpuscular Volume 98, Mean Corpuscular Hemoglobin 31, Mean Corpuscular Hemoglobin Concent 32, Red Cell Distribution Width 14.9H, Platelet Count 361, Mean Platelet Volume 11.1, Sodium Level 141, Potassium Level 4.2, Chloride Level 104, Carbon Dioxide Level 26, Anion Gap 11, Blood Urea Nitrogen 20H, Creatinine 0.73, Estimat Glomerular Filtration Rate 88, BUN/Creatinine Ratio 27, Glucose Level 126H, Calcium Level 10.5H, Corrected Calcium 11.0H, Total Bilirubin 0.5, Aspartate Amino Transf (AST/SGOT) 21, Alanine Aminotransferase (ALT/SGPT) 19, Alkaline Phosphatase 137H, Total Protein 6.4, Albumin 3.4 Microbiology 10/10/21 MRSA Screen - Final, Complete MRSA not isolated Assessment/Plan Assessment/Plan Admission Dx Posterior spinal fusion L1 - 3 and L4 - S1 Uncontrolled back pain Muscle spasms Chronic neuropathy EColi UTI Left sided kidney stone Left sided Hydronephrosis Hypothyroidism Leukocytosis Hypercalcemia Assessment and Plan Posterior spinal fusion L1 - 3 and L4 - S1 Uncontrolled back pain Muscle spasms Chronic neuropathy [place] UTI Left sided kidney stone Left sided Hydronephrosis Hypothyroidism Leukocytosis Hypercalcemia Diarrhea Posterior spinal fusion L1 - 3 and L4 - S1 with Uncontrolled back pain Muscle spasms - pt was receiving only PRN muscle relaxers and pain medication on rehab, will schedule the following medication in an attempt to have improved symptoms: - stopped chedule oxycodone 5mg tid, started on dilaudid 2mg qid, her notes that she seems groggy after her dilaudid, therefore we will change to dilaudid 1mg q 4 hours and monitor for improved pain control with decreased grogginess. - started on valium 2.5mg tid on 10/03/21, changed to 5mg tid valium (10/04/21) - scheduled baclofen 10mg qid - added lidoderm patches to her back on either side of surgical site - she will continue to have prn pain medication and muscle relaxers availa ble. - pt with uncontrolled spasms tonight - additional one time dose of valium tonight for acute muscle spasms of back since the valium has been the most helpful medication. Left sided kidney stone with hydronephrosis. - consult to Dr. Guadarrama - he placed stent for left sided renal stone and pt is now status post lithotripsy 10/11/21 - peterson has been removed. Ecoli Urinary tract infection - pt was on rocephin - last dose on 10/09/21 Chronic neuropathy - pt on gabapentin at hs, continue, will increase gabapentin to 200mg 0600, 200mg 1100, 200mg 1600 and 300mg at HS - if these doses are tolerated and show improved symptoms, will either increase or keep dosing the same. Hypothyroidism - home regimen restarted. Diarrhea - relistor stopped Will look into patient being discharged sunday of this week pt on dvt prophylaxis with lovenox and scd's gi prophylaxis with ppi Admission Dx Posterior spinal fusion L1 - 3 and L4 - S1 Uncontrolled back pain Muscle spasms Chronic neuropathy [place] UTI Left sided kidney stone Left sided Hydronephrosis Hypothyroidism Leukocytosis Hypercalcemia Clinical Quality Measures Admission Status Admission Dx Posterior spinal fusion L1 - 3 and L4 - S1 Uncontrolled back pain Muscle spasms Chronic neuropathy [place] UTI Left sided kidney stone Left sided Hydronephrosis Hypothyroidism Leukocytosis Hypercalcemia MARIA ELENA LEMUS MD Oct 13, 2021 19:04
[2021-10-13] MEDS ORDERED: DIAZEPAM 5 MG (VALIUM) TABLET PO ONE (19:15)
[2021-10-13] MEDS ORDERED: NS IV 500 ML 500 ML IV ONE (19:30)
[2021-10-13] MEDS ORDERED: NS IV 500 ML 500 ML ONE (19:38)
[2021-10-13 20:00] VITALS: BP 106/70
[2021-10-13 20:28] VITALS: BP 104/71
[2021-10-13] MEDS: PATCH REMOVAL TP SCH (20:44)
[2021-10-13] MEDS: GABAPENTIN 300 MG (NEURONTIN) CAP PO SCH (20:44)
[2021-10-14] MEDS: HYDROmorphone (DILAUDID) 2 MG TAB PO SCH ×6 (00:08→20:54)
[2021-10-14] MEDS: BACLOFEN 10 MG (LIORESAL) TAB PO SCH ×4 (00:08→17:12)
[2021-10-14] MEDS: KCL 10 MEQ TAB (MICRO K) PO SCH (05:27)
[2021-10-14] MEDS: LEVOTHYROXINE 100 MCG (LEVOTHROID) TAB PO SCH (05:27)
[2021-10-14 07:34] VITALS: BP 125/76
[2021-10-14] MEDS: LACTOBACILLUS ACIDOPHILUS (PROBIOTIC) CAPSULE PO SCH ×3 (08:17→17:13)
[2021-10-14] MEDS: LIDOCAINE 4% (SALONPAS) PATCH TOP SCH (08:17)
[2021-10-14] MEDS: GABAPENTIN 100 MG (NEURONTIN) CAP PO SCH ×3 (08:17→20:55)
[2021-10-14] MEDS: PANTOPRAZOLE 40 MG (PROTONIX) TAB PO SCH (08:18)
[2021-10-14] MEDS: VITAMIN D3 25 MCG (1,000 UNITS) TABLET PO SCH (08:18)
[2021-10-14] MEDS: DIAZEPAM 5 MG (VALIUM) TABLET PO SCH ×3 (08:18→20:54)
[2021-10-14] MEDS: PROPRANOLOL 20 MG (INDERAL) TABLET PO SCH (08:18)
[2021-10-14] MEDS: HYOSCYAMINE 0.125 MG (LEVSIN) TAB PO SCH (08:18)
[2021-10-14] MEDS ORDERED: KETOROLAC 60 MG/2 ML VIAL IM ONE (12:45)
--- NOTE | 2021-10-14 12:45 | Progress Note ---
Subjective Subjective Date Seen by Provider: Oct 14, 2021 Time Seen by Provider: 11:00 PT REPORTS THAT SHE IS HAVING A LOT OF PAIN IN HER BACK FROM SPASMING. SHE REPORTS THAT SHE THINKS SHE MAY HAVE OVERDONE IT AND IS NOW GROGGY AT TIMES BUT HAVING SEVERE SPASMS. Review of Systems General: No Chills, No Night Sweats; Fatigue HEENT: No Head Aches, No Dysphasia Pulmonary: No Dyspnea, No Cough Cardiovascular: No: Chest Pain, Palpitations Gastrointestinal: No: Nausea, Vomiting, Abdominal Pain, Diarrhea, Constipation, Melena Genitourinary: No Dysuria, No Hematuria; Other (peterson in place) Musculoskeletal: back pain (MUSCLE SPASMS OF BACK) Neurological: Weakness; No: Numbness, Confusion All Other Systems Reviewed All Other Systems Reviewed: Yes Objective Exam Vital Signs Vital Signs Date Time Temp Pulse Resp B/P (MAP) Pulse Ox O2 Delivery O2 Flow Rate FiO2 10/14/21 08:48 93 Room Air 0.00 10/14/21 07:35 93 Room Air 0.00 10/14/21 07:34 36.5 61 18 125/76 (92) 95 Room Air 10/13/21 21:00 Room Air 10/13/21 20:28 104/71 (82) 10/13/21 20:00 36.8 67 22 106/70 (82) 96 Room Air I & O 10/14/21 07:00 Intake Total 1740 ml Balance 1740 ml General Appearance: WD/WN, Mild Distress (DUE TO PAIN), Obese Eyes: Bilateral Eye Normal Inspection HEENT: Pharynx Normal Respiratory: Chest Non Tender, Lungs Clear, Normal Breath Sounds, No Accessory Muscle Use, No Respiratory Distress Cardiovascular: Regular Rate, Rhythm Gastrointestinal: No Distended Extremity: No Calf Tenderness, No Pedal Edema Neurologic/Psychiatric: Alert, Oriented x3, Normal Mood/Affect Skin: Normal Color, Warm/Dry, Other (SURGICAL SITE ON BACK WITHOUT ERYTHEMA, WARMTH) Results Lab Laboratory Tests 10/14/21 05:55: Microbiology 10/10/21 MRSA Screen - Final, Complete MRSA not isolated Assessment/Plan Assessment/Plan Admission Dx Posterior spinal fusion L1 - 3 and L4 - S1 Uncontrolled back pain Muscle spasms Chronic neuropathy [place] UTI Left sided kidney stone Left sided Hydronephrosis Hypothyroidism Leukocytosis Hypercalcemia Assessment and Plan Posterior spinal fusion L1 - 3 and L4 - S1 Uncontrolled back pain Muscle spasms Chronic neuropathy [place] UTI Left sided kidney stone Left sided Hydronephrosis Hypothyroidism Leukocytosis Hypercalcemia Diarrhea Posterior spinal fusion L1 - 3 and L4 - S1 with Uncontrolled back pain Muscle spasms - pt was receiving only PRN muscle relaxers and pain medication on rehab, will schedule the following medication in an attempt to have improved symptoms: - stopped chedule oxycodone 5mg tid, started on dilaudid 2mg qid, her notes that she seems groggy after her dilaudid, therefore we will change to dilaudid 1mg q 4 hours and monitor for improved pain control with decreased grogginess. - started on valium 2.5mg tid on 10/03/21, changed to 5mg tid valium (10/04/21) - scheduled baclofen 10mg qid - added lidoderm patches to her back on either side of surgical site - she will continue to have prn pain medication and muscle relaxers available. - pt with uncontrolled spasms tonight - additional one time dose of valium tonight for acute muscle spasms of back since the valium has been the most helpful medication. Left sided kidney stone with hydronephrosis. - consult to Dr. Guadarrama - he placed stent for left sided renal stone and pt is now status post lithotripsy 10/11/21 - peterson has been removed. Ecoli Urinary tract infection - pt was on rocephin - last dose on 10/09/21 Chronic neuropathy - pt on gabapentin at hs, continue, will DECREASE gabapentin to 100mg 0600, 100mg 1600 and 200mg at HS. - THIS IS DECREASED OF 10/14/21 Hypothyroidism - home regimen restarted. pt on dvt prophylaxis with lovenox and scd's gi prophylaxis with ppi Admission Dx Posterior spinal fusion L1 - 3 and L4 - S1 Uncontrolled back pain Muscle spasms Chronic neuropathy [place] UTI Left sided kidney stone Left sided Hydronephrosis Hypothyroidism Leukocytosis Hypercalcemia Clinical Quality Measures Admission Status Admission Dx Posterior spinal fusion L1 - 3 and L4 - S1 Uncontrolled back pain Muscle spasms Chronic neuropathy [place] UTI Left sided kidney stone Left sided Hydronephrosis Hypothyroidism Leukocytosis Hypercalcemia MARIA ELENA LEMUS MD Oct 14, 2021 12:45
[2021-10-14] MEDS ORDERED: KETOROLAC 30 MG/ML VIAL ONE (13:02)
--- NOTE | 2021-10-14 13:31 | Occ Therapy Progress Note ---
Therapy Progress Note Per pt's and physician's note, pt has been having increased back spasms and pain. Pt's has requested that [facility] would not work with pt today because of the increased pain and spasms, stating that the doctor also did not want pt to work with therapy today. 1-refusal [id number] MAGDALENE SWAIN Oct 14, 2021 13:31
--- NOTE | 2021-10-14 14:54 | Physical Therapy Progress Note ---
Therapy Progress Note Attempted to see patient for treatment x 2. Once before and after lunch. Per pt's and physician's note, pt has been having increased back spasms and pain. Pt's has requested that therapy not work with pt today because of the increased pain and spasms. Will attempt treatment again tomorrow if patient able to tolerate. CM HOU PT Oct 14, 2021 14:54
[2021-10-14] MEDS ORDERED: GABAPENTIN 100 MG (NEURONTIN) CAP PO SCH (16:00)
[2021-10-14] MEDS: KETOROLAC 30 MG/ML VIAL IVP SCH (17:12)
[2021-10-14] MEDS: TAMSULOSIN 0.4 MG (FLOMAX) CAP PO SCH (17:12)
[2021-10-14 19:46] VITALS: BP 100/69
[2021-10-14] MEDS: PATCH REMOVAL TP SCH (20:57)
[2021-10-15] MEDS: BACLOFEN 10 MG (LIORESAL) TAB PO SCH ×4 (00:27→17:42)
[2021-10-15] MEDS: KETOROLAC 30 MG/ML VIAL IVP SCH ×4 (00:27→17:41)
[2021-10-15] MEDS: HYDROmorphone (DILAUDID) 2 MG TAB PO SCH ×6 (00:57→19:56)
[2021-10-15 01:52] VITALS: BP 125/76
[2021-10-15] MEDS: LEVOTHYROXINE 100 MCG (LEVOTHROID) TAB PO SCH (05:51)
[2021-10-15] MEDS: GABAPENTIN 100 MG (NEURONTIN) CAP PO SCH ×3 (05:51→21:03)
[2021-10-15] MEDS: KCL 10 MEQ TAB (MICRO K) PO SCH (05:52)
[2021-10-15 07:18] VITALS: BP 119/68
[2021-10-15] MEDS: PROPRANOLOL 20 MG (INDERAL) TABLET PO SCH (08:43)
[2021-10-15] MEDS: LACTOBACILLUS ACIDOPHILUS (PROBIOTIC) CAPSULE PO SCH ×3 (08:44→17:41)
[2021-10-15] MEDS: PANTOPRAZOLE 40 MG (PROTONIX) TAB PO SCH (08:44)
[2021-10-15] MEDS: LIDOCAINE 4% (SALONPAS) PATCH TOP SCH (08:44)
[2021-10-15] MEDS: VITAMIN D3 25 MCG (1,000 UNITS) TABLET PO SCH (08:44)
[2021-10-15] MEDS: DIAZEPAM 5 MG (VALIUM) TABLET PO SCH ×3 (08:44→22:04)
--- NOTE | 2021-10-15 10:34 | Physical Therapy Daily Note ---
PT Daily Note-Current Subjective Patient sitting on edge of bed with MOLDED GOODS OPERATOR in the room upon PT arrival. Patient agreeable to treatment and rates pain at 0/10 currently. Reports she does not remember much, if anything from yesterday. Mental Status Patient Orientation: Person, Place, Situation Transfers SCALE: Activities may be completed with or without assistive devices. 8-Evwvmiwzup-pedpfxd completes the activity by him/herself with no assistance from a helper. 5-Set-up or Clean-up Assistance-helper sets up or cleans up; patient completes activity. [place] assists only prior to or following the activity. 4-Supervision or Touching Assistance-helper provides verbal cues and/or touching/steadying and/or contact guard assistance as patient completes activity. Assistance may be provided throughout the activity or intermittently. 3-Partial/Moderate Assistance-helper does LESS THAN HALF the effort. [place] lifts, holds or supports trunk or limbs, but provides less than half the effort. 2-Substantial/Maximal Assistance-helper does MORE THAN HALF the effort. [place] lifts or holds trunk or limbs and provides more than half the effort. 6-Wcoblzqkd-rmkopu does ALL the effort. Patient does none of the effort to complete the activity. Or, the assistance of 2 or more helpers is required for the patient to complete the activity. If activity was not attempted, code reason: 7-Patient Refused. 9-Not Applicable-not attempted and the patient did not perform the activity before the current illness, exacerbation or injury. 10-Not Attempted due to Environmental Limitations-(lack of equipment, weather restraints, etc.). 88-Not Attempted due to Medical Conditions or Safety Concerns. Sit to Stand (QC): 4 Chair/Msg-sh-Odoqf Xfer(QC): 4 Weight Bearing Right Lower Extremity: Right Full Weight Bearing Left Lower Extremity: Left Full Weight Bearing Gait Training Does the Patient Walk?: Yes Distance: 300 Walk 10 feet (QC): 4 Walk 50 ft with 2 Turns(QC): 4 Walk 150 ft (QC): 4 Gait Persons Needed: 1 Gait Assistive Device: FWW Assessment Current Status: Fair Progress Patient much more alert and able to participate with therapy today. Per MOLDED GOODS OPERATOR, patient required only SBA for bed mobility and was sitting on the edge of the bed upon PT arrival. Patient performs all transfers with SBA due to grogginess and unsteadiness initially upon standing. Patient ambulates 300 feet with FWW, with SBA and verbal cues for safety, progression, posture, and distance to the FWW. Patient in chair post treatment with all needs met, nursing notified, call light in reach. PT Cycle Manager Goals Cycle Manager Goals PT Snf Goals Time Frame: Nov 05, 2021 Roll Left & Right (QC): 6 Sit to Lying (QC): 6 Lying-Sitting on Side/Bed(QC): 6 Sit to Stand (QC): 6 Chair/Nxg-ds-Kddzm Xfer(QC): 6 Toilet Transfer (QC): 6 Car Transfer (QC): 6 Does the Patient Walk: Yes Walk 10 feet (QC): 6 Walk 50ft with 2 Turns (QC): 6 Walk 150 ft (QC): 6 Walking 10ft on Uneven Surface: 6 1 Step (curb) (QC): 4 4 Steps (QC): 4 12 Steps (QC): 4 Picking up an Object (QC): 6 Wheel 50 feet with 2 turns (QC: 9 Wheel 150 feet: 9 PT Plan Treatment/Plan Treatment Plan: Continue Plan of Care Treatment Plan: Bed Mobility, Education, Functional Activity Fede, Functional Strength, Gait, Safety, Therapeutic Exercise, Transfers Treatment Duration: Nov 05, 2021 Frequency: 11 times per week Estimated Hrs Per Day: .5 hour per day Patient and/or Family Agrees t: Yes Safety Risks/Education Patient Education: Gait Training Teaching Recipient: Patient Teaching Methods: Demonstration, Discussion Response to Teaching: Verbalize Understanding, Return Demonstration Time/GCodes Time In: 1000 Time Out: 1015 Total Billed Treatment Time: 15 Total Billed Treatment Visit, Gait CM HOU PT Oct 15, 2021 10:34
[2021-10-15] MEDS: TAMSULOSIN 0.4 MG (FLOMAX) CAP PO SCH (17:42)
[2021-10-15 20:18] VITALS: BP 100/63
[2021-10-15] MEDS: PATCH REMOVAL TP SCH (21:16)
[2021-10-16] MEDS: KETOROLAC 30 MG/ML VIAL IVP SCH ×3 (00:38→12:20)
[2021-10-16] MEDS: BACLOFEN 10 MG (LIORESAL) TAB PO SCH ×5 (00:38→23:25)
[2021-10-16] MEDS: HYDROmorphone (DILAUDID) 2 MG TAB PO SCH ×6 (01:41→21:30)
[2021-10-16] MEDS: GABAPENTIN 100 MG (NEURONTIN) CAP PO SCH ×3 (06:40→20:32)
[2021-10-16] MEDS: LEVOTHYROXINE 100 MCG (LEVOTHROID) TAB PO SCH (06:40)
[2021-10-16] MEDS: KCL 10 MEQ TAB (MICRO K) PO SCH (06:41)
[2021-10-16 07:13] VITALS: BP 133/85
[2021-10-16] MEDS: PANTOPRAZOLE 40 MG (PROTONIX) TAB PO SCH (09:48)
[2021-10-16] MEDS: VITAMIN D3 25 MCG (1,000 UNITS) TABLET PO SCH (09:48)
[2021-10-16] MEDS: LACTOBACILLUS ACIDOPHILUS (PROBIOTIC) CAPSULE PO SCH ×3 (09:48→17:36)
[2021-10-16] MEDS: PROPRANOLOL 20 MG (INDERAL) TABLET PO SCH (09:48)
[2021-10-16] MEDS: DIAZEPAM 5 MG (VALIUM) TABLET PO SCH ×3 (09:48→20:41)
[2021-10-16] MEDS: LIDOCAINE 4% (SALONPAS) PATCH TOP SCH (09:48)
[2021-10-16] MEDS: TAMSULOSIN 0.4 MG (FLOMAX) CAP PO SCH (17:36)
[2021-10-16 19:43] VITALS: BP 111/59
[2021-10-16] MEDS: PATCH REMOVAL TP SCH (20:43)
--- NOTE | 2021-10-16 21:40 | Diagnostic Imaging Report ---
INDICATION: Abdominal pain. Lung bases are clear. Gallbladder is surgically absent. There is left double-J ureteral stent. Patient has had extensive lumbar spine surgery. There is interruption of the dorsal rods, bilaterally, at L3-L4. There is a large amount of stool in the colon. Bowel gas pattern is unremarkable. IMPRESSION: Postsurgical changes. Fecal stasis. Dictated by: Dictated on workstation # [id number]
[2021-10-17] MEDS: HYDROmorphone (DILAUDID) 2 MG TAB PO SCH ×3 (01:02→08:31)
[2021-10-17] MEDS: KCL 10 MEQ TAB (MICRO K) PO SCH (06:47)
[2021-10-17] MEDS: LEVOTHYROXINE 100 MCG (LEVOTHROID) TAB PO SCH (06:47)
[2021-10-17] MEDS: GABAPENTIN 100 MG (NEURONTIN) CAP PO SCH (06:47)
[2021-10-17] MEDS: BACLOFEN 10 MG (LIORESAL) TAB PO SCH ×2 (06:47→13:30)
[2021-10-17 08:05] VITALS: BP 148/92
[2021-10-17] MEDS: PANTOPRAZOLE 40 MG (PROTONIX) TAB PO SCH (08:28)
[2021-10-17] MEDS: LACTOBACILLUS ACIDOPHILUS (PROBIOTIC) CAPSULE PO SCH ×2 (08:28→13:30)
[2021-10-17] MEDS: VITAMIN D3 25 MCG (1,000 UNITS) TABLET PO SCH (08:29)
[2021-10-17] MEDS: PROPRANOLOL 20 MG (INDERAL) TABLET PO SCH (08:29)
[2021-10-17] MEDS: DIAZEPAM 5 MG (VALIUM) TABLET PO SCH ×2 (08:29→13:30)
[2021-10-17] MEDS: LIDOCAINE 4% (SALONPAS) PATCH TOP SCH (09:11)
--- NOTE | 2021-10-17 09:12 | Progress Note ---
Subjective Review of Systems General: No Chills, No Night Sweats; Fatigue HEENT: No Head Aches, No Dysphasia Pulmonary: No Dyspnea, No Cough Cardiovascular: No: Chest Pain, Palpitations Gastrointestinal: No: Nausea, Vomiting, Abdominal Pain, Diarrhea, Constipation, Melena Genitourinary: No Dysuria, No Hematuria; Other (peterson in place) Musculoskeletal: back pain (MUSCLE SPASMS OF BACK) Neurological: Weakness; No: Numbness, Confusion All Other Systems Reviewed All Other Systems Reviewed: Yes Objective Exam Vital Signs Vital Signs Date Time Temp Pulse Resp B/P (MAP) Pulse Ox O2 Delivery O2 Flow Rate FiO2 10/17/21 08:05 36.3 74 18 148/92 (110) 96 Room Air 10/17/21 04:49 37.0 10/16/21 21:00 97 Room Air 10/16/21 19:43 37.0 71 18 111/59 (76) 94 Room Air I & O 10/17/21 07:00 Intake Total 1960 ml Balance 1960 ml General Appearance: WD/WN, Mild Distress (DUE TO PAIN), Obese Eyes: Bilateral Eye Normal Inspection HEENT: Pharynx Normal Respiratory: Chest Non Tender, Lungs Clear, Normal Breath Sounds, No Accessory Muscle Use, No Respiratory Distress Cardiovascular: Regular Rate, Rhythm Gastrointestinal: No Distended Extremity: No Calf Tenderness, No Pedal Edema Neurologic/Psychiatric: Alert, Oriented x3, Normal Mood/Affect Skin: Normal Color, Warm/Dry, Other (SURGICAL SITE ON BACK WITHOUT ERYTHEMA, WARMTH) Results Lab Microbiology 10/10/21 MRSA Screen - Final, Complete MRSA not isolated Assessment/Plan Assessment/Plan Admission Dx Posterior spinal fusion L1 - 3 and L4 - S1 Uncontrolled back pain Muscle spasms Chronic neuropathy EColi UTI Left sided kidney stone Left sided Hydronephrosis Hypothyroidism Leukocytosis Hypercalcemia Assessment and Plan Posterior spinal fusion L1 - 3 and L4 - S1 Uncontrolled back pain Muscle spasms Chronic neuropathy EColi UTI Left sided kidney stone Left sided Hydronephrosis Hypothyroidism Leukocytosis Hypercalcemia Diarrhea Posterior spinal fusion L1 - 3 and L4 - S1 with Uncontrolled back pain Muscle spasms - pt was receiving only PRN muscle relaxers and pain medication on rehab, will schedule the following medication in an attempt to have improved symptoms: - stopped chedule oxycodone 5mg tid, started on dilaudid 2mg qid, her notes that she seems groggy after her dilaudid, therefore we will change to dilaudid 1mg q 4 hours and monitor for improved pain control with decreased grogginess. - started on valium 2.5mg tid on 10/03/21, changed to 5mg tid valium (10/04/21) - scheduled baclofen 10mg qid - added lidoderm patches to her back on either side of surgical site - she will continue to have prn pain medication and muscle relaxers available. - pt with uncontrolled spasms tonight - additional one time dose of valium tonight for acute muscle spasms of back since the valium has been the most helpful medication. Left sided kidney stone with hydronephrosis. - consult to Dr. Guadarrama - he placed stent for left sided renal stone and pt is now status post lithotripsy 10/11/21 - peterson has been removed. Ecoli Urinary tract infection - pt was on rocephin - last dose on 10/09/21 Chronic neuropathy - pt on gabapentin at hs, continue, will DECREASE gabapentin to 100mg 0600, 100mg 1600 and 200mg at HS. - THIS IS DECREASED OF 10/14/21 Hypothyroidism - home regimen restarted. pt on dvt prophylaxis with lovenox and scd's gi prophylaxis with ppi Admission Dx Posterior spinal fusion L1 - 3 and L4 - S1 Uncontrolled back pain Muscle spasms Chronic neuropathy EColi UTI Left sided kidney stone Left sided Hydronephrosis Hypothyroidism Leukocytosis Hypercalcemia Clinical Quality Measures Admission Status Admission Dx Posterior spinal fusion L1 - 3 and L4 - S1 Uncontrolled back pain Muscle spasms Chronic neuropathy EColi UTI Left sided kidney stone Left sided Hydronephrosis Hypothyroidism Leukocytosis Hypercalcemia MARIA ELENA LEMUS MD Oct 17, 2021 09:12
[2021-10-17] MEDS ORDERED: METHYLNALTREXONE 12 MG/0.6 ML (RELISTOR) VIAL SQ SCH (09:30)
--- NOTE | 2021-10-17 09:34 | Discharge Summary ---
Diagnosis/Chief Complaint Date of Admission October 06, 2021 at 09:15 Date of Discharge Reason Hospital Visit PT WAS ADMITTED TO THE HOSPITAL AFTER A STAY ON INPATIENT REHAB FOR POST-OP LUMBAR SPINE FUSION SURGERY WITH UNCONTROLLED PAIN AND WEAKNESS. PT FAILED INPATIENT REHAB AND WAS SENT TO [address] GARCIA FROM INPATIENT REHAB DUE TO HER UNCONTROLLED PAIN. PT WAS FOUND TO HAVE A LEFT RENAL STONE, LEUKOCYTOSIS, URINARY TRACT INFECTION AND UNCONTROLLED PAIN AND MUSCLE SPASMS OF HER BACK. SHE WAS THEREFORE ADMITTED TO THE INPATIENT UNIT AND THIS ADMISSION WAS A TRANSITION TO SWING BED FOR CONTINUED PAIN CONTROL, IV ANTIBIOTICS AND THERAPY Discharge Summary Discharge Physical Examination Allergies: Coded Allergies: NKANo Known Allergies (Unverified Allergy, Unknown, 08/08/06) Vitals & I&Os Vital Signs Date Time Temp Pulse Resp B/P (MAP) Pulse Ox O2 Delivery O2 Flow Rate FiO2 10/17/21 08:05 36.3 74 18 148/92 (110) 96 Room Air 10/16/21 08:16 0.00 10/15/21 01:52 21 Discharge Instructions to patient/family Please see electronic discharge instructions given to patient. Discharge Medications Reviewed and agree with Discharge Medication list on patient's Discharge Instruction sheet MARIA ELENA LEMUS MD Oct 17, 2021 09:34
[2021-10-17] MEDS ORDERED: BACL10TA PO (09:39)
[2021-10-17] MEDS ORDERED: DIAZ5TAB49 PO (09:39)
[2021-10-17] MEDS ORDERED: POLY17PO54 PO (09:39)
[2021-10-17] MEDS ORDERED: HYDR2TAB6 PO (09:39)
[2021-10-17] MEDS ORDERED: TMSL.4C PO (09:39)
[2021-10-17] MEDS ORDERED: Lidocaine 4% Patch TOP (09:39)
[2021-10-17] MEDS ORDERED: GABA-486 PO (09:39)
[2021-10-17] MEDS ORDERED: DOCU100C37 PO (09:39)
--- NOTE | 2021-10-17 09:42 | D/C HH Face to Face Order ---
D/C Face to Face Orders Reconcile Patient Problems Problems Reviewed?: Yes Instructions for Patient home health of pt choice Patient Instructions/FollowUp: [facility] wk anna garcia appt for spine surgeon follow up Physician to follow Patient: rain Discharge Diet for Home: Regular Diet Patient Problems: post op lumbar fusion, back pain, weakness, constipation, muscle spasms of back, hypertension Patient Data-Allergies,Ht & Wt Patient Allergies: Coded Allergies: NKANo Known Allergies (Unverified Allergy, Unknown, 08/08/06) Height (Feet): 5 Height (Inches): 8.00 Weight (Pounds): 220 Weight (Ounces): 6.4 Home Health Need/Face to Face Date of Face to Face: Oct 17, 2021 Clinical Findings: Generalized weakness and fatigue, Instability, Muscle weakness, Pain with ambulation I have seen Pt nrpw-zi-adiw: Yes Discharged To: Home Diagnosis/Conditions: post op lumbar fusion, back pain, weakness, constipation, muscle spasms of back, hypertension Patient is Homebound due to: Muscle weakness, Shortness of breath/distress Homebound Status Due to the above stated illness, injury or surgical procedure (medical condition or diagnosis) and associated clinical findings, the patient is homebound because of his/her inability to leave home except with aid of a supportive device and/or person AND leaving the home requires a considerable and taxing effort or is medically contraindicated. Pt req the following assistanc: [facility] Nursing Orders Home Health Services Order: Nursing Services, Card Room Manager-Evaluate & Treat, Physical Therapy-Evaluate & Treat monitor bp - call if systolic greater than 170 Therapy Orders Therapy Orders: Physical Therapy, PT to assess for OT Therapy Specific Orders: Eval assistive deivces, Teach enviro modifications/safety, Increase strength/endurance Certify Stmt I certify that this patient is under my care and that I, a nurse practitioner or a physician; a quality assistant working with me, had a face to face encounter that - meets the physician face to face encounter requirements with this patient as dated. MARIA ELENA LEMUS MD Oct 17, 2021 09:42
--- NOTE | 2021-10-17 09:57 | Physical Therapy Daily Note ---
PT Daily Note-Current Subjective Patient reports she is going home after 5 today. Pain Numeric Pain Scale: 5-Moderate Pain Location: Medial, Lower Location Body Site: Back Pain Description: Chronic Mental Status Patient Orientation: Normal For Age Transfers SCALE: Activities may be completed with or without assistive devices. 9-Ztswaylqhu-oikxowz completes the activity by him/herself with no assistance from a helper. 5-Set-up or Clean-up Assistance-helper sets up or cleans up; patient completes activity. Warren assists only prior to or following the activity. 4-Supervision or Touching Assistance-helper provides verbal cues and/or touching/steadying and/or contact guard assistance as patient completes activity. Assistance may be provided throughout the activity or intermittently. 3-Partial/Moderate Assistance-helper does LESS THAN HALF the effort. Warren lifts, holds or supports trunk or limbs, but provides less than half the effort. 2-Substantial/Maximal Assistance-helper does MORE THAN HALF the effort. Warren lifts or holds trunk or limbs and provides more than half the effort. 9-Sndszlzct-rpceay does ALL the effort. Patient does none of the effort to complete the activity. Or, the assistance of 2 or more helpers is required for the patient to complete the activity. If activity was not attempted, code reason: 7-Patient Refused. 9-Not Applicable-not attempted and the patient did not perform the activity before the current illness, exacerbation or injury. 10-Not Attempted due to Environmental Limitations-(lack of equipment, weather restraints, etc.). 88-Not Attempted due to Medical Conditions or Safety Concerns. Roll Left & Right (QC): 6 Sit to Lying (QC): 6 Lying to Sitting/Side of Bed(Q: 6 Sit to Stand (QC): 4 Chair/Dzl-gt-Jmbzz Xfer(QC): 4 Toilet Transfer (QC): 4 Car Transfer (QC): 4 Weight Bearing Right Lower Extremity: Right Full Weight Bearing Left Lower Extremity: Left Full Weight Bearing Gait Training Does the Patient Walk?: Yes Distance: 300' Walk 10 feet (QC): 4 Walk 50 ft with 2 Turns(QC): 4 Walk 150 ft (QC): 4 Walking 10ft/uneven surface-QC: 4 Gait Assistive Device: FWW very slow, steady, flexed knee posture Wheelchair Training Does the Pt Use a Wheelchair?: No Stair Training Stair Training: Handrails/: 2 handrails #of Steps: 4 1 Step (curb) (QC): 4 4 Steps (QC): 4 12 Steps (QC): 88 Stairs: Pattern: Step to Balance Picking up an Object (QC): 6 (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 Patient requires time to complete all functional tasks. Patient performed ambulation 300' FWW SBA with very slow, steady gait sequence. VC's for body placement in FWW due to extended UE's. Patient is independent with bed mobility and SBA with transfers. Education with spouse on assisting patient PRN with use of gait belt. Spouse demonstrates good knowledge and technique with this task. Goals have been address and some attained. PT Checkroom Chief Goals Checkroom Chief Goals PT Retirement Goals Time Frame: Nov 05, 2021 Roll Left & Right (QC): 6 (met 10/17/21) Sit to Lying (QC): 6 (met 10/17/21) Lying-Sitting on Side/Bed(QC): 6 (met 10/17/21) Sit to Stand (QC): 6 Chair/Bpb-wq-Loics Xfer(QC): 6 Toilet Transfer (QC): 6 Car Transfer (QC): 6 Does the Patient Walk: Yes Walk 10 feet (QC): 6 Walk 50ft with 2 Turns (QC): 6 Walk 150 ft (QC): 6 Walking 10ft on Uneven Surface: 6 1 Step (curb) (QC): 4 (met 10/17/21) 4 Steps (QC): 4 (met 10/17/21) 12 Steps (QC): 4 Picking up an Object (QC): 6 (met 10/17/21) Wheel 50 feet with 2 turns (QC: 9 Wheel 150 feet: 9 PT Plan Treatment/Plan Treatment Plan: Discontinue PT Treatment Plan: Bed Mobility, Education, Functional Activity Fede, Functional Strength, Gait, Safety, Therapeutic Exercise, Transfers Treatment Duration: Nov 05, 2021 Frequency: 11 times per week Estimated Hrs Per Day: .5 hour per day Patient and/or Family Agrees t: Yes Time/GCodes Time In: 918 Time Out: 933 Total Billed Treatment Time: 15 Total Billed Treatment 1 visit FA 15 min JEREMIAS,SALLY PT Oct 17, 2021 09:57
--- NOTE | 2021-10-17 10:00 | Therapy Team Discharge Summary ---
Therapy Discharge Summary Discharge Recommendations Date of Discharge Physical Therapy Patient is SBA with all OOB functional mobility. Patient requires time to complete all functional tasks. Patient performed ambulation 300' FWW SBA with very slow, steady gait sequence. VC's for body placement in FWW due to extended UE's. Patient is independent with bed mobility and SBA with transfers. Education with spouse on assisting patient PRN with use of gait belt. Spouse demonstrates good knowledge and technique with this task. Goals have been address and some attained. Roll Left to Right (QC): 6 Sit to Lying (QC): 6 Lying to Sitting/Side of Bed(Q: 6 Sit to Stand (QC): 4 Chair/Tje-nm-Xjonh Xfer(QC): 4 Toilet Transfer (QC): 4 Car Transfer (QC): 4 Does the Patient Walk: Yes Mode of Locomotion: Walk Anticipated Mode of Locomotion: Walk Walk 10 feet (QC): 4 Walk 50 ft with 2 Turns(QC): 4 Walk 150 ft (QC): 4 Walking 10ft on uneven surface: 4 Distance: 300' Gait Assistive Device: FWW Does the Pt Use a Wheelchair: No Wheel 50 ft with 2 turns (QC): 9 Wheel 150 ft (QC): 9 Type of Wheelchair: N/A #of Steps: 4 1 Step (curb) (QC): 4 4 Steps (QC): 4 12 Steps (QC): 88 Balance Sitting Static: Normal Balance Sitting Dynamic: Normal Balance-Standing Static: Fair Picking up an Object (QC): 6 (sap bw developer) Occupational Therapy Decreased Activ Tolerance, Impaired Self-Care Skills Eating (QC): 6 (clinical judgment) Oral Hygiene (QC): 6 Shower/Bathe Self (QC): 6 Upper Body Dressing (QC): 5 Lower Body Dressing (QC): 3 (mod A) On/Off Footwear (QC): 2 Toileting Hygiene (QC): 2 PT Halfway Goals Halfway Goals PT Halfway Goals Time Frame: Nov 05, 2021 Roll Left to Right (QC): 6 (met 10/17/21) Sit to Lying (QC): 6 (met 10/17/21) Lying-Sitting on Side/Bed(QC): 6 (met 10/17/21) Sit to Stand (QC): 6 Chair/Zdv-uv-Lglen Xfer(QC): 6 Car Transfer (QC): 6 Does the Patient Walk: Yes Walk 10 feet (QC): 6 Walk 10ft-Uneven Surface(QC): 6 Walk 50ft with 2 Turns (QC): 6 Walk 150 ft (QC): 6 Wheel 50 feet with 2 turns (QC: 9 1 Step (curb) (QC): 4 (met 10/17/21) 4 Steps (QC): 4 (met 10/17/21) 12 Steps (QC): 4 Picking up an Object (QC): 6 (met 10/17/21) OT Bone Drier Operator Goals Bone Drier Operator Goals Time Frame: Oct 20, 2021 Eating (QC): 6 Oral Hygiene (QC): 6 Shower/Bathe Self (QC): 5 Upper Body Dressing (QC): 5 Lower Body Dressing (QC): 5 On/Off Footwear (QC): 5 Toileting Hygiene (QC): 6 Toilet/Commode Transfer (QC): 6 1=Demonstrate adherence to instructed precautions during ADL tasks. 2=Patient will verbalize/demonstrate understanding of assistive devices/modifications for ADL. 3=Patient will improve strength/tolerance for activity to enable patient to perform ADL's. SLALY MCDOWELL PT Oct 17, 2021 10:00
[2021-10-17] MEDS ORDERED: HYDROmorphone (DILAUDID) 2 MG TAB PO SCH (12:30)
--- NOTE | 2021-10-17 14:02 | Therapy Team Discharge Summary ---
Therapy Discharge Summary Discharge Recommendations Date of Discharge Therapy D/C Recommendations: Home w/ Family Support, Occupational Therapy Home Care Physical Therapy Roll Left to Right (QC): 6 Sit to Lying (QC): 6 Lying to Sitting/Side of Bed(Q: 6 Sit to Stand (QC): 4 Chair/Ieq-km-Whdhn Xfer(QC): 4 Toilet Transfer (QC): 4 Car Transfer (QC): 4 Does the Patient Walk: Yes Mode of Locomotion: Walk Anticipated Mode of Locomotion: Walk Walk 10 feet (QC): 4 Walk 50 ft with 2 Turns(QC): 4 Walk 150 ft (QC): 4 Walking 10ft on uneven surface: 4 Distance: 300' Gait Assistive Device: FWW Does the Pt Use a Wheelchair: No Wheel 50 ft with 2 turns (QC): 9 Wheel 150 ft (QC): 9 Type of Wheelchair: N/A #of Steps: 4 1 Step (curb) (QC): 4 4 Steps (QC): 4 12 Steps (QC): 88 Balance Sitting Static: Normal Balance Sitting Dynamic: Normal Balance-Standing Static: Fair Picking up an Object (QC): 6 (anesthesia technician) Occupational Therapy Pt admitted to Swing bed status for continued pain control, IV antibiotics, and therapy. At time of admission, pt was dependent for toileting and footwear, max a for lower body dressing, CGA for toileting, set up for upper body dressing and indep with eating. During her stay, OT focused on safety, balance, adherence to spinal precautions, AE, compensatory strategies, endurance, and pain management in order to improve performance and safety in adls and functional transfers. Pt met all goals except lower body dressing and footwear secondary to refusal to use AE. Pt states that her spouse will complete these for her post discharge. See below for current levels of assist. Pt is now discharged from this facility and will be discharged from OT at this time. Decreased Activ Tolerance, Impaired Self-Care Skills Eating (QC): 6 (clinical judgment) Oral Hygiene (QC): 6 Shower/Bathe Self (QC): 6 Upper Body Dressing (QC): 5 Lower Body Dressing (QC): 3 (mod A) On/Off Footwear (QC): 2 Toileting Hygiene (QC): 6 (with toilet tongs) PT Loop Tender Goals Residential Goals PT Loop Tender Goals Time Frame: Nov 05, 2021 Roll Left to Right (QC): 6 (met 10/17/21) Sit to Lying (QC): 6 (met 10/17/21) Lying-Sitting on Side/Bed(QC): 6 (met 10/17/21) Sit to Stand (QC): 6 Chair/Uma-cg-Tuoet Xfer(QC): 6 Car Transfer (QC): 6 Does the Patient Walk: Yes Walk 10 feet (QC): 6 Walk 10ft-Uneven Surface(QC): 6 Walk 50ft with 2 Turns (QC): 6 Walk 150 ft (QC): 6 Wheel 50 feet with 2 turns (QC: 9 1 Step (curb) (QC): 4 (met 10/17/21) 4 Steps (QC): 4 (met 10/17/21) 12 Steps (QC): 4 Picking up an Object (QC): 6 (met 10/17/21) OT Loop Tender Goals Residential Goals Time Frame: Oct 20, 2021 Eating (QC): 6 (met) Oral Hygiene (QC): 6 (met) Shower/Bathe Self (QC): 5 (met) Upper Body Dressing (QC): 5 (met) Lower Body Dressing (QC): 5 (not met) On/Off Footwear (QC): 5 (not met) Toileting Hygiene (QC): 6 (met) Toilet/Commode Transfer (QC): 6 (met) 1=Demonstrate adherence to instructed precautions during ADL tasks. 2=Patient will verbalize/demonstrate understanding of assistive devices/modifications for ADL. 3=Patient will improve strength/tolerance for activity to enable patient to perform ADL's. Jenni Padilla OT Oct 17, 2021 14:02
[2021-10-17 17:51] VITALS: BP 148/92
== END 2021-10-17 17:52 | disposition home health service (06) | DRG 948 ==
LOC: 4TH 09:15
PROVIDERS: ADMIT Family Medicine; ATTEND Family Medicine
PROC: 0TF4XZZ Fragmentation in Left Kidney Pelvis, External Approach (ICD-10-PCS; principal; 2021-10-11 07:49)
DX: G89.18 Other acute postprocedural pain (principal); N13.6 Pyonephrosis; Z47.89 Encounter for other orthopedic aftercare; M62.830 Muscle spasm of back; B96.20 Unspecified Escherichia coli [E. coli] as the cause of diseases classified elsewhere; G62.89 Other specified polyneuropathies; I10 Essential (primary) hypertension; M19.91 Primary osteoarthritis, unspecified site; E03.9 Hypothyroidism, unspecified; F41.9 Anxiety disorder, unspecified; E83.52 Hypercalcemia; Z20.822 Contact with and (suspected) exposure to COVID-19; Z82.49 Family history of ischemic heart disease and other diseases of the circulatory system
CPT/HCPCS: 36415; 74018; 80053; 83735; 83970; 85027; 87081; 87636; 94760

== ENCOUNTER → 2021-10-24 | Outpatient (CLI) | payer MEDICARE ==
[~2021-10-24] MED LIST changes: -ACETAMINOPHEN 325 MG TABLET PO PRN; -BISACODYL 10 MG SUPP (DULCOLAX) PR PRN; -CALCIUM CARBONATE 500 MG (TUMS) TAB.CHEW PO PRN; +DIAZ5TAB49 PO; +DOCU100C37 PO; -FLEET ENEMA ADULT 1 EA BTL PR PRN; +GABA-486 PO; +HYDR2TAB6 PO; -HYDROmorphone 2 MG/ML VIAL (DILAUDID) IV PRN; -LACTATED RINGERS 1,000 ML IV PRN; -LOPERAMIDE 2 MG (IMODIUM) TABLET PO PRN; +Lidocaine 4% Patch TOP; -MELATONIN 3 MG TABLET PO PRN; -MILK OF MAGNESIA 400 MG/5 ML 30 ML UDC PO PRN; -ONDANSETRON 4 MG (ZOFRAN) ORAL DISSOLVE TAB PO PRN; -ONDANSETRON 4 MG/2 ML (SDV) Z0FRAN IVP PRN; +POLY17PO54 PO; -RT-ALBUTEROL SULF 2.5 MG/3 ML PRE-MIX VIAL INH PRN; -SALIVA STIMULANT MOUTH SPRAY (BIOTENE) 1.5 OZ MM PRN; +TMSL.4C PO; -diphenhydrAMINE 50 MG/ML INJ (BENADRYL) IVP PRN; -guaiFENesin/CODEINE (ROBITUSSIN AC) 10ML UDC PO PRN
--- NOTE | 2021-10-24 17:08 | Diagnostic Imaging Report ---
EXAMINATION: Abdomen 1 view HISTORY: Left renal stone COMPARISON: 10/16/2021 FINDINGS: Left-sided nephroureteral stent is present. There are unchanged calcifications projecting over the lower pole of the left kidney measuring up to 10 mL. There is a stone near the pigtail in the left renal pelvis measuring 5 mm. Multiple phleboliths are present in the pelvis. There is a 3 mm calcification projecting over the right kidney. IMPRESSION: 1. Left-sided nephroureteral stent with unchanged calcifications projecting over the left kidney. Dictated by: Dictated on workstation # [id number]
== END ==
LOC: RAD 13:29
PROVIDERS: ATTEND Urology
DX: N20.0 Calculus of kidney (principal); Z96.0 Presence of urogenital implants
CPT/HCPCS: 74018

== ENCOUNTER → 2021-10-31 | Outpatient (CLI) | payer MEDICARE ==
--- NOTE | 2021-10-31 13:59 | Diagnostic Imaging Report ---
INDICATION: Status post ESWL. Follow-up stent placement. COMPARISON: 10/24/2021 FINDINGS: Single frontal radiographic view of the abdomen was obtained and demonstrates indwelling left-sided double-J ureteral stent. Multiple extraosseous calcifications are again seen projecting over the lower pole of the left renal shadow and superior pole of the right renal shadow. Multiple pelvic phleboliths are also present. No unexpected radiopaque foreign bodies are seen. Small bowel loops are nondistended. There is no large collection of free intraperitoneal air. IMPRESSION: 1. Indwelling double-J ureteral stent 2. Bilateral nephrolithiasis. Dictated by: Dictated on workstation # [id number]
== END ==
LOC: RAD 12:41
PROVIDERS: ATTEND Urology
DX: N20.0 Calculus of kidney (principal); Z96.0 Presence of urogenital implants
CPT/HCPCS: 74018

== ENCOUNTER → 2021-11-02 | Outpatient (CLI) | payer MEDICARE ==
[~2021-11-02] MED LIST changes: +KETO10TA PO; +LEVO100T PO; +MV-M1TAB20 PO; +NITR-65 PO
== END | disposition home or self-care (01) ==
LOC: PREOP 05:29
PROVIDERS: ATTEND Urology
DX: Z01.818 Encounter for other preprocedural examination (principal)

== ENCOUNTER 2021-11-08 06:08 | Day surgery (SDC) | payer MEDICARE ==
[2021-11-08] VITALS (10 sets, daily range): BP systolic 103–145; BP diastolic 61–86
[~2021-11-08] VITALS: Ht 172.7 cm; Wt 100.0 kg
[~2021-11-08 06:08] MED LIST changes: -KETO10TA PO; -NITR-65 PO
[2021-11-08] MEDS ORDERED: cefTRIAXone 1 GM PRE-MIX 50 ML IV ONE (06:30)
[2021-11-08] MEDS: LACTATED RINGERS 1,000 ML IV PRN ×2 (06:35→07:30)
[2021-11-08] MEDS ORDERED: FUROSEMIDE 40 MG/4 ML INJ (LASIX) ONE (07:02)
[2021-11-08] MEDS ORDERED: ONDANSETRON 4 MG/2 ML (SDV) Z0FRAN ONE (07:02)
[2021-11-08] MEDS ORDERED: KETOROLAC 30 MG/ML VIAL ONE (07:02)
[2021-11-08] MEDS ORDERED: proPOfol 200 MG/20 ML (DIPRIVAN) VIAL IV ONE (07:02)
[2021-11-08] MEDS ORDERED: LIDOCAINE PF 2% 5 ML (XYLOCAINE) VIAL ONE (07:02)
[2021-11-08] MEDS ORDERED: fentaNYL INJ 100 MCG/2 ML AMP ONE (07:04)
[2021-11-08] MEDS ORDERED: MIDAZOLAM 2 MG/2 ML (VERSED) VIAL ONE (07:06)
--- NOTE | 2021-11-08 07:16 | Progress Note-Pre Operative ---
Pre-Operative Progress Note H&P Reviewed The H&P was reviewed, patient examined and no changes noted. Date Seen by Provider: Nov 08, 2021 Time Seen by Provider: 07:16 Date H&P Reviewed: Nov 08, 2021 Time H&P Reviewed: 07:16 Pre-Operative Diagnosis: LT RENAL STONES MICHAEL GUILLEN MD Nov 08, 2021 07:16
--- NOTE | 2021-11-08 07:39 | Progress Note-Post Operative ---
Post-Operative Progess Note Surgeon (s)/Smooth And Burr Worker Composites (s) Surgeon MICHAEL GUILLEN MD Smooth And Burr Worker Composites: NONE Pre-Operative Diagnosis LT RENAL STONES Post-Operative Diagnosis SAME Procedure & Operative Findings Date of Procedure 11/08/21 Procedure Performed/Findings LT ESWL, CYSTO AND REMOVAL OF LT STENT Anesthesia Type GENERAL Estimated Blood Loss Estimated blood loss (mL): NONE Specimens/Packing Specimens Removed NONE TO PATH Packing: NONE MICHAEL GUILLEN MD Nov 08, 2021 07:39
--- NOTE | 2021-11-08 07:40 | Discharge Inst-Urology ---
Discharge Inst-Urology Reconcile Patient Problems Problems Reviewed?: Yes Final Diagnosis LT RENAL STONES Patient Instructions/Follow Up Plan/Assessment/Instructions Please make appointment to been seen in office in 2 weeks. KUB prior to it Post ESWL instructions KUB on way home Increase oral fluids for 48 hours and then as needed. Diet and Activity as tolerated. If questions or concerns contact your physician Or seek help at emergency department. MICHAEL GUILLEN MD Nov 08, 2021 07:40
[2021-11-08] MEDS ORDERED: SEVOFLURANE (ULTANE) 15 ML INHAL SOLN ONE (07:51)
--- NOTE | 2021-11-08 08:09 | Diagnostic Imaging Report ---
INDICATION: Lithotripsy, renal stones COMPARISON: 10/31/2021 TECHNIQUE: Single radiograph of the abdomen dated 11/08/2021. FINDINGS: Left-sided ureteral stent is again identified, appearing similar to the prior examination. Postsurgical changes within the lumbosacral spine are again identified. Innumerable calcifications overlying the pelvis bilaterally are again identified, not significantly changed from the prior examination. Additional calcifications are seen overlying the inferior pole of the left kidney, appearing slightly less prominent than the prior examination. Nonobstructive bowel gas pattern. Scattered osseous degenerative changes without acute osseous abnormality. IMPRESSION: Left ureteral stent remains in place and similar to the prior examination. Calcifications overlying the inferior pole of the left renal shadow are slightly less prominent than the prior examination, favored to relate to renal calculi. Innumerable calcifications overlying the pelvis are again identified and not significantly changed. Additional postsurgical and chronic findings as above. Dictated by: Dictated on workstation # [id number]
[2021-11-08] MEDS ORDERED: TMSL.4C PO ×2 (08:19)
[2021-11-08] MEDS ORDERED: NITR-65 PO ×2 (08:19)
[2021-11-08] MEDS ORDERED: KETO10TA PO ×2 (08:19)
--- NOTE | 2021-11-08 10:00 | Diagnostic Imaging Report ---
INDICATION: Post lithotripsy. Comparison with 11/08/2021. FINDINGS: The double-J ureteral stent on the left has been removed. No calculi are seen overlying the renal shadows or along the ureteral path. There are multiple phleboliths noted in the pelvis. IMPRESSION: Removal of double-J stent on the left with no calculi seen. Dictated by: Dictated on workstation # [id number]
--- NOTE | 2021-11-08 10:15 | OPERATIVE REPORT ---
DATE OF SERVICE: 11/08/2021 PREOPERATIVE DIAGNOSIS: Left renal stones. POSTOPERATIVE DIAGNOSIS: Left renal stones. OPERATION PERFORMED: Left ESWL with cystoscopy and removal of left ureteral stent. SURGEON: Raimundo Guillen MD ANESTHESIA: General. COMPLICATIONS: None. DESCRIPTION OF PROCEDURE: With the patient supine on the ESWL table, we localized the stone fragments and delivered shocks at kV of 6, total of 2500 shocks, we could not see any more fragments. Before that we put the patient in the frog position, genitalia were prepped and draped in the usual sterile fashion. Flexible cystoscope was introduced in the bladder. The distal end of the left ureteral stent was visualized. It was grasped with grasping forceps and removed in total. We will resume the supine position to finish up the procedure. The patient received 30 mg of Toradol and 40 mg of Lasix at the end of the procedure. She tolerated the procedure and anesthesia well and was sent to recovery room in stable condition. CC: Dr. Bonilla - requested, unable to deliver. Job ID: [id number] DocumentID: [id number] Dictated Date: 11/08/2021 07:53:54 Data Assistant Date: 11/08/2021 10:14:07 Dictated By: RAIMUNDO GUILLEN MD
--- NOTE | 2021-11-08 10:16 | Anesthesia-General Post-Op ---
General Patient Condition Mental Status/LOC: Same as Preop Cardiovascular: Satisfactory Nausea/Vomiting: Absent Respiratory: Satisfactory Pain: Controlled Complications: Absent Post Op Complications Complications None Follow Up Care/Instructions Patient Instructions None needed. Anesthesia/Patient Condition Patient Condition Patient is doing well, no complaints, stable vital signs, no apparent adverse anesthesia problems. No complications reported per nursing. ALINE QUINTERO CRNA Nov 08, 2021 10:16
== END 2021-11-08 10:00 | disposition home or self-care (01) ==
LOC: SDC 06:08
PROVIDERS: ATTEND Urology
DX: N20.0 Calculus of kidney (principal); E66.9 Obesity, unspecified; Z68.33 Body mass index [BMI] 33.0-33.9, adult
CPT/HCPCS: 74018; 87081

== ENCOUNTER 2021-11-09 09:58 | Outpatient (RCR) | payer MEDICARE ==
[~2021-11-09 09:58] MED LIST changes: +KETO10TA PO; +NITR-65 PO
== END 2021-11-10 ==
PROVIDERS: ATTEND Neurological Surgery
DX: R53.1 Weakness (principal); Z98.1 Arthrodesis status

== ENCOUNTER → 2021-11-21 | Outpatient (CLI) | payer MEDICARE ==
--- NOTE | 2021-11-21 11:54 | Diagnostic Imaging Report ---
INDICATION: Left renal stones status post lithotripsy. Correlation is made with prior radiograph from 11/08/2021. Bowel gas pattern is nonobstructed. There are surgical clips right upper quadrant. Extensive spinal hardware is noted. There are some vague calcific densities identified in the right para midline abdomen at approximately level of L1, indeterminate. No other suspicious calcifications are seen. Pelvic calcifications consistent with phleboliths are noted. IMPRESSION: Right upper abdominal calcification, indeterminate. Study is otherwise unremarkable. Dictated by: Dictated on workstation # [id number]
== END ==
LOC: RAD 10:53
PROVIDERS: ATTEND Urology
DX: N20.0 Calculus of kidney (principal)
CPT/HCPCS: 74018

== ENCOUNTER 2021-11-24 10:31 | Outpatient (RCR) | payer MEDICARE | END 2021-12-11 | disposition home or self-care (01) | PROVIDERS: ATTEND Neurological Surgery | DX: Z98.1 Arthrodesis status (principal) ==

== ENCOUNTER 2022-01-05 11:33 | Outpatient (RCR) | payer MEDICARE | END 2022-01-05 12:41 | disposition home or self-care (01) | PROVIDERS: ATTEND Neurological Surgery | DX: Z98.1 Arthrodesis status (principal) ==